=== PATIENT | male | born 1950 | race African-American/Black ===

== ENCOUNTER → 2016-10-06 | Outpatient (CLI) | payer BC, MEDICARE ==
[~2016-10-06] MED LIST: ASPI81TA2 PO; CLOP75TA PO; FURO20TA3 PO; LISI2.5T PO; OLME1TAB29 PO; SIMV20TA3 PO
--- NOTE | 2016-10-06 11:44 | RAD ---
Indication: Smoking history and father with lung carcinoma. Axial imaging through the chest was performed without contrast. Comparison is made with prior CT chest from 09/27/2015. No axillary lymphadenopathy is detected. Multiple, nonpathologically enlarged lymph nodes in the mediastinum are again noted. Aorta shows atherosclerotic calcifications. There are coronary arterial calcifications present. No pericardial or pleural fluid is identified. Fairly significant centrilobular emphysematous changes throughout both lungs are noted. No parenchymal mass is detected. No infiltrates are seen. Minimal scarring in the lingula is noted. The upper abdomen again demonstrates a left adrenal nodule, stable. There is also a nonobstructing calculus in the left kidney, not entirely included on this exam. Impression: Overall stable noncontrast CT of the chest when compared with examination one year earlier. PQRS Compliance Statement: One or more of the following individualized dose reduction techniques were utilized for this examination: 1. Automated exposure control 2. Adjustment of the mA and/or kV according to patient size 3. Use of iterative reconstruction technique
== END | disposition home or self-care (01) ==
LOC: CT 10:42
PROVIDERS: ATTEND Internal Medicine Pulmonary Disease
DX: F17.200 Nicotine dependence, unspecified, uncomplicated (principal); Z80.1 Family history of malignant neoplasm of trachea, bronchus and lung
CPT/HCPCS: 71250

== ENCOUNTER → 2018-09-09 | Outpatient (CLI) | payer BC, MEDICARE ==
[2017-09-15 11:00] VITALS: BP 155/95
[~2018-09-09] MED LIST changes: +ACLI400A2 IH; +ASPI-630 PO; -ASPI81TA2 PO; +DORZ10DR7 OS; +DOXY100T PO; +EYE EACHEYE; +METH4TAB2 PO; +TIOT4MIS3 IH; +VENTOLIN HFA18 GM INH
--- NOTE | 2018-09-10 10:44 | RAD ---
CT chest without contrast. HISTORY: COPD CT CHEST: CT scan of the chest was done without contrast. Comparison is made with a study from August 2017. Thyroid is homogeneous. There is no mediastinal adenopathy or pleural effusion. Visualized portions of the liver and spleen are unremarkable. Right adrenal gland is normal. There is a left adrenal adenoma without change. Measuring 1.8 cm there is a renal calculus on the left without change. There are changes of chronic obstructive pulmonary disease in the lungs. Lungs are free of infiltrates. A pulmonary nodule is not identified. IMPRESSION: 1. Chronic obstructive pulmonary disease. 2. No new infiltrates or nodules. 3. Left adrenal adenoma without change. 4. Left renal calculus without change. 5. Fatty change in the liver. PQRS Compliance Statement: One or more of the following individualized dose reduction techniques were utilized for this examination: 1. Automated exposure control 2. Adjustment of the mA and/or kV according to patient size 3. Use of iterative reconstruction technique Electronically signed by: Edy Aguilera MD (09/10/2018 10:41 AM) [facility]
== END | disposition home or self-care (01) ==
LOC: CT 10:43
PROVIDERS: ATTEND Internal Medicine Pulmonary Disease
DX: J44.9 Chronic obstructive pulmonary disease, unspecified (principal); D35.02 Benign neoplasm of left adrenal gland; N20.0 Calculus of kidney; K76.0 Fatty (change of) liver, not elsewhere classified
CPT/HCPCS: 71250

== ENCOUNTER → 2020-05-21 | Outpatient (CLI) | payer BC ==
[2017-09-15 11:00] VITALS: BP 155/95
[~2020-05-21] MED LIST changes: -ACLI400A2 IH; +ACLI400A3 IH; +SIMV20TA18 PO; -SIMV20TA3 PO
--- NOTE | 2020-05-21 15:17 | RAD ---
PQRS Compliance Statement: One or more of the following individualized dose reduction techniques were utilized for this examinat ion: 1. Automated exposure control 2. Adjustment of the mA and/or kV according to patient size 3. Use of iterative reconstruction technique CT THORAX WO 05/21/2020 10:18 AM Indication: Dyspnea COMPARISON: None available. TECHNIQUE: Multiple axial CT images of the chest were obtained without intravenous contrast. Coronal and sagittal reformats are provided. FINDINGS: Moderate centrilobular pulmonary emphysema. No pleural effusions, pulmonary vascular congestion or pn eumothorax. No new or enlarging solid noncalcified pulmonary nodules. Thoracic aorta is normal in cou rse and caliber with moderate calcified atheromatous plaque. Heart size within normal limits. No miguel cardial effusion. Three-vessel coronary artery vascular opacifications are present. Thyroid gland is normal in appearance. Mild hepatic steatosis. Simple appearing right renal cyst measures 13 mm. Left adrenal adenoma measures 1.8 x 1.7 cm, stable. No suspicious osseous abnormality. IMPRESSION: 1. COPD changes without significant interval change. No new or enlarging solid noncalcified pulmonary nodules. 2. Stable left adrenal adenoma measuring 1.8 x 1.7 cm. 3. Hepatic steatosis. Electronically signed by: Yani Banda MD (05/21/2020 3:15 PM) [facility]
== END ==
LOC: CT 10:37
PROVIDERS: ATTEND Internal Medicine Pulmonary Disease
DX: J43.2 Centrilobular emphysema (principal); K76.0 Fatty (change of) liver, not elsewhere classified; R91.1 Solitary pulmonary nodule; N28.1 Cyst of kidney, acquired
CPT/HCPCS: 71250

== ENCOUNTER 2021-02-19 16:20 | Inpatient (IN) | payer BC ==
[~2021-02-19] VITALS: Ht 177.8 cm; Wt 92.1 kg
[~2021-02-19 16:20] MED LIST changes: -LISI2.5T PO; +LISI2.5T12 PO
--- NOTE | 2021-02-19 16:24 | PHYS DOC ---
Past Medical History Past Medical History: CAD, COPD, Glaucoma, Heart Disease, Hypertension Additional Past Medical Histor: BRAIN ANEURYSM X 2 Additional Past Surgical Histo: CARDIAC STENT X 5, BILAT ROTATOR CUFF SX, HEMORRHOIDECTOMY Smoking Status: Current Every Day Smoker Alcohol Use: None Drug Use: None General Adult HPI: HPI: 70 yo M PMH CAD, HFrEF (40-45% 2018), HTN, HLD, obesity and tobacco use, presents to the ed bibems with c/o shortness of breath that started last night with associated chest tightness. H/o moderna covid vaccine. States he takes prednisone daily. No relief with 2 DuoNeb's prior to EMS arrival. Patient arrived on CPAP. No known exposure to covid. Review of Systems: Review of Systems: Constitutional: Denies fever or chills. [] Eyes: Denies change in visual acuity. [] HENT: Denies nasal congestion or sore throat. [] Respiratory: Denies cough or hemoptysis Cardiovascular: Denies or edema. [] GI: Denies abdominal pain, nausea, vomiting, bloody stools or diarrhea. [] : Denies dysuria or hematuria Musculoskeletal: Denies back pain or joint pain. [] Integument: Denies rash or diaphoresis Neurologic: Denies headache, focal weakness or sensory changes. [] Endocrine: Denies polyuria or polydipsia. [] Lymphatic: Denies swollen glands. [] Psychiatric: Denies depression or anxiety. [] Heart Score: C/O Chest Pain: Yes Risk Factors: Risk Factors: DM, Current or recent (<one month) smoker, HTN, HLP, family history of CAD, obesity. Risk Scores: Score 0 - 3: 2.5% MACE over next 6 weeks - Discharge Home Score 4 - 6: 20.3% MACE over next 6 weeks - Admit for Clinical Observation Score 7 - 10: 72.7% MACE over next 6 weeks - Early Invasive Strategies Allergies: Allergies: Allergies Coded Allergies Type Severity Reaction Last Updated Verified prednisone Allergy Severe Shortness of Air 09/11/17 Yes Physical Exam: PE: Constitutional: Afebrile, uncomfortable appearing HENT: Normocephalic, atraumatic, moist mucous membranes Eyes: EOMI, conjunctiva normal, no discharge. Neck: Normal range of motion, supple, no nuchal rigidity meningismus Cardiovascular: S1/2 present, irregular rhythm Lungs & Thorax: Speaking in 1-2 word sentences with tripod positioning when CPAP was removed, very tight lung sounds/poor aeration with expiratory wheezing, sternal and subcostal retractions Abdomen: soft, no tenderness, Skin: Warm, dry, no erythema, no rash. [] Back: No tenderness, no CVA tenderness. [] Extremities: No tenderness, no cyanosis, bilateral equal lower extremity edema Neurologic: Alert and oriented X 3, normal motor function, normal sensory function, no focal deficits noted. [] Psychologic: Affect normal, judgement normal, mood normal. [] EKG: EKG: A. fib at 149 bpm, no axis deviation, QTC 467, no ST elevations or ST depressions Radiology/Procedures: Radiology/Procedures: IMAGING REPORT Signed PATIENT: ADAM FERRER QACCOUNT: [id number] : 1950 LOCATION: ER AGE: 70 SEX: M EXAM STATUS: PRE ER ORD. PHYSICIAN: STEPH OCHOA DO REASON: soa PROCEDURE: PORTABLE CHEST 1V XR CHEST 1V CLINICAL INDICATIONS: Shortness of air: COMPARISON: September 14, 2017. Findings: There is head right lung base consolidative infiltrate with a right sided small pleural effusion. No pneumothorax is seen. Cardiomegaly is evident. Mediastinum is remarkable. IMPRESSION: Right lung base consolidative infiltrate with a small right-sided pleural effusion. Cardiomegaly. Electronically signed by: Thang Rowe MD (02/19/2021 4:57 PM) [id number] DICTATED and SIGNED BY: THANG ROWE MD DATE: 02/19/21 [id number] Course & Med Decision Making: Course & Med Decision Making Pertinent Labs and Imaging studies reviewed. (See chart for details) Concern for acute hypoxic respiratory failure in the setting of COPD exacerbation, community-acquired pneumonia and small right pleural effusion. Covid test is pending. Meets sirs criteria and started on abx. HR 101 after 15mg cardizem. Will need repeat troponin.On re-evaluation, pt with no further retractions or tachypnea, is breathing comfortably on the BiPAP. Will admit for further medical management. Patient stable time of admission agrees to this plan. I have spoken with the patient and/or caregivers. I have explained the patient's condition, diagnosis and treatment plan based on the information available to me at this time. I have answered the patient's and/or caregivers questions and answered any concerns. The patient and/or caregivers have as good an understanding of the patient's diagnosis, condition and treatment plan as can be expected at this point. The patient has been stabilized within the capability of the emergency department. The patient will be transported for further care and management or will be moved to an observation or inpatient service. I have communicated with the staff or medical practitioner taking over this patient's care. Critical Care: Authorized and Performed by: Steph Ochoa DO Total critical care time: approximately 40 minutes Due to a high probability of clinically significant, life threatening deterioration, the patient required my highest level of preparedness to intervene emergently and I personally spent this critical care time directly and personally managing the patient. This critical care time included obtaining a history; examining the patient; pulse oximetry; ventilator management if neces maricel; ordering and review of studies; arranging urgent treatment with development of a management plan; evaluation of patient's response to treatment; frequent reassessment; discussion with patient/family; and, discussions with other providers. This critical care time was performed to assess and manage the high probability of imminent, life-threatening deterioration that could result in multi-organ failure. It was exclusive of separately billable procedures and treating other patients and teaching time. Please see MDM section and the rest of the note for further information on patient assessment and treatment. Jackie Disclaimer: Jackie Disclaimer: This electronic medical record was generated, in whole or in part, using a voice recognition dictation system. Departure Departure Impression: Primary Impression: Sepsis with acute hypoxic respiratory failure Additional Impressions: Community acquired pneumonia Person under investigation for COVID-19 Atrial fibrillation with rapid ventricular response COPD with exacerbation Disposition: ADMITTED INPATIENT Admitting Physician: RIANNA (Dr. Landeros) Condition: GUARDED Referrals: MELY BERUMEN MD (PCP) STEPH OCHOA DO Feb 19, 2021 16:24
[2021-02-19] MEDS ORDERED: cefTRIAXone IV Push 1 GM VIAL. IVP ONE (16:45)
[2021-02-19] MEDS ORDERED: DEXAMETHASONE SOD PHOS 20 MG/5 ML VIAL. IV ONE (16:45)
[2021-02-19] MEDS ORDERED: IPRATRPIUM/ALBUTEROL 0.5/2.5MG 3 ML NEBU. NEB ONE (16:45)
[2021-02-19] MEDS ORDERED: AZITHRMYCN 500MG IVPB FOR OMNI 250 ML IV ONE (16:45)
--- NOTE | 2021-02-19 16:48 | EKG ---
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
[2021-02-19 16:58] LABS: BASO # 0.1 x10^3/uL (0.0-0.2); BASO % 1 % (0-3); EOS % 0 % (0-3); HEMATOCRIT 46.2 % (39.0-53.0); HEMOGLOBIN 14.5 g/dL (13.0-17.5); LYMPH # 1.5 x10^3/uL (1.0-4.8); LYMPH % 13 % (24-48); MEAN CORPUSCULAR HEMOGLOBIN 24 pg (25-35); MEAN CORPUSCULAR HGB CONC 31 g/dL (31-37); MEAN CORPUSCULAR VOLUME 76 fL (79-100); MONO # 1.8 x10^3/uL (0.0-1.1); MONO % 16 % (0-9); NEUT % 71 % (31-73); PLATELET COUNT 315 x10^3/uL (140-400); RED BLOOD COUNT 6.12 x10^6/uL (4.30-5.70); RED CELL DISTRIBUTION WIDTH 18.7 % (11.5-14.5); WHITE BLOOD COUNT 11.3 x10^3/uL (4.0-11.0)
--- NOTE | 2021-02-19 16:59 | RAD ---
XR CHEST 1V CLINICAL INDICATIONS: Shortness of air: COMPARISON: September 14, 2017. Findings: There is head right lung base consolidative infiltrate with a right sided small pleural eff usion. No pneumothorax is seen. Cardiomegaly is evident. Mediastinum is remarkable. IMPRESSION: Right lung base consolidative infiltrate with a small right-sided pleural effusion. Cardiomegaly. Electronically signed by: Thang Rowe MD (02/19/2021 4:57 PM) [id number]
[2021-02-19 17:13] LABS: PROTHROMBIN TIME PATIENT 14.3 SEC (11.7-14.0)
[2021-02-19 17:19] LABS: CALCIUM 8.9 mg/dL (8.5-10.1); CREATININE 1.3 mg/dL (0.7-1.3); GFR 65.7
[2021-02-19 17:21] LABS: BASE EXCESS COOX 2 mmol/L (-3-3); HCO3 COOX 27 mmol/L (21-28); METHEMOGLOBIN 0.5 % (0.0-1.9); OXYHEMOGLOBIN 98.4 %; PCO2 COOX 44 mmHg (35-46); PO2 COOX 283 mmHg (65-108); SAT O2 COOX 99 % (92-99)
[2021-02-19 17:27] LABS: ALBUMIN 3.3 g/dL (3.4-5.0); DIRECT BILIRUBIN 0.3 mg/dL (0.0-0.2); TOTAL BILIRUBIN 0.8 mg/dL (0.2-1.0); TOTAL PROTEIN 7.2 g/dL (6.4-8.2)
[2021-02-19] MEDS ORDERED: MORPHINE SULFATE 2 MG/ML INJ. IV PRN ×2 (17:45)
[2021-02-19] MEDS ORDERED: ONDANSETRON PF 4 MG/2 ML VIAL. IVP PRN (17:45)
[2021-02-19] MEDS ORDERED: ELECTROLYTE (NON-ICU) PROTOCOL. MC PRN (17:45)
[2021-02-19] MEDS ORDERED: oxyCODONE IR 5 MG TABLET PO PRN ×2 (17:45)
[2021-02-19] MEDS ORDERED: ACETAMINOPHEN 325 MG TABLET. PO PRN (17:45)
--- NOTE | 2021-02-19 17:46 | PDOC1 ---
History and Physical Date of Service: DOS: DATE: 02/19/21 TIME: 17:45 Chief Complaint: Problems: (1) COPD with exacerbation (2) Atrial fibrillation with rapid ventricular response (3) Person under investigation for COVID-19 (4) Sepsis with acute hypoxic respiratory failure (5) Community acquired pneumonia Chief Complain: Shortness of breath History of Present Illness: HPI: History somewhat limited secondary to patient on BiPAP with respiratory distress Patient 70-year-old -[place] male presented emergency room today due to progressive shortness of breath from yesterday with some chest tightness. Patient has pretty severe COPD, follows with Dr. Samuels. Patient also has heart failure reduced ejection fraction with 40-45% 2018. He is also notably fluid overloaded on exam. Not on any home diuretics. No known Covid exposures. Has both Moderna shots. Patient received 2 DuoNeb's and transit with EMS. They did have to place him on CPAP as there is very minimal improvement with breathing treatments. When I evaluated the patient in the emergency room he was resting in bed on BiPAP. He is denying any sort of headache, vision changes, dizziness, abdominal pain, joint pain. He did have an episode of A. fib with RVR in the emergency room resolved with one-time diltiazem bolus. Past Medical/Surgical History: PMH/PSH: CAD, COPD, Glaucoma, Heart Disease, Hypertension Allergies: Allergies: Coded Allergies: prednisone (Verified Allergy, Severe, Shortness of Air, 09/11/17) Family History: Family History: Noncontributory Social History: Social History: Ex-smoker, denies alcohol drug use Current Medications: Current Medications Current Medications Dexamethasone Sodium Phosphate (Decadron) 10 mg 1X ONCE IV Last administered on 02/19/21at 17:26; Start 02/19/21 at 16:45; Stop 02/19/21 at 16:46; Status DC Albuterol/ Ipratropium (Duoneb) 3 ml 1X ONCE NEB ; Start 02/19/21 at 16:45; Stop 02/19/21 at 16:46; Status DC Azithromycin 250 ml @ 250 mls/hr 1X ONCE IV Last administered on 02/19/21at 17:30; Start 02/19/21 at 16:45; Stop 02/19/21 at 17:44; Status DC Ceftriaxone Sodium (Rocephin) 1 gm 1X ONCE IVP Last administered on 02/19/21at 17:26; Start 02/19/21 at 16:45; Stop 02/19/21 at 16:46; Status DC Diltiazem HCl (Cardizem Iv Push) 15 mg 1X ONCE IVP Last administered on 02/19/21at 17:29; Start 02/19/21 at 17:00; Stop 02/19/21 at 17:01; Status DC Ondansetron HCl (Zofran) 4 mg PRN Q6HRS PRN IVP NAUSEA/VOMITING; Start 02/19/21 at 17:45; Status UNV Calcium Carbonate/ Glycine (Tums) 500 mg PRN Q3HRS PRN PO UPSET STOMACH; Start 02/19/21 at 17:45; Status UNV Zolpidem Tartrate (Ambien) 5 mg PRN QHS PRN PO INSOMNIA, MAY REPEAT IN 1HR; Start 02/19/21 at 17:45; Status UNV Info (Non-Icu Electrolyte Protocol) 1 ea PRN DAILY PRN MC SEE COMMENTS; Start 02/19/21 at 17:45; Status UNV Active Scripts Active Stiolto Respimat Inhal Wall (Tiotropium Br/Olodaterol HCl) 4 Gm Mist.inhal 4 Gm IH DAILY Doxycycline Hyclate 100 Mg Tablet 100 Mg PO BID Medrol (Methylprednisolone) 4 Mg Tab.ds.pk 1 Pkg PO UD Reported Dorzolamide-Timolol Eye Drops (Dorzolamide Hcl/Timolol Maleat) 10 Ml Drops 1 Drop OS QHS Ventolin Hfa Inhaler (Albuterol Sulfate) 18 Gm Hfa.aer.ad 2 Puff INH Q4HRS Tudorza Pressair (Aclidinium [place]) 400 Mcg Aer.pow.ba 400 Mcg IH BID Tribenzor 40-5-12.5 Mg Tablet (Olmesartan/Amlodipin/Hcthiazid) 1 Each Tablet 1 Each PO DAILY ROS: Review of Systems Review of System Negative unless noted in HPI Physical Exam: Vital Signs: Vital Signs Date Time Temp Pulse Resp B/P (MAP) Pulse Ox O2 Delivery O2 Flow Rate FiO2 02/19/21 17:29 141 131/70 02/19/21 16:31 99 BiPAP/CPAP 02/19/21 16:20 98.4 27 98.4 Physcial Exam: GEN: On BiPAP, can answer yes/no questions HEENT: Normal cephalic, atraumatic, external auditory canals are patent EYES: Extraocular muscles are intact MUSCULOSKELETAL: Well developed , well nourished ENDOCRINE: No thyromegaly was palpated LYMPHATICS: No cervical chain or axillary nodes were noted HEMATOPOIETIC: No bruising NECK: Supple, no JVD, no thyromegaly was noted LUNGS: Very coarse breath sounds throughout but difficult to hear with BiPAP on HEART: Tachycardic, no apparent murmur, peripheral pulses intact ABDOMEN: Soft, nontender. Positive bowel sounds, no organomegaly, normal bowel sounds EXTREMITIES: Bilateral lower extremity pitting edema NEUROLOGIC: Normal speech and tone. A&O x 3, moves all extremities, no obvious focal deficits PSYCHIATRIC: Normal affect, normal mood. Stable SKIN: No ulcerations or rashes, good skin turgor, no jaundice VASCULAR: Good capillary refill, neurovascular bundle appears to be intact Labs: Labs: Laboratory Tests Test 02/19/21 16:35 02/19/21 17:15 White Blood Count 11.3 x10^3/uL (4.0-11.0) Red Blood Count 6.12 x10^6/uL (4.30-5.70) Hemoglobin 14.5 g/dL (13.0-17.5) Hematocrit 46.2 % (39.0-53.0) Mean Corpuscular Volume 76 fL (79-100) Mean Corpuscular Hemoglobin 24 pg (25-35) Mean Corpuscular Hemoglobin Concent 31 g/dL (31-37) Red Cell Distribution Width 18.7 % (11.5-14.5) Platelet Count 315 x10^3/uL (140-400) Neutrophils (%) (Auto) 71 % (31-73) Lymphocytes (%) (Auto) 13 % (24-48) Monocytes (%) (Auto) 16 % (0-9) Eosinophils (%) (Auto) 0 % (0-3) Basophils (%) (Auto) 1 % (0-3) Neutrophils # (Auto) 8.0 x10^3/uL (1.8-7.7) Lymphocytes # (Auto) 1.5 x10^3/uL (1.0-4.8) Monocytes # (Auto) 1.8 x10^3/uL (0.0-1.1) Eosinophils # (Auto) 0.0 x10^3/uL (0.0-0.7) Basophils # (Auto) 0.1 x10^3/uL (0.0-0.2) Prothrombin Time 14.3 SEC (11.7-14.0) Prothromb Time International Ratio 1.1 (0.8-1.1) Activated Partial Thromboplast Time 32 SEC (24-38) D-Dimer (Ghada) 1.67 ug/mlFEU (0.00-0.50) Sodium Level 142 mmol/L (136-145) Potassium Level 4.0 mmol/L (3.5-5.1) Chloride Level 104 mmol/L (98-107) Carbon Dioxide Level 28 mmol/L (21-32) Anion Gap 10 (6-14) Blood Urea Nitrogen 19 mg/dL (8-26) Creatinine 1.3 mg/dL (0.7-1.3) Estimated GFR (Cockcroft-Gault) 65.7 Glucose Level 184 mg/dL (70-99) Lactic Acid Level 3.0 mmol/L (0.4-2.0) Calcium Level 8.9 mg/dL (8.5-10.1) Total Bilirubin 0.8 mg/dL (0.2-1.0) Direct Bilirubin 0.3 mg/dL (0.0-0.2) Aspartate Amino Transf (AST/SGOT) 32 U/L (15-37) Alanine Aminotransferase (ALT/SGPT) 41 U/L (16-63) Alkaline Phosphatase 145 U/L (46-116) Creatine Kinase 197 U/L (39-308) Troponin I Quantitative 0.043 ng/mL (0.000-0.055) FJ-Ytg-P-Type Natriuretic Peptide 2960 pg/mL (0-124) Total Protein 7.2 g/dL (6.4-8.2) Albumin 3.3 g/dL (3.4-5.0) O2 Saturation 99 % (92-99) Arterial Blood pH 7.40 (7.35-7.45) Arterial Blood pCO2 at Patient Temp 44 mmHg (35-46) Arterial Blood pO2 at Patient Temp 283 mmHg (65-108) Arterial Blood HCO3 27 mmol/L (21-28) Arterial Blood Base Excess 2 mmol/L (-3-3) Oxyhemoglobin 98.4 % Methemoglobin 0.5 % (0.0-1.9) Carbon Monoxide, Quantitative 0.4 % (0.0-1.9) FiO2 100 Laboratory Tests Test 02/19/21 16:35 02/19/21 17:15 White Blood Count 11.3 x10^3/uL (4.0-11.0) Red Blood Count 6.12 x10^6/uL (4.30-5.70) Hemoglobin 14.5 g/dL (13.0-17.5) Hematocrit 46.2 % (39.0-53.0) Mean Corpuscular Volume 76 fL (79-100) Mean Corpuscular Hemoglobin 24 pg (25-35) Mean Corpuscular Hemoglobin Concent 31 g/dL (31-37) Red Cell Distribution Width 18.7 % (11.5-14.5) Platelet Count 315 x10^3/uL (140-400) Neutrophils (%) (Auto) 71 % (31-73) Lymphocytes (%) (Auto) 13 % (24-48) Monocytes (%) (Auto) 16 % (0-9) Eosinophils (%) (Auto) 0 % (0-3) Basophils (%) (Auto) 1 % (0-3) Neutrophils # (Auto) 8.0 x10^3/uL (1.8-7.7) Lymphocytes # (Auto) 1.5 x10^3/uL (1.0-4.8) Monocytes # (Auto) 1.8 x10^3/uL (0.0-1.1) Eosinophils # (Auto) 0.0 x10^3/uL (0.0-0.7) Basophils # (Auto) 0.1 x10^3/uL (0.0-0.2) Prothrombin Time 14.3 SEC (11.7-14.0) Prothromb Time International Ratio 1.1 (0.8-1.1) Activated Partial Thromboplast Time 32 SEC (24-38) D-Dimer (Ghada) 1.67 ug/mlFEU (0.00-0.50) Sodium Level 142 mmol/L (136-145) Potassium Level 4.0 mmol/L (3.5-5.1) Chloride Level 104 mmol/L (98-107) Carbon Dioxide Level 28 mmol/L (21-32) Anion Gap 10 (6-14) Blood Urea Nitrogen 19 mg/dL (8-26) Creatinine 1.3 mg/dL (0.7-1.3) Estimated GFR (Cockcroft-Gault) 65.7 Glucose Level 184 mg/dL (70-99) Lactic Acid Level 3.0 mmol/L (0.4-2.0) Calcium Level 8.9 mg/dL (8.5-10.1) Total Bilirubin 0.8 mg/dL (0.2-1.0) Direct Bilirubin 0.3 mg/dL (0.0-0.2) Aspartate Amino Transf (AST/SGOT) 32 U/L (15-37) Alanine Aminotransferase (ALT/SGPT) 41 U/L (16-63) Alkaline Phosphatase 145 U/L (46-116) Creatine Kinase 197 U/L (39-308) Troponin I Quantitative 0.043 ng/mL (0.000-0.055) WY-Qgu-O-Type Natriuretic Peptide 2960 pg/mL (0-124) Total Protein 7.2 g/dL (6.4-8.2) Albumin 3.3 g/dL (3.4-5.0) O2 Saturation 99 % (92-99) Arterial Blood pH 7.40 (7.35-7.45) Arterial Blood pCO2 at Patient Temp 44 mmHg (35-46) Arterial Blood pO2 at Patient Temp 283 mmHg (65-108) Arterial Blood HCO3 27 mmol/L (21-28) Arterial Blood Base Excess 2 mmol/L (-3-3) Oxyhemoglobin 98.4 % Methemoglobin 0.5 % (0.0-1.9) Carbon Monoxide, Quantitative 0.4 % (0.0-1.9) FiO2 100 Assessment/Plan Assessment/Plan Acute on chronic hypoxic respiratory failure secondary to community acquired pneumonia, patient under investigation for COVID-19, COPD exacerbation, possible pulmonary embolism, sepsis -Patient with worsening shortness of breath over the last 24 hours -Not improved with breathing treatments. Required to be placed on CPAP in emergency room, still requiring -Chest x-ray shows right-sided consolidation, received azithromycin and Rocephin in emergency room. -We will continue azithromycin. Start Unasyn. -Pulmonary consulted, patient follows with Dr. Samuels -Given his shortness of breath of a somewhat sudden onset and elevated D-dimer will check CT PE. -Patient notably fluid overloaded on exam, small right-sided pleural effusion history of reduced ejection fraction -Giving one-time IV Lasix 40. Cardiology consult as well. Echo ordered -Home medications as indicated, inhalers will have to be replaced with formulary alternatives -DVT prophylaxis Justifications for Admission Other Justification MAT MELCHOR MD Feb 19, 2021 17:46
[2021-02-19] MEDS ORDERED: FUROSEMIDE 40 MG/4 ML VIAL. IVP ONE (18:00)
[2021-02-19 18:06] LABS: INFLUENZA A PATIENT NEGATIVE (NEGATIVE); INFLUENZA B PATIENT NEGATIVE (NEGATIVE)
[2021-02-19] MEDS: IPRATRPIUM/ALBUTEROL 0.5/2.5MG 3 ML NEBU. NEB SCH (20:00)
[2021-02-19] MEDS: ALBUTEROL SULFATE 2.5 MG/3 ML NEBU. NEB SCH (20:00)
[2021-02-19 20:10] VITALS: BP 129/63
[2021-02-19] MEDS ORDERED: NON FORMULARY ITEM (Aclidinium Bromide (Tudorza Pressair) 400 MCG) IH SCH (21:00)
[2021-02-19] MEDS: SENNOSIDES/DOCUSATE 8.6/50MG TABLET. PO SCH (21:20)
[2021-02-19] MEDS: HEPARIN for SUB-Q USE 5,000 UNIT/ML VIAL. SQ SCH (21:25)
[2021-02-19] MEDS: methylPREDNISolone SOD SUCC PF 40 MG/ML VIAL. IV SCH (21:25)
[2021-02-19] MEDS: DORZOLAMIDE 2% OPHTH SOLUTION 10ML BOTTLE. OD SCH (21:27)
[2021-02-19] MEDS: TIMOLOL 0.5% OPHTH SOLUTION 5ML BOTTLE. OS SCH (21:27)
[2021-02-19 22:38] VITALS: BP 132/68
[2021-02-19] MEDS ORDERED: INFLUENZA VAX SCREEN BY RX. MC ONE (23:00)
[2021-02-19] MEDS ORDERED: INFLUENZA VAX SCREEN BY RX. MC PRN (23:15)
[2021-02-19] MEDS: AMPICILLIN/SULBACTAM 3 GM in IV NORMAL SALINE 100ML 100 ML IV SCH (23:46)
[2021-02-20] VITALS (7 sets, daily range): BP systolic 120–154; BP diastolic 59–90
[2021-02-20] MEDS: ALBUTEROL SULFATE 2.5 MG/3 ML NEBU. NEB SCH ×3 (04:00→07:01)
[2021-02-20] MEDS: methylPREDNISolone SOD SUCC PF 40 MG/ML VIAL. IV SCH ×3 (05:59→21:17)
[2021-02-20] MEDS: AMPICILLIN/SULBACTAM 3 GM in IV NORMAL SALINE 100ML 100 ML IV SCH ×3 (05:59→17:52)
[2021-02-20] MEDS: HEPARIN for SUB-Q USE 5,000 UNIT/ML VIAL. SQ SCH (05:59)
[2021-02-20] MEDS: IPRATRPIUM/ALBUTEROL 0.5/2.5MG 3 ML NEBU. NEB SCH ×4 (06:44→19:56)
--- NOTE | 2021-02-20 06:47 | NUR ---
Patient arrived to unit at approx 2000 accompanied by ED RN. Patient reports no pain at this time. States that he wears oxygen PRN at home but does not know the amount. patient has had 2 doses of the Pfizer vaccine. Patient states she does not know the patients home meds and patient does not have a list of the medication, uses [facility]. Will continue to monitor. call light in reach, bed in low locked position, will continue to monitor.
[2021-02-20] MEDS ORDERED: IOHEXOL 350 MG/ML 100 ML VIAL. IV ONE (07:30)
[2021-02-20] MEDS ORDERED: NON FORMULARY ITEM (Tiotropium Br/Olodaterol HCl (Stiolto Respimat Inhal Spray) 4 GM) IH SCH (09:00)
[2021-02-20] MEDS ORDERED: hydroCHLOROthiazide 12.5 MG CAPSULE PO SCH (09:00)
[2021-02-20] MEDS ORDERED: LOSARTAN POTASSIUM 50 MG TABLET. PO SCH (09:00)
[2021-02-20] MEDS ORDERED: FURO40TA4 PO (09:10)
[2021-02-20] MEDS ORDERED: METF500T16 PO (09:10)
[2021-02-20] MEDS ORDERED: BUDE10.2 IH (09:10)
[2021-02-20] MEDS ORDERED: AMLO-187 PO (09:10)
[2021-02-20] MEDS ORDERED: OLME40TA12 PO (09:10)
[2021-02-20] MEDS ORDERED: ATOR40TA59 PO (09:10)
[2021-02-20] MEDS ORDERED: GLIP5TAB10 PO (09:10)
[2021-02-20] MEDS: METOPROLOL IV PUSH 5 MG/5 ML VIAL. IVP PRN ×2 (09:47→21:19)
--- NOTE | 2021-02-20 11:03 | PDOC2 ---
ALFREDITO GUTIERRES FINAL RAIL CUTTER 02/20/21 1103: CARDIAC CONSULT DATE OF CONSULT Date of Consult DATE: 02/20/21 TIME: 10:54 REASON FOR CONSULT Reason for Consult: CHF REFERRING PHYSICIAN Referring Physician: Dr. Landeros SOURCE Source: Chart review, Patient HISTORY OF PRESENT ILLNESS HISTORY OF PRESENT ILLNESS This is a 70 yo male who presented secondary to shortness of breath and chest tightness. Patient reports experiencing shortness of breath and lower extremity edema for the last 2 weeks. Dyspnea has progressively worsened. Has cough productive of yellow sputum. No fevers. Developed tightness across his central c hest. Feels like there is fluid in his chest. Denies any palpitations, but was noted in AFIB with RVR upon arrival. No previous h/o AFIB. Is presently on BiPAP. Remains in AFIB with mildly elevated heart rate. Does have a history of CMP and CAD s/p PCI/stents. Has not followed with pickle sorter in recent years. PAST MEDICAL HISTORY Cardiovascular: CAD, CHF, HTN Pulmonary: COPD PAST SURGICAL HISTORY Past Surgical History: Other (right shoulder surgery) FAMILY HISTORY Family History: Heart Disease, Hypertension SOCIAL HISTORY Smoke: <1 pack per day ALCOHOL: none Drugs: None Lives: with Family CURRENT MEDICATIONS CURRENT MEDICATIONS Current Medications Medications (Trade) Dose Ordered Sig/Rajinder Route PRN Reason Start Time Stop Time Status Last Admin Dose Admin Dexamethasone Sodium Phosphate (Decadron) 10 mg 1X ONCE IV 02/19/21 16:45 02/19/21 16:46 DC 02/19/21 17:26 Azithromycin 250 ml @ 250 mls/hr 1X ONCE IV 02/19/21 16:45 02/19/21 17:44 DC 02/19/21 17:30 Ceftriaxone Sodium (Rocephin) 1 gm 1X ONCE IVP 02/19/21 16:45 02/19/21 16:46 DC 02/19/21 17:26 Diltiazem HCl (Cardizem Iv Push) 15 mg 1X ONCE IVP 02/19/21 17:00 02/19/21 17:01 DC 02/19/21 17:29 Senna/Docusate Sodium (Senna Plus) 1 tab BID PO 02/19/21 21:00 02/19/21 21:20 Heparin Sodium (Porcine) (Heparin Sodium) 5,000 unit Q8HRS SQ 02/19/21 22:00 02/20/21 05:59 Dorzolamide HCl (Trusopt) 1 drop QHS OD 02/19/21 21:00 02/19/21 21:27 Ampicillin Sodium/ Sulbactam Sodium 3 gm/Sodium Chloride 100 ml @ 200 mls/hr Q6HRS IV 02/20/21 00:00 02/20/21 05:59 Furosemide (Lasix) 40 mg 1X ONCE IVP 02/19/21 18:00 02/19/21 18:25 DC 02/19/21 18:52 Timolol Maleate (Timoptic 0.5% Oph) 1 drop QHS OS 02/19/21 21:00 02/19/21 21:27 Methylprednisolone Sodium Succinate (SOLU-Medrol 40MG VIAL) 40 mg Q8HRS IV 02/19/21 22:00 02/20/21 05:59 Metoprolol Tartrate (Lopressor Vial) 5 mg PRN Q1HR PRN IVP HYPERTENSION 02/20/21 00:00 02/20/21 09:47 ALLERGIES ALLERGIES: Coded Allergies: prednisone (Verified Allergy, Severe, Shortness of Air, 02/19/21) pt says he is allergic to prednisone because it killed his . ROS Review of System 14 point ROS conducted with pertinent positives noted above in HPI PHYSICAL EXAM General: Alert, Oriented X3, Cooperative, No acute distress HEENT: Atraumatic Lungs: Other (on BiPAP) Heart: Other (IRRR; tele AFIB rate 110-120) Abdomen: Soft, No tenderness Extremities: Other (1-2+ bilateral LE edema ) Skin: No significant lesion Neuro: Normal speech, Sensation intact Psych/Mental Status: Mental status NL, Mood NL MUSCULOSKELETAL: Osteoarthritic changes both hands VITALS/I&O VITALS/I&O: Vital Signs Date Time Temp Pulse Resp B/P (MAP) Pulse Ox O2 Delivery O2 Flow Rate FiO2 02/20/21 10:46 96.1 120 21 149/86 (107) 99 BiPAP/CPAP 96.1 I & O 02/19/21 02/19/21 02/20/21 15:00 23:00 07:00 Intake Total 350 ml Output Total 150 ml Balance 350 ml -150 ml LABS Lab: Laboratory Tests Test 02/19/21 16:35 02/19/21 17:15 02/19/21 17:35 02/19/21 20:25 White Blood Count 11.3 x10^3/uL (4.0-11.0) H Red Blood Count 6.12 x10^6/uL (4.30-5.70) H Hemoglobin 14.5 g/dL (13.0-17.5) Hematocrit 46.2 % (39.0-53.0) Mean Corpuscular Volume 76 fL (79-100) L Mean Corpuscular Hemoglobin 24 pg (25-35) L Mean Corpuscular Hemoglobin Concent 31 g/dL (31-37) Red Cell Distribution Width 18.7 % (11.5-14.5) H Platelet Count 315 x10^3/uL (140-400) Neutrophils (%) (Auto) 71 % (31-73) Lymphocytes (%) (Auto) 13 % (24-48) L Monocytes (%) (Auto) 16 % (0-9) H Eosinophils (%) (Auto) 0 % (0-3) Basophils (%) (Auto) 1 % (0-3) Neutrophils # (Auto) 8.0 x10^3/uL (1.8-7.7) H Lymphocytes # (Auto) 1.5 x10^3/uL (1.0-4.8) Monocytes # (Auto) 1.8 x10^3/uL (0.0-1.1) H Eosinophils # (Auto) 0.0 x10^3/uL (0.0-0.7) Basophils # (Auto) 0.1 x10^3/uL (0.0-0.2) Prothrombin Time 14.3 SEC (11.7-14.0) H Prothrombin Time INR 1.1 (0.8-1.1) Activated Partial Thromboplast Time 32 SEC (24-38) D-Dimer (Ghada) 1.67 ug/mlFEU (0.00-0.50) H Sodium Level 142 mmol/L (136-145) Potassium Level 4.0 mmol/L (3.5-5.1) Chloride Level 104 mmol/L (98-107) Carbon Dioxide Level 28 mmol/L (21-32) Anion Gap 10 (6-14) Blood Urea Nitrogen 19 mg/dL (8-26) Creatinine 1.3 mg/dL (0.7-1.3) Estimated GFR (Cockcroft-Gault) 65.7 Glucose Level 184 mg/dL (70-99) H Lactic Acid Level 3.0 mmol/L (0.4-2.0) H 2.7 mmol/L (0.4-2.0) H Calcium Level 8.9 mg/dL (8.5-10.1) Total Bilirubin 0.8 mg/dL (0.2-1.0) Direct Bilirubin 0.3 mg/dL (0.0-0.2) H Aspartate Amino Transferase (AST) 32 U/L (15-37) Alanine Aminotransferase (ALT) 41 U/L (16-63) Alkaline Phosphatase 145 U/L (46-116) H Creatine Kinase 197 U/L (39-308) Troponin I Quantitative 0.043 ng/mL (0.000-0.055) AU-Bjt-R-Type Natriuretic Peptide 2960 pg/mL (0-124) H Total Protein 7.2 g/dL (6.4-8.2) Albumin 3.3 g/dL (3.4-5.0) L O2 Saturation 99 % (92-99) Arterial Blood pH 7.40 (7.35-7.45) Arterial Blood pCO2 at Patient Temp 44 mmHg (35-46) Arterial Blood pO2 at Patient Temp 283 mmHg (65-108) H Arterial Blood HCO3 27 mmol/L (21-28) Arterial Blood Base Excess 2 mmol/L (-3-3) Oxyhemoglobin 98.4 % Methemoglobin 0.5 % (0.0-1.9) Carbon Monoxide, Quantitative 0.4 % (0.0-1.9) FiO2 100 Influenza Type A Antigen Negative (NEGATIVE) Influenza Type B Antigen Negative (NEGATIVE) SARS-CoV-2 Antigen (Rapid) Negative (NEGATIVE) Test 02/20/21 02:00 02/20/21 07:05 Lactic Acid Level 2.3 mmol/L (0.4-2.0) H 2.2 mmol/L (0.4-2.0) H Laboratory Tests 02/19/21 16:35 Laboratory Tests 02/19/21 16:35 ASSESSMENT/PLAN ASSESSMENT/PLAN 1. Acute respiratory failure, multifactorial with a/c CHF, AE COPD with continued tobaccoism, and probable PNA 2. Acute on chronic systolic CHF; s/p IV Lasix 3. AFIB with RVR; new onset; remains in AFIB with elevated HR 4. CAD: past PCI to LCx and RCA. 5. Chest pressure; atypical. Initial trop 0.04 6. Cardiomyopathy: Echo 2017 showed mild LV dysfunction with an EF 40-45% 7. Valvular insufficiency: mild TR/mild to mod MR 8. Hypertension 9. Hyperlipidmeia 10. Leukocytosis, lactic acidosis. 11. PUI; rapid negative. s/p Moderna COVID vaccine Recommendations Metoprolol IV x1 now Start oral metoprolol for rate control Repeat labs Diuresis TSH, lipids, trend troponin Secondary prevention [id number] 4 correlating with a 4.8% risk of stroke per year. Would recommend OAC for stroke prevention. Will give treatment dose of Lovenox now. Echo if PCR negative Supportive care Probably outpatient ischemic evaluation Further pending above LES GONCALVES MD 02/21/21 1704: CARDIAC CONSULT ASSESSMENT/PLAN ASSESSMENT/PLAN Late entry for 02/20/21 The patient was seen and interviewed as well as examined at the bedside. The chart was reviewed. The case was discussed. Agree with the plan of care. ALFREDITO GUTIERRES APRN Feb 20, 2021 11:03 LES GONCALVES MD Feb 21, 2021 17:04
[2021-02-20] MEDS ORDERED: metFORMIN 500 MG TABLET PO SCH (12:00)
[2021-02-20] MEDS ORDERED: glipiZIDE 5 MG TABLET PO SCH (12:00)
[2021-02-20] MEDS: LOSARTAN POTASSIUM 50 MG TABLET. PO SCH (12:11)
[2021-02-20] MEDS: ATORVASTATIN CALCIUM 40 MG TABLET. PO SCH (12:11)
[2021-02-20] MEDS: SENNOSIDES/DOCUSATE 8.6/50MG TABLET. PO SCH ×2 (12:11→21:00)
--- NOTE | 2021-02-20 12:11 | PDOC ---
PULMONARY PROGRESS NOTES DATE: 02/20/21 TIME: 12:11 Vitals Vital Signs Date Time Temp Pulse Resp B/P (MAP) Pulse Ox O2 Delivery O2 Flow Rate FiO2 02/20/21 11:33 97 BiPAP/CPAP 02/20/21 10:46 96.1 120 21 149/86 (107) 96.1 General: Alert, No acute distress Lungs: Clear Cardiovascular: S1, S2 Abdomen: Soft, Other Extremities: No Edema Labs Laboratory Tests Test 02/19/21 16:35 02/19/21 17:15 02/19/21 17:35 02/19/21 20:25 White Blood Count 11.3 x10^3/uL (4.0-11.0) Red Blood Count 6.12 x10^6/uL (4.30-5.70) Hemoglobin 14.5 g/dL (13.0-17.5) Hematocrit 46.2 % (39.0-53.0) Mean Corpuscular Volume 76 fL (79-100) Mean Corpuscular Hemoglobin 24 pg (25-35) Mean Corpuscular Hemoglobin Concent 31 g/dL (31-37) Red Cell Distribution Width 18.7 % (11.5-14.5) Platelet Count 315 x10^3/uL (140-400) Neutrophils (%) (Auto) 71 % (31-73) Lymphocytes (%) (Auto) 13 % (24-48) Monocytes (%) (Auto) 16 % (0-9) Eosinophils (%) (Auto) 0 % (0-3) Basophils (%) (Auto) 1 % (0-3) Neutrophils # (Auto) 8.0 x10^3/uL (1.8-7.7) Lymphocytes # (Auto) 1.5 x10^3/uL (1.0-4.8) Monocytes # (Auto) 1.8 x10^3/uL (0.0-1.1) Eosinophils # (Auto) 0.0 x10^3/uL (0.0-0.7) Basophils # (Auto) 0.1 x10^3/uL (0.0-0.2) Prothrombin Time 14.3 SEC (11.7-14.0) Prothromb Time International Ratio 1.1 (0.8-1.1) Activated Partial Thromboplast Time 32 SEC (24-38) D-Dimer (Ghada) 1.67 ug/mlFEU (0.00-0.50) Sodium Level 142 mmol/L (136-145) Potassium Level 4.0 mmol/L (3.5-5.1) Chloride Level 104 mmol/L (98-107) Carbon Dioxide Level 28 mmol/L (21-32) Anion Gap 10 (6-14) Blood Urea Nitrogen 19 mg/dL (8-26) Creatinine 1.3 mg/dL (0.7-1.3) Estimated GFR (Cockcroft-Gault) 65.7 Glucose Level 184 mg/dL (70-99) Lactic Acid Level 3.0 mmol/L (0.4-2.0) 2.7 mmol/L (0.4-2.0) Calcium Level 8.9 mg/dL (8.5-10.1) Total Bilirubin 0.8 mg/dL (0.2-1.0) Direct Bilirubin 0.3 mg/dL (0.0-0.2) Aspartate Amino Transf (AST/SGOT) 32 U/L (15-37) Alanine Aminotransferase (ALT/SGPT) 41 U/L (16-63) Alkaline Phosphatase 145 U/L (46-116) Creatine Kinase 197 U/L (39-308) Troponin I Quantitative 0.043 ng/mL (0.000-0.055) XV-Xhn-A-Type Natriuretic Peptide 2960 pg/mL (0-124) Total Protein 7.2 g/dL (6.4-8.2) Albumin 3.3 g/dL (3.4-5.0) O2 Saturation 99 % (92-99) Arterial Blood pH 7.40 (7.35-7.45) Arterial Blood pCO2 at Patient Temp 44 mmHg (35-46) Arterial Blood pO2 at Patient Temp 283 mmHg (65-108) Arterial Blood HCO3 27 mmol/L (21-28) Arterial Blood Base Excess 2 mmol/L (-3-3) Oxyhemoglobin 98.4 % Methemoglobin 0.5 % (0.0-1.9) Carbon Monoxide, Quantitative 0.4 % (0.0-1.9) FiO2 100 Influenza Type A Antigen Negative (NEGATIVE) Influenza Type B Antigen Negative (NEGATIVE) SARS-CoV-2 Antigen (Rapid) Negative (NEGATIVE) Test 02/20/21 02:00 02/20/21 07:05 Lactic Acid Level 2.3 mmol/L (0.4-2.0) 2.2 mmol/L (0.4-2.0) Laboratory Tests Test 02/19/21 16:35 02/19/21 17:15 02/19/21 17:35 02/19/21 20:25 White Blood Count 11.3 x10^3/uL (4.0-11.0) Red Blood Count 6.12 x10^6/uL (4.30-5.70) Hemoglobin 14.5 g/dL (13.0-17.5) Hematocrit 46.2 % (39.0-53.0) Mean Corpuscular Volume 76 fL (79-100) Mean Corpuscular Hemoglobin 24 pg (25-35) Mean Corpuscular Hemoglobin Concent 31 g/dL (31-37) Red Cell Distribution Width 18.7 % (11.5-14.5) Platelet Count 315 x10^3/uL (140-400) Neutrophils (%) (Auto) 71 % (31-73) Lymphocytes (%) (Auto) 13 % (24-48) Monocytes (%) (Auto) 16 % (0-9) Eosinophils (%) (Auto) 0 % (0-3) Basophils (%) (Auto) 1 % (0-3) Neutrophils # (Auto) 8.0 x10^3/uL (1.8-7.7) Lymphocytes # (Auto) 1.5 x10^3/uL (1.0-4.8) Monocytes # (Auto) 1.8 x10^3/uL (0.0-1.1) Eosinophils # (Auto) 0.0 x10^3/uL (0.0-0.7) Basophils # (Auto) 0.1 x10^3/uL (0.0-0.2) Prothrombin Time 14.3 SEC (11.7-14.0) Prothromb Time International Ratio 1.1 (0.8-1.1) Activated Partial Thromboplast Time 32 SEC (24-38) D-Dimer (Ghada) 1.67 ug/mlFEU (0.00-0.50) Sodium Level 142 mmol/L (136-145) Potassium Level 4.0 mmol/L (3.5-5.1) Chloride Level 104 mmol/L (98-107) Carbon Dioxide Level 28 mmol/L (21-32) Anion Gap 10 (6-14) Blood Urea Nitrogen 19 mg/dL (8-26) Creatinine 1.3 mg/dL (0.7-1.3) Estimated GFR (Cockcroft-Gault) 65.7 Glucose Level 184 mg/dL (70-99) Lactic Acid Level 3.0 mmol/L (0.4-2.0) 2.7 mmol/L (0.4-2.0) Calcium Level 8.9 mg/dL (8.5-10.1) Total Bilirubin 0.8 mg/dL (0.2-1.0) Direct Bilirubin 0.3 mg/dL (0.0-0.2) Aspartate Amino Transf (AST/SGOT) 32 U/L (15-37) Alanine Aminotransferase (ALT/SGPT) 41 U/L (16-63) Alkaline Phosphatase 145 U/L (46-116) Creatine Kinase 197 U/L (39-308) Troponin I Quantitative 0.043 ng/mL (0.000-0.055) PT-Vno-S-Type Natriuretic Peptide 2960 pg/mL (0-124) Total Protein 7.2 g/dL (6.4-8.2) Albumin 3.3 g/dL (3.4-5.0) O2 Saturation 99 % (92-99) Arterial Blood pH 7.40 (7.35-7.45) Arterial Blood pCO2 at Patient Temp 44 mmHg (35-46) Arterial Blood pO2 at Patient Temp 283 mmHg (65-108) Arterial Blood HCO3 27 mmol/L (21-28) Arterial Blood Base Excess 2 mmol/L (-3-3) Oxyhemoglobin 98.4 % Methemoglobin 0.5 % (0.0-1.9) Carbon Monoxide, Quantitative 0.4 % (0.0-1.9) FiO2 100 Influenza Type A Antigen Negative (NEGATIVE) Influenza Type B Antigen Negative (NEGATIVE) SARS-CoV-2 Antigen (Rapid) Negative (NEGATIVE) Test 02/20/21 02:00 02/20/21 07:05 Lactic Acid Level 2.3 mmol/L (0.4-2.0) 2.2 mmol/L (0.4-2.0) Medications Active Scripts Medications Dose Route/Sig Max Daily Dose Days Date Category Metformin Hcl 500 Mg Tablet 500 Mg PO BIDWMEALS 02/20/21 Reported Glipizide 5 Mg Tablet 2.5 Mg PO BID 02/20/21 Reported Atorvastatin Calcium 40 Mg Tablet 1 Tab PO DAILY 02/20/21 Reported Furosemide 40 Mg Tablet 1 Tab PO DAILY 02/20/21 Reported Benicar (Olmesartan Medoxomil) 40 Mg Tablet 1 Tab PO DAILY 30 02/20/21 Reported Amlodipine Besylate 10 Mg Tablet 10 Mg PO DAILY 02/20/21 Reported Symbicort 160-4.5 Mcg Inhaler (Budesonide/Formoterol Fumarate) 10.2 Gm Hfa.aer.ad 2 Puff IH BID 02/20/21 Reported Impression . Full note dictated Acute hypoxemic respiratory failure multifactorial Acute on chronic diastolic heart failure Acute exacerbation COPD See order BLANCO BARNETT MD Feb 20, 2021 12:11
[2021-02-20] MEDS ORDERED: METOPROLOL IV PUSH 5 MG/5 ML VIAL. IVP ONE (12:15)
[2021-02-20 12:37] LABS: CALCIUM 9.1 mg/dL (8.5-10.1); CREATININE 1.4 mg/dL (0.7-1.3); GFR 60.3; MAGNESIUM 2.5 mg/dL (1.8-2.4)
--- NOTE | 2021-02-20 12:37 | PDOC ---
[employer] PROGRESS NOTE Date of Service DOS: DATE: 02/20/21 TIME: 12:29 Chief Complaint Chief Complaint Shortness of breath COPD with exacerbation Atrial fibrillation with rapid ventricular response Person under investigation for COVID-19 Sepsis with acute hypoxic respiratory failure Community acquired pneumonia History of Present Illness History of Present Illness 02/20/2021 Patient seen and examined. Chart reviewed. Discussed with RN. GREGORIO. Patient is on BiPAP with labored breathing. Patient is awake and alert. Currently receiving IV Ampicillin/sulbactam. Developed Afib with RVR. Vitals/I&O Vitals/I&O: Vital Signs Date Time Temp Pulse Resp B/P (MAP) Pulse Ox O2 Delivery O2 Flow Rate FiO2 02/20/21 12:11 120 149/86 02/20/21 11:33 97 BiPAP/CPAP 02/20/21 10:46 96.1 21 96.1 I & O 02/19/21 02/19/21 02/20/21 15:00 23:00 07:00 Intake Total 350 ml Output Total 150 ml Balance 350 ml -150 ml Physical Exam General: Alert, Oriented X3, Cooperative Heart: Other (tachycardia.) Lungs: Wheezing Extremities: Normal pulses Skin: No significant lesion Labs Labs: Laboratory Tests Test 02/19/21 16:35 02/19/21 17:15 02/19/21 17:35 02/19/21 20:25 White Blood Count 11.3 x10^3/uL (4.0-11.0) Red Blood Count 6.12 x10^6/uL (4.30-5.70) Hemoglobin 14.5 g/dL (13.0-17.5) Hematocrit 46.2 % (39.0-53.0) Mean Corpuscular Volume 76 fL (79-100) Mean Corpuscular Hemoglobin 24 pg (25-35) Mean Corpuscular Hemoglobin Concent 31 g/dL (31-37) Red Cell Distribution Width 18.7 % (11.5-14.5) Platelet Count 315 x10^3/uL (140-400) Neutrophils (%) (Auto) 71 % (31-73) Lymphocytes (%) (Auto) 13 % (24-48) Monocytes (%) (Auto) 16 % (0-9) Eosinophils (%) (Auto) 0 % (0-3) Basophils (%) (Auto) 1 % (0-3) Neutrophils # (Auto) 8.0 x10^3/uL (1.8-7.7) Lymphocytes # (Auto) 1.5 x10^3/uL (1.0-4.8) Monocytes # (Auto) 1.8 x10^3/uL (0.0-1.1) Eosinophils # (Auto) 0.0 x10^3/uL (0.0-0.7) Basophils # (Auto) 0.1 x10^3/uL (0.0-0.2) Prothrombin Time 14.3 SEC (11.7-14.0) Prothromb Time International Ratio 1.1 (0.8-1.1) Activated Partial Thromboplast Time 32 SEC (24-38) D-Dimer (Ghada) 1.67 ug/mlFEU (0.00-0.50) Sodium Level 142 mmol/L (136-145) Potassium Level 4.0 mmol/L (3.5-5.1) Chloride Level 104 mmol/L (98-107) Carbon Dioxide Level 28 mmol/L (21-32) Anion Gap 10 (6-14) Blood Urea Nitrogen 19 mg/dL (8-26) Creatinine 1.3 mg/dL (0.7-1.3) Estimated GFR (Cockcroft-Gault) 65.7 Glucose Level 184 mg/dL (70-99) Lactic Acid Level 3.0 mmol/L (0.4-2.0) 2.7 mmol/L (0.4-2.0) Calcium Level 8.9 mg/dL (8.5-10.1) Total Bilirubin 0.8 mg/dL (0.2-1.0) Direct Bilirubin 0.3 mg/dL (0.0-0.2) Aspartate Amino Transf (AST/SGOT) 32 U/L (15-37) Alanine Aminotransferase (ALT/SGPT) 41 U/L (16-63) Alkaline Phosphatase 145 U/L (46-116) Creatine Kinase 197 U/L (39-308) Troponin I Quantitative 0.043 ng/mL (0.000-0.055) FA-Yge-A-Type Natriuretic Peptide 2960 pg/mL (0-124) Total Protein 7.2 g/dL (6.4-8.2) Albumin 3.3 g/dL (3.4-5.0) O2 Saturation 99 % (92-99) Arterial Blood pH 7.40 (7.35-7.45) Arterial Blood pCO2 at Patient Temp 44 mmHg (35-46) Arterial Blood pO2 at Patient Temp 283 mmHg (65-108) Arterial Blood HCO3 27 mmol/L (21-28) Arterial Blood Base Excess 2 mmol/L (-3-3) Oxyhemoglobin 98.4 % Methemoglobin 0.5 % (0.0-1.9) Carbon Monoxide, Quantitative 0.4 % (0.0-1.9) FiO2 100 Influenza Type A Antigen Negative (NEGATIVE) Influenza Type B Antigen Negative (NEGATIVE) SARS-CoV-2 Antigen (Rapid) Negative (NEGATIVE) Test 02/20/21 02:00 02/20/21 07:05 Lactic Acid Level 2.3 mmol/L (0.4-2.0) 2.2 mmol/L (0.4-2.0) Assessment and Plan Assessmemt and Plan Problems Medical Problems: (1) Atrial fibrillation with rapid ventricular response Status: Acute (2) Community acquired pneumonia Status: Acute (3) COPD with exacerbation Status: Acute (4) Person under investigation for COVID-19 Status: Acute (5) Sepsis with acute hypoxic respiratory failure Status: Acute Shortness of breath COPD with exacerbation Atrial fibrillation with rapid ventricular response Person under investigation for COVID-19 Sepsis with acute hypoxic respiratory failure Community acquired pneumonia Plan: Cardiac monitoring BiPAP IV antibiotics COPD protocol (steroid, antibiotics, breathing treatment) Trend labs DVT prophylaxis Full code Await cardiology and pulmonary input. Comment Review of Relevant I have reviewed the following items nurys (where applicable) has been applied. Medications: Current Medications Medications (Trade) Dose Ordered Sig/Rajinder Route PRN Reason Start Time Stop Time Status Last Admin Dose Admin Dexamethasone Sodium Phosphate (Decadron) 10 mg 1X ONCE IV 02/19/21 16:45 02/19/21 16:46 DC 02/19/21 17:26 Azithromycin 250 ml @ 250 mls/hr 1X ONCE IV 02/19/21 16:45 02/19/21 17:44 DC 02/19/21 17:30 Ceftriaxone Sodium (Rocephin) 1 gm 1X ONCE IVP 02/19/21 16:45 02/19/21 16:46 DC 02/19/21 17:26 Diltiazem HCl (Cardizem Iv Push) 15 mg 1X ONCE IVP 02/19/21 17:00 02/19/21 17:01 DC 02/19/21 17:29 Senna/Docusate Sodium (Senna Plus) 1 tab BID PO 02/19/21 21:00 02/20/21 12:11 Heparin Sodium (Porcine) (Heparin Sodium) 5,000 unit Q8HRS SQ 02/19/21 22:00 02/20/21 05:59 Dorzolamide HCl (Trusopt) 1 drop QHS OD 02/19/21 21:00 02/19/21 21:27 Ampicillin Sodium/ Sulbactam Sodium 3 gm/Sodium Chloride 100 ml @ 200 mls/hr Q6HRS IV 02/20/21 00:00 02/20/21 12:10 Furosemide (Lasix) 40 mg 1X ONCE IVP 02/19/21 18:00 02/19/21 18:25 DC 02/19/21 18:52 Timolol Maleate (Timoptic 0.5% [facility]) 1 drop QHS OS 02/19/21 21:00 02/19/21 21:27 Methylprednisolone Sodium Succinate (SOLU-Medrol 40MG VIAL) 40 mg Q8HRS IV 02/19/21 22:00 02/20/21 05:59 Metoprolol Tartrate (Lopressor Vial) 5 mg PRN Q1HR PRN IVP HYPERTENSION 02/20/21 00:00 02/20/21 09:47 Atorvastatin Calcium (Lipitor) 40 mg DAILY PO 02/20/21 10:00 02/20/21 12:11 Losartan Potassium (Cozaar) 100 mg DAILY PO 02/20/21 10:00 02/20/21 12:11 Metoprolol Tartrate (Lopressor Vial) 5 mg 1X ONCE IVP 02/20/21 12:15 02/20/21 12:16 DC 02/20/21 12:11 Justifications for Admission Other Justification VITO BARKER III DO Feb 20, 2021 12:37
[2021-02-20] MEDS: FUROSEMIDE 40 MG TABLET. PO SCH (12:39)
--- NOTE | 2021-02-20 13:00 | NUR ---
SS following for discharge planning. SS reviewed pt chart and discussed with pt RN. Pt is from home with spouse and is currently on the BIPAP at 40%. COVID19 test pending. Pt on IV Azithromycin, IV Ampicillin, and IV Solu-Medrol. Pt has home oxygen. SS will continue to follow for discharge planning.
[2021-02-20] MEDS ORDERED: FUROSEMIDE 40 MG/4 ML VIAL. IVP ONE (13:45)
[2021-02-20] MEDS: METOPROLOL TART IMMED RELEASE 50 MG TABLET. PO SCH ×2 (14:26→21:00)
[2021-02-20] MEDS: ASPIRIN ENTERIC COATED 81 MG TABLET.DR. PO SCH (14:26)
[2021-02-20] MEDS ORDERED: IOHEXOL 350 MG/ML 100 ML VIAL. ONE (15:53)
--- NOTE | 2021-02-20 16:11 | RAD ---
EXAMINATION: CTA Chest With IV contrast INDICATION:70 years, Male, shortness of breath, evaluate for pneumonia and pulmonary embolism. COMPARISON: 05/21/2020. TECHNIQUE: Spiral CTA was obtained from the jugular notch through the posterior costophrenic recess. 3-D MIPS, sagittal and coronal reformats were obtained. Exposure: One or more of the following individualized dose reduction techniques were utilized for thi s examination: 1. Automated exposure control 2. Adjustment of the mA and/or kV according to patient size 3. Use of iterative reconstruction technique. FINDINGS: Limited exam due to motion artifact. LUNGS/PLEURA: Central airways are patent. Similar moderate centrilobular and paraseptal emphysema, wo rst in the upper lobes. Subsegmental atelectasis in the right middle lobe and lingula. No focal conso lidation or pneumothorax. Moderate size right pleural effusion with associated compressive atelectasi s. No suspicious pulmonary nodule. MEDIASTINUM: No pathologic mediastinal or hilar adenopathy. Calcified subcarinal lymph node. The thor acic aorta and pulmonary arteries are normal in caliber. No evidence of pulmonary embolism. Cardiomeg kareem with enlarged right atrium. No pericardial effusion. Severe calcified coronary atherosclerosis. T hyroid is not visualized. Esophagus is unremarkable. AXILLA/SOFT TISSUE: No supraclavicular or axillary adenopathy. Regional soft tissues are within mica l limits. UPPER ABDOMEN: Stable left adrenal nodule measures 1.8 cm. Contrast reflux into the mildly distended intrahepatic IVC and hepatic veins. BONES: No evidence of acute fractures or aggressive osseous lesions. Multilevel degenerative changes in the spine. IMPRESSION: 1. No evidence of pulmonary embolism. 2. Moderate size right pleural effusion. 3. Similar moderate pulmonary emphysema. 4. Cardiomegaly with enlarged right atrium. Reflux of contrast into the mildly distended intrahepatic IVC and hepatic veins. Findings likely secondary to right heart dysfunction/failure. Clinical correl ation is advised. Electronically signed by: Gio Alves MD (02/20/2021 4:08 PM) [facility]
--- NOTE | 2021-02-20 17:08 | CARD ---
MR#: [id number] Date of Study: 02/20/2021 Ordering Physician: MAT MELCHOR, Referring Physician: MAT MELCHOR, Tech: Carlos Mccarthy [facility] APPROVED REPORT EXAM: Two-dimensional and M-mode echocardiogram with Doppler and color Doppler. Other Information Quality : AverageHR: 114bpm Rhythm : Atrial Fibrillation INDICATION Atrial Fibrillation Cardiac Disease: CAD Cardiomyopathy RISK FACTORS Hypertension Smoking 2D DIMENSIONS Left Atrium(2D)3.7 (1.6-4.0cm)IVSd1.0 (0.7-1.1cm) Aortic Root(2D)2.8 (2.0-3.7cm)LVDd4.9 (3.9-5.9cm) LVOT Diameter2.0 (1.8-2.4cm)PWd1.1 (0.7-1.1cm) LVDs3.6 (2.5-4.0cm)FS (%) 26.8 % SV60.1 mlLVEF(%)52.1 (>50%) Aortic Valve AoV Peak Charly.99.9cm/sAoV VTI15.4cm AO Peak GR.4.0mmHgLVOT Peak Charly.63.9cm/s AO Mean GR.2mmHgAVA (VMAX)1.93cm2 Mitral Valve MV E Peak Gr.7mmHgMV E Mean Gr.3mmHg Pulmonary Valve PV Peak Knjfvqrg04.3cm/s Tricuspid Valve TR P. Unvhqfsw608ak/sTR Peak Gr.37mmHg LEFT VENTRICLE The left ventricle is normal size. There is normal left ventricular wall thickness. The left ventricl e systolic function is moderately impaired. The basal inferior wall appears akinetic. The ejection fr action is estimated at 35 to 40%. No left ventricle thrombus noted on this study. There is no ventric ular septal defect visualized. There is no left ventricular aneurysm. There is no mass noted in the l eft ventricle. RIGHT VENTRICLE The right ventricle is borderline dilated. There is normal right ventricular wall thickness. Systolic function is borderline reduced. ATRIA The left atrium is mildly dilated. The right atrium is moderately dilated. The interatrial septum is intact with no evidence for an atrial septal defect or patent foramen ovale as noted on 2-D or Dopple r imaging. AORTIC VALVE The aortic valve is calcified but opens well. Doppler and Color Flow revealed no significant aortic r egurgitation. There is no significant aortic valvular stenosis. There is no aortic valvular vegetatio n. MITRAL VALVE The mitral valve is mildly thickened. There is no evidence of mitral valve prolapse. There is no mitr al valve stenosis. Doppler and Color-flow revealed mild to moderate mitral regurgitation. TRICUSPID VALVE The tricuspid valve is normal in structure and function. Doppler and Color Flow revealed mild tricusp id regurgitation. The PA pressure was estimated at 45 mmHg. There is no tricuspid valve prolapse or v egetation. There is no tricuspid valve stenosis. PULMONIC VALVE The pulmonary valve is normal in structure and function. Doppler and Color Flow revealed no pulmonic valvular regurgitation. There is no pulmonic valvular stenosis. GREAT VESSELS The aortic root is normal in size. The ascending aorta is normal in size. The pulmonary artery is nor mal. The IVC is dilated with blunted inspiratory response. PERICARDIAL EFFUSION There is no pleural effusion. There is no evidence of significant pericardial effusion. Critical Notification Critical Value: No <Conclusion> The left ventricle systolic function is moderately impaired. The basal inferior wall appears akinetic. The ejection fraction is estimated at 35 to 40%. Mild to moderate mitral regurgitation. Mild tricuspid regurgitation. The PA pressure was estimated at 45 mmHg. There is no evidence of significant pericardial effusion. Signed by : Stepan Coleman, Electronically Approved : 02/20/2021 17:08:04
[2021-02-20] MEDS ORDERED: DEXTROSE 50% 25 GM / 50ML DISP.SYRIN. IV PRN (17:30)
[2021-02-20] MEDS: INSULIN LISPRO 300 UNITS/3 ML VIAL. SQ SCH (17:30)
[2021-02-20] MEDS: AZITHROMYCIN 500 MG in IV NORMAL SALINE 250ML 250 ML IV SCH (18:33)
[2021-02-20] MEDS: BUDESONIDE 0.5 MG/2 ML NEBU. NEB SCH (19:56)
--- NOTE | 2021-02-20 20:17 | NUR ---
Patient placed on BSC at shift change by Day Shift RN. Day Shift RN able to place patient on BSC with standby assist. Day Shift RN Reports patient anxious and irritable at time of being placed on BSC. Checked on patient at 1954. Patient able to keep self on BSC but does not verbally respond when spoken to. Does open eyes and make eye contact when name called. Skin cool and clammy. FSBS 285. BP 203/144 with HR 145. BiPap on patient while on BSC. Facial droop noted on right side. Not able to use right arm/hand. Will not follow commands. Code Stroke called at 1954. Reported to Dr Schilling. Orders for CT Head. Informed Dr Schilling patient has been ordered Lipitor daily, ASA 81mg ordered daily and was given and Lovenox 100mg ordered bid and was given today as well. Orders to consult neurology after results of CT Scan available. Patient taken down to CT/Radiology via bed with 2RNs and 1CNA at bedside. BP 170/90 with HR 120 prior to transfer to radiology.
--- NOTE | 2021-02-20 20:40 | RAD ---
Exam: CT head INDICATION: Stroke TECHNIQUE: Sequential axial images through the head were obtained without the administration of IV co ntrast. Exposure: One or more of the following in the visualized dose reduction techniques were utilized for this examination: 1. Automated exposure control 2. Adjustment of the MA and/or KV according to patient size 3. Use of iterative of reconstructive technique Comparisons: None FINDINGS: Evaluation is limited secondary to mild patient motion as well as some retained IV contrast from rece nt contrast administration. No focal parenchymal lesion or hemorrhage is identified. There is no midline shift or sulcal effaceme nt. Embolization coil at the area of the right carotid terminus which limits the evaluation secondary to extensive streak artifact. Mild small vessel ischemic change is suspected. Gibbons-white distinction is preserved. The ventricular system is within normal limits without compression hydrocephalus. The basal cisterns are well maintained. The visualized portions of the paranasal sinuses and mastoid air cells are well-pneumatized. No acute fractures. IMPRESSION: Limitations as described above. No acute hemorrhage is identified. Suspect mild small vessel ischemic change which is technically age indeterminate without recent prior imaging. FOR INTERNAL CODING PURPOSES Critical result: Findings discussed with Estella VALENCIA at 02/20/2021 8:34 PM. RESULT CODE: (C) Electronically signed by: Mohsen Richmond MD (02/20/2021 8:38 PM) [facility]
--- NOTE | 2021-02-20 20:53 | NUR ---
Spoke to Dr Peoples. Reported patient status change and CT Head results. Dr Peoples explains patient is not candidate for TPA as he was given doses of heparin and Lovenox. Dr Lei explains he will write further Stroke orders. Spoke to patient's , Karen, , and updated on patient status. Reported patient was on BSC and became flaccid and will not verbally respond. Explained concern for patient condition and will be transferring patient to ICU. Confirmed patient is FULL Code at this time. agrees with Full Code. verbalizes understanding and request to call her for any further changes.
[2021-02-20] MEDS: TIMOLOL 0.5% OPHTH SOLUTION 5ML BOTTLE. OS SCH (21:08)
[2021-02-20] MEDS: DORZOLAMIDE 2% OPHTH SOLUTION 10ML BOTTLE. OD SCH (21:08)
--- NOTE | 2021-02-20 23:00 | NUR ---
Patient is more alert. Confused but speaking. "How long have I been ". Does report he is at "[place]". Able to move right arm now. Pulled left hand mitt off but then tried to put mitt back on left hand with right hand. Was pulling at BiPap mask but is now compliant with BiPap. Resting in bed. Call light at hand. Bed alarm on.
[2021-02-21] MEDS: AMPICILLIN/SULBACTAM 3 GM in IV NORMAL SALINE 100ML 100 ML IV SCH ×4 (00:35→17:50)
[2021-02-21 03:00] VITALS: BP 141/77
[2021-02-21] MEDS: methylPREDNISolone SOD SUCC PF 40 MG/ML VIAL. IV SCH ×3 (05:02→20:10)
[2021-02-21 06:00] LABS: CHOLESTEROL/HDL RATIO 3.8
[2021-02-21 07:11] VITALS: BP 130/91
[2021-02-21] MEDS: BUDESONIDE 0.5 MG/2 ML NEBU. NEB SCH ×2 (07:45→20:00)
[2021-02-21] MEDS: IPRATRPIUM/ALBUTEROL 0.5/2.5MG 3 ML NEBU. NEB SCH ×4 (07:45→20:00)
[2021-02-21] MEDS: INSULIN LISPRO 300 UNITS/3 ML VIAL. SQ SCH ×3 (08:00→17:21)
[2021-02-21] MEDS: METOPROLOL IV PUSH 5 MG/5 ML VIAL. IVP PRN (08:39)
--- NOTE | 2021-02-21 08:54 | PDOC ---
PULMONARY PROGRESS NOTES DATE: 02/21/21 TIME: 08:54 Subjective Patient continues to require BiPAP No new complaint Vitals Vital Signs Date Time Temp Pulse Resp B/P (MAP) Pulse Ox O2 Delivery O2 Flow Rate FiO2 02/21/21 08:39 129 130/91 02/21/21 07:46 98 BiPAP/CPAP 02/21/21 07:11 97.6 24 97.6 General: Alert, No acute distress Lungs: Wheezing, Other (Poor airflow) Cardiovascular: S1, S2 Abdomen: Soft, Other Extremities: Other (Edema has diminished) Skin: Warm Labs Laboratory Tests Test 02/19/21 16:35 02/19/21 17:15 02/19/21 17:35 02/19/21 20:25 White Blood Count 11.3 x10^3/uL (4.0-11.0) Red Blood Count 6.12 x10^6/uL (4.30-5.70) Hemoglobin 14.5 g/dL (13.0-17.5) Hematocrit 46.2 % (39.0-53.0) Mean Corpuscular Volume 76 fL (79-100) Mean Corpuscular Hemoglobin 24 pg (25-35) Mean Corpuscular Hemoglobin Concent 31 g/dL (31-37) Red Cell Distribution Width 18.7 % (11.5-14.5) Platelet Count 315 x10^3/uL (140-400) Neutrophils (%) (Auto) 71 % (31-73) Lymphocytes (%) (Auto) 13 % (24-48) Monocytes (%) (Auto) 16 % (0-9) Eosinophils (%) (Auto) 0 % (0-3) Basophils (%) (Auto) 1 % (0-3) Neutrophils # (Auto) 8.0 x10^3/uL (1.8-7.7) Lymphocytes # (Auto) 1.5 x10^3/uL (1.0-4.8) Monocytes # (Auto) 1.8 x10^3/uL (0.0-1.1) Eosinophils # (Auto) 0.0 x10^3/uL (0.0-0.7) Basophils # (Auto) 0.1 x10^3/uL (0.0-0.2) Prothrombin Time 14.3 SEC (11.7-14.0) Prothromb Time International Ratio 1.1 (0.8-1.1) Activated Partial Thromboplast Time 32 SEC (24-38) D-Dimer (Ghada) 1.67 ug/mlFEU (0.00-0.50) Sodium Level 142 mmol/L (136-145) Potassium Level 4.0 mmol/L (3.5-5.1) Chloride Level 104 mmol/L (98-107) Carbon Dioxide Level 28 mmol/L (21-32) Anion Gap 10 (6-14) Blood Urea Nitrogen 19 mg/dL (8-26) Creatinine 1.3 mg/dL (0.7-1.3) Estimated GFR (Cockcroft-Gault) 65.7 Glucose Level 184 mg/dL (70-99) Lactic Acid Level 3.0 mmol/L (0.4-2.0) 2.7 mmol/L (0.4-2.0) Calcium Level 8.9 mg/dL (8.5-10.1) Total Bilirubin 0.8 mg/dL (0.2-1.0) Direct Bilirubin 0.3 mg/dL (0.0-0.2) Aspartate Amino Transf (AST/SGOT) 32 U/L (15-37) Alanine Aminotransferase (ALT/SGPT) 41 U/L (16-63) Alkaline Phosphatase 145 U/L (46-116) Creatine Kinase 197 U/L (39-308) Troponin I Quantitative 0.043 ng/mL (0.000-0.055) ZI-Lmj-B-Type Natriuretic Peptide 2960 pg/mL (0-124) Total Protein 7.2 g/dL (6.4-8.2) Albumin 3.3 g/dL (3.4-5.0) O2 Saturation 99 % (92-99) Arterial Blood pH 7.40 (7.35-7.45) Arterial Blood pCO2 at Patient Temp 44 mmHg (35-46) Arterial Blood pO2 at Patient Temp 283 mmHg (65-108) Arterial Blood HCO3 27 mmol/L (21-28) Arterial Blood Base Excess 2 mmol/L (-3-3) Oxyhemoglobin 98.4 % Methemoglobin 0.5 % (0.0-1.9) Carbon Monoxide, Quantitative 0.4 % (0.0-1.9) FiO2 100 Influenza Type A Antigen Negative (NEGATIVE) Influenza Type B Antigen Negative (NEGATIVE) SARS-CoV-2 RNA (GRIS) Negative (Negative) SARS-CoV-2 Antigen (Rapid) Negative (NEGATIVE) Test 02/20/21 02:00 02/20/21 07:05 02/20/21 12:40 02/20/21 14:00 Lactic Acid Level 2.3 mmol/L (0.4-2.0) 2.2 mmol/L (0.4-2.0) Sodium Level 144 mmol/L (136-145) Potassium Level 5.0 mmol/L (3.5-5.1) Chloride Level 104 mmol/L (98-107) Carbon Dioxide Level 29 mmol/L (21-32) Anion Gap 11 (6-14) Blood Urea Nitrogen 24 mg/dL (8-26) Creatinine 1.4 mg/dL (0.7-1.3) Estimated GFR (Cockcroft-Gault) 60.3 Glucose Level 206 mg/dL (70-99) Calcium Level 9.1 mg/dL (8.5-10.1) Magnesium Level 2.5 mg/dL (1.8-2.4) Troponin I Quantitative 0.082 ng/mL (0.000-0.055) 0.051 ng/mL (0.000-0.055) Thyroid Stimulating Hormone (TSH) 0.449 uIU/mL (0.358-3.74) Glucose (Fingerstick) 249 mg/dL (70-99) Test 02/20/21 17:51 02/20/21 19:53 02/21/21 04:45 Glucose (Fingerstick) 248 mg/dL (70-99) 285 mg/dL (70-99) Triglycerides Level 39 mg/dL (0-150) Cholesterol Level 102 mg/dL (0-200) LDL Cholesterol, Calculated 67 mg/dL (0-100) VLDL Cholesterol, Calculated 8 mg/dL (0-40) Non-HDL Cholesterol Calculated 75 mg/dL (0-129) HDL Cholesterol 27 mg/dL (40-60) Cholesterol/HDL Ratio 3.8 Laboratory Tests Test 02/20/21 12:40 02/20/21 14:00 02/20/21 17:51 02/20/21 19:53 Glucose (Fingerstick) 249 mg/dL (70-99) 248 mg/dL (70-99) 285 mg/dL (70-99) Troponin I Quantitative 0.051 ng/mL (0.000-0.055) Test 02/21/21 04:45 Triglycerides Level 39 mg/dL (0-150) Cholesterol Level 102 mg/dL (0-200) LDL Cholesterol, Calculated 67 mg/dL (0-100) VLDL Cholesterol, Calculated 8 mg/dL (0-40) Non-HDL Cholesterol Calculated 75 mg/dL (0-129) HDL Cholesterol 27 mg/dL (40-60) Cholesterol/HDL Ratio 3.8 Medications Active Scripts Medications Dose Route/Sig Max Daily Dose Days Date Category Metformin Hcl 500 Mg Tablet 500 Mg PO BIDWMEALS 02/20/21 Reported Glipizide 5 Mg Tablet 2.5 Mg PO BID 02/20/21 Reported Atorvastatin Calcium 40 Mg Tablet 1 Tab PO DAILY 02/20/21 Reported Furosemide 40 Mg Tablet 1 Tab PO DAILY 02/20/21 Reported Benicar (Olmesartan Medoxomil) 40 Mg Tablet 1 Tab PO DAILY 30 02/20/21 Reported Amlodipine Besylate 10 Mg Tablet 10 Mg PO DAILY 02/20/21 Reported Symbicort 160-4.5 Mcg Inhaler (Budesonide/Formoterol Fumarate) 10.2 Gm Hfa.aer.ad 2 Puff IH BID 02/20/21 Reported Impression . Acute hypoxemic respiratory failure multifactorial Acute on chronic diastolic heart failure Acute exacerbation COPD Abnormal x-ray, possible pneumonia Cardiomyopathy ejection fraction 40-45 A. fib with rapid ventricular response Coronary artery disease with previous PCI Tobacco dependent CT angiogram revealed no evidence of pulmonary embolism there was a right-sided effusion Plan . Continue to diurese BiPAP Trial of nasal cannula oxygen Empiric antibiotics Monitor right-sided pleural effusion On Eliquis Effusion too small to warrant thoracentesis at this time BLANCO BARNETT MD Feb 21, 2021 08:54
[2021-02-21] MEDS: SENNOSIDES/DOCUSATE 8.6/50MG TABLET. PO SCH ×2 (09:00→20:10)
[2021-02-21] MEDS ORDERED: FLU VACC QUAD 21-22 (6MOS+) PF 0.5 ML SYRINGE. VAX IM ONE (09:00)
[2021-02-21] MEDS: LOSARTAN POTASSIUM 50 MG TABLET. PO SCH (09:47)
[2021-02-21] MEDS: ASPIRIN ENTERIC COATED 81 MG TABLET.DR. PO SCH (09:47)
[2021-02-21] MEDS: FUROSEMIDE 40 MG TABLET. PO SCH (09:47)
[2021-02-21] MEDS: ATORVASTATIN CALCIUM 40 MG TABLET. PO SCH (09:49)
[2021-02-21 10:18] VITALS: BP 110/74
[2021-02-21] MEDS: ANTI-COAG MONITOR BY PHARMACY. MC PRN (11:04)
--- NOTE | 2021-02-21 11:21 | PDOC2 ---
NEUROLOGY CONSULT Date of Service DOS: DATE: 02/21/21 TIME: 11:15 Reason for Consult Reason for Consult: Stroke symptoms Referring Physician Referring Physician: Dr. Landeros Source Source: Caregiver (, daughter), Chart review, Patient History of Present Illness History of Present Illness The patient is a 70-year-old right-handed male admitted on 02/19 with shortness of breath, history of COPD, found to have congestive heart failure and new atrial fibrillation. Last night, at about 19:30, the patient was on the commode and had acute onset of aphasia with right-sided weakness. Code stroke was called. He had a CT of the head, reviewed below. I spoke to the nurse at 20:44, alteplase was contraindicated due to the recent use of heparin and Lovenox, full-strength, for the atrial fibrillation. NIH score was 35. About an hour later, the patient rapidly improved. There is no prior history of stroke, seizure, or head injury. He does have a history of aneurysm repair. Past Medical History Cardiovascular: AFIB (This admission), CAD, CHF, HTN Pulmonary: COPD CENTRAL NERVOUS SYSTEM: Other (Brain aneurysm) Past Surgical History Past Surgical History: Other (Brain aneurysm coiling, hemorrhoidectomy, right shoulder x3) Family History Family History: No pertinent hx Social History Social History , 3 cigarettes/day, no alcohol, retired Current Medications Current Medications Current Medications Dexamethasone Sodium Phosphate (Decadron) 10 mg 1X ONCE IV Last administered on 02/19/21at 17:26; Start 02/19/21 at 16:45; Stop 02/19/21 at 16:46; Status DC Albuterol/ Ipratropium (Duoneb) 3 ml 1X ONCE NEB ; Start 02/19/21 at 16:45; Stop 02/19/21 at 16:46; Status DC Azithromycin 250 ml @ 250 mls/hr 1X ONCE IV Last administered on 02/19/21at 17:30; Start 02/19/21 at 16:45; Stop 02/19/21 at 17:44; Status DC Ceftriaxone Sodium (Rocephin) 1 gm 1X ONCE IVP Last administered on 02/19/21at 17:26; Start 02/19/21 at 16:45; Stop 02/19/21 at 16:46; Status DC Diltiazem HCl (Cardizem Iv Push) 15 mg 1X ONCE IVP Last administered on 02/19/21at 17:29; Start 02/19/21 at 17:00; Stop 02/19/21 at 17:01; Status DC Ondansetron HCl (Zofran) 4 mg PRN Q6HRS PRN IVP NAUSEA/VOMITING; Start 02/19/21 at 17:45 Calcium Carbonate/ Glycine (Tums) 500 mg PRN Q3HRS PRN PO UPSET STOMACH; Start 02/19/21 at 17:45 Zolpidem Tartrate (Ambien) 5 mg PRN QHS PRN PO INSOMNIA, MAY REPEAT IN 1HR; Start 02/19/21 at 17:45 Info (Non-Icu Electrolyte Protocol) 1 ea PRN DAILY PRN MC SEE COMMENTS; Start 02/19/21 at 17:45 Morphine Sulfate (Morphine Sulfate) 1 mg PRN Q1HR PRN IV MODERATE PAIN; Start 02/19/21 at 17:45 Morphine Sulfate (Morphine Sulfate) 2 mg PRN Q1HR PRN IV SEVERE PAIN Last administered on 02/21/21at 01:51; Start 02/19/21 at 17:45 Oxycodone HCl (Roxicodone) 5 mg PRN Q4HRS PRN PO MILD PAIN, 1ST CHOICE; Start 02/19/21 at 17:45 Oxycodone HCl (Roxicodone) 10 mg PRN Q4HRS PRN PO MODERATE PAIN, SEVERE PAIN; Start 02/19/21 at 17:45 Acetaminophen (Tylenol) 650 mg PRN Q6HRS PRN PO Headaches, Temp > 101.5F; Start 02/19/21 at 17:45 Senna/Docusate Sodium (Senna Plus) 1 tab BID PO Last administered on 02/20/21at 12:11; Start 02/19/21 at 21:00 Heparin Sodium (Porcine) (Heparin Sodium) 5,000 unit Q8HRS SQ Last administered on 02/20/21at 05:59; Start 02/19/21 at 22:00; Stop 02/20/21 at 12:49; Status DC Non-Formulary Medication (Aclidinium [place] (Tudorza Pressair)) 400 mcg BID IH ; Start 02/19/21 at 21:00; Stop 02/19/21 at 19:04; Status DC Albuterol Sulfate (Ventolin Neb Soln) 2.5 mg Q4HRS NEB ; Start 02/19/21 at 20:00; Stop 02/20/21 at 09:54; Status DC Dorzolamide HCl (Trusopt) 1 drop QHS OD Last administered on 02/20/21at 21:08; Start 02/19/21 at 21:00 Losartan Potassium (Cozaar) 100 mg DAILY PO ; Start 02/20/21 at 09:00; Status Cancel Non-Formulary Medication (Tiotropium Br/ Olodaterol HCl (Stiolto Respimat Inhal [place])) 4 gm DAILY IH ; Start 02/20/21 at 09:00; Stop 02/19/21 at 19:03; Status DC Amlodipine Besylate (Norvasc) 5 mg DAILY PO ; Start 02/20/21 at 09:00; Status Cancel Hydrochlorothiazide (Microzide) 12.5 mg DAILY PO ; Start 02/20/21 at 09:00; Status Cancel Ampicillin Sodium/ Sulbactam Sodium 3 gm/Sodium Chloride 100 ml @ 200 mls/hr Q6HRS IV Last administered on 02/21/21at 05:03; Start 02/20/21 at 00:00 Azithromycin 500 mg/Sodium Chloride 250 ml @ 250 mls/hr Q24H IV Last administered on 02/20/21at 18:33; Start 02/20/21 at 18:00; Stop 02/22/21 at 17:59 Furosemide (Lasix) 40 mg 1X ONCE IVP Last administered on 02/19/21at 18:52; Start 02/19/21 at 18:00; Stop 02/19/21 at 18:25; Status DC Albuterol/ Ipratropium (Duoneb) 3 ml RTQID NEB Last administered on 02/21/21at 07:45; Start 02/19/21 at 20:00 Timolol Maleate (Timoptic 0.5% [facility]) 1 drop QHS OS Last administered on 02/20/21at 21:08; Start 02/19/21 at 21:00 Methylprednisolone Sodium Succinate (SOLU-Medrol 40MG VIAL) 40 mg Q8HRS IV Last administered on 02/21/21at 05:02; Start 02/19/21 at 22:00 Info (FLU VACCINE SCREEN per RX) 1 each 1X ONCE MC ; Start 02/19/21 at 23:00; Stop 02/19/21 at 23:01; Status Cancel Info (FLU VACCINE SCREEN per RX) 1 each PRN DAILY PRN MC SEE COMMENTS; Start 02/19/21 at 23:15; Status Cancel Metoprolol Tartrate (Lopressor Vial) 5 mg PRN Q1HR PRN IVP HYPERTENSION Last administered on 02/21/21at 08:39; Start 02/20/21 at 00:00 Iohexol (Omnipaque 350 Mg/ml) 100 ml 1X ONCE IV Last administered on 02/20/21at 07:30; Start 02/20/21 at 07:30; Stop 02/20/21 at 07:31; Status DC Amlodipine Besylate (Norvasc) 10 mg DAILY PO ; Start 02/20/21 at 11:00; Stop 02/20/21 at 11:04; Status DC Atorvastatin Calcium (Lipitor) 40 mg DAILY PO Last administered on 02/21/21at 09:49; Start 02/20/21 at 10:00 Furosemide (Lasix) 40 mg DAILY PO Last administered on 02/21/21at 09:47; Start 02/20/21 at 10:00 Glipizide (Glucotrol) 2.5 mg BIDWMEALS PO Last administered on 02/20/21at 12:38; Start 02/20/21 at 12:00; Stop 02/20/21 at 17:28; Status DC Metformin HCl (Glucophage) 500 mg BIDWMEALS PO ; Start 02/20/21 at 12:00; Stop 02/20/21 at 17:20; Status DC Budesonide (Pulmicort) 0.5 mg RTBID NEB Last administered on 02/21/21at 07:45; Start 02/20/21 at 20:00 Losartan Potassium (Cozaar) 100 mg DAILY PO Last administered on 02/21/21at 09:47; Start 02/20/21 at 10:00 Influenza Virus Vaccine Quadrival (Flulaval Quad [id number] Syringe) 0.5 ml ONCE ONCE VAX IM ; Start 02/21/21 at 09:00; Stop 02/21/21 at 09:01; Status DC Metoprolol Tartrate (Lopressor Vial) 5 mg 1X ONCE IVP Last administered on 02/20/21at 12:11; Start 02/20/21 at 12:15; Stop 02/20/21 at 12:16; Status DC Aspirin (Ecotrin) 81 mg DAILYWBKFT PO Last administered on 02/21/21at 09:47; Start 02/20/21 at 13:00 Metoprolol Tartrate (Lopressor) 50 mg BID PO Last administered on 02/20/21at 14:26; Start 02/20/21 at 13:00 Enoxaparin Sodium (Lovenox Per Pharmacy Treatment Dosing) 1 each PRN DAILY PRN MC SEE COMMENTS; Start 02/20/21 at 13:00 Enoxaparin Sodium (Lovenox 100mg Syringe) 100 mg Q12HR SQ Last administered on 02/21/21at 09:47; Start 02/20/21 at 13:00 Furosemide (Lasix) 40 mg 1X ONCE IVP Last administered on 02/20/21at 14:28; Start 02/20/21 at 13:45; Stop 02/20/21 at 13:46; Status DC Iohexol (Omnipaque 350 Mg/ml) 100 ml STK-MED ONCE .ROUTE ; Start 02/20/21 at 15:53; Stop 02/20/21 at 15:53; Status DC Metformin HCl (Glucophage) 500 mg BIDWMEALS PO ; Start 02/22/21 at 17:00 Insulin Human Lispro (HumaLOG) 0-7 UNITS TIDWMEALS SQ ; Start 02/20/21 at 17:30 Dextrose (Dextrose 50%-Water Syringe) 12.5 gm PRN Q15MIN PRN IV SEE COMMENTS; Start 02/20/21 at 17:30 Info (Anti-Coagulation Monitoring By Pharmacy) 1 each PRN DAILY PRN MC PER PROTOCOL Last administered on 02/21/21at 11:04; Start 02/21/21 at 11:00 Active Scripts Active Reported Metformin Hcl 500 Mg Tablet 500 Mg PO BIDWMEALS Glipizide 5 Mg Tablet 2.5 Mg PO BID Atorvastatin Calcium 40 Mg Tablet 1 Tab PO DAILY Furosemide 40 Mg Tablet 1 Tab PO DAILY Benicar (Olmesartan Medoxomil) 40 Mg Tablet 1 Tab PO DAILY 30 Days Amlodipine Besylate 10 Mg Tablet 10 Mg PO DAILY Symbicort 160-4.5 Mcg Inhaler (Budesonide/Formoterol Fumarate) 10.2 Gm Hfa.aer.ad 2 Puff IH BID Allergies Allergies: Coded Allergies: prednisone (Verified Allergy, Severe, Shortness of Air, 02/19/21) pt says he is allergic to prednisone because it killed his . ROS Review of System Negative for fever, chills, weight loss, shortness of breath, chest pain, indigestion, hematochezia, melena, and dysuria. Full 14-point review of systems is negative. Physical Exam Physical Examination General: Well-developed, well-nourished black male in no acute distress HEENT: Normocephalic andatraumatic. Temporal arteriespulsatile and nontender. Neck: Supple without bruit, no meningismus Musculoskeletal: Stability:see neurologic. Gait exam:see neurologic. Tone:see neurologic.Strength:see neurologic. Neurological: Mental Status:intact, orientation, memory, attention span/concentration, language, fund of knowledge normal. Cranial Nerves:Pupils equal and reactive to light, extraocular movements areintact, visual wise are full to confrontation. Facial sensation is normal. There is no facial asymmetry. Vestibulo-ocular reflex is intact. Palate elevates and tongue protrudes in midline. All other cranial related problems are negative except as mentioned before.Reflexes:2+ and symmetric with flexor plantar responses. Motor: 4/5 strength with normal tone and bulk. Coordination:Finger-nose finger and [id number]-ta-jptr testing are normal. Rapid alternating movements and fine finger mo vements are intact. Gait:not tested. Sensory:Normal pinprick, vibration, light touch, proprioception. Vitals VITALS Vital Signs Date Time Temp Pulse Resp B/P (MAP) Pulse Ox O2 Delivery O2 Flow Rate FiO2 02/21/21 10:18 96.5 120 20 110/74 (86) 97 Nasal Cannula 5.0 96.5 Labs Labs Laboratory Tests Test 02/19/21 16:35 02/19/21 17:15 02/19/21 17:35 02/19/21 20:25 White Blood Count 11.3 x10^3/uL (4.0-11.0) Red Blood Count 6.12 x10^6/uL (4.30-5.70) Hemoglobin 14.5 g/dL (13.0-17.5) Hematocrit 46.2 % (39.0-53.0) Mean Corpuscular Volume 76 fL (79-100) Mean Corpuscular Hemoglobin 24 pg (25-35) Mean Corpuscular Hemoglobin Concent 31 g/dL (31-37) Red Cell Distribution Width 18.7 % (11.5-14.5) Platelet Count 315 x10^3/uL (140-400) Neutrophils (%) (Auto) 71 % (31-73) Lymphocytes (%) (Auto) 13 % (24-48) Monocytes (%) (Auto) 16 % (0-9) Eosinophils (%) (Auto) 0 % (0-3) Basophils (%) (Auto) 1 % (0-3) Neutrophils # (Auto) 8.0 x10^3/uL (1.8-7.7) Lymphocytes # (Auto) 1.5 x10^3/uL (1.0-4.8) Monocytes # (Auto) 1.8 x10^3/uL (0.0-1.1) Eosinophils # (Auto) 0.0 x10^3/uL (0.0-0.7) Basophils # (Auto) 0.1 x10^3/uL (0.0-0.2) Prothrombin Time 14.3 SEC (11.7-14.0) Prothromb Time International Ratio 1.1 (0.8-1.1) Activated Partial Thromboplast Time 32 SEC (24-38) D-Dimer (Ghada) 1.67 ug/mlFEU (0.00-0.50) Sodium Level 142 mmol/L (136-145) Potassium Level 4.0 mmol/L (3.5-5.1) Chloride Level 104 mmol/L (98-107) Carbon Dioxide Level 28 mmol/L (21-32) Anion Gap 10 (6-14) Blood Urea Nitrogen 19 mg/dL (8-26) Creatinine 1.3 mg/dL (0.7-1.3) Estimated GFR (Cockcroft-Gault) 65.7 Glucose Level 184 mg/dL (70-99) Lactic Acid Level 3.0 mmol/L (0.4-2.0) 2.7 mmol/L (0.4-2.0) Calcium Level 8.9 mg/dL (8.5-10.1) Total Bilirubin 0.8 mg/dL (0.2-1.0) Direct Bilirubin 0.3 mg/dL (0.0-0.2) Aspartate Amino Transf (AST/SGOT) 32 U/L (15-37) Alanine Aminotransferase (ALT/SGPT) 41 U/L (16-63) Alkaline Phosphatase 145 U/L (46-116) Creatine Kinase 197 U/L (39-308) Troponin I Quantitative 0.043 ng/mL (0.000-0.055) BD-Xlp-U-Type Natriuretic Peptide 2960 pg/mL (0-124) Total Protein 7.2 g/dL (6.4-8.2) Albumin 3.3 g/dL (3.4-5.0) O2 Saturation 99 % (92-99) Arterial Blood pH 7.40 (7.35-7.45) Arterial Blood pCO2 at Patient Temp 44 mmHg (35-46) Arterial Blood pO2 at Patient Temp 283 mmHg (65-108) Arterial Blood HCO3 27 mmol/L (21-28) Arterial Blood Base Excess 2 mmol/L (-3-3) Oxyhemoglobin 98.4 % Methemoglobin 0.5 % (0.0-1.9) Carbon Monoxide, Quantitative 0.4 % (0.0-1.9) FiO2 100 Influenza Type A Antigen Negative (NEGATIVE) Influenza Type B Antigen Negative (NEGATIVE) SARS-CoV-2 RNA (GRIS) Negative (Negative) SARS-CoV-2 Antigen (Rapid) Negative (NEGATIVE) Test 02/20/21 02:00 02/20/21 07:05 02/20/21 12:40 02/20/21 14:00 Lactic Acid Level 2.3 mmol/L (0.4-2.0) 2.2 mmol/L (0.4-2.0) Sodium Level 144 mmol/L (136-145) Potassium Level 5.0 mmol/L (3.5-5.1) Chloride Level 104 mmol/L (98-107) Carbon Dioxide Level 29 mmol/L (21-32) Anion Gap 11 (6-14) Blood Urea Nitrogen 24 mg/dL (8-26) Creatinine 1.4 mg/dL (0.7-1.3) Estimated GFR (Cockcroft-Gault) 60.3 Glucose Level 206 mg/dL (70-99) Calcium Level 9.1 mg/dL (8.5-10.1) Magnesium Level 2.5 mg/dL (1.8-2.4) Troponin I Quantitative 0.082 ng/mL (0.000-0.055) 0.051 ng/mL (0.000-0.055) Thyroid Stimulating Hormone (TSH) 0.449 uIU/mL (0.358-3.74) Glucose (Fingerstick) 249 mg/dL (70-99) Test 02/20/21 17:51 02/20/21 19:53 02/21/21 04:45 Glucose (Fingerstick) 248 mg/dL (70-99) 285 mg/dL (70-99) Triglycerides Level 39 mg/dL (0-150) Cholesterol Level 102 mg/dL (0-200) LDL Cholesterol, Calculated 67 mg/dL (0-100) VLDL Cholesterol, Calculated 8 mg/dL (0-40) Non-HDL Cholesterol Calculated 75 mg/dL (0-129) HDL Cholesterol 27 mg/dL (40-60) Cholesterol/HDL Ratio 3.8 Laboratory Tests Test 02/20/21 12:40 02/20/21 14:00 02/20/21 17:51 02/20/21 19:53 Glucose (Fingerstick) 249 mg/dL (70-99) 248 mg/dL (70-99) 285 mg/dL (70-99) Troponin I Quantitative 0.051 ng/mL (0.000-0.055) Test 02/21/21 04:45 Triglycerides Level 39 mg/dL (0-150) Cholesterol Level 102 mg/dL (0-200) LDL Cholesterol, Calculated 67 mg/dL (0-100) VLDL Cholesterol, Calculated 8 mg/dL (0-40) Non-HDL Cholesterol Calculated 75 mg/dL (0-129) HDL Cholesterol 27 mg/dL (40-60) Cholesterol/HDL Ratio 3.8 Images Images Exam: CT head INDICATION: Stroke TECHNIQUE: Sequential axial images through the head were obtained without the administration of IV contrast. Exposure: One or more of the following in the visualized dose reduction techniques were utilized for this examination: 1. Automated exposure control 2. Adjustment of the MA and/or KV according to patient size 3. Use of iterative of reconstructive technique Comparisons: None FINDINGS: Evaluation is limited secondary to mild patient motion as well as some retained IV contrast from recent contrast administration. No focal parenchymal lesion or hemorrhage is identified. There is no midline shift or sulcal effacement. Embolization coil at the area of the right carotid terminus which limits the evaluation secondary to extensive streak artifact. Mild small vessel ischemic change is suspected. Gibbons-white distinction is preserved. The ventricular system is within normal limits without compression hydrocephalus. The basal cisterns are well maintained. The visualized portions of the paranasal sinuses and mastoid air cells are well- pneumatized. No acute fractures. IMPRESSION: Limitations as described above. No acute hemorrhage is identified. Suspect mild small vessel ischemic change which is technically age indeterminate without recent prior imaging. Assessment/Plan Assessment/Plan Impression: Possible left hemispheric transient ischemic attack, but more likely, the symptoms were related to metabolic issues. Blood pressure was elevated, I am not sure if this was cause or effect. In any rate, he has made a full recovery and now has a nonfocal exam, albeit with bilateral weakness. I doubt that he had a seizure History of right carotid aneurysm coiling Recommendations: He cannot have a brain MRI Carotid Doppler studies Cardiac work-up Okay to continue anticoagulation Rehabilitation modalities Also see stroke orders Fully discussed with patient and his family. Thank you for let me help with the patient's care. CRISTAL ALMANZA MD Feb 21, 2021 11:21
[2021-02-21] MEDS: METOPROLOL TART IMMED RELEASE 50 MG TABLET. PO SCH ×2 (12:16→20:09)
--- NOTE | 2021-02-21 12:36 | NUR ---
SS following up with discharge planning. SS reviewed pt chart and discussed with pt RN. Pt is currently requiring oxygen at five liters nasal canula. COVID19 negative. Pt has home oxygen. Pt on IV Solu-Medrol, IV Ampicillin, and IV Azithromycin. PT/OT ordered. Cardiology following. Neurology consulted. Carotid Doppler ordered. SS will continue to follow for discharge planning.
--- NOTE | 2021-02-21 13:03 | PDOC ---
[employer] PROGRESS NOTE Date of Service DOS: DATE: 02/21/21 TIME: 12:49 Chief Complaint Chief Complaint Shortness of breath COPD with exacerbation Atrial fibrillation with rapid ventricular response Person under investigation for COVID-19 Sepsis with acute hypoxic respiratory failure Community acquired pneumonia History of Present Illness History of Present Illness 02/21/2021 Patient seen and examined. Discussed with RN. Chart reviewed. Patient is currently on 5L O2 via NC. Code hanna was called last night. This morning, patient is alert and oriented. Head CT showed no acute hemorrhage. MRI ordered but is on hold due to a possible coil embolization at the right carotid terminus. 02/20/2021 Patient seen and examined. Chart reviewed. Discussed with RN. NPO. Patient is on BiPAP with labored breathing. Patient is awake and alert. Currently receiving IV Ampicillin/sulbactam. Developed Afib with RVR. Vitals/I&O Vitals/I&O: Vital Signs Date Time Temp Pulse Resp B/P (MAP) Pulse Ox O2 Delivery O2 Flow Rate FiO2 02/21/21 12:16 120 110/74 02/21/21 11:39 92 High Flow Nasal Cannula 5.0 02/21/21 10:18 96.5 20 96.5 I & O 02/20/21 02/20/21 02/21/21 15:00 23:00 07:00 Intake Total 300 ml 570 ml 400 ml Output Total 300 ml 200 ml Balance 0 ml 570 ml 200 ml Physical Exam General: Alert, Oriented X3, Cooperative, No acute distress Heart: Other (IRRR; tele AFIB rate 110-120) Lungs: Wheezing Abdomen: Soft, No tenderness Extremities: Other (1-2+ bilateral LE edema ) Skin: No significant lesion Labs Labs: Laboratory Tests Test 02/20/21 14:00 02/20/21 17:51 02/20/21 19:53 02/21/21 04:45 Troponin I Quantitative 0.051 ng/mL (0.000-0.055) Glucose (Fingerstick) 248 mg/dL (70-99) 285 mg/dL (70-99) Triglycerides Level 39 mg/dL (0-150) Cholesterol Level 102 mg/dL (0-200) LDL Cholesterol, Calculated 67 mg/dL (0-100) VLDL Cholesterol, Calculated 8 mg/dL (0-40) Non-HDL Cholesterol Calculated 75 mg/dL (0-129) HDL Cholesterol 27 mg/dL (40-60) Cholesterol/HDL Ratio 3.8 Test 02/21/21 11:39 Glucose (Fingerstick) 231 mg/dL (70-99) Assessment and Plan Assessmemt and Plan Problems Medical Problems: (1) Atrial fibrillation with rapid ventricular response Status: Acute (2) Community acquired pneumonia Status: Acute (3) COPD with exacerbation Status: Acute (4) Person under investigation for COVID-19 Status: Acute (5) Sepsis with acute hypoxic respiratory failure Status: Acute Shortness of breath COPD with exacerbation Atrial fibrillation with rapid ventricular response Person under investigation for COVID-19 Sepsis with acute hypoxic respiratory failure Community acquired pneumonia Plan: Cardiac monitoring IV antibiotics Try to titrate down on OK COPD protocol (steroid, O2, antibiotics, breathing treatment) Trend labs DVT prophylaxis Full code Appreciate subspecialty input (Neurology, Cardiology, and Pulmonary) Comment Review of Relevant I have reviewed the following items nurys (where applicable) has been applied. Medications: Current Medications Medications (Trade) Dose Ordered Sig/Rajinder Route PRN Reason Start Time Stop Time Status Last Admin Dose Admin Azithromycin 500 mg/Sodium Chloride 250 ml @ 250 mls/hr Q24H IV 02/20/21 18:00 02/22/21 17:59 02/20/21 18:33 Budesonide (Pulmicort) 0.5 mg RTBID NEB 02/20/21 20:00 02/21/21 07:45 Aspirin (Ecotrin) 81 mg DAILYWBKFT PO 02/20/21 13:00 02/21/21 09:47 Metoprolol Tartrate (Lopressor) 50 mg BID PO 02/20/21 13:00 02/21/21 12:16 Enoxaparin Sodium (Lovenox 100mg Syringe) 100 mg Q12HR SQ 02/20/21 13:00 02/21/21 09:47 Furosemide (Lasix) 40 mg 1X ONCE IVP 02/20/21 13:45 02/20/21 13:46 DC 02/20/21 14:28 Insulin Human Lispro (HumaLOG) 0-7 UNITS TIDWMEALS SQ 02/20/21 17:30 02/21/21 12:28 Info (Anti-Coagulation Monitoring By Pharmacy) 1 each PRN DAILY PRN MC PER PROTOCOL 02/21/21 11:00 02/21/21 11:04 Justifications for Admission Other Justification VITO BARKER III DO Feb 21, 2021 13:03
[2021-02-21 14:14] VITALS: BP 119/74
--- NOTE | 2021-02-21 15:08 | CONS ---
DATE OF CONSULTATION: 02/20/2021 ATTENDING PHYSICIAN: Carlos Landeros MD. REASON FOR CONSULTATION: The patient is seen in pulmonary consultation on the 02/20 at the request of Dr. Landeros for hypoxemic respiratory failure, initial arterial blood gas revealed pH of 7.40, PaCO2 of 44, pO2 of 283. HISTORY OF PRESENT ILLNESS: The patient is well known to me from previous hospitalization and office visits. He has severe COPD, normally he does not utilize oxygen at home. He also has a cardiomyopathy with previous ejection fraction of 40%-45%, presented with increased shortness of breath and some chest tightness over the last several days to weeks. He also noticed some paroxysmal nocturnal dyspnea and increasing pedal edema. He had a cough productive of yellow sputum. Denies fever or chills. He was noted to have AFib with rapid ventricular response. Upon arrival to the Emergency Department, he was placed on BiPAP. Cardiology has seen him. To date, he has been treated with metoprolol, diuresis with IV Lasix. He had a chest x-ray, which I reviewed. There was evidence of cardiomegaly with right lung base consolidation and infiltrate. The patient also had a CT angiogram, which revealed no evidence of pulmonary embolism. There was moderate right-sided effusion, emphysema, cardiomegaly with enlarged right atrium. The patient has been vaccinated. He currently smokes, but he states that he was smoking less since he has been ill. PAST MEDICAL HISTORY: Cardiomyopathy, ejection fraction 40%-45%, severe COPD, obesity, coronary artery disease with previous PCI to left circ and RCA, hypertension, hyperlipidemia. PAST SURGICAL HISTORY: No recent major surgeries. ALLERGIES: PREDNISONE. REVIEW OF SYSTEMS: As indicated above, otherwise other systems could not be adequately reviewed. SOCIAL HISTORY: He is smoking less than 1 pack of cigarettes a day. PHYSICAL EXAMINATION: GENERAL: The patient was on BiPAP, no significant respiratory distress. VITAL SIGNS: Vital signs and O2 saturations were noted. O2 sat was greater than 92%. HEENT: Eyes: Sclerae were nonicteric. NECK: Jugular venous distention could not be assessed secondary to body habitus. CHEST: Full expansion. LUNGS: Diminished breath sounds. No wheezes. CARDIOVASCULAR: Regular rate and rhythm with S1, S2, no S3. ABDOMEN: Soft, obese. EXTREMITIES: No clubbing or cyanosis. There is 1+ edema. NEUROLOGIC: The patient was awake, alert, following commands. A detailed neuro exam was not performed. LABORATORY DATA: Serology for influenza and SARS-CoV-2 was negative. BNP was elevated. Electrolytes were noted. BUN and creatinine were normal. White count was slightly elevated. Arterial blood gas as indicated above. IMPRESSION: 1. Acute hypoxemic respiratory failure, multifactorial. 2. Acute on chronic systolic heart failure. 3. Acute exacerbation of chronic obstructive pulmonary disease. 4. Atrial fibrillation with rapid ventricular response. 5. Abnormal x-ray, possible pneumonia in the right lower lobe. PLAN: 1. We will continue current BiPAP settings. 2. Diurese. 3. Consult Cardiology, already performed. 4. Empiric antibiotics. 5. The patient is instructed on the importance of discontinuing tobacco use. 6. Lovenox for AFib and DVT prophylaxis. 7. Continue home meds. 8. Nebulized treatments. I do appreciate the privilege in sharing in the patient's care. NICOLAS DR: Carlotta TID: [id number]
[2021-02-21] MEDS: FUROSEMIDE 40 MG/4 ML VIAL. IVP SCH (17:48)
[2021-02-21] MEDS ORDERED: DIGOXIN IV 500 MCG/2 ML AMPUL. IV ONE (18:00)
[2021-02-21] MEDS: AZITHROMYCIN 500 MG in IV NORMAL SALINE 250ML 250 ML IV SCH (18:00)
[2021-02-21 19:30] VITALS: BP 121/77
[2021-02-21] MEDS: DORZOLAMIDE 2% OPHTH SOLUTION 10ML BOTTLE. OD SCH (20:13)
[2021-02-21] MEDS: TIMOLOL 0.5% OPHTH SOLUTION 5ML BOTTLE. OS SCH (20:13)
[2021-02-21 23:15] VITALS: BP 121/77
[2021-02-22] MEDS: AMPICILLIN/SULBACTAM 3 GM in IV NORMAL SALINE 100ML 100 ML IV SCH ×4 (00:15→18:27)
[2021-02-22 03:35] VITALS: BP 132/68
[2021-02-22 04:42] LABS: BASO % 0 % (0-3); EOS % 0 % (0-3); HEMATOCRIT 43.6 % (39.0-53.0); HEMOGLOBIN 13.7 g/dL (13.0-17.5); LYMPH # 0.9 x10^3/uL (1.0-4.8); LYMPH % 6 % (24-48); MEAN CORPUSCULAR HEMOGLOBIN 24 pg (25-35); MEAN CORPUSCULAR HGB CONC 31 g/dL (31-37); MEAN CORPUSCULAR VOLUME 76 fL (79-100); MONO # 0.7 x10^3/uL (0.0-1.1); MONO % 4 % (0-9); NEUT # 13.9 x10^3/uL (1.8-7.7); NEUT % 90 % (31-73); PLATELET COUNT 278 x10^3/uL (140-400); RED BLOOD COUNT 5.73 x10^6/uL (4.30-5.70); RED CELL DISTRIBUTION WIDTH 18.7 % (11.5-14.5); WHITE BLOOD COUNT 15.5 x10^3/uL (4.0-11.0)
[2021-02-22 05:02] LABS: CALCIUM 8.3 mg/dL (8.5-10.1); CREATININE 1.7 mg/dL (0.7-1.3); GFR 48.2; POTASSIUM 3.9 mmol/L (3.5-5.1)
[2021-02-22] MEDS: methylPREDNISolone SOD SUCC PF 40 MG/ML VIAL. IV SCH ×2 (05:24→20:45)
[2021-02-22 07:01] VITALS: BP 139/90
[2021-02-22] MEDS: BUDESONIDE 0.5 MG/2 ML NEBU. NEB SCH ×2 (08:09→21:52)
[2021-02-22] MEDS: IPRATRPIUM/ALBUTEROL 0.5/2.5MG 3 ML NEBU. NEB SCH ×4 (08:09→21:52)
[2021-02-22] MEDS: SENNOSIDES/DOCUSATE 8.6/50MG TABLET. PO SCH ×2 (09:00→20:46)
[2021-02-22] MEDS ORDERED: FUROSEMIDE 40 MG/4 ML VIAL. IVP SCH (09:00)
[2021-02-22] MEDS: ASPIRIN ENTERIC COATED 81 MG TABLET.DR. PO SCH (09:03)
[2021-02-22] MEDS: LOSARTAN POTASSIUM 50 MG TABLET. PO SCH (09:03)
[2021-02-22] MEDS: APIXABAN 5 MG TABLET. PO SCH ×2 (09:03→20:45)
[2021-02-22] MEDS: ATORVASTATIN CALCIUM 40 MG TABLET. PO SCH (09:04)
[2021-02-22] MEDS: METOPROLOL TART IMMED RELEASE 50 MG TABLET. PO SCH ×2 (09:04→20:46)
[2021-02-22] MEDS: FUROSEMIDE 40 MG/4 ML VIAL. IVP SCH ×2 (09:04→15:51)
[2021-02-22] MEDS: INSULIN LISPRO 300 UNITS/3 ML VIAL. SQ SCH ×3 (09:10→17:41)
--- NOTE | 2021-02-22 09:30 | PDOC ---
PULMONARY PROGRESS NOTES DATE: 02/22/21 TIME: 09:27 Subjective feels slightly better not on home 02 used BiPAP last night No new complaint Vitals Vital Signs Date Time Temp Pulse Resp B/P (MAP) Pulse Ox O2 Delivery O2 Flow Rate FiO2 02/22/21 09:04 113 139/90 02/22/21 08:11 100 High Flow Nasal Cannula 5.0 02/22/21 07:01 97.4 20 97.4 General: Alert, No acute distress Lungs: Other (b lat diminished bs ) Cardiovascular: S1, S2 Abdomen: Soft, Other Extremities: Other (Edema has diminished) Skin: Warm Labs Laboratory Tests Test 02/20/21 12:40 02/20/21 14:00 02/20/21 17:51 02/20/21 19:53 Glucose (Fingerstick) 249 mg/dL (70-99) 248 mg/dL (70-99) 285 mg/dL (70-99) Troponin I Quantitative 0.051 ng/mL (0.000-0.055) Test 02/21/21 04:45 02/21/21 11:39 02/21/21 16:50 02/21/21 20:32 Triglycerides Level 39 mg/dL (0-150) Cholesterol Level 102 mg/dL (0-200) LDL Cholesterol, Calculated 67 mg/dL (0-100) VLDL Cholesterol, Calculated 8 mg/dL (0-40) Non-HDL Cholesterol Calculated 75 mg/dL (0-129) HDL Cholesterol 27 mg/dL (40-60) Cholesterol/HDL Ratio 3.8 Glucose (Fingerstick) 231 mg/dL (70-99) 231 mg/dL (70-99) 287 mg/dL (70-99) Test 02/22/21 04:30 02/22/21 07:47 White Blood Count 15.5 x10^3/uL (4.0-11.0) Red Blood Count 5.73 x10^6/uL (4.30-5.70) Hemoglobin 13.7 g/dL (13.0-17.5) Hematocrit 43.6 % (39.0-53.0) Mean Corpuscular Volume 76 fL (79-100) Mean Corpuscular Hemoglobin 24 pg (25-35) Mean Corpuscular Hemoglobin Concent 31 g/dL (31-37) Red Cell Distribution Width 18.7 % (11.5-14.5) Platelet Count 278 x10^3/uL (140-400) Neutrophils (%) (Auto) 90 % (31-73) Lymphocytes (%) (Auto) 6 % (24-48) Monocytes (%) (Auto) 4 % (0-9) Eosinophils (%) (Auto) 0 % (0-3) Basophils (%) (Auto) 0 % (0-3) Neutrophils # (Auto) 13.9 x10^3/uL (1.8-7.7) Lymphocytes # (Auto) 0.9 x10^3/uL (1.0-4.8) Monocytes # (Auto) 0.7 x10^3/uL (0.0-1.1) Eosinophils # (Auto) 0.0 x10^3/uL (0.0-0.7) Basophils # (Auto) 0.0 x10^3/uL (0.0-0.2) Sodium Level 139 mmol/L (136-145) Potassium Level 3.9 mmol/L (3.5-5.1) Chloride Level 101 mmol/L (98-107) Carbon Dioxide Level 26 mmol/L (21-32) Anion Gap 12 (6-14) Blood Urea Nitrogen 47 mg/dL (8-26) Creatinine 1.7 mg/dL (0.7-1.3) Estimated GFR (Cockcroft-Gault) 48.2 Glucose Level 274 mg/dL (70-99) Calcium Level 8.3 mg/dL (8.5-10.1) Glucose (Fingerstick) 286 mg/dL (70-99) Laboratory Tests Test 02/21/21 11:39 02/21/21 16:50 02/21/21 20:32 02/22/21 04:30 Glucose (Fingerstick) 231 mg/dL (70-99) 231 mg/dL (70-99) 287 mg/dL (70-99) White Blood Count 15.5 x10^3/uL (4.0-11.0) Red Blood Count 5.73 x10^6/uL (4.30-5.70) Hemoglobin 13.7 g/dL (13.0-17.5) Hematocrit 43.6 % (39.0-53.0) Mean Corpuscular Volume 76 fL (79-100) Mean Corpuscular Hemoglobin 24 pg (25-35) Mean Corpuscular Hemoglobin Concent 31 g/dL (31-37) Red Cell Distribution Width 18.7 % (11.5-14.5) Platelet Count 278 x10^3/uL (140-400) Neutrophils (%) (Auto) 90 % (31-73) Lymphocytes (%) (Auto) 6 % (24-48) Monocytes (%) (Auto) 4 % (0-9) Eosinophils (%) (Auto) 0 % (0-3) Basophils (%) (Auto) 0 % (0-3) Neutrophils # (Auto) 13.9 x10^3/uL (1.8-7.7) Lymphocytes # (Auto) 0.9 x10^3/uL (1.0-4.8) Monocytes # (Auto) 0.7 x10^3/uL (0.0-1.1) Eosinophils # (Auto) 0.0 x10^3/uL (0.0-0.7) Basophils # (Auto) 0.0 x10^3/uL (0.0-0.2) Sodium Level 139 mmol/L (136-145) Potassium Level 3.9 mmol/L (3.5-5.1) Chloride Level 101 mmol/L (98-107) Carbon Dioxide Level 26 mmol/L (21-32) Anion Gap 12 (6-14) Blood Urea Nitrogen 47 mg/dL (8-26) Creatinine 1.7 mg/dL (0.7-1.3) Estimated GFR (Cockcroft-Gault) 48.2 Glucose Level 274 mg/dL (70-99) Calcium Level 8.3 mg/dL (8.5-10.1) Test 02/22/21 07:47 Glucose (Fingerstick) 286 mg/dL (70-99) Medications Active Scripts Medications Dose Route/Sig Max Daily Dose Days Date Category Metformin Hcl 500 Mg Tablet 500 Mg PO BIDWMEALS 02/20/21 Reported Glipizide 5 Mg Tablet 2.5 Mg PO BID 02/20/21 Reported Atorvastatin Calcium 40 Mg Tablet 1 Tab PO DAILY 02/20/21 Reported Furosemide 40 Mg Tablet 1 Tab PO DAILY 02/20/21 Reported Benicar (Olmesartan Medoxomil) 40 Mg Tablet 1 Tab PO DAILY 30 02/20/21 Reported Amlodipine Besylate 10 Mg Tablet 10 Mg PO DAILY 02/20/21 Reported Symbicort 160-4.5 Mcg Inhaler (Budesonide/Formoterol Fumarate) 10.2 Gm Hfa.aer.ad 2 Puff IH BID 02/20/21 Reported Impression . Acute hypoxemic respiratory failure multifactorial Acute on chronic diastolic heart failure Acute exacerbation COPD Abnormal x-ray, possible pneumonia Cardiomyopathy ejection fraction 40-45 A. fib with rapid ventricular response Coronary artery disease with previous PCI Tobacco dependent CT angiogram revealed no evidence of pulmonary embolism there was a right-sided effusion Plan . change solumedrol to 40 bid BD ICS Continue to diurese BiPAP prn during day cont at night titrate fio2 to keep sat 90% 6 min walk at dc Empiric antibiotics Monitor right-sided pleural effusion On Eliquis Effusion too small, no thoracentesis at this time sleep study out pt ELIN ADAMES MD Feb 22, 2021 09:30
[2021-02-22 10:55] VITALS: BP 117/79
--- NOTE | 2021-02-22 11:17 | PDOC ---
[facility] PROGRESS NOTE Date of Service DOS: DATE: 02/22/21 TIME: 11:12 Chief Complaint Chief Complaint Shortness of breath COPD with exacerbation Atrial fibrillation with rapid ventricular response Person under investigation for COVID-19 Sepsis with acute hypoxic respiratory failure Community acquired pneumonia History of Present Illness History of Present Illness 02/22/2021 Patient seen and examined. Chart reviewed. Discussed with RN. Patient is awake and alert. NAD. Patient is responsive and asking questions. Patient is currently on 5L O2 via [place], which he uses during the day. At night, patient uses the BiPAP. Patient relates feeling better and breathing better. Some edema in the lower extremities bilaterally. 02/21/2021 Patient seen and examined. Discussed with RN. Chart reviewed. Patient is currently on 5L O2 via [place]. Stephy ferreira was called last night. This morning, patient is alert and oriented. Head CT showed no acute hemorrhage. MRI ordered but is on hold due to a possible coil embolization at the right carotid terminu s. 02/20/2021 Patient seen and examined. Chart reviewed. Discussed with RN. NPO. Patient is on BiPAP with labored breathing. Patient is awake and alert. Currently receiving IV Ampicillin/sulbactam. Developed Afib with RVR. Vitals/I&O Vitals/I&O: Vital Signs Date Time Temp Pulse Resp B/P (MAP) Pulse Ox O2 Delivery O2 Flow Rate FiO2 02/22/21 10:55 98.4 104 20 117/79 (92) 97 Room Air 98.4 02/22/21 08:11 5.0 I & O 02/21/21 02/21/21 02/22/21 15:00 23:00 07:00 Intake Total 780 ml 800 ml 330 ml Output Total 300 ml 150 ml Balance 780 ml 500 ml 180 ml Physical Exam General: Alert, Oriented X3, Cooperative, No acute distress Heart: Other (IRRR; tele AFIB rate 110-120) Lungs: Other (b lat diminished bs ) Abdomen: Soft, No tenderness Extremities: Other (1-2+ bilateral LE edema. Soreness of bilaterall LE.) Skin: No significant lesion Labs Labs: Laboratory Tests Test 02/21/21 11:39 02/21/21 16:50 02/21/21 20:32 02/22/21 04:30 Glucose (Fingerstick) 231 mg/dL (70-99) 231 mg/dL (70-99) 287 mg/dL (70-99) White Blood Count 15.5 x10^3/uL (4.0-11.0) Red Blood Count 5.73 x10^6/uL (4.30-5.70) Hemoglobin 13.7 g/dL (13.0-17.5) Hematocrit 43.6 % (39.0-53.0) Mean Corpuscular Volume 76 fL (79-100) Mean Corpuscular Hemoglobin 24 pg (25-35) Mean Corpuscular Hemoglobin Concent 31 g/dL (31-37) Red Cell Distribution Width 18.7 % (11.5-14.5) Platelet Count 278 x10^3/uL (140-400) Neutrophils (%) (Auto) 90 % (31-73) Lymphocytes (%) (Auto) 6 % (24-48) Monocytes (%) (Auto) 4 % (0-9) Eosinophils (%) (Auto) 0 % (0-3) Basophils (%) (Auto) 0 % (0-3) Neutrophils # (Auto) 13.9 x10^3/uL (1.8-7.7) Lymphocytes # (Auto) 0.9 x10^3/uL (1.0-4.8) Monocytes # (Auto) 0.7 x10^3/uL (0.0-1.1) Eosinophils # (Auto) 0.0 x10^3/uL (0.0-0.7) Basophils # (Auto) 0.0 x10^3/uL (0.0-0.2) Sodium Level 139 mmol/L (136-145) Potassium Level 3.9 mmol/L (3.5-5.1) Chloride Level 101 mmol/L (98-107) Carbon Dioxide Level 26 mmol/L (21-32) Anion Gap 12 (6-14) Blood Urea Nitrogen 47 mg/dL (8-26) Creatinine 1.7 mg/dL (0.7-1.3) Estimated GFR (Cockcroft-Gault) 48.2 Glucose Level 274 mg/dL (70-99) Calcium Level 8.3 mg/dL (8.5-10.1) Test 02/22/21 07:47 Glucose (Fingerstick) 286 mg/dL (70-99) Assessment and Plan Assessmemt and Plan Problems Medical Problems: (1) Atrial fibrillation with rapid ventricular response Status: Acute (2) Community acquired pneumonia Status: Acute (3) COPD with exacerbation Status: Acute (4) Person under investigation for COVID-19 Status: Acute (5) Sepsis with acute hypoxic respiratory failure Status: Acute Shortness of breath COPD with exacerbation Atrial fibrillation with rapid ventricular response Person under investigation for COVID-19 Sepsis with acute hypoxic respiratory failure Community acquired pneumonia Plan: Cardiac monitoring IV antibiotics Ordered 2mg PO prn q15min Loperamide Try to titrate FiO2 to 2L via [place] COPD protocol (steroid, O2, antibiotics, breathing treatment) Trend labs DVT prophylaxis Full code Appreciate subspecialty input (Neurology, Cardiology, and Pulmonary) Comment Review of Relevant I have reviewed the following items nurys (where applicable) has been applied. Medications: Current Medications Medications (Trade) Dose Ordered Sig/Rajinder Route PRN Reason Start Time Stop Time Status Last Admin Dose Admin Digoxin (Lanoxin) 500 mcg 1X ONCE IV 02/21/21 18:00 02/21/21 18:01 DC 02/21/21 17:48 Apixaban (Eliquis) 5 mg BID PO 02/22/21 09:00 02/22/21 09:03 Furosemide (Lasix) 40 mg [id number] IVP 02/21/21 17:45 02/22/21 09:04 Justifications for Admission Other Justification VITO BARKER III DO Feb 22, 2021 11:17
[2021-02-22] MEDS ORDERED: INSULIN LISPRO 300 UNITS/3 ML VIAL. SQ ONE ×2 (12:30→17:45)
--- NOTE | 2021-02-22 14:20 | PDOC ---
PROGRESS NOTES Date of Service DATE: 02/22/21 TIME: 14:14 Assessment Problems Medical Problems: (1) Atrial fibrillation with rapid ventricular response-he is currently being fo llowed by cardiology and is on anticoagulation. Status: Acute (2) Community acquired pneumonia Status: Acute (3) COPD with exacerbation Status: Acute (4) Person under investigation for [id number] was negative Status: Acute (5) Sepsis with acute hypoxic respiratory failure 6-acute metabolic encephalopathy The patient is a 70-year-old right-handed male admitted on 02/19 with shortness of breath, history of COPD, found to have congestive heart failure and new atrial fibrillation. On February 20, 2021 at about 19:30, the patient was on the commode and had acute onset of aphasia with right-sided weakness. Code stroke was called. He had a CT of the head, which did not reveal hemorrhage. Acute intervention with alteplase was contraindicated due to the recent use of heparin and Lovenox, full-strength, for the atrial fibrillation. NIH score was 35. About an hour later, the patient rapidly improved. There is no prior history of stroke, seizure, or head injury. He does have a history of aneurysm repair. The examination today was normal. I do not detect any neurologic deficits. Status: Acute Plan Continue with supportive care. He cannot undergo an MRI due to previous aneurysmal coiling. He cannot have a CT arteriogram due to poor renal function. His neurologic exam has normalized. I discussed my findings with the patient and his family at bedside. Subjective I am feeling better. I am not having any trouble with talking or understanding. I do not feel numbness or weakness. Objective Vital Signs Date Time Temp Pulse Resp B/P (MAP) Pulse Ox O2 Delivery O2 Flow Rate FiO2 02/22/21 11:37 97 High Flow Nasal Cannula 5.0 02/22/21 10:55 98.4 104 20 117/79 (92) 98.4 Intake and Output 02/22/21 06:59 Intake Total 1910 ml Output Total 450 ml Balance 1460 ml Intake Oral 1360 ml IV Total 550 ml Output Urine Total 450 ml # Voids 2 # Bowel Movements 5 PHYSICAL EXAM He was alert, awake and cooperative. The speech was fluent and clear. He had a good fund of recent and remote knowledge. Attention and concentration was intact. He was well-groomed and well-nourished. He was fully oriented. Examination of the cranial nerves revealed visual wise were full to confrontation. Extraocular movements were intact. The eyes were conjugate. Pursuit movements were smooth and saccadic movements were without dysmetria. The pupils were 3 millimeters and reacted to light. There was no afferent pupillary defect. Facial sensation was intact. The muscles of mastication and facial expression were powerful symmetrically. Hearing was intact to finger rub. The palate arch symmetrically and the tongue was midline with full range of motion. Sternocleidomastoid and trapezius were powerful bilaterally. Muscle bulk and tone was normal. There was no arm drift or abnormal movement. The power was full and symmetric in the upper and lower extremities. Reflexes were 2/4 and symmetric in the upper extremities. Right knee reflex was absent and left knee reflex was 1/4. Ankle reflexes were absent. The toes were downgoing bilateral ly. Coordination testing with finger to nose, heel to hamilton, fine motor and rapid alternating movements was well performed. The sensory examination was intact to pain, light touch, proprioception, graphesthesia, cold thermal and vibration. There was no extinction to double simultaneous stimulation. Gait was not testable. Heart rhythm was regular without a murmur. Peripheral pulses are 2/4 at the wrists and feet. There was severe edema of his ankles and feet but no cyanosis of the extremities. Review of Relevant I have reviewed the following items nurys (where applicable) has been applied. Labs Laboratory Tests Test 02/20/21 17:51 02/20/21 19:53 02/21/21 04:45 02/21/21 11:39 Glucose (Fingerstick) 248 mg/dL (70-99) 285 mg/dL (70-99) 231 mg/dL (70-99) Triglycerides Level 39 mg/dL (0-150) Cholesterol Level 102 mg/dL (0-200) LDL Cholesterol, Calculated 67 mg/dL (0-100) VLDL Cholesterol, Calculated 8 mg/dL (0-40) Non-HDL Cholesterol Calculated 75 mg/dL (0-129) HDL Cholesterol 27 mg/dL (40-60) Cholesterol/HDL Ratio 3.8 Test 02/21/21 16:50 02/21/21 20:32 02/22/21 04:30 02/22/21 07:47 Glucose (Fingerstick) 231 mg/dL (70-99) 287 mg/dL (70-99) 286 mg/dL (70-99) White Blood Count 15.5 x10^3/uL (4.0-11.0) Red Blood Count 5.73 x10^6/uL (4.30-5.70) Hemoglobin 13.7 g/dL (13.0-17.5) Hematocrit 43.6 % (39.0-53.0) Mean Corpuscular Volume 76 fL (79-100) Mean Corpuscular Hemoglobin 24 pg (25-35) Mean Corpuscular Hemoglobin Concent 31 g/dL (31-37) Red Cell Distribution Width 18.7 % (11.5-14.5) Platelet Count 278 x10^3/uL (140-400) Neutrophils (%) (Auto) 90 % (31-73) Lymphocytes (%) (Auto) 6 % (24-48) Monocytes (%) (Auto) 4 % (0-9) Eosinophils (%) (Auto) 0 % (0-3) Basophils (%) (Auto) 0 % (0-3) Neutrophils # (Auto) 13.9 x10^3/uL (1.8-7.7) Lymphocytes # (Auto) 0.9 x10^3/uL (1.0-4.8) Monocytes # (Auto) 0.7 x10^3/uL (0.0-1.1) Eosinophils # (Auto) 0.0 x10^3/uL (0.0-0.7) Basophils # (Auto) 0.0 x10^3/uL (0.0-0.2) Sodium Level 139 mmol/L (136-145) Potassium Level 3.9 mmol/L (3.5-5.1) Chloride Level 101 mmol/L (98-107) Carbon Dioxide Level 26 mmol/L (21-32) Anion Gap 12 (6-14) Blood Urea Nitrogen 47 mg/dL (8-26) Creatinine 1.7 mg/dL (0.7-1.3) Estimated GFR (Cockcroft-Gault) 48.2 Glucose Level 274 mg/dL (70-99) Calcium Level 8.3 mg/dL (8.5-10.1) Test 02/22/21 12:12 Glucose (Fingerstick) 351 mg/dL (70-99) Laboratory Tests Test 02/21/21 16:50 02/21/21 20:32 02/22/21 04:30 02/22/21 07:47 Glucose (Fingerstick) 231 mg/dL (70-99) 287 mg/dL (70-99) 286 mg/dL (70-99) White Blood Count 15.5 x10^3/uL (4.0-11.0) Red Blood Count 5.73 x10^6/uL (4.30-5.70) Hemoglobin 13.7 g/dL (13.0-17.5) Hematocrit 43.6 % (39.0-53.0) Mean Corpuscular Volume 76 fL (79-100) Mean Corpuscular Hemoglobin 24 pg (25-35) Mean Corpuscular Hemoglobin Concent 31 g/dL (31-37) Red Cell Distribution Width 18.7 % (11.5-14.5) Platelet Count 278 x10^3/uL (140-400) Neutrophils (%) (Auto) 90 % (31-73) Lymphocytes (%) (Auto) 6 % (24-48) Monocytes (%) (Auto) 4 % (0-9) Eosinophils (%) (Auto) 0 % (0-3) Basophils (%) (Auto) 0 % (0-3) Neutrophils # (Auto) 13.9 x10^3/uL (1.8-7.7) Lymphocytes # (Auto) 0.9 x10^3/uL (1.0-4.8) Monocytes # (Auto) 0.7 x10^3/uL (0.0-1.1) Eosinophils # (Auto) 0.0 x10^3/uL (0.0-0.7) Basophils # (Auto) 0.0 x10^3/uL (0.0-0.2) Sodium Level 139 mmol/L (136-145) Potassium Level 3.9 mmol/L (3.5-5.1) Chloride Level 101 mmol/L (98-107) Carbon Dioxide Level 26 mmol/L (21-32) Anion Gap 12 (6-14) Blood Urea Nitrogen 47 mg/dL (8-26) Creatinine 1.7 mg/dL (0.7-1.3) Estimated GFR (Cockcroft-Gault) 48.2 Glucose Level 274 mg/dL (70-99) Calcium Level 8.3 mg/dL (8.5-10.1) Test 02/22/21 12:12 Glucose (Fingerstick) 351 mg/dL (70-99) Microbiology 02/19/21 Blood Culture - Preliminary, Resulted NO GROWTH AFTER 2 DAYS Medications Current Medications Dexamethasone Sodium Phosphate (Decadron) 10 mg 1X ONCE IV Last administered on 02/19/21at 17:26; Start 02/19/21 at 16:45; Stop 02/19/21 at 16:46; Status DC Albuterol/ Ipratropium (Duoneb) 3 ml 1X ONCE NEB ; Start 02/19/21 at 16:45; Stop 02/19/21 at 16:46; Status DC Azithromycin 250 ml @ 250 mls/hr 1X ONCE IV Last administered on 02/19/21at 17:30; Start 02/19/21 at 16:45; Stop 02/19/21 at 17:44; Status DC Ceftriaxone Sodium (Rocephin) 1 gm 1X ONCE IVP Last administered on 02/19/21at 17:26; Start 02/19/21 at 16:45; Stop 02/19/21 at 16:46; Status DC Diltiazem HCl (Cardizem Iv Push) 15 mg 1X ONCE IVP Last administered on 02/19/21at 17:29; Start 02/19/21 at 17:00; Stop 02/19/21 at 17:01; Status DC Ondansetron HCl (Zofran) 4 mg PRN Q6HRS PRN IVP NAUSEA/VOMITING; Start 02/19/21 at 17:45 Calcium Carbonate/ Glycine (Tums) 500 mg PRN Q3HRS PRN PO UPSET STOMACH; Start 02/19/21 at 17:45 Zolpidem Tartrate (Ambien) 5 mg PRN QHS PRN PO INSOMNIA, MAY REPEAT IN 1HR; Start 02/19/21 at 17:45 Info (Non-Icu Electrolyte Protocol) 1 ea PRN DAILY PRN MC SEE COMMENTS; Start 02/19/21 at 17:45 Morphine Sulfate (Morphine Sulfate) 1 mg PRN Q1HR PRN IV MODERATE PAIN; Start 02/19/21 at 17:45 Morphine Sulfate (Morphine Sulfate) 2 mg PRN Q1HR PRN IV SEVERE PAIN Last administered on 02/21/21at 01:51; Start 02/19/21 at 17:45 Oxycodone HCl (Roxicodone) 5 mg PRN Q4HRS PRN PO MILD PAIN, 1ST CHOICE; Start 02/19/21 at 17:45 Oxycodone HCl (Roxicodone) 10 mg PRN Q4HRS PRN PO MODERATE PAIN, SEVERE PAIN; Start 02/19/21 at 17:45 Acetaminophen (Tylenol) 650 mg PRN Q6HRS PRN PO Headaches, Temp > 101.5F; Sta rt 02/19/21 at 17:45 Senna/Docusate Sodium (Senna Plus) 1 tab BID PO Last administered on 02/20/21at 12:11; Start 02/19/21 at 21:00 Heparin Sodium (Porcine) (Heparin Sodium) 5,000 unit Q8HRS SQ Last administered on 02/20/21at 05:59; Start 02/19/21 at 22:00; Stop 02/20/21 at 12:49; Status DC Non-Formulary Medication (Aclidinium [place] (Tudorza Pressair)) 400 mcg BID IH ; Start 02/19/21 at 21:00; Stop 02/19/21 at 19:04; Status DC Albuterol Sulfate (Ventolin Neb Soln) 2.5 mg Q4HRS NEB ; Start 02/19/21 at 20: 00; Stop 02/20/21 at 09:54; Status DC Dorzolamide HCl (Trusopt) 1 drop QHS OD Last administered on 02/21/21at 20:13; Start 02/19/21 at 21:00 Losartan Potassium (Cozaar) 100 mg DAILY PO ; Start 02/20/21 at 09:00; Status Cancel Non-Formulary Medication (Tiotropium Br/ Olodaterol HCl (Stiolto Respimat Inhal [place])) 4 gm DAILY IH ; Start 02/20/21 at 09:00; Stop 02/19/21 at 19:03; Status DC Amlodipine Besylate (Norvasc) 5 mg DAILY PO ; Start 02/20/21 at 09:00; Status Cancel Hydrochlorothiazide (Microzide) 12.5 mg DAILY PO ; Start 02/20/21 at 09:00; Status Cancel Ampicillin Sodium/ Sulbactam Sodium 3 gm/Sodium Chloride 100 ml @ 200 mls/hr Q6HRS IV Last administered on 02/22/21at 12:53; Start 02/20/21 at 00:00 Azithromycin 500 mg/Sodium Chloride 250 ml @ 250 mls/hr Q24H IV Last administered on 02/21/21at 18:00; Start 02/20/21 at 18:00; Stop 02/22/21 at 17:59 Furosemide (Lasix) 40 mg 1X ONCE IVP Last administered on 02/19/21at 18:52; Start 02/19/21 at 18:00; Stop 02/19/21 at 18:25; Status DC Albuterol/ Ipratropium (Duoneb) 3 ml RTQID NEB Last administered on 02/22/21at 11:30; Start 02/19/21 at 20:00 Timolol Maleate (Timoptic 0.5% [facility]) 1 drop QHS OS Last administered on 02/21/21at 20:13; Start 02/19/21 at 21:00 Methylprednisolone Sodium Succinate (SOLU-Medrol 40MG VIAL) 40 mg Q8HRS IV Last administered on 02/22/21at 05:24; Start 02/19/21 at 22:00; Stop 02/22/21 at 09:31; Status DC Info (FLU VACCINE SCREEN per RX) 1 each 1X ONCE MC ; Start 02/19/21 at 23:00; Stop 02/19/21 at 23:01; Status Cancel Info (FLU VACCINE SCREEN per RX) 1 each PRN DAILY PRN MC SEE COMMENTS; Start 02/19/21 at 23:15; Status Cancel Metoprolol Tartrate (Lopressor Vial) 5 mg PRN Q1HR PRN IVP HYPERTENSION Last administered on 02/21/21at 08:39; Start 02/20/21 at 00:00 Iohexol (Omnipaque 350 Mg/ml) 100 ml 1X ONCE IV Last administered on 02/20/21at 07:30; Start 02/20/21 at 07:30; Stop 02/20/21 at 07:31; Status DC Amlodipine Besylate (Norvasc) 10 mg DAILY PO ; Start 02/20/21 at 11:00; Stop 02/20/21 at 11:04; Status DC Atorvastatin Calcium (Lipitor) 40 mg DAILY PO Last administered on 02/22/21at 09:04; Start 02/20/21 at 10:00 Furosemide (Lasix) 40 mg DAILY PO Last administered on 02/21/21at 09:47; Start 02/20/21 at 10:00; Stop 02/21/21 at 17:33; Status DC Glipizide (Glucotrol) 2.5 mg BIDWMEALS PO Last administered on 02/20/21at 12:38; Start 02/20/21 at 12:00; Stop 02/20/21 at 17:28; Status DC Metformin HCl (Glucophage) 500 mg BIDWMEALS PO ; Start 02/20/21 at 12:00; Stop 02/20/21 at 17:20; Status DC Budesonide (Pulmicort) 0.5 mg RTBID NEB Last administered on 02/22/21at 08:09; Start 02/20/21 at 20:00 Losartan Potassium (Cozaar) 100 mg DAILY PO Last administered on 02/22/21at 09:03; Start 02/20/21 at 10:00 Influenza Virus Vaccine Quadrival (Flulaval Quad [id number] Syringe) 0.5 ml ONCE ONCE VAX IM ; Start 02/21/21 at 09:00; Stop 02/21/21 at 09:01; Status DC Metoprolol Tartrate (Lopressor Vial) 5 mg 1X ONCE IVP Last administered on 02/20/21at 12:11; Start 02/20/21 at 12:15; Stop 02/20/21 at 12:16; Status DC Aspirin (Ecotrin) 81 mg [id number] PO Last administered on 02/22/21at 09:03; Start 02/20/21 at 13:00 Metoprolol Tartrate (Lopressor) 50 mg BID PO Last administered on 02/22/21at 09:04; Start 02/20/21 at 13:00 Enoxaparin Sodium (Lovenox Per Pharmacy Treatment Dosing) 1 each PRN DAILY PRN MC SEE COMMENTS; Start 02/20/21 at 13:00; Status Cancel Enoxaparin Sodium (Lovenox 100mg Syringe) 100 mg Q12HR SQ Last administered on 02/21/21at 20:10; Start 02/20/21 at 13:00; Stop 02/21/21 at 21:00; Status DC Furosemide (Lasix) 40 mg 1X ONCE IVP Last administered on 02/20/21at 14:28; Start 02/20/21 at 13:45; Stop 02/20/21 at 13:46; Status DC Iohexol (Omnipaque 350 Mg/ml) 100 ml STK-MED ONCE .ROUTE ; Start 02/20/21 at 15:53; Stop 02/20/21 at 15:53; Status DC Metformin HCl (Glucophage) 500 mg BIDWMEALS PO ; Start 02/22/21 at 17:00 Insulin Human Lispro (HumaLOG) 0-7 UNITS TIDWMEALS SQ Last administered on 02/22/21at 12:58; Start 02/20/21 at 17:30 Dextrose (Dextrose 50%-Water Syringe) 12.5 gm PRN Q15MIN PRN IV SEE COMMENTS; Start 02/20/21 at 17:30 Info (Anti-Coagulation Monitoring By Pharmacy) 1 each PRN DAILY PRN MC PER PROTOCOL Last administered on 02/21/21at 11:04; Start 02/21/21 at 11:00 Digoxin (Lanoxin) 500 mcg 1X ONCE IV Last administered on 02/21/21at 17:48; Start 02/21/21 at 18:00; Stop 02/21/21 at 18:01; Status DC Furosemide (Lasix) 40 mg BID92 IVP ; Start 02/22/21 at 09:00; Stop 02/21/21 at 17:42; Status DC Apixaban (Eliquis) 5 mg BID PO Last administered on 02/22/21at 09:03; Start 02/22/21 at 09:00 Furosemide (Lasix) 40 mg BID92 IVP Last administered on 02/22/21at 09:04; Start 02/21/21 at 17:45 Methylprednisolone Sodium Succinate (SOLU-Medrol 40MG VIAL) 40 mg Q12HR IV ; Start 02/22/21 at 21:00 Loperamide HCl (Imodium) 2 mg PRN Q15MIN PRN PO DIARRHEA; Start 02/22/21 at 11:15 Insulin Human Lispro (HumaLOG) 3 units 1X ONCE SQ Last administered on 02/22/21at 12:59; Start 02/22/21 at 12:30; Stop 02/22/21 at 12:31; Status DC Active Scripts Active Reported Metformin Hcl 500 Mg Tablet 500 Mg PO BIDWMEALS Glipizide 5 Mg Tablet 2.5 Mg PO BID Atorvastatin Calcium 40 Mg Tablet 1 Tab PO DAILY Furosemide 40 Mg Tablet 1 Tab PO DAILY Benicar (Olmesartan Medoxomil) 40 Mg Tablet 1 Tab PO DAILY 30 Days Amlodipine Besylate 10 Mg Tablet 10 Mg PO DAILY Symbicort 160-4.5 Mcg Inhaler (Budesonide/Formoterol Fumarate) 10.2 Gm Hfa.aer.ad 2 Puff IH BID Vitals/I & O Vital Sign - Last 24 Hours 02/21/21 02/21/21 02/21/21 02/21/21 16:16 17:48 19:30 20:00 Temp 97.6 97.6 Pulse 114 124 Resp 21 B/P (MAP) 119/74 121/77 (92) Pulse Ox 99 97 O2 Delivery High Flow Nasal Cannula Nasal Cannula Bi-pap O2 Flow Rate 5.0 5.0 02/21/21 02/21/21 02/21/21 02/21/21 20:09 20:55 22:20 23:15 Temp 97.7 97.7 Pulse 114 109 Resp 20 B/P (MAP) 119/74 121/77 (92) Pulse Ox 99 99 99 O2 Delivery High Flow Nasal Cannula BiPAP/CPAP BiPAP/CPAP O2 Flow Rate 5.0 02/22/21 02/22/21 02/22/21 02/22/21 01:52 03:35 05:02 07:01 Temp 97.4 97.4 97.4 97.4 Pulse 130 113 Resp 20 20 B/P (MAP) 132/68 (89) 139/90 (106) Pulse Ox 99 97 97 98 O2 Delivery BiPAP/CPAP BiPAP/CPAP BiPAP/CPAP BiPAP/CPAP 02/22/21 02/22/21 02/22/21 02/22/21 08:11 09:03 09:04 10:55 Temp 98.4 98.4 Pulse 113 113 104 Resp 20 B/P (MAP) 139/90 139/90 117/79 (92) Pulse Ox 100 97 O2 Delivery High Flow Nasal Cannula Room Air O2 Flow Rate 5.0 02/22/21 11:37 Pulse Ox 97 O2 Delivery High Flow Nasal Cannula O2 Flow Rate 5.0 Intake and Output 02/21/21 02/21/21 02/22/21 14:59 22:59 06:59 Intake Total 780 ml 800 ml 330 ml Output Total 300 ml 150 ml Balance 780 ml 500 ml 180 ml Justicifation of Admission Dx: Justifications for Admission: Justification of Admission Dx: Yes CHF: Cardiac Arrhythmias Aspiration Pneumonia: Chronic Lung Disease Chronic Renal Failure: Encephalopathy PRICE CARRANZA MD Feb 22, 2021 14:20
[2021-02-22 15:03] VITALS: BP 128/66
[2021-02-22] MEDS: LOPERAMIDE 2 MG CAPSULE PO PRN ×2 (15:47→17:38)
[2021-02-22] MEDS: metFORMIN 500 MG TABLET PO SCH (17:38)
[2021-02-22 19:00] VITALS: BP 125/67
[2021-02-22] MEDS: DORZOLAMIDE 2% OPHTH SOLUTION 10ML BOTTLE. OD SCH (20:47)
[2021-02-22] MEDS: TIMOLOL 0.5% OPHTH SOLUTION 5ML BOTTLE. OS SCH (20:47)
[2021-02-22] MEDS: CALCIUM CARBONATE 500 MG TAB.CHEW PO PRN (22:17)
[2021-02-22 22:59] VITALS: BP 137/105
[2021-02-23] MEDS: AMPICILLIN/SULBACTAM 3 GM in IV NORMAL SALINE 100ML 100 ML IV SCH ×5 (01:17→23:50)
[2021-02-23 02:42] VITALS: BP 132/79
[2021-02-23 04:49] LABS: BASO % 0 % (0-3); EOS % 0 % (0-3); HEMATOCRIT 43.1 % (39.0-53.0); HEMOGLOBIN 13.5 g/dL (13.0-17.5); LYMPH # 0.5 x10^3/uL (1.0-4.8); LYMPH % 4 % (24-48); MEAN CORPUSCULAR HEMOGLOBIN 24 pg (25-35); MEAN CORPUSCULAR HGB CONC 31 g/dL (31-37); MEAN CORPUSCULAR VOLUME 76 fL (79-100); MONO # 0.7 x10^3/uL (0.0-1.1); MONO % 6 % (0-9); NEUT # 11.5 x10^3/uL (1.8-7.7); NEUT % 90 % (31-73); PLATELET COUNT 261 x10^3/uL (140-400); RED BLOOD COUNT 5.67 x10^6/uL (4.30-5.70); RED CELL DISTRIBUTION WIDTH 18.6 % (11.5-14.5); WHITE BLOOD COUNT 12.8 x10^3/uL (4.0-11.0)
[2021-02-23 05:04] LABS: CALCIUM 8.4 mg/dL (8.5-10.1); CREATININE 1.6 mg/dL (0.7-1.3); GFR 51.7; POTASSIUM 3.9 mmol/L (3.5-5.1)
[2021-02-23 05:29] LABS: % LYMPHS 5 % (24-48); % MONOS 3 % (0-10); % SEGS 92 % (35-66); ANISOCYTOSIS SLIGHT; HYPOCHROMIA SLIGHT; PLT ESTIMATE ADEQUATE (ADEQUATE)
[2021-02-23 07:00] VITALS: BP 130/66
[2021-02-23] MEDS: BUDESONIDE 0.5 MG/2 ML NEBU. NEB SCH ×2 (08:22→20:18)
[2021-02-23] MEDS: IPRATRPIUM/ALBUTEROL 0.5/2.5MG 3 ML NEBU. NEB SCH ×4 (08:22→20:18)
[2021-02-23] MEDS: methylPREDNISolone SOD SUCC PF 40 MG/ML VIAL. IV SCH (08:36)
[2021-02-23] MEDS: METOPROLOL TART IMMED RELEASE 50 MG TABLET. PO SCH ×2 (08:36→21:03)
[2021-02-23] MEDS: ASPIRIN ENTERIC COATED 81 MG TABLET.DR. PO SCH (08:36)
[2021-02-23] MEDS: ATORVASTATIN CALCIUM 40 MG TABLET. PO SCH (08:37)
[2021-02-23] MEDS: APIXABAN 5 MG TABLET. PO SCH ×2 (08:37→21:02)
[2021-02-23] MEDS: FUROSEMIDE 40 MG/4 ML VIAL. IVP SCH ×2 (08:37→14:05)
[2021-02-23] MEDS: metFORMIN 500 MG TABLET PO SCH (08:37)
[2021-02-23] MEDS: SENNOSIDES/DOCUSATE 8.6/50MG TABLET. PO SCH ×2 (08:38→21:00)
[2021-02-23] MEDS: LOSARTAN POTASSIUM 50 MG TABLET. PO SCH (08:39)
[2021-02-23] MEDS ORDERED: INSULIN LISPRO 300 UNITS/3 ML VIAL. SQ ONE ×2 (09:15→11:30)
[2021-02-23] MEDS: INSULIN LISPRO 300 UNITS/3 ML VIAL. SQ SCH ×4 (09:30→17:00)
--- NOTE | 2021-02-23 09:36 | PDOC ---
PULMONARY PROGRESS NOTES DATE: 02/23/21 TIME: 09:34 Subjective feels slightly better not on home 02 no psg used BiPAP last night No new complaint Vitals Vital Signs Date Time Temp Pulse Resp B/P (MAP) Pulse Ox O2 Delivery O2 Flow Rate FiO2 02/23/21 08:39 123 130/66 02/23/21 08:26 94 High Flow Nasal Cannula 5.0 02/23/21 07:00 97.5 20 97.5 General: Alert, No acute distress Lungs: Other (b lat diminished bs ) Cardiovascular: S1, S2 Abdomen: Soft, Other Extremities: Other (Edema has diminished) Skin: Warm Labs Laboratory Tests Test 02/21/21 11:39 02/21/21 16:50 02/21/21 20:32 02/22/21 04:30 Glucose (Fingerstick) 231 mg/dL (70-99) 231 mg/dL (70-99) 287 mg/dL (70-99) White Blood Count 15.5 x10^3/uL (4.0-11.0) Red Blood Count 5.73 x10^6/uL (4.30-5.70) Hemoglobin 13.7 g/dL (13.0-17.5) Hematocrit 43.6 % (39.0-53.0) Mean Corpuscular Volume 76 fL (79-100) Mean Corpuscular Hemoglobin 24 pg (25-35) Mean Corpuscular Hemoglobin Concent 31 g/dL (31-37) Red Cell Distribution Width 18.7 % (11.5-14.5) Platelet Count 278 x10^3/uL (140-400) Neutrophils (%) (Auto) 90 % (31-73) Lymphocytes (%) (Auto) 6 % (24-48) Monocytes (%) (Auto) 4 % (0-9) Eosinophils (%) (Auto) 0 % (0-3) Basophils (%) (Auto) 0 % (0-3) Neutrophils # (Auto) 13.9 x10^3/uL (1.8-7.7) Lymphocytes # (Auto) 0.9 x10^3/uL (1.0-4.8) Monocytes # (Auto) 0.7 x10^3/uL (0.0-1.1) Eosinophils # (Auto) 0.0 x10^3/uL (0.0-0.7) Basophils # (Auto) 0.0 x10^3/uL (0.0-0.2) Sodium Level 139 mmol/L (136-145) Potassium Level 3.9 mmol/L (3.5-5.1) Chloride Level 101 mmol/L (98-107) Carbon Dioxide Level 26 mmol/L (21-32) Anion Gap 12 (6-14) Blood Urea Nitrogen 47 mg/dL (8-26) Creatinine 1.7 mg/dL (0.7-1.3) Estimated GFR (Cockcroft-Gault) 48.2 Glucose Level 274 mg/dL (70-99) Calcium Level 8.3 mg/dL (8.5-10.1) Test 02/22/21 07:47 02/22/21 12:12 02/22/21 17:36 02/22/21 20:34 Glucose (Fingerstick) 286 mg/dL (70-99) 351 mg/dL (70-99) 362 mg/dL (70-99) 290 mg/dL (70-99) Test 02/23/21 04:20 02/23/21 08:27 White Blood Count 12.8 x10^3/uL (4.0-11.0) Red Blood Count 5.67 x10^6/uL (4.30-5.70) Hemoglobin 13.5 g/dL (13.0-17.5) Hematocrit 43.1 % (39.0-53.0) Mean Corpuscular Volume 76 fL (79-100) Mean Corpuscular Hemoglobin 24 pg (25-35) Mean Corpuscular Hemoglobin Concent 31 g/dL (31-37) Red Cell Distribution Width 18.6 % (11.5-14.5) Platelet Count 261 x10^3/uL (140-400) Neutrophils (%) (Auto) 90 % (31-73) Lymphocytes (%) (Auto) 4 % (24-48) Monocytes (%) (Auto) 6 % (0-9) Eosinophils (%) (Auto) 0 % (0-3) Basophils (%) (Auto) 0 % (0-3) Neutrophils # (Auto) 11.5 x10^3/uL (1.8-7.7) Lymphocytes # (Auto) 0.5 x10^3/uL (1.0-4.8) Monocytes # (Auto) 0.7 x10^3/uL (0.0-1.1) Eosinophils # (Auto) 0.0 x10^3/uL (0.0-0.7) Basophils # (Auto) 0.0 x10^3/uL (0.0-0.2) Segmented Neutrophils % 92 % (35-66) Lymphocytes % 5 % (24-48) Monocytes % 3 % (0-10) Platelet Estimate Adequate (ADEQUATE) Hypochromasia Slight Anisocytosis Slight Sodium Level 138 mmol/L (136-145) Potassium Level 3.9 mmol/L (3.5-5.1) Chloride Level 100 mmol/L (98-107) Carbon Dioxide Level 29 mmol/L (21-32) Anion Gap 9 (6-14) Blood Urea Nitrogen 37 mg/dL (8-26) Creatinine 1.6 mg/dL (0.7-1.3) Estimated GFR (Cockcroft-Gault) 51.7 Glucose Level 272 mg/dL (70-99) Calcium Level 8.4 mg/dL (8.5-10.1) Glucose (Fingerstick) 523 mg/dL (70-99) Laboratory Tests Test 02/22/21 12:12 02/22/21 17:36 02/22/21 20:34 02/23/21 04:20 Glucose (Fingerstick) 351 mg/dL (70-99) 362 mg/dL (70-99) 290 mg/dL (70-99) White Blood Count 12.8 x10^3/uL (4.0-11.0) Red Blood Count 5.67 x10^6/uL (4.30-5.70) Hemoglobin 13.5 g/dL (13.0-17.5) Hematocrit 43.1 % (39.0-53.0) Mean Corpuscular Volume 76 fL (79-100) Mean Corpuscular Hemoglobin 24 pg (25-35) Mean Corpuscular Hemoglobin Concent 31 g/dL (31-37) Red Cell Distribution Width 18.6 % (11.5-14.5) Platelet Count 261 x10^3/uL (140-400) Neutrophils (%) (Auto) 90 % (31-73) Lymphocytes (%) (Auto) 4 % (24-48) Monocytes (%) (Auto) 6 % (0-9) Eosinophils (%) (Auto) 0 % (0-3) Basophils (%) (Auto) 0 % (0-3) Neutrophils # (Auto) 11.5 x10^3/uL (1.8-7.7) Lymphocytes # (Auto) 0.5 x10^3/uL (1.0-4.8) Monocytes # (Auto) 0.7 x10^3/uL (0.0-1.1) Eosinophils # (Auto) 0.0 x10^3/uL (0.0-0.7) Basophils # (Auto) 0.0 x10^3/uL (0.0-0.2) Segmented Neutrophils % 92 % (35-66) Lymphocytes % 5 % (24-48) Monocytes % 3 % (0-10) Platelet Estimate Adequate (ADEQUATE) Hypochromasia Slight Anisocytosis Slight Sodium Level 138 mmol/L (136-145) Potassium Level 3.9 mmol/L (3.5-5.1) Chloride Level 100 mmol/L (98-107) Carbon Dioxide Level 29 mmol/L (21-32) Anion Gap 9 (6-14) Blood Urea Nitrogen 37 mg/dL (8-26) Creatinine 1.6 mg/dL (0.7-1.3) Estimated GFR (Cockcroft-Gault) 51.7 Glucose Level 272 mg/dL (70-99) Calcium Level 8.4 mg/dL (8.5-10.1) Test 02/23/21 08:27 Glucose (Fingerstick) 523 mg/dL (70-99) Medications Active Scripts Medications Dose Route/Sig Max Daily Dose Days Date Category Metformin Hcl 500 Mg Tablet 500 Mg PO BIDWMEALS 02/20/21 Reported Glipizide 5 Mg Tablet 2.5 Mg PO BID 02/20/21 Reported Atorvastatin Calcium 40 Mg Tablet 1 Tab PO DAILY 02/20/21 Reported Furosemide 40 Mg Tablet 1 Tab PO DAILY 02/20/21 Reported Benicar (Olmesartan Medoxomil) 40 Mg Tablet 1 Tab PO DAILY 30 02/20/21 Reported Amlodipine Besylate 10 Mg Tablet 10 Mg PO DAILY 02/20/21 Reported Symbicort 160-4.5 Mcg Inhaler (Budesonide/Formoterol Fumarate) 10.2 Gm Hfa.aer.ad 2 Puff IH BID 02/20/21 Reported Impression . Acute hypoxemic respiratory failure multifactorial Acute on chronic diastolic heart failure Acute exacerbation COPD Abnormal x-ray, possible pneumonia Cardiomyopathy ejection fraction 40-45 A. fib with rapid ventricular response Coronary artery disease with previous PCI Tobacco dependent CT angiogram revealed no evidence of pulmonary embolism there was a right-sided effusion Plan . change solumedrol to pred 40 mg daily w taper psg as out pt BD ICS Continue to diurese BiPAP prn during day cont at night titrate fio2 to keep sat 90% 6 min walk at dc Empiric antibiotics Monitor right-sided pleural effusion On Eliquis Effusion too small, no thoracentesis at this time discussed w pt EILN ADAMES MD Feb 23, 2021 09:36
[2021-02-23 10:14] VITALS: BP 136/91
--- NOTE | 2021-02-23 12:38 | PDOC ---
[employer] PROGRESS NOTE Date of Service DOS: DATE: 02/23/21 TIME: 12:30 Chief Complaint Chief Complaint Shortness of breath COPD with exacerbation Atrial fibrillation with rapid ventricular response Person under investigation for COVID-19 Sepsis with acute hypoxic respiratory failure Community acquired pneumonia History of Present Illness History of Present Illness 02/23/2021 Patient seen and examined. Chart reviewed. Discussed with RN to titrate his FiO2 down to 4L to maintain his oxygen saturation around 88-92%. Patient is awake and alert. NAD. Patient is responsive and asking questions. Patient is currently on 5L O2 via NC. Patient relates feeling just okay, not much better from yesterday. Patient says he has pain on the left side of his ribcage since yesterday. Glucose level was at 523 early this morning, and has gone down to 308 at 11:00am. 02/22/2021 Patient seen and examined. Chart reviewed. Discussed with RN. Patient is awake and alert. NAD. Patient is responsive and asking questions. Patient is currently on 5L O2 via NC, which he uses during the day. At night, patient uses the BiPAP. Patient relates feeling better and breathing better. Some edema in the lower extremities bilaterally. 02/21/2021 Patient seen and examined. Discussed with RN. Chart reviewed. Patient is currently on 5L O2 via NC. Stephy ferreira was called last night. This morning, patient is alert and oriented. Head CT showed no acute hemorrhage. MRI ordered but is on hold due to a possible coil embolization at the right carotid terminus. 02/20/2021 Patient seen and examined. Chart reviewed. Discussed with RN. NPO. Patient is on BiPAP with labored breathing. Patient is awake and alert. Currently receiving IV Ampicillin/sulbactam. Developed Afib with RVR. Vitals/I&O Vitals/I&O: Vital Signs Date Time Temp Pulse Resp B/P (MAP) Pulse Ox O2 Delivery O2 Flow Rate FiO2 02/23/21 11:44 High Flow Nasal Cannula 5.0 02/23/21 10:14 98.1 108 22 136/91 (106) 96 98.1 I & O 02/22/21 02/22/21 02/23/21 15:00 23:00 07:00 Intake Total 400 ml 100 ml 440 ml Output Total 100 ml 850 ml 400 ml Balance 300 ml -750 ml 40 ml Physical Exam General: Alert, Oriented X3, Cooperative, No acute distress Heart: Other (IRRR; tele AFIB rate 110-120) Lungs: Other (b lat diminished bs ) Abdomen: Soft, No tenderness Extremities: Other (1-2+ bilateral LE edema. Soreness of bilaterall LE.) Skin: No significant lesion Labs Labs: Laboratory Tests Test 02/22/21 17:36 02/22/21 20:34 02/23/21 04:20 02/23/21 08:27 Glucose (Fingerstick) 362 mg/dL (70-99) 290 mg/dL (70-99) 523 mg/dL (70-99) White Blood Count 12.8 x10^3/uL (4.0-11.0) Red Blood Count 5.67 x10^6/uL (4.30-5.70) Hemoglobin 13.5 g/dL (13.0-17.5) Hematocrit 43.1 % (39.0-53.0) Mean Corpuscular Volume 76 fL (79-100) Mean Corpuscular Hemoglobin 24 pg (25-35) Mean Corpuscular Hemoglobin Concent 31 g/dL (31-37) Red Cell Distribution Width 18.6 % (11.5-14.5) Platelet Count 261 x10^3/uL (140-400) Neutrophils (%) (Auto) 90 % (31-73) Lymphocytes (%) (Auto) 4 % (24-48) Monocytes (%) (Auto) 6 % (0-9) Eosinophils (%) (Auto) 0 % (0-3) Basophils (%) (Auto) 0 % (0-3) Neutrophils # (Auto) 11.5 x10^3/uL (1.8-7.7) Lymphocytes # (Auto) 0.5 x10^3/uL (1.0-4.8) Monocytes # (Auto) 0.7 x10^3/uL (0.0-1.1) Eosinophils # (Auto) 0.0 x10^3/uL (0.0-0.7) Basophils # (Auto) 0.0 x10^3/uL (0.0-0.2) Segmented Neutrophils % 92 % (35-66) Lymphocytes % 5 % (24-48) Monocytes % 3 % (0-10) Platelet Estimate Adequate (ADEQUATE) Hypochromasia Slight Anisocytosis Slight Sodium Level 138 mmol/L (136-145) Potassium Level 3.9 mmol/L (3.5-5.1) Chloride Level 100 mmol/L (98-107) Carbon Dioxide Level 29 mmol/L (21-32) Anion Gap 9 (6-14) Blood Urea Nitrogen 37 mg/dL (8-26) Creatinine 1.6 mg/dL (0.7-1.3) Estimated GFR (Cockcroft-Gault) 51.7 Glucose Level 272 mg/dL (70-99) Calcium Level 8.4 mg/dL (8.5-10.1) Test 02/23/21 11:22 Glucose (Fingerstick) 308 mg/dL (70-99) Assessment and Plan Assessmemt and Plan Problems Medical Problems: (1) Atrial fibrillation with rapid ventricular response Status: Acute (2) Community acquired pneumonia Status: Acute (3) COPD with exacerbation Status: Acute (4) Person under investigation for COVID-19 Status: Acute (5) Sepsis with acute hypoxic respiratory failure Status: Acute Shortness of breath COPD with exacerbation Atrial fibrillation with rapid ventricular response Person under investigation for COVID-19 Sepsis with acute hypoxic respiratory failure Community acquired pneumonia Plan: Discontinue Metformin due to high creatinine level (1.6) Ordered 10 units of Novolog Ordered 20 units of 20 units of Lantus Cardiac monitoring IV antibiotics Try to titrate FiO2 to 2L via TX COPD protocol (steroid, O2, antibiotics, breathing treatment) Trend labs DVT prophylaxis Full code Appreciate subspecialty input (Neurology, Cardiology, and Pulmonary) Comment Review of Relevant I have reviewed the following items nurys (where applicable) has been applied. Medications: Current Medications Medications (Trade) Dose Ordered Sig/Rajinder Route PRN Reason Start Time Stop Time Status Last Admin Dose Admin Metformin HCl (Glucophage) 500 mg BIDWMEALS PO 02/22/21 17:00 02/23/21 08:37 Methylprednisolone Sodium Succinate (SOLU-Medrol 40MG VIAL) 40 mg Q12HR IV 02/22/21 21:00 02/23/21 09:37 DC 02/23/21 08:36 Insulin Human Lispro (HumaLOG) 4 units 1X ONCE SQ 02/22/21 17:45 02/22/21 17:46 DC 02/22/21 17:42 Insulin Human Lispro (HumaLOG) 13 units 1X ONCE SQ 02/23/21 09:15 02/23/21 09:16 DC 02/23/21 09:30 Justifications for Admission Other Justification VITO BARKRE III DO Feb 23, 2021 12:38
--- NOTE | 2021-02-23 13:25 | PDOC ---
PROGRESS NOTES Date of Service DATE: 02/23/21 TIME: 13:21 Subjective Subjective Patient seen and examined Objective Objective Vital Signs Date Time Temp Pulse Resp B/P (MAP) Pulse Ox O2 Delivery O2 Flow Rate FiO2 02/23/21 11:44 High Flow Nasal Cannula 5.0 02/23/21 10:14 98.1 108 22 136/91 (106) 96 98.1 Intake and Output 02/23/21 07:00 Intake Total 940 ml Output Total 1350 ml Balance -410 ml Intake Oral 740 ml IV Total 200 ml Output Urine Total 1350 ml # Bowel Movements 1 Physical Exam Abdomen: Normal bowel sounds Heart: Other (Irregular rhythm.) General: mild distress Lungs: Other (Mildly decreased breath sounds) Assessment Assessment Problems Medical Problems: (1) Atrial fibrillation with rapid ventricular response Status: Acute (2) Community acquired pneumonia Status: Acute (3) COPD with exacerbation Status: Acute (4) Person under investigation for COVID-19 Status: Acute (5) Sepsis with acute hypoxic respiratory failure Status: Acute Acute respiratory failure, multifactorial. Improving. Followed by the pulmonary service. Acute on chronic systolic CHF; continuing present treatment. AFIB with RVR; new onset; rate improving. Continuing present treatment. CAD: past PCI to LCx and RCA. Chest pressure; atypical. Resolved. Cardiomyopathy: Continuing present treatment. Hypertension. Improving. Hyperlipidmeia. Continue present treatment. Comment Review of Relevant I have reviewed the following items nurys (where applicable) has been applied. Labs Laboratory Tests Test 02/21/21 16:50 02/21/21 20:32 02/22/21 04:30 02/22/21 07:47 Glucose (Fingerstick) 231 mg/dL (70-99) 287 mg/dL (70-99) 286 mg/dL (70-99) White Blood Count 15.5 x10^3/uL (4.0-11.0) Red Blood Count 5.73 x10^6/uL (4.30-5.70) Hemoglobin 13.7 g/dL (13.0-17.5) Hematocrit 43.6 % (39.0-53.0) Mean Corpuscular Volume 76 fL (79-100) Mean Corpuscular Hemoglobin 24 pg (25-35) Mean Corpuscular Hemoglobin Concent 31 g/dL (31-37) Red Cell Distribution Width 18.7 % (11.5-14.5) Platelet Count 278 x10^3/uL (140-400) Neutrophils (%) (Auto) 90 % (31-73) Lymphocytes (%) (Auto) 6 % (24-48) Monocytes (%) (Auto) 4 % (0-9) Eosinophils (%) (Auto) 0 % (0-3) Basophils (%) (Auto) 0 % (0-3) Neutrophils # (Auto) 13.9 x10^3/uL (1.8-7.7) Lymphocytes # (Auto) 0.9 x10^3/uL (1.0-4.8) Monocytes # (Auto) 0.7 x10^3/uL (0.0-1.1) Eosinophils # (Auto) 0.0 x10^3/uL (0.0-0.7) Basophils # (Auto) 0.0 x10^3/uL (0.0-0.2) Sodium Level 139 mmol/L (136-145) Potassium Level 3.9 mmol/L (3.5-5.1) Chloride Level 101 mmol/L (98-107) Carbon Dioxide Level 26 mmol/L (21-32) Anion Gap 12 (6-14) Blood Urea Nitrogen 47 mg/dL (8-26) Creatinine 1.7 mg/dL (0.7-1.3) Estimated GFR (Cockcroft-Gault) 48.2 Glucose Level 274 mg/dL (70-99) Calcium Level 8.3 mg/dL (8.5-10.1) Test 02/22/21 12:12 02/22/21 17:36 02/22/21 20:34 02/23/21 04:20 Glucose (Fingerstick) 351 mg/dL (70-99) 362 mg/dL (70-99) 290 mg/dL (70-99) White Blood Count 12.8 x10^3/uL (4.0-11.0) Red Blood Count 5.67 x10^6/uL (4.30-5.70) Hemoglobin 13.5 g/dL (13.0-17.5) Hematocrit 43.1 % (39.0-53.0) Mean Corpuscular Volume 76 fL (79-100) Mean Corpuscular Hemoglobin 24 pg (25-35) Mean Corpuscular Hemoglobin Concent 31 g/dL (31-37) Red Cell Distribution Width 18.6 % (11.5-14.5) Platelet Count 261 x10^3/uL (140-400) Neutrophils (%) (Auto) 90 % (31-73) Lymphocytes (%) (Auto) 4 % (24-48) Monocytes (%) (Auto) 6 % (0-9) Eosinophils (%) (Auto) 0 % (0-3) Basophils (%) (Auto) 0 % (0-3) Neutrophils # (Auto) 11.5 x10^3/uL (1.8-7.7) Lymphocytes # (Auto) 0.5 x10^3/uL (1.0-4.8) Monocytes # (Auto) 0.7 x10^3/uL (0.0-1.1) Eosinophils # (Auto) 0.0 x10^3/uL (0.0-0.7) Basophils # (Auto) 0.0 x10^3/uL (0.0-0.2) Segmented Neutrophils % 92 % (35-66) Lymphocytes % 5 % (24-48) Monocytes % 3 % (0-10) Platelet Estimate Adequate (ADEQUATE) Hypochromasia Slight Anisocytosis Slight Sodium Level 138 mmol/L (136-145) Potassium Level 3.9 mmol/L (3.5-5.1) Chloride Level 100 mmol/L (98-107) Carbon Dioxide Level 29 mmol/L (21-32) Anion Gap 9 (6-14) Blood Urea Nitrogen 37 mg/dL (8-26) Creatinine 1.6 mg/dL (0.7-1.3) Estimated GFR (Cockcroft-Gault) 51.7 Glucose Level 272 mg/dL (70-99) Calcium Level 8.4 mg/dL (8.5-10.1) Test 02/23/21 08:27 02/23/21 11:22 Glucose (Fingerstick) 523 mg/dL (70-99) 308 mg/dL (70-99) Laboratory Tests Test 02/22/21 17:36 02/22/21 20:34 02/23/21 04:20 02/23/21 08:27 Glucose (Fingerstick) 362 mg/dL (70-99) 290 mg/dL (70-99) 523 mg/dL (70-99) White Blood Count 12.8 x10^3/uL (4.0-11.0) Red Blood Count 5.67 x10^6/uL (4.30-5.70) Hemoglobin 13.5 g/dL (13.0-17.5) Hematocrit 43.1 % (39.0-53.0) Mean Corpuscular Volume 76 fL (79-100) Mean Corpuscular Hemoglobin 24 pg (25-35) Mean Corpuscular Hemoglobin Concent 31 g/dL (31-37) Red Cell Distribution Width 18.6 % (11.5-14.5) Platelet Count 261 x10^3/uL (140-400) Neutrophils (%) (Auto) 90 % (31-73) Lymphocytes (%) (Auto) 4 % (24-48) Monocytes (%) (Auto) 6 % (0-9) Eosinophils (%) (Auto) 0 % (0-3) Basophils (%) (Auto) 0 % (0-3) Neutrophils # (Auto) 11.5 x10^3/uL (1.8-7.7) Lymphocytes # (Auto) 0.5 x10^3/uL (1.0-4.8) Monocytes # (Auto) 0.7 x10^3/uL (0.0-1.1) Eosinophils # (Auto) 0.0 x10^3/uL (0.0-0.7) Basophils # (Auto) 0.0 x10^3/uL (0.0-0.2) Segmented Neutrophils % 92 % (35-66) Lymphocytes % 5 % (24-48) Monocytes % 3 % (0-10) Platelet Estimate Adequate (ADEQUATE) Hypochromasia Slight Anisocytosis Slight Sodium Level 138 mmol/L (136-145) Potassium Level 3.9 mmol/L (3.5-5.1) Chloride Level 100 mmol/L (98-107) Carbon Dioxide Level 29 mmol/L (21-32) Anion Gap 9 (6-14) Blood Urea Nitrogen 37 mg/dL (8-26) Creatinine 1.6 mg/dL (0.7-1.3) Estimated GFR (Cockcroft-Gault) 51.7 Glucose Level 272 mg/dL (70-99) Calcium Level 8.4 mg/dL (8.5-10.1) Test 02/23/21 11:22 Glucose (Fingerstick) 308 mg/dL (70-99) Microbiology 02/19/21 Blood Culture - Preliminary, Resulted NO GROWTH AFTER 3 DAYS Medications Current Medications Dexamethasone Sodium Phosphate (Decadron) 10 mg 1X ONCE IV Last administered on 02/19/21at 17:26; Start 02/19/21 at 16:45; Stop 02/19/21 at 16:46; Status DC Albuterol/ Ipratropium (Duoneb) 3 ml 1X ONCE NEB ; Start 02/19/21 at 16:45; Stop 02/19/21 at 16:46; Status DC Azithromycin 250 ml @ 250 mls/hr 1X ONCE IV Last administered on 02/19/21at 17:30; Start 02/19/21 at 16:45; Stop 02/19/21 at 17:44; Status DC Ceftriaxone Sodium (Rocephin) 1 gm 1X ONCE IVP Last administered on 02/19/21at 17:26; Start 02/19/21 at 16:45; Stop 02/19/21 at 16:46; Status DC Diltiazem HCl (Cardizem Iv Push) 15 mg 1X ONCE IVP Last administered on 02/19/21at 17:29; Start 02/19/21 at 17:00; Stop 02/19/21 at 17:01; Status DC Ondansetron HCl (Zofran) 4 mg PRN Q6HRS PRN IVP NAUSEA/VOMITING; Start 02/19/21 at 17:45 Calcium Carbonate/ Glycine (Tums) 500 mg PRN Q3HRS PRN PO UPSET STOMACH Last administered on 02/22/21at 22:17; Start 02/19/21 at 17:45 Zolpidem Tartrate (Ambien) 5 mg PRN QHS PRN PO INSOMNIA, MAY REPEAT IN 1HR; Start 02/19/21 at 17:45 Info (Non-Icu Electrolyte Protocol) 1 ea PRN DAILY PRN MC SEE COMMENTS; Start 02/19/21 at 17:45 Morphine Sulfate (Morphine Sulfate) 1 mg PRN Q1HR PRN IV MODERATE PAIN; Start 02/19/21 at 17:45 Morphine Sulfate (Morphine Sulfate) 2 mg PRN Q1HR PRN IV SEVERE PAIN Last administered on 02/21/21at 01:51; Start 02/19/21 at 17:45 Oxycodone HCl (Roxicodone) 5 mg PRN Q4HRS PRN PO MILD PAIN, 1ST CHOICE; Start 02/19/21 at 17:45 Oxycodone HCl (Roxicodone) 10 mg PRN Q4HRS PRN PO MODERATE PAIN, SEVERE PAIN; Start 02/19/21 at 17:45 Acetaminophen (Tylenol) 650 mg PRN Q6HRS PRN PO Headaches, Temp > 101.5F; Start 02/19/21 at 17:45 Senna/Docusate Sodium (Senna Plus) 1 tab BID PO Last administered on 02/20/21at 12:11; Start 02/19/21 at 21:00 Heparin Sodium (Porcine) (Heparin Sodium) 5,000 unit Q8HRS SQ Last administered on 02/20/21at 05:59; Start 02/19/21 at 22:00; Stop 02/20/21 at 12:49; Status DC Non-Formulary Medication (Aclidinium [place] (Tudorza Pressair)) 400 mcg BID IH ; Start 02/19/21 at 21:00; Stop 02/19/21 at 19:04; Status DC Albuterol Sulfate (Ventolin Neb Soln) 2.5 mg Q4HRS NEB ; Start 02/19/21 at 20:00; Stop 02/20/21 at 09:54; Status DC Dorzolamide HCl (Trusopt) 1 drop QHS OD Last administered on 02/22/21at 20:47; Start 02/19/21 at 21:00 Losartan Potassium (Cozaar) 100 mg DAILY PO ; Start 02/20/21 at 09:00; Status Cancel Non-Formulary Medication (Tiotropium Br/ Olodaterol HCl (Stiolto Respimat Inhal [place])) 4 gm DAILY IH ; Start 02/20/21 at 09:00; Stop 02/19/21 at 19:03; Status DC Amlodipine Besylate (Norvasc) 5 mg DAILY PO ; Start 02/20/21 at 09:00; Status Cancel Hydrochlorothiazide (Microzide) 12.5 mg DAILY PO ; Start 02/20/21 at 09:00; Status Cancel Ampicillin Sodium/ Sulbactam Sodium 3 gm/Sodium Chloride 100 ml @ 200 mls/hr Q6HRS IV Last administered on 02/23/21at 12:29; Start 02/20/21 at 00:00 Azithromycin 500 mg/Sodium Chloride 250 ml @ 250 mls/hr Q24H IV Last administered on 02/21/21at 18:00; Start 02/20/21 at 18:00; Stop 02/22/21 at 17:59; Status DC Furosemide (Lasix) 40 mg 1X ONCE IVP Last administered on 02/19/21at 18:52; Start 02/19/21 at 18:00; Stop 02/19/21 at 18:25; Status DC Albuterol/ Ipratropium (Duoneb) 3 ml RTQID NEB Last administered on 02/23/21at 11:43; Start 02/19/21 at 20:00 Timolol Maleate (Timoptic 0.5% Oph) 1 drop QHS OS Last administered on 02/22/21at 20:47; Start 02/19/21 at 21:00 Methylprednisolone Sodium Succinate (SOLU-Medrol 40MG VIAL) 40 mg Q8HRS IV Last administered on 02/22/21at 05:24; Start 02/19/21 at 22:00; Stop 02/22/21 at 09:31; Status DC Info (FLU VACCINE SCREEN per RX) 1 each 1X ONCE MC ; Start 02/19/21 at 23:00; Stop 02/19/21 at 23:01; Status Cancel Info (FLU VACCINE SCREEN per RX) 1 each PRN DAILY PRN MC SEE COMMENTS; Start 02/19/21 at 23:15; Status Cancel Metoprolol Tartrate (Lopressor Vial) 5 mg PRN Q1HR PRN IVP HYPERTENSION Last administered on 02/21/21at 08:39; Start 02/20/21 at 00:00 Iohexol (Omnipaque 350 Mg/ml) 100 ml 1X ONCE IV Last administered on 02/20/21at 07:30; Start 02/20/21 at 07:30; Stop 02/20/21 at 07:31; Status DC Amlodipine Besylate (Norvasc) 10 mg DAILY PO ; Start 02/20/21 at 11:00; Stop 02/20/21 at 11:04; Status DC Atorvastatin Calcium (Lipitor) 40 mg DAILY PO Last administered on 02/23/21at 08:37; Start 02/20/21 at 10:00 Furosemide (Lasix) 40 mg DAILY PO Last administered on 02/21/21at 09:47; Start 02/20/21 at 10:00; Stop 02/21/21 at 17:33; Status DC Glipizide (Glucotrol) 2.5 mg BIDWMEALS PO Last administered on 02/20/21at 12:38; Start 02/20/21 at 12:00; Stop 02/20/21 at 17:28; Status DC Metformin HCl (Glucophage) 500 mg BIDWMEALS PO ; Start 02/20/21 at 12:00; Stop 02/20/21 at 17:20; Status DC Budesonide (Pulmicort) 0.5 mg RTBID NEB Last administered on 02/23/21at 08:22; Start 02/20/21 at 20:00 Losartan Potassium (Cozaar) 100 mg DAILY PO Last administered on 02/23/21at 08:39; Start 02/20/21 at 10:00 Influenza Virus Vaccine Quadrival (Flulaval Quad 3653-6401 Syringe) 0.5 ml ONCE ONCE VAX IM ; Start 02/21/21 at 09:00; Stop 02/21/21 at 09:01; Status DC Metoprolol Tartrate (Lopressor Vial) 5 mg 1X ONCE IVP Last administered on 02/20/21at 12:11; Start 02/20/21 at 12:15; Stop 02/20/21 at 12:16; Status DC Aspirin (Ecotrin) 81 mg [id number] PO Last administered on 02/23/21at 08:36; Start 02/20/21 at 13:00 Metoprolol Tartrate (Lopressor) 50 mg BID PO Last administered on 02/23/21at 08:36; Start 02/20/21 at 13:00 Enoxaparin Sodium (Lovenox Per Pharmacy Treatment Dosing) 1 each PRN DAILY PRN MC SEE COMMENTS; Start 02/20/21 at 13:00; Status Cancel Enoxaparin Sodium (Lovenox 100mg Syringe) 100 mg Q12HR SQ Last administered on 02/21/21at 20:10; Start 02/20/21 at 13:00; Stop 02/21/21 at 21:00; Status DC Furosemide (Lasix) 40 mg 1X ONCE IVP Last administered on 02/20/21at 14:28; Start 02/20/21 at 13:45; Stop 02/20/21 at 13:46; Status DC Iohexol (Omnipaque 350 Mg/ml) 100 ml STK-MED ONCE .ROUTE ; Start 02/20/21 at 15:53; Stop 02/20/21 at 15:53; Status DC Metformin HCl (Glucophage) 500 mg BIDWMEALS PO Last administered on 02/23/21at 08:37; Start 02/22/21 at 17:00; Stop 02/23/21 at 12:41; Status DC Insulin Human Lispro (HumaLOG) 0-7 UNITS TIDWMEALS SQ Last administered on 02/23/21at 12:36; Start 02/20/21 at 17:30 Dextrose (Dextrose 50%-Water Syringe) 12.5 gm PRN Q15MIN PRN IV SEE COMMENTS; Start 02/20/21 at 17:30 Info (Anti-Coagulation Monitoring By Pharmacy) 1 each PRN DAILY PRN MC PER PROTOCOL Last administered on 02/21/21at 11:04; Start 02/21/21 at 11:00 Digoxin (Lanoxin) 500 mcg 1X ONCE IV Last administered on 02/21/21at 17:48; Start 02/21/21 at 18:00; Stop 02/21/21 at 18:01; Status DC Furosemide (Lasix) 40 mg BID92 IVP ; Start 02/22/21 at 09:00; Stop 02/21/21 at 17:42; Status DC Apixaban (Eliquis) 5 mg BID PO Last administered on 02/23/21at 08:37; Start 02/22/21 at 09:00 Furosemide (Lasix) 40 mg BID92 IVP Last administered on 02/23/21at 08:37; Start 02/21/21 at 17:45 Methylprednisolone Sodium Succinate (SOLU-Medrol 40MG VIAL) 40 mg Q12HR IV Last administered on 02/23/21at 08:36; Start 02/22/21 at 21:00; Stop 02/23/21 at 09:37; Status DC Loperamide HCl (Imodium) 2 mg PRN Q15MIN PRN PO DIARRHEA Last administered on 02/22/21at 17:38; Start 02/22/21 at 11:15 Insulin Human Lispro (HumaLOG) 3 units 1X ONCE SQ Last administered on 02/22/21at 12:59; Start 02/22/21 at 12:30; Stop 02/22/21 at 12:31; Status DC Insulin Human Lispro (HumaLOG) 4 units 1X ONCE SQ Last administered on 02/22/21at 17:42; Start 02/22/21 at 17:45; Stop 02/22/21 at 17:46; Status DC Insulin Human Lispro (HumaLOG) 13 units 1X ONCE SQ Last administered on 02/23/21at 09:30; Start 02/23/21 at 09:15; Stop 02/23/21 at 09:16; Status DC Prednisone (Prednisone) 40 mg DAILY PO ; Start 02/24/21 at 09:00 Insulin Human Lispro (HumaLOG) 10 units 1X ONCE SQ Last administered on 02/23/21at 12:35; Start 02/23/21 at 11:30; Stop 02/23/21 at 11:31; Status DC Insulin Human Lispro (HumaLOG) 10 units TIDWMEALS SQ ; Start 02/23/21 at 17:00 Insulin Glargine (Lantus Syringe) 20 unit QHS SQ ; Start 02/23/21 at 21:00 Active Scripts Active Reported Metformin Hcl 500 Mg Tablet 500 Mg PO BIDWMEALS Glipizide 5 Mg Tablet 2.5 Mg PO BID Atorvastatin Calcium 40 Mg Tablet 1 Tab PO DAILY Furosemide 40 Mg Tablet 1 Tab PO DAILY Benicar (Olmesartan Medoxomil) 40 Mg Tablet 1 Tab PO DAILY 30 Days Amlodipine Besylate 10 Mg Tablet 10 Mg PO DAILY Symbicort 160-4.5 Mcg Inhaler (Budesonide/Formoterol Fumarate) 10.2 Gm Hfa.aer.ad 2 Puff IH BID Vitals/I & O Vital Sign - Last 24 Hours 02/22/21 02/22/21 02/22/21 02/22/21 15:03 17:18 19:00 20:00 Temp 97.7 97.8 97.7 97.8 Pulse 110 110 Resp 18 18 B/P (MAP) 128/66 (86) 125/67 (86) Pulse Ox 96 99 95 O2 Delivery Nasal Cannula High Flow Nasal Cannula Nasal Cannula Bi-pap O2 Flow Rate 5.0 5.0 5.0 02/22/21 02/22/21 02/22/21 02/23/21 20:46 21:54 22:59 02:42 Temp 98.0 98.1 98.0 98.1 Pulse 110 121 125 Resp 22 22 B/P (MAP) 125/67 137/105 (116) 132/79 (96) Pulse Ox 99 95 97 O2 Delivery High Flow Nasal Cannula Nasal Cannula Nasal Cannula O2 Flow Rate 5.0 5.0 5.0 02/23/21 02/23/21 02/23/21 02/23/21 07:00 07:29 08:25 08:26 Temp 97.5 97.5 Pulse 99 Resp 20 B/P (MAP) 130/66 (87) Pulse Ox 96 94 94 O2 Delivery Nasal Cannula Nasal Cannula High Flow Nasal Cannula High Flow Nasal Cannula O2 Flow Rate 5.0 5.0 5.0 5.0 02/23/21 02/23/21 02/23/21 02/23/21 08:36 08:39 10:14 11:44 Temp 98.1 98.1 Pulse 125 123 108 Resp 22 B/P (MAP) 130/66 130/66 136/91 (106) Pulse Ox 96 O2 Delivery Nasal Cannula High Flow Nasal Cannula O2 Flow Rate 5.0 5.0 Intake and Output 02/22/21 02/22/21 02/23/21 15:00 23:00 07:00 Intake Total 400 ml 100 ml 440 ml Output Total 100 ml 850 ml 400 ml Balance 300 ml -750 ml 40 ml Justifications for Admission Other Justification SKINNY HOLDER MD Feb 23, 2021 13:25
[2021-02-23 14:15] VITALS: BP 155/89
[2021-02-23] MEDS: CALCIUM CARBONATE 500 MG TAB.CHEW PO PRN (15:59)
[2021-02-23 19:30] VITALS: BP 131/89
[2021-02-23] MEDS: METOPROLOL IV PUSH 5 MG/5 ML VIAL. IVP PRN (19:43)
[2021-02-23] MEDS: INSULIN GLARGINE SYRINGE. SQ SCH (21:05)
[2021-02-23] MEDS: TIMOLOL 0.5% OPHTH SOLUTION 5ML BOTTLE. OS SCH (21:14)
[2021-02-23] MEDS: DORZOLAMIDE 2% OPHTH SOLUTION 10ML BOTTLE. OD SCH (21:14)
[2021-02-23 22:45] VITALS: BP 123/81
[2021-02-24 02:50] VITALS: BP 113/80
[2021-02-24 05:11] LABS: BASO % 0 % (0-3); EOS % 0 % (0-3); HEMATOCRIT 43.9 % (39.0-53.0); HEMOGLOBIN 13.6 g/dL (13.0-17.5); LYMPH # 1.3 x10^3/uL (1.0-4.8); LYMPH % 9 % (24-48); MEAN CORPUSCULAR HEMOGLOBIN 24 pg (25-35); MEAN CORPUSCULAR HGB CONC 31 g/dL (31-37); MEAN CORPUSCULAR VOLUME 76 fL (79-100); MONO # 1.7 x10^3/uL (0.0-1.1); MONO % 13 % (0-9); NEUT # 10.5 x10^3/uL (1.8-7.7); NEUT % 77 % (31-73); PLATELET COUNT 260 x10^3/uL (140-400); RED BLOOD COUNT 5.77 x10^6/uL (4.30-5.70); RED CELL DISTRIBUTION WIDTH 18.9 % (11.5-14.5); WHITE BLOOD COUNT 13.5 x10^3/uL (4.0-11.0)
[2021-02-24 05:12] LABS: CALCIUM 8.4 mg/dL (8.5-10.1); CREATININE 1.4 mg/dL (0.7-1.3); GFR 60.3; POTASSIUM 3.8 mmol/L (3.5-5.1)
[2021-02-24] MEDS: AMPICILLIN/SULBACTAM 3 GM in IV NORMAL SALINE 100ML 100 ML IV SCH ×3 (05:57→18:07)
[2021-02-24 07:00] VITALS: BP 128/93
[2021-02-24] MEDS: IPRATRPIUM/ALBUTEROL 0.5/2.5MG 3 ML NEBU. NEB SCH ×4 (08:00→20:01)
[2021-02-24] MEDS: ASPIRIN ENTERIC COATED 81 MG TABLET.DR. PO SCH (08:00)
--- NOTE | 2021-02-24 08:41 | PDOC ---
PULMONARY PROGRESS NOTES DATE: 02/24/21 TIME: 08:41 Subjective Not more short of air, using BiPAP nightly Vitals Vital Signs Date Time Temp Pulse Resp B/P (MAP) Pulse Ox O2 Delivery O2 Flow Rate FiO2 02/24/21 02:50 98.0 105 22 113/80 (91) 97 Nasal Cannula 3.0 98.0 General: Alert, No acute distress Lungs: Other (b lat diminished bs ) Cardiovascular: S1, S2 Abdomen: Soft, Other Extremities: Other (Edema has diminished) Skin: Warm Labs Laboratory Tests Test 02/22/21 12:12 02/22/21 17:36 02/22/21 20:34 02/23/21 04:20 Glucose (Fingerstick) 351 mg/dL (70-99) 362 mg/dL (70-99) 290 mg/dL (70-99) White Blood Count 12.8 x10^3/uL (4.0-11.0) Red Blood Count 5.67 x10^6/uL (4.30-5.70) Hemoglobin 13.5 g/dL (13.0-17.5) Hematocrit 43.1 % (39.0-53.0) Mean Corpuscular Volume 76 fL (79-100) Mean Corpuscular Hemoglobin 24 pg (25-35) Mean Corpuscular Hemoglobin Concent 31 g/dL (31-37) Red Cell Distribution Width 18.6 % (11.5-14.5) Platelet Count 261 x10^3/uL (140-400) Neutrophils (%) (Auto) 90 % (31-73) Lymphocytes (%) (Auto) 4 % (24-48) Monocytes (%) (Auto) 6 % (0-9) Eosinophils (%) (Auto) 0 % (0-3) Basophils (%) (Auto) 0 % (0-3) Neutrophils # (Auto) 11.5 x10^3/uL (1.8-7.7) Lymphocytes # (Auto) 0.5 x10^3/uL (1.0-4.8) Monocytes # (Auto) 0.7 x10^3/uL (0.0-1.1) Eosinophils # (Auto) 0.0 x10^3/uL (0.0-0.7) Basophils # (Auto) 0.0 x10^3/uL (0.0-0.2) Segmented Neutrophils % 92 % (35-66) Lymphocytes % 5 % (24-48) Monocytes % 3 % (0-10) Platelet Estimate Adequate (ADEQUATE) Hypochromasia Slight Anisocytosis Slight Sodium Level 138 mmol/L (136-145) Potassium Level 3.9 mmol/L (3.5-5.1) Chloride Level 100 mmol/L (98-107) Carbon Dioxide Level 29 mmol/L (21-32) Anion Gap 9 (6-14) Blood Urea Nitrogen 37 mg/dL (8-26) Creatinine 1.6 mg/dL (0.7-1.3) Estimated GFR (Cockcroft-Gault) 51.7 Glucose Level 272 mg/dL (70-99) Calcium Level 8.4 mg/dL (8.5-10.1) Test 02/23/21 08:27 02/23/21 11:22 02/23/21 16:57 02/23/21 20:45 Glucose (Fingerstick) 523 mg/dL (70-99) 308 mg/dL (70-99) 140 mg/dL (70-99) 337 mg/dL (70-99) Test 02/24/21 04:25 02/24/21 07:47 White Blood Count 13.5 x10^3/uL (4.0-11.0) Red Blood Count 5.77 x10^6/uL (4.30-5.70) Hemoglobin 13.6 g/dL (13.0-17.5) Hematocrit 43.9 % (39.0-53.0) Mean Corpuscular Volume 76 fL (79-100) Mean Corpuscular Hemoglobin 24 pg (25-35) Mean Corpuscular Hemoglobin Concent 31 g/dL (31-37) Red Cell Distribution Width 18.9 % (11.5-14.5) Platelet Count 260 x10^3/uL (140-400) Neutrophils (%) (Auto) 77 % (31-73) Lymphocytes (%) (Auto) 9 % (24-48) Monocytes (%) (Auto) 13 % (0-9) Eosinophils (%) (Auto) 0 % (0-3) Basophils (%) (Auto) 0 % (0-3) Neutrophils # (Auto) 10.5 x10^3/uL (1.8-7.7) Lymphocytes # (Auto) 1.3 x10^3/uL (1.0-4.8) Monocytes # (Auto) 1.7 x10^3/uL (0.0-1.1) Eosinophils # (Auto) 0.0 x10^3/uL (0.0-0.7) Basophils # (Auto) 0.0 x10^3/uL (0.0-0.2) Sodium Level 139 mmol/L (136-145) Potassium Level 3.8 mmol/L (3.5-5.1) Chloride Level 100 mmol/L (98-107) Carbon Dioxide Level 33 mmol/L (21-32) Anion Gap 6 (6-14) Blood Urea Nitrogen 30 mg/dL (8-26) Creatinine 1.4 mg/dL (0.7-1.3) Estimated GFR (Cockcroft-Gault) 60.3 Glucose Level 201 mg/dL (70-99) Calcium Level 8.4 mg/dL (8.5-10.1) Glucose (Fingerstick) 166 mg/dL (70-99) Laboratory Tests Test 02/23/21 11:22 02/23/21 16:57 02/23/21 20:45 02/24/21 04:25 Glucose (Fingerstick) 308 mg/dL (70-99) 140 mg/dL (70-99) 337 mg/dL (70-99) White Blood Count 13.5 x10^3/uL (4.0-11.0) Red Blood Count 5.77 x10^6/uL (4.30-5.70) Hemoglobin 13.6 g/dL (13.0-17.5) Hematocrit 43.9 % (39.0-53.0) Mean Corpuscular Volume 76 fL (79-100) Mean Corpuscular Hemoglobin 24 pg (25-35) Mean Corpuscular Hemoglobin Concent 31 g/dL (31-37) Red Cell Distribution Width 18.9 % (11.5-14.5) Platelet Count 260 x10^3/uL (140-400) Neutrophils (%) (Auto) 77 % (31-73) Lymphocytes (%) (Auto) 9 % (24-48) Monocytes (%) (Auto) 13 % (0-9) Eosinophils (%) (Auto) 0 % (0-3) Basophils (%) (Auto) 0 % (0-3) Neutrophils # (Auto) 10.5 x10^3/uL (1.8-7.7) Lymphocytes # (Auto) 1.3 x10^3/uL (1.0-4.8) Monocytes # (Auto) 1.7 x10^3/uL (0.0-1.1) Eosinophils # (Auto) 0.0 x10^3/uL (0.0-0.7) Basophils # (Auto) 0.0 x10^3/uL (0.0-0.2) Sodium Level 139 mmol/L (136-145) Potassium Level 3.8 mmol/L (3.5-5.1) Chloride Level 100 mmol/L (98-107) Carbon Dioxide Level 33 mmol/L (21-32) Anion Gap 6 (6-14) Blood Urea Nitrogen 30 mg/dL (8-26) Creatinine 1.4 mg/dL (0.7-1.3) Estimated GFR (Cockcroft-Gault) 60.3 Glucose Level 201 mg/dL (70-99) Calcium Level 8.4 mg/dL (8.5-10.1) Test 02/24/21 07:47 Glucose (Fingerstick) 166 mg/dL (70-99) Medications Active Scripts Medications Dose Route/Sig Max Daily Dose Days Date Category Metformin Hcl 500 Mg Tablet 500 Mg PO BIDWMEALS 02/20/21 Reported Glipizide 5 Mg Tablet 2.5 Mg PO BID 02/20/21 Reported Atorvastatin Calcium 40 Mg Tablet 1 Tab PO DAILY 02/20/21 Reported Furosemide 40 Mg Tablet 1 Tab PO DAILY 02/20/21 Reported Benicar (Olmesartan Medoxomil) 40 Mg Tablet 1 Tab PO DAILY 30 02/20/21 Reported Amlodipine Besylate 10 Mg Tablet 10 Mg PO DAILY 02/20/21 Reported Symbicort 160-4.5 Mcg Inhaler (Budesonide/Formoterol Fumarate) 10.2 Gm Hfa.aer.ad 2 Puff IH BID 02/20/21 Reported Impression . Acute hypoxemic respiratory failure multifactorial Acute on chronic diastolic heart failure Acute exacerbation COPD Abnormal x-ray, possible pneumonia Cardiomyopathy ejection fraction 40-45 A. fib with rapid ventricular response Coronary artery disease with previous PCI Tobacco dependent CT angiogram revealed no evidence of pulmonary embolism there was a right-sided effusion Plan . Updated 02/25 Patient feels better, changed to prednisone Discussed with social service Home with home health 6-minute walk prior to discharge Outpatient polysomnogram Monitor chest x-ray Change solumedrol to pred 40 mg daily w taper psg as out pt BD ICS Continue to diurese BiPAP prn during day cont at night titrate fio2 to keep sat 90% 6 min walk at [place] Empiric antibiotics Monitor right-sided pleural effusion On Eliquis Effusion too small, no thoracentesis at this time discussed w pt BLANCO BARNETT MD Feb 24, 2021 08:41
[2021-02-24] MEDS: METOPROLOL TART IMMED RELEASE 50 MG TABLET. PO SCH (09:00)
[2021-02-24] MEDS: LOSARTAN POTASSIUM 50 MG TABLET. PO SCH (09:00)
[2021-02-24] MEDS: FUROSEMIDE 40 MG/4 ML VIAL. IVP SCH ×2 (09:00→13:38)
[2021-02-24] MEDS: predniSONE 20 MG TABLET PO SCH (09:00)
[2021-02-24] MEDS: APIXABAN 5 MG TABLET. PO SCH ×2 (09:00→21:00)
[2021-02-24] MEDS: SENNOSIDES/DOCUSATE 8.6/50MG TABLET. PO SCH ×2 (09:00→21:00)
[2021-02-24] MEDS: ATORVASTATIN CALCIUM 40 MG TABLET. PO SCH ×2 (09:00→20:59)
[2021-02-24] MEDS: INSULIN LISPRO 300 UNITS/3 ML VIAL. SQ SCH ×6 (09:50→18:06)
--- NOTE | 2021-02-24 10:38 | PDOC ---
PROGRESS NOTES Date of Service DATE: 02/24/21 TIME: 10:32 Assessment Problems Medical Problems: (1) Atrial fibrillation with rapid ventricular response Status: Acute (2) Community acquired pneumonia Status: Acute (3) COPD with exacerbation Status: Acute (4) Person under investigation for COVID-19 Status: Acute (5) Sepsis with acute hypoxic respiratory failure Status: Acute Possible left hemispheric transient ischemic attack, but more likely, the symptoms were related to metabolic issues. Blood pressure was elevated, I am not sure if this was cause or effect. In any rate, he has made a full recovery and remains with a nonfocal exam, albeit with bilateral weakness. I doubt that he had a seizure History of right carotid aneurysm coiling COPD exacerbation, atrial fibrillation with rapid ventricular response, COVID-19 and influenza negative, sepsis with acute hypoxic respiratory failure, community acquired pneumonia Plan He cannot have a brain MRI Carotid Doppler studies still pending and my bilateral order was canceled without my permission and only the right side was done Cardiac work-up Okay to continue anticoagulation Rehabilitation modalities Subjective No complaints, feels better Objective Vital Signs Date Time Temp Pulse Resp B/P (MAP) Pulse Ox O2 Delivery O2 Flow Rate FiO2 02/24/21 09:00 103 128/93 02/24/21 07:00 97.7 18 98 Nasal Cannula 3.0 97.7 Intake and Output 02/24/21 07:00 Intake Total 1960 ml Output Total 2300 ml Balance -340 ml Intake Oral 1960 ml Output Urine Total 2300 ml # Voids 1 # Bowel Movements 1 PHYSICAL EXAM Alert. Oriented to time, place and person. PERRL. EOMI. CN: no focal findings. Muscle tone: normal. Muscle strength: 4/5 DTR: 2+ Plantar reflex: flexor Gait: not examined in bed. Sensory exam: no abnormal findings. No cerebellar signs elicited. Review of Relevant I have reviewed the following items nurys (where applicable) has been applied. Labs Laboratory Tests Test 02/22/21 12:12 02/22/21 17:36 02/22/21 20:34 02/23/21 04:20 Glucose (Fingerstick) 351 mg/dL (70-99) 362 mg/dL (70-99) 290 mg/dL (70-99) White Blood Count 12.8 x10^3/uL (4.0-11.0) Red Blood Count 5.67 x10^6/uL (4.30-5.70) Hemoglobin 13.5 g/dL (13.0-17.5) Hematocrit 43.1 % (39.0-53.0) Mean Corpuscular Volume 76 fL (79-100) Mean Corpuscular Hemoglobin 24 pg (25-35) Mean Corpuscular Hemoglobin Concent 31 g/dL (31-37) Red Cell Distribution Width 18.6 % (11.5-14.5) Platelet Count 261 x10^3/uL (140-400) Neutrophils (%) (Auto) 90 % (31-73) Lymphocytes (%) (Auto) 4 % (24-48) Monocytes (%) (Auto) 6 % (0-9) Eosinophils (%) (Auto) 0 % (0-3) Basophils (%) (Auto) 0 % (0-3) Neutrophils # (Auto) 11.5 x10^3/uL (1.8-7.7) Lymphocytes # (Auto) 0.5 x10^3/uL (1.0-4.8) Monocytes # (Auto) 0.7 x10^3/uL (0.0-1.1) Eosinophils # (Auto) 0.0 x10^3/uL (0.0-0.7) Basophils # (Auto) 0.0 x10^3/uL (0.0-0.2) Segmented Neutrophils % 92 % (35-66) Lymphocytes % 5 % (24-48) Monocytes % 3 % (0-10) Platelet Estimate Adequate (ADEQUATE) Hypochromasia Slight Anisocytosis Slight Sodium Level 138 mmol/L (136-145) Potassium Level 3.9 mmol/L (3.5-5.1) Chloride Level 100 mmol/L (98-107) Carbon Dioxide Level 29 mmol/L (21-32) Anion Gap 9 (6-14) Blood Urea Nitrogen 37 mg/dL (8-26) Creatinine 1.6 mg/dL (0.7-1.3) Estimated GFR (Cockcroft-Gault) 51.7 Glucose Level 272 mg/dL (70-99) Calcium Level 8.4 mg/dL (8.5-10.1) Test 02/23/21 08:27 02/23/21 11:22 02/23/21 16:57 02/23/21 20:45 Glucose (Fingerstick) 523 mg/dL (70-99) 308 mg/dL (70-99) 140 mg/dL (70-99) 337 mg/dL (70-99) Test 02/24/21 04:25 02/24/21 07:47 White Blood Count 13.5 x10^3/uL (4.0-11.0) Red Blood Count 5.77 x10^6/uL (4.30-5.70) Hemoglobin 13.6 g/dL (13.0-17.5) Hematocrit 43.9 % (39.0-53.0) Mean Corpuscular Volume 76 fL (79-100) Mean Corpuscular Hemoglobin 24 pg (25-35) Mean Corpuscular Hemoglobin Concent 31 g/dL (31-37) Red Cell Distribution Width 18.9 % (11.5-14.5) Platelet Count 260 x10^3/uL (140-400) Neutrophils (%) (Auto) 77 % (31-73) Lymphocytes (%) (Auto) 9 % (24-48) Monocytes (%) (Auto) 13 % (0-9) Eosinophils (%) (Auto) 0 % (0-3) Basophils (%) (Auto) 0 % (0-3) Neutrophils # (Auto) 10.5 x10^3/uL (1.8-7.7) Lymphocytes # (Auto) 1.3 x10^3/uL (1.0-4.8) Monocytes # (Auto) 1.7 x10^3/uL (0.0-1.1) Eosinophils # (Auto) 0.0 x10^3/uL (0.0-0.7) Basophils # (Auto) 0.0 x10^3/uL (0.0-0.2) Sodium Level 139 mmol/L (136-145) Potassium Level 3.8 mmol/L (3.5-5.1) Chloride Level 100 mmol/L (98-107) Carbon Dioxide Level 33 mmol/L (21-32) Anion Gap 6 (6-14) Blood Urea Nitrogen 30 mg/dL (8-26) Creatinine 1.4 mg/dL (0.7-1.3) Estimated GFR (Cockcroft-Gault) 60.3 Glucose Level 201 mg/dL (70-99) Calcium Level 8.4 mg/dL (8.5-10.1) Glucose (Fingerstick) 166 mg/dL (70-99) Laboratory Tests Test 02/23/21 11:22 02/23/21 16:57 02/23/21 20:45 02/24/21 04:25 Glucose (Fingerstick) 308 mg/dL (70-99) 140 mg/dL (70-99) 337 mg/dL (70-99) White Blood Count 13.5 x10^3/uL (4.0-11.0) Red Blood Count 5.77 x10^6/uL (4.30-5.70) Hemoglobin 13.6 g/dL (13.0-17.5) Hematocrit 43.9 % (39.0-53.0) Mean Corpuscular Volume 76 fL (79-100) Mean Corpuscular Hemoglobin 24 pg (25-35) Mean Corpuscular Hemoglobin Concent 31 g/dL (31-37) Red Cell Distribution Width 18.9 % (11.5-14.5) Platelet Count 260 x10^3/uL (140-400) Neutrophils (%) (Auto) 77 % (31-73) Lymphocytes (%) (Auto) 9 % (24-48) Monocytes (%) (Auto) 13 % (0-9) Eosinophils (%) (Auto) 0 % (0-3) Basophils (%) (Auto) 0 % (0-3) Neutrophils # (Auto) 10.5 x10^3/uL (1.8-7.7) Lymphocytes # (Auto) 1.3 x10^3/uL (1.0-4.8) Monocytes # (Auto) 1.7 x10^3/uL (0.0-1.1) Eosinophils # (Auto) 0.0 x10^3/uL (0.0-0.7) Basophils # (Auto) 0.0 x10^3/uL (0.0-0.2) Sodium Level 139 mmol/L (136-145) Potassium Level 3.8 mmol/L (3.5-5.1) Chloride Level 100 mmol/L (98-107) Carbon Dioxide Level 33 mmol/L (21-32) Anion Gap 6 (6-14) Blood Urea Nitrogen 30 mg/dL (8-26) Creatinine 1.4 mg/dL (0.7-1.3) Estimated GFR (Cockcroft-Gault) 60.3 Glucose Level 201 mg/dL (70-99) Calcium Level 8.4 mg/dL (8.5-10.1) Test 02/24/21 07:47 Glucose (Fingerstick) 166 mg/dL (70-99) Microbiology 02/19/21 Blood Culture - Preliminary, Resulted NO GROWTH AFTER 4 DAYS Medications Current Medications Dexamethasone Sodium Phosphate (Decadron) 10 mg 1X ONCE IV Last administered on 02/19/21at 17:26; Start 02/19/21 at 16:45; Stop 02/19/21 at 16:46; Status DC Albuterol/ Ipratropium (Duoneb) 3 ml 1X ONCE NEB ; Start 02/19/21 at 16:45; Stop 02/19/21 at 16:46; Status DC Azithromycin 250 ml @ 250 mls/hr 1X ONCE IV Last administered on 02/19/21at 17:30; Start 02/19/21 at 16:45; Stop 02/19/21 at 17:44; Status DC Ceftriaxone Sodium (Rocephin) 1 gm 1X ONCE IVP Last administered on 02/19/21at 17:26; Start 02/19/21 at 16:45; Stop 02/19/21 at 16:46; Status DC Diltiazem HCl (Cardizem Iv Push) 15 mg 1X ONCE IVP Last administered on 02/19/21at 17:29; Start 02/19/21 at 17:00; Stop 02/19/21 at 17:01; Status DC Ondansetron HCl (Zofran) 4 mg PRN Q6HRS PRN IVP NAUSEA/VOMITING; Start 02/19/21 at 17:45 Calcium Carbonate/ Glycine (Tums) 500 mg PRN Q3HRS PRN PO UPSET STOMACH Last administered on 02/23/21at 15:59; Start 02/19/21 at 17:45 Zolpidem Tartrate (Ambien) 5 mg PRN QHS PRN PO INSOMNIA, MAY REPEAT IN 1HR; Start 02/19/21 at 17:45 Info (Non-Icu Electrolyte Protocol) 1 ea PRN DAILY PRN MC SEE COMMENTS; Start 02/19/21 at 17:45 Morphine Sulfate (Morphine Sulfate) 1 mg PRN Q1HR PRN IV MODERATE PAIN; Start 02/19/21 at 17:45 Morphine Sulfate (Morphine Sulfate) 2 mg PRN Q1HR PRN IV SEVERE PAIN Last administered on 02/21/21at 01:51; Start 02/19/21 at 17:45 Oxycodone HCl (Roxicodone) 5 mg PRN Q4HRS PRN PO MILD PAIN, 1ST CHOICE; Start 02/19/21 at 17:45 Oxycodone HCl (Roxicodone) 10 mg PRN Q4HRS PRN PO MODERATE PAIN, SEVERE PAIN; Start 02/19/21 at 17:45 Acetaminophen (Tylenol) 650 mg PRN Q6HRS PRN PO Headaches, Temp > 101.5F; Start 02/19/21 at 17:45 Senna/Docusate Sodium (Senna Plus) 1 tab BID PO Last administered on 02/20/21at 12:11; Start 02/19/21 at 21:00 Heparin Sodium (Porcine) (Heparin Sodium) 5,000 unit Q8HRS SQ Last administered on 02/20/21at 05:59; Start 02/19/21 at 22:00; Stop 02/20/21 at 12:49; Status DC Non-Formulary Medication (Aclidinium Mcintosh (Tudorza Pressair)) 400 mcg BID IH ; Start 02/19/21 at 21:00; Stop 02/19/21 at 19:04; Status DC Albuterol Sulfate (Ventolin Neb Soln) 2.5 mg Q4HRS NEB ; Start 02/19/21 at 20:00; Stop 02/20/21 at 09:54; Status DC Dorzolamide HCl (Trusopt) 1 drop QHS OD Last administered on 02/23/21at 21:14; Start 02/19/21 at 21:00 Losartan Potassium (Cozaar) 100 mg DAILY PO ; Start 02/20/21 at 09:00; Status Cancel Non-Formulary Medication (Tiotropium Br/ Olodaterol HCl (Stiolto Respimat Inhal [place])) 4 gm DAILY IH ; Start 02/20/21 at 09:00; Stop 02/19/21 at 19:03; Status DC Amlodipine Besylate (Norvasc) 5 mg DAILY PO ; Start 02/20/21 at 09:00; Status Cancel Hydrochlorothiazide (Microzide) 12.5 mg DAILY PO ; Start 02/20/21 at 09:00; Status Cancel Ampicillin Sodium/ Sulbactam Sodium 3 gm/Sodium Chloride 100 ml @ 200 mls/hr Q6HRS IV Last administered on 02/24/21at 05:57; Start 02/20/21 at 00:00 Azithromycin 500 mg/Sodium Chloride 250 ml @ 250 mls/hr Q24H IV Last administered on 02/21/21at 18:00; Start 02/20/21 at 18:00; Stop 02/22/21 at 17:59; Status DC Furosemide (Lasix) 40 mg 1X ONCE IVP Last administered on 02/19/21at 18:52; Start 02/19/21 at 18:00; Stop 02/19/21 at 18:25; Status DC Albuterol/ Ipratropium (Duoneb) 3 ml RTQID NEB Last administered on 02/23/21at 20:18; Start 02/19/21 at 20:00 Timolol Maleate (Timoptic 0.5% [facility]) 1 drop QHS OS Last administered on 02/23/21at 21:14; Start 02/19/21 at 21:00 Methylprednisolone Sodium Succinate (SOLU-Medrol 40MG VIAL) 40 mg Q8HRS IV Last administered on 02/22/21at 05:24; Start 02/19/21 at 22:00; Stop 02/22/21 at 09:31; Status DC Info (FLU VACCINE SCREEN per RX) 1 each 1X ONCE MC ; Start 02/19/21 at 23:00; Stop 02/19/21 at 23:01; Status Cancel Info (FLU VACCINE SCREEN per RX) 1 each PRN DAILY PRN MC SEE COMMENTS; Start 02/19/21 at 23:15; Status Cancel Metoprolol Tartrate (Lopressor Vial) 5 mg PRN Q1HR PRN IVP HYPERTENSION Last administered on 02/23/21at 19:43; Start 02/20/21 at 00:00 Iohexol (Omnipaque 350 Mg/ml) 100 ml 1X ONCE IV Last administered on 02/20/21at 07:30; Start 02/20/21 at 07:30; Stop 02/20/21 at 07:31; Status DC Amlodipine Besylate (Norvasc) 10 mg DAILY PO ; Start 02/20/21 at 11:00; Stop 02/20/21 at 11:04; Status DC Atorvastatin Calcium (Lipitor) 40 mg DAILY PO Last administered on 02/24/21at 09:00; Start 02/20/21 at 10:00 Furosemide (Lasix) 40 mg DAILY PO Last administered on 02/21/21at 09:47; Start 02/20/21 at 10:00; Stop 02/21/21 at 17:33; Status DC Glipizide (Glucotrol) 2.5 mg BIDWMEALS PO Last administered on 02/20/21at 12:38; Start 02/20/21 at 12:00; Stop 02/20/21 at 17:28; Status DC Metformin HCl (Glucophage) 500 mg BIDWMEALS PO ; Start 02/20/21 at 12:00; Stop 02/20/21 at 17:20; Status DC Budesonide (Pulmicort) 0.5 mg RTBID NEB Last administered on 02/23/21at 20:18; Start 02/20/21 at 20:00 Losartan Potassium (Cozaar) 100 mg DAILY PO Last administered on 02/24/21at 09:00; Start 02/20/21 at 10:00 Influenza Virus Vaccine Quadrival (Flulaval Quad 1487-3085 Syringe) 0.5 ml ONCE ONCE VAX IM ; Start 02/21/21 at 09:00; Stop 02/21/21 at 09:01; Status DC Metoprolol Tartrate (Lopressor Vial) 5 mg 1X ONCE IVP Last administered on 02/20/21at 12:11; Start 02/20/21 at 12:15; Stop 02/20/21 at 12:16; Status DC Aspirin (Ecotrin) 81 mg [id number] PO Last administered on 02/24/21at 08:00; Start 02/20/21 at 13:00 Metoprolol Tartrate (Lopressor) 50 mg BID PO Last administered on 02/24/21at 09:00; Start 02/20/21 at 13:00 Enoxaparin Sodium (Lovenox Per Pharmacy Treatment Dosing) 1 each PRN DAILY PRN MC SEE COMMENTS; Start 02/20/21 at 13:00; Status Cancel Enoxaparin Sodium (Lovenox 100mg Syringe) 100 mg Q12HR SQ Last administered on 02/21/21at 20:10; Start 02/20/21 at 13:00; Stop 02/21/21 at 21:00; Status DC Furosemide (Lasix) 40 mg 1X ONCE IVP Last administered on 02/20/21at 14:28; Start 02/20/21 at 13:45; Stop 02/20/21 at 13:46; Status DC Iohexol (Omnipaque 350 Mg/ml) 100 ml STK-MED ONCE .ROUTE ; Start 02/20/21 at 15:53; Stop 02/20/21 at 15:53; Status DC Metformin HCl (Glucophage) 500 mg BIDWMEALS PO Last administered on 02/23/21at 08:37; Start 02/22/21 at 17:00; Stop 02/23/21 at 12:41; Status DC Insulin Human Lispro (HumaLOG) 0-7 UNITS TIDWMEALS SQ Last administered on 02/24/21at 09:52; Start 02/20/21 at 17:30 Dextrose (Dextrose 50%-Water Syringe) 12.5 gm PRN Q15MIN PRN IV SEE COMMENTS; Start 02/20/21 at 17:30 Info (Anti-Coagulation Monitoring By Pharmacy) 1 each PRN DAILY PRN MC PER PROTOCOL Last administered on 02/21/21at 11:04; Start 02/21/21 at 11:00 Digoxin (Lanoxin) 500 mcg 1X ONCE IV Last administered on 02/21/21at 17:48; Start 02/21/21 at 18:00; Stop 02/21/21 at 18:01; Status DC Furosemide (Lasix) 40 mg BID92 IVP ; Start 02/22/21 at 09:00; Stop 02/21/21 at 17:42; Status DC Apixaban (Eliquis) 5 mg BID PO Last administered on 02/24/21at 09:00; Start 02/22/21 at 09:00 Furosemide (Lasix) 40 mg BID92 IVP Last administered on 02/24/21at 09:00; Start 02/21/21 at 17:45 Methylprednisolone Sodium Succinate (SOLU-Medrol 40MG VIAL) 40 mg Q12HR IV Last administered on 02/23/21at 08:36; Start 02/22/21 at 21:00; Stop 02/23/21 at 09:37; Status DC Loperamide HCl (Imodium) 2 mg PRN Q15MIN PRN PO DIARRHEA Last administered on 02/22/21at 17:38; Start 02/22/21 at 11:15 Insulin Human Lispro (HumaLOG) 3 units 1X ONCE SQ Last administered on 02/22/21at 12:59; Start 02/22/21 at 12:30; Stop 02/22/21 at 12:31; Status DC Insulin Human Lispro (HumaLOG) 4 units 1X ONCE SQ Last administered on 02/22/21at 17:42; Start 02/22/21 at 17:45; Stop 02/22/21 at 17:46; Status DC Insulin Human Lispro (HumaLOG) 13 units 1X ONCE SQ Last administered on 02/23/21at 09:30; Start 02/23/21 at 09:15; Stop 02/23/21 at 09:16; Status DC Prednisone (Prednisone) 40 mg DAILY PO Last administered on 02/24/21at 09:00; Start 02/24/21 at 09:00 Insulin Human Lispro (HumaLOG) 10 units 1X ONCE SQ Last administered on 02/23/21at 12:35; Start 02/23/21 at 11:30; Stop 02/23/21 at 11:31; Status DC Insulin Human Lispro (HumaLOG) 10 units TIDWMEALS SQ Last administered on 02/24/21at 09:50; Start 02/23/21 at 17:00 Insulin Glargine (Lantus Syringe) 20 unit QHS SQ Last administered on 02/23/21at 21:05; Start 02/23/21 at 21:00 Active Scripts Active Reported Metformin Hcl 500 Mg Tablet 500 Mg PO BIDWMEALS Glipizide 5 Mg Tablet 2.5 Mg PO BID Atorvastatin Calcium 40 Mg Tablet 1 Tab PO DAILY Furosemide 40 Mg Tablet 1 Tab PO DAILY Benicar (Olmesartan Medoxomil) 40 Mg Tablet 1 Tab PO DAILY 30 Days Amlodipine Besylate 10 Mg Tablet 10 Mg PO DAILY Symbicort 160-4.5 Mcg Inhaler (Budesonide/Formoterol Fumarate) 10.2 Gm Hfa.aer.ad 2 Puff IH BID Vitals/I & O Vital Sign - Last 24 Hours 02/23/21 02/23/21 02/23/21 02/23/21 11:44 14:15 15:49 19:30 Temp 97.9 98.9 97.9 98.9 Pulse 128 150 Resp 22 24 B/P (MAP) 155/89 (111) 131/89 (103) Pulse Ox 95 98 95 O2 Delivery High Flow Nasal Cannula Nasal Cannula High Flow Nasal Cannula Nasal Cannula O2 Flow Rate 5.0 5.0 3.0 3.0 02/23/21 02/23/21 02/23/21 02/23/21 19:43 20:10 20:19 21:03 Pulse 141 141 B/P (MAP) 131/89 131/89 Pulse Ox 96 O2 Delivery Nasal Cannula High Flow Nasal Cannula O2 Flow Rate 3.0 3.0 02/23/21 02/24/21 02/24/21 02/24/21 22:45 02:50 07:00 09:00 Temp 98.1 98.0 97.7 98.1 98.0 97.7 Pulse 89 105 103 103 Resp 22 22 18 B/P (MAP) 123/81 (95) 113/80 (91) 128/93 (105) 128/93 Pulse Ox 96 97 98 O2 Delivery Nasal Cannula Nasal Cannula Nasal Cannula O2 Flow Rate 3.0 3.0 3.0 02/24/21 09:00 Pulse 103 B/P (MAP) 128/93 Intake and Output 02/23/21 02/23/21 02/24/21 15:00 23:00 07:00 Intake Total 1020 ml 380 ml 560 ml Output Total 800 ml 1200 ml 300 ml Balance 220 ml -820 ml 260 ml Justicifation of Admission Dx: Justifications for Admission: Justification of Admission Dx: Yes CHF: Cardiac Arrhythmias Aspiration Pneumonia: Chronic Lung Disease Chronic Renal Failure: Encephalopathy CRISTAL ALMANZA MD Feb 24, 2021 10:38
--- NOTE | 2021-02-24 10:53 | RAD ---
EXAM: Bilateral carotid duplex with waveform analysis. CLINICAL HISTORY: Stroke, weakness and numbness, left hemisphere: PATIENT REFUSED TO FINISH EXAM TECHNIQUE: Longitudinal and transverse sonographic images of the bilateral carotid arteries was perfo rmed utilizing grayscale, color and spectral Doppler techniques. COMPARISON: None FINDINGS/ IMPRESSION: Right common carotid artery is patent. Patient refused additional imaging. Electronically signed by: Herbert Fall MD (02/24/2021 10:51 AM) [id number]
[2021-02-24 11:00] VITALS: BP 126/76
[2021-02-24] MEDS: BUDESONIDE 0.5 MG/2 ML NEBU. NEB SCH ×2 (11:25→20:01)
--- NOTE | 2021-02-24 11:46 | PDOC ---
[facility] [facility] PROGRESS NOTE Date of Service DOS: DATE: 02/24/21 TIME: 11:45 Chief Complaint Chief Complaint Shortness of breath COPD with exacerbation Atrial fibrillation with rapid ventricular response Person under investigation for COVID-19 Sepsis with acute hypoxic respiratory failure Community acquired pneumonia History of Present Illness History of Present Illness WBC 13.5, CR 1.4, glucose 166. Still very swollen in bilateral LE. Still requiring 4-5L NCO2. D/w him and bedside 80mg Lasix BID IV. 02/23/2021 Patient seen and examined. Chart reviewed. Discussed with RN to titrate his FiO2 down to 4L to maintain his oxygen saturation around 88-92%. Patient is awake and alert. NAD. Patient is responsive and asking questions. Patient is currently on 5L O2 via NC. Patient relates feeling just okay, not much better from yesterday. Patient says he has pain on the left side of his ribcage since yesterday. Glucose level was at 523 early this morning, and has gone down to 308 at 11:00am. 02/22/2021 Patient seen and examined. Chart reviewed. Discussed with RN. Patient is awake and alert. NAD. Patient is responsive and asking questions. Patient is currently on 5L O2 via NC, which he uses during the day. At night, patient uses the BiPAP. Patient relates feeling better and breathing better. Some edema in the lower extremities bilaterally. 02/21/2021 Patient seen and examined. Discussed with RN. Chart reviewed. Patient is currently on 5L O2 via NC. Stephy ferreira was called last night. This morning, patient is alert and oriented. Head CT showed no acute hemorrhage. MRI ordered but is on hold due to a possible coil embolization at the right carotid termin us. 02/20/2021 Patient seen and examined. Chart reviewed. Discussed with RN. NPO. Patient is on BiPAP with labored breathing. Patient is awake and alert. Currently receiving IV Ampicillin/sulbactam. Developed Afib with RVR. Vitals/I&O Vitals/I&O: Vital Signs Date Time Temp Pulse Resp B/P (MAP) Pulse Ox O2 Delivery O2 Flow Rate FiO2 02/24/21 11:27 97 Nasal Cannula 3.0 02/24/21 09:00 103 128/93 02/24/21 07:00 97.7 18 97.7 I & O 02/23/21 02/23/21 02/24/21 15:00 23:00 07:00 Intake Total 1020 ml 380 ml 560 ml Output Total 800 ml 1200 ml 300 ml Balance 220 ml -820 ml 260 ml Physical Exam General: Alert, Cooperative, mild distress Heart: Other (Irregular rhythm.) Lungs: Other (b lat diminished bs ) Abdomen: Normal bowel sounds Extremities: Other (1-2+ bilateral LE edema. Soreness of bilaterall LE.) Skin: No significant lesion Labs Labs: Laboratory Tests Test 02/23/21 16:57 02/23/21 20:45 02/24/21 04:25 02/24/21 07:47 Glucose (Fingerstick) 140 mg/dL (70-99) 337 mg/dL (70-99) 166 mg/dL (70-99) White Blood Count 13.5 x10^3/uL (4.0-11.0) Red Blood Count 5.77 x10^6/uL (4.30-5.70) Hemoglobin 13.6 g/dL (13.0-17.5) Hematocrit 43.9 % (39.0-53.0) Mean Corpuscular Volume 76 fL (79-100) Mean Corpuscular Hemoglobin 24 pg (25-35) Mean Corpuscular Hemoglobin Concent 31 g/dL (31-37) Red Cell Distribution Width 18.9 % (11.5-14.5) Platelet Count 260 x10^3/uL (140-400) Neutrophils (%) (Auto) 77 % (31-73) Lymphocytes (%) (Auto) 9 % (24-48) Monocytes (%) (Auto) 13 % (0-9) Eosinophils (%) (Auto) 0 % (0-3) Basophils (%) (Auto) 0 % (0-3) Neutrophils # (Auto) 10.5 x10^3/uL (1.8-7.7) Lymphocytes # (Auto) 1.3 x10^3/uL (1.0-4.8) Monocytes # (Auto) 1.7 x10^3/uL (0.0-1.1) Eosinophils # (Auto) 0.0 x10^3/uL (0.0-0.7) Basophils # (Auto) 0.0 x10^3/uL (0.0-0.2) Sodium Level 139 mmol/L (136-145) Potassium Level 3.8 mmol/L (3.5-5.1) Chloride Level 100 mmol/L (98-107) Carbon Dioxide Level 33 mmol/L (21-32) Anion Gap 6 (6-14) Blood Urea Nitrogen 30 mg/dL (8-26) Creatinine 1.4 mg/dL (0.7-1.3) Estimated GFR (Cockcroft-Gault) 60.3 Glucose Level 201 mg/dL (70-99) Calcium Level 8.4 mg/dL (8.5-10.1) Assessment and Plan Assessmemt and Plan Problems Medical Problems: (1) Atrial fibrillation with rapid ventricular response Status: Acute (2) Community acquired pneumonia Status: Acute (3) COPD with exacerbation Status: Acute (4) Person under investigation for COVID-19 Status: Acute (5) Sepsis with acute hypoxic respiratory failure Status: Acute Comment Review of Relevant I have reviewed the following items nurys (where applicable) has been applied. Medications: Current Medications Medications (Trade) Dose Ordered Sig/Rajinder Route PRN Reason Start Time Stop Time Status Last Admin Dose Admin Prednisone (Prednisone) 40 mg DAILY PO 02/24/21 09:00 02/24/21 09:00 Insulin Human Lispro (HumaLOG) 10 units TIDWMEALS SQ 02/23/21 17:00 02/24/21 09:50 Insulin Glargine (Lantus Syringe) 20 unit QHS SQ 02/23/21 21:00 02/23/21 21:05 Justifications for Admission Other Justification MAT ORTIZ MD Feb 24, 2021 11:46
--- NOTE | 2021-02-24 12:05 | NUR ---
SS following up with discharge planning. SS reviewed pt chart and discussed with pt RN. Pt is currently requiring oxygen at three liters nasal canula. COVID19 negative. Pt has home oxygen. PO diet. Pt on IV Lasix and IV Ampcillin. PT/OT ordered. OT recommended longterm unit. SS met with pt and spouse in room to discuss discharge planning and longterm unit. Pt declining longterm unit at this time. Pt and spouse currently requesting home with home healthcare with no preference of company. Pt reported that he has walker at home. Referral sent to [facility], ; fax [phone]. SS will continue to follow for discharge planning.
--- NOTE | 2021-02-24 12:36 | PDOC ---
ALFREDITO GUTIERRES AMMONIA NITRATE OPERATOR 02/24/21 1236: CARDIO Progress Notes Date and Time Date of Service 02/24/21 Time of Evaluation 1230 Subjective Subjective: No Chest Pain, No Dizziness, Other (SOA and LE edema better) Vitals Vitals Vital Signs Date Time Temp Pulse Resp B/P (MAP) Pulse Ox O2 Delivery O2 Flow Rate FiO2 02/24/21 11:27 97 Nasal Cannula 3.0 02/24/21 11:00 97.4 98 16 126/76 (93) 97.4 Weight Weight [ ] Input and Output Intake and Output Intake and Output 02/24/21 07:00 Intake Total 1960 ml Output Total 2300 ml Balance -340 ml Intake Oral 1960 ml Output Urine Total 2300 ml # Voids 1 # Bowel Movements 1 Laboratory Labs Laboratory Tests Test 02/23/21 16:57 02/23/21 20:45 02/24/21 04:25 02/24/21 07:47 Glucose (Fingerstick) 140 mg/dL (70-99) 337 mg/dL (70-99) 166 mg/dL (70-99) White Blood Count 13.5 x10^3/uL (4.0-11.0) Red Blood Count 5.77 x10^6/uL (4.30-5.70) Hemoglobin 13.6 g/dL (13.0-17.5) Hematocrit 43.9 % (39.0-53.0) Mean Corpuscular Volume 76 fL (79-100) Mean Corpuscular Hemoglobin 24 pg (25-35) Mean Corpuscular Hemoglobin Concent 31 g/dL (31-37) Red Cell Distribution Width 18.9 % (11.5-14.5) Platelet Count 260 x10^3/uL (140-400) Neutrophils (%) (Auto) 77 % (31-73) Lymphocytes (%) (Auto) 9 % (24-48) Monocytes (%) (Auto) 13 % (0-9) Eosinophils (%) (Auto) 0 % (0-3) Basophils (%) (Auto) 0 % (0-3) Neutrophils # (Auto) 10.5 x10^3/uL (1.8-7.7) Lymphocytes # (Auto) 1.3 x10^3/uL (1.0-4.8) Monocytes # (Auto) 1.7 x10^3/uL (0.0-1.1) Eosinophils # (Auto) 0.0 x10^3/uL (0.0-0.7) Basophils # (Auto) 0.0 x10^3/uL (0.0-0.2) Sodium Level 139 mmol/L (136-145) Potassium Level 3.8 mmol/L (3.5-5.1) Chloride Level 100 mmol/L (98-107) Carbon Dioxide Level 33 mmol/L (21-32) Anion Gap 6 (6-14) Blood Urea Nitrogen 30 mg/dL (8-26) Creatinine 1.4 mg/dL (0.7-1.3) Estimated GFR (Cockcroft-Gault) 60.3 Glucose Level 201 mg/dL (70-99) Calcium Level 8.4 mg/dL (8.5-10.1) Test 02/24/21 11:53 Glucose (Fingerstick) 109 mg/dL (70-99) Microbiology Micro Microbiology 02/19/21 Blood Culture - Preliminary, Resulted NO GROWTH AFTER 4 DAYS Physical Exam HEENT: Neck Supple W Full Motion Chest: Symmetric LUNGS: Other (diminished bases) Heart: irregularly irregular (AFIB, rate intermittently elevated ) Abdomen: Soft N/T, Other (obese) Extremities: Other (1-2+ bilateral LE edema ) Neurology: alert, oriented, follow commands Assessment Assessment 1. Acute respiratory failure, multifactorial. 2. Acute on chronic systolic CHF; continuing present treatment. 3. AFIB with RVR; new onset; rate remains mildly elevated 4. CAD: past PCI to LCx and RCA. 5. Chest pressure; atypical. Resolved. 6. Cardiomyopathy: Echo with LVEF 35 to 40%. 7. Hypertension. Improving. 8. Hyperlipidmeia. Continue present treatment. 9. NAOMI; Cr better Recommendations Ongoing diuresis with monitoring of renal function Increase metoprolol for better rate control and convert to Toprol for HF opt imization Eliquis for stroke prophylaxis Outpatient ischemic evaluations Consider CV if patient remains in AFIB. Supportive care Justicifation of Admission Dx: Justifications for Admission: Justification of Admission Dx: Yes CHF: Cardiac Arrhythmias Aspiration Pneumonia: Chronic Lung Disease Chronic Renal Failure: Encephalopathy LES GONCALVES MD 02/24/21 1724: CARDIO Progress Notes Plan Plan The patient was seen and interviewed as well as examined at the bedside. The chart was reviewed. The case was discussed. Agree with the plan of care. ALFREDITO GUTIERRES APRN Feb 24, 2021 12:36 LES GONCALVES MD Feb 24, 2021 17:24
[2021-02-24] MEDS: ANTI-COAG MONITOR BY PHARMACY. MC PRN (13:18)
[2021-02-24 15:00] VITALS: BP 124/77
[2021-02-24] MEDS ORDERED: FUROSEMIDE 40 MG/4 ML VIAL. IVP ONE (17:45)
[2021-02-24] MEDS ORDERED: metOLazone 2.5 MG TABLET PO SCH (17:45)
[2021-02-24 19:00] VITALS: BP 165/94
[2021-02-24] MEDS ORDERED: metOLazone 2.5 MG TABLET PO ONE (19:00)
[2021-02-24] MEDS: ZOLPIDEM 5 MG TABLET. PO PRN (20:59)
[2021-02-24] MEDS: TIMOLOL 0.5% OPHTH SOLUTION 5ML BOTTLE. OS SCH (21:00)
[2021-02-24] MEDS ORDERED: METOPROLOL TART IMMED RELEASE 50 MG TABLET. PO ONE (21:00)
[2021-02-24] MEDS: DORZOLAMIDE 2% OPHTH SOLUTION 10ML BOTTLE. OD SCH (21:00)
[2021-02-24] MEDS: INSULIN GLARGINE SYRINGE. SQ SCH (21:01)
[2021-02-24 23:00] VITALS: BP 118/85
[2021-02-25] MEDS: AMPICILLIN/SULBACTAM 3 GM in IV NORMAL SALINE 100ML 100 ML IV SCH ×3 (00:16→12:09)
[2021-02-25 03:00] VITALS: BP 154/90
[2021-02-25 04:02] LABS: BASO % 0 % (0-3); EOS % 0 % (0-3); HEMATOCRIT 44.1 % (39.0-53.0); LYMPH # 1.8 x10^3/uL (1.0-4.8); LYMPH % 15 % (24-48); MEAN CORPUSCULAR HEMOGLOBIN 24 pg (25-35); MEAN CORPUSCULAR HGB CONC 32 g/dL (31-37); MEAN CORPUSCULAR VOLUME 75 fL (79-100); MONO # 1.7 x10^3/uL (0.0-1.1); MONO % 14 % (0-9); NEUT # 8.7 x10^3/uL (1.8-7.7); NEUT % 72 % (31-73); PLATELET COUNT 259 x10^3/uL (140-400); RED BLOOD COUNT 5.87 x10^6/uL (4.30-5.70); RED CELL DISTRIBUTION WIDTH 19.2 % (11.5-14.5); WHITE BLOOD COUNT 12.3 x10^3/uL (4.0-11.0)
[2021-02-25 06:02] LABS: CALCIUM 8.5 mg/dL (8.5-10.1); CREATININE 1.5 mg/dL (0.7-1.3); GFR 55.7; POTASSIUM 3.1 mmol/L (3.5-5.1)
[2021-02-25 07:00] VITALS: BP 154/87
--- NOTE | 2021-02-25 07:13 | PDOC ---
[employer] [facility] PROGRESS NOTE Date of Service DOS: DATE: 02/25/21 TIME: 07:09 Chief Complaint Chief Complaint Acute hypoxic respiratory failure - COPD exacerbation with likely gram negative pneumonia complicated by acute combined systolic and diastolic CHF with afib with RVR Shortness of breath COPD with exacerbation Atrial fibrillation with rapid ventricular response Right pleural effusion Epistaxis Sepsis - due to pneumonia, resolved Community acquired pneumonia Acute on chronic systolic CHF; continuing present treatment. EF 35-40% AFIB with RVR - new onset; rate remains mildly elevated. CAD with 2013 PCI to LCx and RCA. Cardiomyopathy - ischemic and non-ischemic with Echo with LVEF 35 to 40%. Hypertension - improved Hyperlipidmeia - on statin. Continue present treatment. NAOMI - likely vasomotor nephropathy vs CKD Anemia - will check iron studies Hyperglycemia History of Present Illness History of Present Illness Afebrile. Chest radiograph moderate right pleural effusion still in place. Swelling a little improved with compression and diuresis. Changed 150 mg Toprol-XL. Still short of breath movement. Has some epistaxis today. 02/24: WBC 13.5, CR 1.4, glucose 166. Still very swollen in bilateral LE. Still requiring 4-5L NCO2. D/w him and bedside 80mg Lasix BID IV. 02/23/2021 Patient seen and examined. Chart reviewed. Discussed with RN to titrate his FiO2 down to 4L to maintain his oxygen saturation around 88-92%. Patient is awake and alert. NAD. Patient is responsive and asking questions. Patient is currently on 5L O2 via NC. Patient relates feeling just okay, not much better from yesterday. Patient says he has pain on the left side of his ribcage since yesterday. Glucose level was at 523 early this morning, and has gone down to 308 at 11:00am. 02/22/2021 Patient seen and examined. Chart reviewed. Discussed with RN. Patient is awake and alert. NAD. Patient is responsive and asking questions. Patient is currently on 5L O2 via NC, which he uses during the day. At night, patient uses the BiPAP. Patient relates feeling better and breathing better. Some edema in the lower extremities bilaterally. 02/21/2021 Patient seen and examined. Discussed with RN. Chart reviewed. Patient is currently on 5L O2 via NC. Stephy ferreira was called last night. This morning, patient is alert and oriented. Head CT showed no acute hemorrhage. MRI ordered but is on hold due to a possible coil embolization at the right carotid terminus. 02/20/2021 Patient seen and examined. Chart reviewed. Discussed with RN. NILAO. Patient is on BiPAP with labored breathing. Patient is awake and alert. Currently receiving IV Ampicillin/sulbactam. Developed Afib with RVR. Vitals/I&O Vitals/I&O: Vital Signs Date Time Temp Pulse Resp B/P (MAP) Pulse Ox O2 Delivery O2 Flow Rate FiO2 02/25/21 03:00 97.9 109 19 154/90 (111) 96 Nasal Cannula 3.0 97.9 I & O 02/24/21 02/24/21 02/25/21 15:00 23:00 07:00 Intake Total 120 ml 180 ml 800 ml Output Total 2100 ml 1800 ml Balance 120 ml -1920 ml -1000 ml Physical Exam General: Alert, Cooperative, mild distress Heart: Other (Irregular rhythm.) Lungs: Other (b lat diminished bs ) Abdomen: Normal bowel sounds Extremities: Other (1-2+ bilateral LE edema. Soreness of bilaterall LE.) Skin: No significant lesion Labs Labs: Laboratory Tests Test 02/24/21 07:47 02/24/21 11:53 02/24/21 17:17 02/24/21 20:59 Glucose (Fingerstick) 166 mg/dL (70-99) 109 mg/dL (70-99) 187 mg/dL (70-99) 183 mg/dL (70-99) Test 02/25/21 03:25 White Blood Count 12.3 x10^3/uL (4.0-11.0) Red Blood Count 5.87 x10^6/uL (4.30-5.70) Hemoglobin 14.0 g/dL (13.0-17.5) Hematocrit 44.1 % (39.0-53.0) Mean Corpuscular Volume 75 fL (79-100) Mean Corpuscular Hemoglobin 24 pg (25-35) Mean Corpuscular Hemoglobin Concent 32 g/dL (31-37) Red Cell Distribution Width 19.2 % (11.5-14.5) Platelet Count 259 x10^3/uL (140-400) Neutrophils (%) (Auto) 72 % (31-73) Lymphocytes (%) (Auto) 15 % (24-48) Monocytes (%) (Auto) 14 % (0-9) Eosinophils (%) (Auto) 0 % (0-3) Basophils (%) (Auto) 0 % (0-3) Neutrophils # (Auto) 8.7 x10^3/uL (1.8-7.7) Lymphocytes # (Auto) 1.8 x10^3/uL (1.0-4.8) Monocytes # (Auto) 1.7 x10^3/uL (0.0-1.1) Eosinophils # (Auto) 0.0 x10^3/uL (0.0-0.7) Basophils # (Auto) 0.0 x10^3/uL (0.0-0.2) Sodium Level 138 mmol/L (136-145) Potassium Level 3.1 mmol/L (3.5-5.1) Chloride Level 98 mmol/L (98-107) Carbon Dioxide Level 34 mmol/L (21-32) Anion Gap 6 (6-14) Blood Urea Nitrogen 38 mg/dL (8-26) Creatinine 1.5 mg/dL (0.7-1.3) Estimated GFR (Cockcroft-Gault) 55.7 Glucose Level 198 mg/dL (70-99) Calcium Level 8.5 mg/dL (8.5-10.1) Assessment and Plan Assessmemt and Plan Problems Medical Problems: (1) Atrial fibrillation with rapid ventricular response Status: Acute (2) Community acquired pneumonia Status: Acute (3) COPD with exacerbation Status: Acute (4) Person under investigation for COVID-19 Status: Acute (5) Sepsis with acute hypoxic respiratory failure Status: Acute Comment Review of Relevant I have reviewed the following items nurys (where applicable) has been applied. Medications: Current Medications Medications (Trade) Dose Ordered Sig/Rajinder Route PRN Reason Start Time Stop Time Status Last Admin Dose Admin Prednisone (Prednisone) 40 mg DAILY PO 02/24/21 09:00 02/24/21 09:00 Metoprolol Tartrate (Lopressor) 75 mg 1X ONCE PO 02/24/21 21:00 02/24/21 21:01 DC 02/24/21 21:07 Furosemide (Lasix) 80 mg 1X ONCE IVP 02/24/21 17:45 02/24/21 17:50 DC 02/24/21 18:46 Metolazone (Zaroxolyn) 5 mg 1X ONCE PO 02/24/21 19:00 02/24/21 19:01 DC 02/24/21 18:21 Justifications for Admission Other Justification MAT ORTIZ MD Feb 25, 2021 07:13
[2021-02-25] MEDS ORDERED: POTASSIUM CHLORIDE 20 MEQ TABLET.ER. PO ONE (07:15)
[2021-02-25] MEDS: IPRATRPIUM/ALBUTEROL 0.5/2.5MG 3 ML NEBU. NEB SCH ×4 (07:57→20:59)
[2021-02-25] MEDS: INSULIN LISPRO 300 UNITS/3 ML VIAL. SQ SCH ×6 (08:00→17:26)
[2021-02-25] MEDS: BUDESONIDE 0.5 MG/2 ML NEBU. NEB SCH ×2 (08:00→20:59)
[2021-02-25] MEDS: predniSONE 20 MG TABLET PO SCH (08:40)
[2021-02-25] MEDS: APIXABAN 5 MG TABLET. PO SCH ×2 (08:40→20:22)
[2021-02-25] MEDS: ASPIRIN ENTERIC COATED 81 MG TABLET.DR. PO SCH (08:40)
[2021-02-25] MEDS: METOPROLOL SUCC 24HR ER 50 MG TAB.ER.24H. PO SCH (08:41)
[2021-02-25] MEDS: LOSARTAN POTASSIUM 50 MG TABLET. PO SCH (08:41)
[2021-02-25] MEDS: FUROSEMIDE 40 MG/4 ML VIAL. IVP SCH ×2 (08:42→13:45)
[2021-02-25] MEDS: SENNOSIDES/DOCUSATE 8.6/50MG TABLET. PO SCH ×2 (09:00→20:49)
--- NOTE | 2021-02-25 09:00 | PDOC ---
PROGRESS NOTES Date of Service DATE: 02/25/21 TIME: 08:58 Assessment Problems Medical Problems: (1) Atrial fibrillation with rapid ventricular response Status: Acute (2) Community acquired pneumonia Status: Acute (3) COPD with exacerbation Status: Acute (4) Person under investigation for COVID-19 Status: Acute (5) Sepsis with acute hypoxic respiratory failure Status: Acute Possible left hemispheric transient ischemic attack, but more likely, the symptoms were related to metabolic issues. Blood pressure was elevated, I am not sure if this was cause or effect. In any rate, he has made a full recovery and remains with a nonfocal exam, albeit with bilateral weakness. I doubt that he had a seizure History of right carotid aneurysm coiling COPD exacerbation, atrial fibrillation with rapid ventricular response, COVID-19 and influenza negative, sepsis with acute hypoxic respiratory failure, community acquired pneumonia Right carotid Doppler study negative Plan I find out that the patient refused the rest the carotid Doppler studies. I confirm with him that he does not want these. He understands fully the risks of missing a problem in his left carotid artery that could lead to a future major devastating stroke but he still does not want the study done. He is competent to make this decision Cardiac work-up Okay to continue anticoagulation Rehabilitation modalities Neurology will follow at intervals Subjective No complaints Objective Vital Signs Date Time Temp Pulse Resp B/P (MAP) Pulse Ox O2 Delivery O2 Flow Rate FiO2 02/25/21 08:41 109 154/90 02/25/21 08:02 95 High Flow Nasal Cannula 3.0 02/25/21 03:00 97.9 19 97.9 Intake and Output 02/25/21 07:00 Intake Total 1100 ml Output Total 3900 ml Balance -2800 ml Intake Oral 1100 ml Output Urine Total 3900 ml # Bowel Movements 1 PHYSICAL EXAM Alert. Oriented to time, place and person. PERRL. EOMI. CN: no focal findings. Muscle tone: normal. Muscle strength: 4/5 DTR: 2+ Plantar reflex: flexor Gait: not examined in bed. Sensory exam: no abnormal findings. No cerebellar signs elicited. Review of Relevant I have reviewed the following items nurys (where applicable) has been applied. Labs Laboratory Tests Test 02/23/21 11:22 02/23/21 16:57 02/23/21 20:45 02/24/21 04:25 Glucose (Fingerstick) 308 mg/dL (70-99) 140 mg/dL (70-99) 337 mg/dL (70-99) White Blood Count 13.5 x10^3/uL (4.0-11.0) Red Blood Count 5.77 x10^6/uL (4.30-5.70) Hemoglobin 13.6 g/dL (13.0-17.5) Hematocrit 43.9 % (39.0-53.0) Mean Corpuscular Volume 76 fL (79-100) Mean Corpuscular Hemoglobin 24 pg (25-35) Mean Corpuscular Hemoglobin Concent 31 g/dL (31-37) Red Cell Distribution Width 18.9 % (11.5-14.5) Platelet Count 260 x10^3/uL (140-400) Neutrophils (%) (Auto) 77 % (31-73) Lymphocytes (%) (Auto) 9 % (24-48) Monocytes (%) (Auto) 13 % (0-9) Eosinophils (%) (Auto) 0 % (0-3) Basophils (%) (Auto) 0 % (0-3) Neutrophils # (Auto) 10.5 x10^3/uL (1.8-7.7) Lymphocytes # (Auto) 1.3 x10^3/uL (1.0-4.8) Monocytes # (Auto) 1.7 x10^3/uL (0.0-1.1) Eosinophils # (Auto) 0.0 x10^3/uL (0.0-0.7) Basophils # (Auto) 0.0 x10^3/uL (0.0-0.2) Sodium Level 139 mmol/L (136-145) Potassium Level 3.8 mmol/L (3.5-5.1) Chloride Level 100 mmol/L (98-107) Carbon Dioxide Level 33 mmol/L (21-32) Anion Gap 6 (6-14) Blood Urea Nitrogen 30 mg/dL (8-26) Creatinine 1.4 mg/dL (0.7-1.3) Estimated GFR (Cockcroft-Gault) 60.3 Glucose Level 201 mg/dL (70-99) Calcium Level 8.4 mg/dL (8.5-10.1) Test 02/24/21 07:47 02/24/21 11:53 02/24/21 17:17 02/24/21 20:59 Glucose (Fingerstick) 166 mg/dL (70-99) 109 mg/dL (70-99) 187 mg/dL (70-99) 183 mg/dL (70-99) Test 02/25/21 03:25 02/25/21 08:38 White Blood Count 12.3 x10^3/uL (4.0-11.0) Red Blood Count 5.87 x10^6/uL (4.30-5.70) Hemoglobin 14.0 g/dL (13.0-17.5) Hematocrit 44.1 % (39.0-53.0) Mean Corpuscular Volume 75 fL (79-100) Mean Corpuscular Hemoglobin 24 pg (25-35) Mean Corpuscular Hemoglobin Concent 32 g/dL (31-37) Red Cell Distribution Width 19.2 % (11.5-14.5) Platelet Count 259 x10^3/uL (140-400) Neutrophils (%) (Auto) 72 % (31-73) Lymphocytes (%) (Auto) 15 % (24-48) Monocytes (%) (Auto) 14 % (0-9) Eosinophils (%) (Auto) 0 % (0-3) Basophils (%) (Auto) 0 % (0-3) Neutrophils # (Auto) 8.7 x10^3/uL (1.8-7.7) Lymphocytes # (Auto) 1.8 x10^3/uL (1.0-4.8) Monocytes # (Auto) 1.7 x10^3/uL (0.0-1.1) Eosinophils # (Auto) 0.0 x10^3/uL (0.0-0.7) Basophils # (Auto) 0.0 x10^3/uL (0.0-0.2) Sodium Level 138 mmol/L (136-145) Potassium Level 3.1 mmol/L (3.5-5.1) Chloride Level 98 mmol/L (98-107) Carbon Dioxide Level 34 mmol/L (21-32) Anion Gap 6 (6-14) Blood Urea Nitrogen 38 mg/dL (8-26) Creatinine 1.5 mg/dL (0.7-1.3) Estimated GFR (Cockcroft-Gault) 55.7 Glucose Level 198 mg/dL (70-99) Calcium Level 8.5 mg/dL (8.5-10.1) Magnesium Level 2.6 mg/dL (1.8-2.4) Iron Level 39 ug/dL (65-175) Total Iron Binding Capacity 272 ug/dL (250-450) Iron Saturation 14 % (15-34) Glucose (Fingerstick) 139 mg/dL (70-99) Laboratory Tests Test 02/24/21 11:53 02/24/21 17:17 02/24/21 20:59 02/25/21 03:25 Glucose (Fingerstick) 109 mg/dL (70-99) 187 mg/dL (70-99) 183 mg/dL (70-99) White Blood Count 12.3 x10^3/uL (4.0-11.0) Red Blood Count 5.87 x10^6/uL (4.30-5.70) Hemoglobin 14.0 g/dL (13.0-17.5) Hematocrit 44.1 % (39.0-53.0) Mean Corpuscular Volume 75 fL (79-100) Mean Corpuscular Hemoglobin 24 pg (25-35) Mean Corpuscular Hemoglobin Concent 32 g/dL (31-37) Red Cell Distribution Width 19.2 % (11.5-14.5) Platelet Count 259 x10^3/uL (140-400) Neutrophils (%) (Auto) 72 % (31-73) Lymphocytes (%) (Auto) 15 % (24-48) Monocytes (%) (Auto) 14 % (0-9) Eosinophils (%) (Auto) 0 % (0-3) Basophils (%) (Auto) 0 % (0-3) Neutrophils # (Auto) 8.7 x10^3/uL (1.8-7.7) Lymphocytes # (Auto) 1.8 x10^3/uL (1.0-4.8) Monocytes # (Auto) 1.7 x10^3/uL (0.0-1.1) Eosinophils # (Auto) 0.0 x10^3/uL (0.0-0.7) Basophils # (Auto) 0.0 x10^3/uL (0.0-0.2) Sodium Level 138 mmol/L (136-145) Potassium Level 3.1 mmol/L (3.5-5.1) Chloride Level 98 mmol/L (98-107) Carbon Dioxide Level 34 mmol/L (21-32) Anion Gap 6 (6-14) Blood Urea Nitrogen 38 mg/dL (8-26) Creatinine 1.5 mg/dL (0.7-1.3) Estimated GFR (Cockcroft-Gault) 55.7 Glucose Level 198 mg/dL (70-99) Calcium Level 8.5 mg/dL (8.5-10.1) Magnesium Level 2.6 mg/dL (1.8-2.4) Iron Level 39 ug/dL (65-175) Total Iron Binding Capacity 272 ug/dL (250-450) Iron Saturation 14 % (15-34) Test 02/25/21 08:38 Glucose (Fingerstick) 139 mg/dL (70-99) Microbiology 02/19/21 Blood Culture - Final, Complete NO GROWTH AFTER 5 DAYS Medications Current Medications Dexamethasone Sodium Phosphate (Decadron) 10 mg 1X ONCE IV Last administered on 02/19/21at 17:26; Start 02/19/21 at 16:45; Stop 02/19/21 at 16:46; Status DC Albuterol/ Ipratropium (Duoneb) 3 ml 1X ONCE NEB ; Start 02/19/21 at 16:45; Stop 02/19/21 at 16:46; Status DC Azithromycin 250 ml @ 250 mls/hr 1X ONCE IV Last administered on 02/19/21at 17:30; Start 02/19/21 at 16:45; Stop 02/19/21 at 17:44; Status DC Ceftriaxone Sodium (Rocephin) 1 gm 1X ONCE IVP Last administered on 02/19/21at 17:26; Start 02/19/21 at 16:45; Stop 02/19/21 at 16:46; Status DC Diltiazem HCl (Cardizem Iv Push) 15 mg 1X ONCE IVP Last administered on at 17:29; Start 02/19/21 at 17:00; Stop 02/19/21 at 17:01; Status DC Ondansetron HCl (Zofran) 4 mg PRN Q6HRS PRN IVP NAUSEA/VOMITING; Start 02/19/21 at 17:45 Calcium Carbonate/ Glycine (Tums) 500 mg PRN Q3HRS PRN PO UPSET STOMACH Last administered on 02/23/21at 15:59; Start 02/19/21 at 17:45 Zolpidem Tartrate (Ambien) 5 mg PRN QHS PRN PO INSOMNIA, MAY REPEAT IN 1HR Last administered on 02/24/21at 20:59; Start 02/19/21 at 17:45 Info (Non-Icu Electrolyte Protocol) 1 ea PRN DAILY PRN MC SEE COMMENTS; Start 02/19/21 at 17:45 Morphine Sulfate (Morphine Sulfate) 1 mg PRN Q1HR PRN IV MODERATE PAIN; Start 02/19/21 at 17:45 Morphine Sulfate (Morphine Sulfate) 2 mg PRN Q1HR PRN IV SEVERE PAIN Last administered on 02/21/21at 01:51; Start 02/19/21 at 17:45 Oxycodone HCl (Roxicodone) 5 mg PRN Q4HRS PRN PO MILD PAIN, 1ST CHOICE; Start 02/19/21 at 17:45 Oxycodone HCl (Roxicodone) 10 mg PRN Q4HRS PRN PO MODERATE PAIN, SEVERE PAIN; Start 02/19/21 at 17:45 Acetaminophen (Tylenol) 650 mg PRN Q6HRS PRN PO Headaches, Temp > 101.5F; Start 02/19/21 at 17:45 Senna/Docusate Sodium (Senna Plus) 1 tab BID PO Last administered on 02/20/21at 12:11; Start 02/19/21 at 21:00 Heparin Sodium (Porcine) (Heparin Sodium) 5,000 unit Q8HRS SQ Last administered on 02/20/21at 05:59; Start 02/19/21 at 22:00; Stop 02/20/21 at 12:49; Status DC Non-Formulary Medication (Aclidinium Wisner (Tudorza Pressair)) 400 mcg BID IH ; Start 02/19/21 at 21:00; Stop 02/19/21 at 19:04; Status DC Albuterol Sulfate (Ventolin Neb Soln) 2.5 mg Q4HRS NEB ; Start 02/19/21 at 20:00; Stop 02/20/21 at 09:54; Status DC Dorzolamide HCl (Trusopt) 1 drop QHS OD Last administered on 02/24/21at 21:00; Start 02/19/21 at 21:00 Losartan Potassium (Cozaar) 100 mg DAILY PO ; Start 02/20/21 at 09:00; Status Cancel Non-Formulary Medication (Tiotropium Br/ Olodaterol HCl (Stiolto Respimat Inhal [place])) 4 gm DAILY IH ; Start 02/20/21 at 09:00; Stop 02/19/21 at 19:03; Status DC Amlodipine Besylate (Norvasc) 5 mg DAILY PO ; Start 02/20/21 at 09:00; Status Cancel Hydrochlorothiazide (Microzide) 12.5 mg DAILY PO ; Start 02/20/21 at 09:00; Status Cancel Ampicillin Sodium/ Sulbactam Sodium 3 gm/Sodium Chloride 100 ml @ 200 mls/hr Q6HRS IV Last administered on 02/25/21at 06:37; Start 02/20/21 at 00:00 Azithromycin 500 mg/Sodium Chloride 250 ml @ 250 mls/hr Q24H IV Last administered on 02/21/21at 18:00; Start 02/20/21 at 18:00; Stop 02/22/21 at 17:59; Status DC Furosemide (Lasix) 40 mg 1X ONCE IVP Last administered on 02/19/21at 18:52; Start 02/19/21 at 18:00; Stop 02/19/21 at 18:25; Status DC Albuterol/ Ipratropium (Duoneb) 3 ml RTQID NEB Last administered on 02/25/21at 07:57; Start 02/19/21 at 20:00 Timolol Maleate (Timoptic 0.5% Oph) 1 drop QHS OS Last administered on 02/24/21at 21:00; Start 02/19/21 at 21:00 Methylprednisolone Sodium Succinate (SOLU-Medrol 40MG VIAL) 40 mg Q8HRS IV Last administered on 02/22/21at 05:24; Start 02/19/21 at 22:00; Stop 02/22/21 at 09:31; Status DC Info (FLU VACCINE SCREEN per RX) 1 each 1X ONCE MC ; Start 02/19/21 at 23:00; Stop 02/19/21 at 23:01; Status Cancel Info (FLU VACCINE SCREEN per RX) 1 each PRN DAILY PRN MC SEE COMMENTS; Start 02/19/21 at 23:15; Status Cancel Metoprolol Tartrate (Lopressor Vial) 5 mg PRN Q1HR PRN IVP HYPERTENSION Last administered on 02/23/21at 19:43; Start 02/20/21 at 00:00 Iohexol (Omnipaque 350 Mg/ml) 100 ml 1X ONCE IV Last administered on 02/20/21at 07:30; Start 02/20/21 at 07:30; Stop 02/20/21 at 07:31; Status DC Amlodipine Besylate (Norvasc) 10 mg DAILY PO ; Start 02/20/21 at 11:00; Stop 02/20/21 at 11:04; Status DC Atorvastatin Calcium (Lipitor) 40 mg DAILY PO Last administered on 02/24/21at 20:59; Start 02/20/21 at 10:00 Furosemide (Lasix) 40 mg DAILY PO Last administered on 02/21/21at 09:47; Start 02/20/21 at 10:00; Stop 02/21/21 at 17:33; Status DC Glipizide (Glucotrol) 2.5 mg BIDWMEALS PO Last administered on 02/20/21at 12:38; Start 02/20/21 at 12:00; Stop 02/20/21 at 17:28; Status DC Metformin HCl (Glucophage) 500 mg BIDWMEALS PO ; Start 02/20/21 at 12:00; Stop 02/20/21 at 17:20; Status DC Budesonide (Pulmicort) 0.5 mg RTBID NEB Last administered on 02/25/21at 08:00; Start 02/20/21 at 20:00 Losartan Potassium (Cozaar) 100 mg DAILY PO Last administered on 02/25/21at 08:41; Start 02/20/21 at 10:00 Influenza Virus Vaccine Quadrival (Flulaval Quad [id number] Syringe) 0.5 ml ONCE ONCE VAX IM ; Start 02/21/21 at 09:00; Stop 02/21/21 at 09:01; Status DC Metoprolol Tartrate (Lopressor Vial) 5 mg 1X ONCE IVP Last administered on 02/20/21at 12:11; Start 02/20/21 at 12:15; Stop 02/20/21 at 12:16; Status DC Aspirin (Ecotrin) 81 mg [id number] PO Last administered on 02/25/21at 08:40; Start 02/20/21 at 13:00 Metoprolol Tartrate (Lopressor) 50 mg BID PO Last administered on 02/24/21at 09:00; Start 02/20/21 at 13:00; Stop 02/24/21 at 17:10; Status DC Enoxaparin Sodium (Lovenox Per Pharmacy Treatment Dosing) 1 each PRN DAILY PRN MC SEE COMMENTS; Start 02/20/21 at 13:00; Status Cancel Enoxaparin Sodium (Lovenox 100mg Syringe) 100 mg Q12HR SQ Last administered on 02/21/21at 20:10; Start 02/20/21 at 13:00; Stop 02/21/21 at 21:00; Status DC Furosemide (Lasix) 40 mg 1X ONCE IVP Last administered on 02/20/21at 14:28; Start 02/20/21 at 13:45; Stop 02/20/21 at 13:46; Status DC Iohexol (Omnipaque 350 Mg/ml) 100 ml STK-MED ONCE .ROUTE ; Start 02/20/21 at 15:53; Stop 02/20/21 at 15:53; Status DC Metformin HCl (Glucophage) 500 mg BIDWMEALS PO Last administered on 02/23/21at 08:37; Start 02/22/21 at 17:00; Stop 02/23/21 at 12:41; Status DC Insulin Human Lispro (HumaLOG) 0-7 UNITS TIDWMEALS SQ Last administered on 02/24/21at 18:06; Start 02/20/21 at 17:30 Dextrose (Dextrose 50%-Water Syringe) 12.5 gm PRN Q15MIN PRN IV SEE COMMENTS; Start 02/20/21 at 17:30 Info (Anti-Coagulation Monitoring By Pharmacy) 1 each PRN DAILY PRN MC PER PROTOCOL Last administered on 02/24/21at 13:18; Start 02/21/21 at 11:00 Digoxin (Lanoxin) 500 mcg 1X ONCE IV Last administered on 02/21/21at 17:48; Start 02/21/21 at 18:00; Stop 02/21/21 at 18:01; Status DC Furosemide (Lasix) 40 mg BID92 IVP ; Start 02/22/21 at 09:00; Stop 02/21/21 at 17:42; Status DC Apixaban (Eliquis) 5 mg BID PO Last administered on 02/25/21at 08:40; Start 02/22/21 at 09:00 Furosemide (Lasix) 40 mg BID92 IVP Last administered on 02/25/21at 08:42; Start 02/21/21 at 17:45 Methylprednisolone Sodium Succinate (SOLU-Medrol 40MG VIAL) 40 mg Q12HR IV Last administered on 02/23/21at 08:36; Start 02/22/21 at 21:00; Stop 02/23/21 at 09:37; Status DC Loperamide HCl (Imodium) 2 mg PRN Q15MIN PRN PO DIARRHEA Last administered on 02/22/21at 17:38; Start 02/22/21 at 11:15 Insulin Human Lispro (HumaLOG) 3 units 1X ONCE SQ Last administered on 02/22/21at 12:59; Start 02/22/21 at 12:30; Stop 02/22/21 at 12:31; Status DC Insulin Human Lispro (HumaLOG) 4 units 1X ONCE SQ Last administered on 02/22/21at 17:42; Start 02/22/21 at 17:45; Stop 02/22/21 at 17:46; Status DC Insulin Human Lispro (HumaLOG) 13 units 1X ONCE SQ Last administered on 02/23/21at 09:30; Start 02/23/21 at 09:15; Stop 02/23/21 at 09:16; Status DC Prednisone (Prednisone) 40 mg DAILY PO Last administered on 02/25/21at 08:40; Start 02/24/21 at 09:00 Insulin Human Lispro (HumaLOG) 10 units 1X ONCE SQ Last administered on 02/23/21at 12:35; Start 02/23/21 at 11:30; Stop 02/23/21 at 11:31; Status DC Insulin Human Lispro (HumaLOG) 10 units TIDWMEALS SQ Last administered on 02/25/21at 08:50; Start 02/23/21 at 17:00 Insulin Glargine (Lantus Syringe) 20 unit QHS SQ Last administered on 02/24/21at 21:01; Start 02/23/21 at 21:00 Metoprolol Tartrate (Lopressor) 75 mg 1X ONCE PO Last administered on 02/24/21at 21:07; Start 02/24/21 at 21:00; Stop 02/24/21 at 21:01; Status DC Metoprolol Succinate (Toprol Xl) 150 mg DAILY PO Last administered on 02/25/21at 08:41; Start 02/25/21 at 09:00 Metolazone (Zaroxolyn) 5 mg 1X PO ; Start 02/24/21 at 17:45 Furosemide (Lasix) 80 mg 1X ONCE IVP Last administered on 02/24/21at 18:46; Start 02/24/21 at 17:45; Stop 02/24/21 at 17:50; Status DC Metolazone (Zaroxolyn) 5 mg 1X ONCE PO Last administered on 02/24/21at 18:21; Start 02/24/21 at 19:00; Stop 02/24/21 at 19:01; Status DC Potassium Chloride (Klor-Con) 40 meq 1X ONCE PO Last administered on 02/25/21at 08:40; Start 02/25/21 at 07:15; Stop 02/25/21 at 07:16; Status DC Active Scripts Active Reported Metformin Hcl 500 Mg Tablet 500 Mg PO BIDWMEALS Glipizide 5 Mg Tablet 2.5 Mg PO BID Atorvastatin Calcium 40 Mg Tablet 1 Tab PO DAILY Furosemide 40 Mg Tablet 1 Tab PO DAILY Benicar (Olmesartan Medoxomil) 40 Mg Tablet 1 Tab PO DAILY 30 Days Amlodipine Besylate 10 Mg Tablet 10 Mg PO DAILY Symbicort 160-4.5 Mcg Inhaler (Budesonide/Formoterol Fumarate) 10.2 Gm Hfa.aer.ad 2 Puff IH BID Vitals/I & O Vital Sign - Last 24 Hours 02/24/21 02/24/21 02/24/21 02/24/21 09:00 09:00 11:00 11:27 Temp 97.4 97.4 Pulse 103 103 98 Resp 16 B/P (MAP) 128/93 128/93 126/76 (93) Pulse Ox 97 97 O2 Delivery Nasal Cannula Nasal Cannula O2 Flow Rate 3.0 3.0 02/24/21 02/24/21 02/24/2102/24/21 15:00 19:00 20:00 20:02 Temp 97.9 98.2 97.9 98.2 Pulse 115 120 Resp 16 21 B/P (MAP) 124/77 (93) 165/94 (117) Pulse Ox 95 95 95 O2 Delivery Nasal Cannula Nasal Cannula Nasal Cannula High Flow Nasal Cannula O2 Flow Rate 3.0 3.0 3.0 3.0 02/24/21 02/24/21 02/25/21 02/25/21 21:07 23:00 03:00 07:58 Temp 97.6 97.9 97.6 97.9 Pulse 120 101 109 Resp 18 19 B/P (MAP) 165/94 118/85 (96) 154/90 (111) Pulse Ox 96 96 95 O2 Delivery Nasal Cannula Nasal Cannula High Flow Nasal Cannula O2 Flow Rate 3.0 3.0 3.0 02/25/21 02/25/21 02/25/21 08:02 08:41 08:41 Pulse 109 109 B/P (MAP) 154/90 154/90 Pulse Ox 95 O2 Delivery High Flow Nasal Cannula O2 Flow Rate 3.0 Intake and Output 02/24/21 02/24/21 02/25/21 15:00 23:00 07:00 Intake Total 120 ml 180 ml 800 ml Output Total 2100 ml 1800 ml Balance 120 ml -1920 ml -1000 ml Images Bilateral carotid duplex with waveform analysis. CLINICAL HISTORY: Stroke, weakness and numbness, left hemisphere: PATIENT REFUSED TO FINISH EXAM TECHNIQUE: Longitudinal and transverse sonographic images of the bilateral carotid arteries was performed utilizing grayscale, color and spectral Doppler techniques. COMPARISON: None FINDINGS/ IMPRESSION: Right common carotid artery is patent. Patient refused additional imaging. Justicifation of Admission Dx: Justifications for Admission: Justification of Admission Dx: Yes CHF: Cardiac Arrhythmias Aspiration Pneumonia: Chronic Lung Disease Chronic Renal Failure: Encephalopathy CRISTAL ALMANZA MD Feb 25, 2021 09:00
[2021-02-25] MEDS ORDERED: DIGOXIN IV 500 MCG/2 ML AMPUL. IV ONE (09:45)
--- NOTE | 2021-02-25 10:25 | NUR ---
SS following up with discharge planning. SS reviewed pt chart and discussed with pt RN. Pt is currently requiring oxygen at three liters nasal canula. COVID19 negative. Pt has home oxygen. PO diet. Pt on IV Lasix and IV Ampicillin. PT/OT working with pt. Pt and spouse currently requesting home with home healthcare with no preference of company. Pt reported that he has walker at home. Pt accepted on services with [facility], ; fax [phone]. SS will continue to follow for discharge planning.
[2021-02-25] MEDS: ANTI-COAG MONITOR BY PHARMACY. MC PRN (10:45)
[2021-02-25 11:00] VITALS: BP 126/74
--- NOTE | 2021-02-25 11:27 | PDOC ---
PULMONARY PROGRESS NOTES DATE: 02/25/21 TIME: 11:25 Subjective Not more short of air, using BiPAP nightly Nasal cannula 3 L during the day. Vitals Vital Signs Date Time Temp Pulse Resp B/P (MAP) Pulse Ox O2 Delivery O2 Flow Rate FiO2 02/25/21 09:50 150 154/90 02/25/21 08:02 95 High Flow Nasal Cannula 3.0 02/25/21 07:00 98.7 18 98.7 General: Alert, No acute distress Lungs: Other (b lat diminished bs ) Cardiovascular: S1, S2 Abdomen: Soft, Other Extremities: Other (Edema has diminished) Skin: Warm Labs Laboratory Tests Test 02/23/21 16:57 02/23/21 20:45 02/24/21 04:25 02/24/21 07:47 Glucose (Fingerstick) 140 mg/dL (70-99) 337 mg/dL (70-99) 166 mg/dL (70-99) White Blood Count 13.5 x10^3/uL (4.0-11.0) Red Blood Count 5.77 x10^6/uL (4.30-5.70) Hemoglobin 13.6 g/dL (13.0-17.5) Hematocrit 43.9 % (39.0-53.0) Mean Corpuscular Volume 76 fL (79-100) Mean Corpuscular Hemoglobin 24 pg (25-35) Mean Corpuscular Hemoglobin Concent 31 g/dL (31-37) Red Cell Distribution Width 18.9 % (11.5-14.5) Platelet Count 260 x10^3/uL (140-400) Neutrophils (%) (Auto) 77 % (31-73) Lymphocytes (%) (Auto) 9 % (24-48) Monocytes (%) (Auto) 13 % (0-9) Eosinophils (%) (Auto) 0 % (0-3) Basophils (%) (Auto) 0 % (0-3) Neutrophils # (Auto) 10.5 x10^3/uL (1.8-7.7) Lymphocytes # (Auto) 1.3 x10^3/uL (1.0-4.8) Monocytes # (Auto) 1.7 x10^3/uL (0.0-1.1) Eosinophils # (Auto) 0.0 x10^3/uL (0.0-0.7) Basophils # (Auto) 0.0 x10^3/uL (0.0-0.2) Sodium Level 139 mmol/L (136-145) Potassium Level 3.8 mmol/L (3.5-5.1) Chloride Level 100 mmol/L (98-107) Carbon Dioxide Level 33 mmol/L (21-32) Anion Gap 6 (6-14) Blood Urea Nitrogen 30 mg/dL (8-26) Creatinine 1.4 mg/dL (0.7-1.3) Estimated GFR (Cockcroft-Gault) 60.3 Glucose Level 201 mg/dL (70-99) Calcium Level 8.4 mg/dL (8.5-10.1) Test 02/24/21 11:53 02/24/21 17:17 02/24/21 20:59 02/25/21 03:25 Glucose (Fingerstick) 109 mg/dL (70-99) 187 mg/dL (70-99) 183 mg/dL (70-99) White Blood Count 12.3 x10^3/uL (4.0-11.0) Red Blood Count 5.87 x10^6/uL (4.30-5.70) Hemoglobin 14.0 g/dL (13.0-17.5) Hematocrit 44.1 % (39.0-53.0) Mean Corpuscular Volume 75 fL (79-100) Mean Corpuscular Hemoglobin 24 pg (25-35) Mean Corpuscular Hemoglobin Concent 32 g/dL (31-37) Red Cell Distribution Width 19.2 % (11.5-14.5) Platelet Count 259 x10^3/uL (140-400) Neutrophils (%) (Auto) 72 % (31-73) Lymphocytes (%) (Auto) 15 % (24-48) Monocytes (%) (Auto) 14 % (0-9) Eosinophils (%) (Auto) 0 % (0-3) Basophils (%) (Auto) 0 % (0-3) Neutrophils # (Auto) 8.7 x10^3/uL (1.8-7.7) Lymphocytes # (Auto) 1.8 x10^3/uL (1.0-4.8) Monocytes # (Auto) 1.7 x10^3/uL (0.0-1.1) Eosinophils # (Auto) 0.0 x10^3/uL (0.0-0.7) Basophils # (Auto) 0.0 x10^3/uL (0.0-0.2) Sodium Level 138 mmol/L (136-145) Potassium Level 3.1 mmol/L (3.5-5.1) Chloride Level 98 mmol/L (98-107) Carbon Dioxide Level 34 mmol/L (21-32) Anion Gap 6 (6-14) Blood Urea Nitrogen 38 mg/dL (8-26) Creatinine 1.5 mg/dL (0.7-1.3) Estimated GFR (Cockcroft-Gault) 55.7 Glucose Level 198 mg/dL (70-99) Calcium Level 8.5 mg/dL (8.5-10.1) Magnesium Level 2.6 mg/dL (1.8-2.4) Iron Level 39 ug/dL (65-175) Total Iron Binding Capacity 272 ug/dL (250-450) Iron Saturation 14 % (15-34) Test 02/25/21 08:38 Glucose (Fingerstick) 139 mg/dL (70-99) Laboratory Tests Test 02/24/21 11:53 02/24/21 17:17 02/24/21 20:59 02/25/21 03:25 Glucose (Fingerstick) 109 mg/dL (70-99) 187 mg/dL (70-99) 183 mg/dL (70-99) White Blood Count 12.3 x10^3/uL (4.0-11.0) Red Blood Count 5.87 x10^6/uL (4.30-5.70) Hemoglobin 14.0 g/dL (13.0-17.5) Hematocrit 44.1 % (39.0-53.0) Mean Corpuscular Volume 75 fL (79-100) Mean Corpuscular Hemoglobin 24 pg (25-35) Mean Corpuscular Hemoglobin Concent 32 g/dL (31-37) Red Cell Distribution Width 19.2 % (11.5-14.5) Platelet Count 259 x10^3/uL (140-400) Neutrophils (%) (Auto) 72 % (31-73) Lymphocytes (%) (Auto) 15 % (24-48) Monocytes (%) (Auto) 14 % (0-9) Eosinophils (%) (Auto) 0 % (0-3) Basophils (%) (Auto) 0 % (0-3) Neutrophils # (Auto) 8.7 x10^3/uL (1.8-7.7) Lymphocytes # (Auto) 1.8 x10^3/uL (1.0-4.8) Monocytes # (Auto) 1.7 x10^3/uL (0.0-1.1) Eosinophils # (Auto) 0.0 x10^3/uL (0.0-0.7) Basophils # (Auto) 0.0 x10^3/uL (0.0-0.2) Sodium Level 138 mmol/L (136-145) Potassium Level 3.1 mmol/L (3.5-5.1) Chloride Level 98 mmol/L (98-107) Carbon Dioxide Level 34 mmol/L (21-32) Anion Gap 6 (6-14) Blood Urea Nitrogen 38 mg/dL (8-26) Creatinine 1.5 mg/dL (0.7-1.3) Estimated GFR (Cockcroft-Gault) 55.7 Glucose Level 198 mg/dL (70-99) Calcium Level 8.5 mg/dL (8.5-10.1) Magnesium Level 2.6 mg/dL (1.8-2.4) Iron Level 39 ug/dL (65-175) Total Iron Binding Capacity 272 ug/dL (250-450) Iron Saturation 14 % (15-34) Test 02/25/21 08:38 Glucose (Fingerstick) 139 mg/dL (70-99) Medications Active Scripts Medications Dose Route/Sig Max Daily Dose Days Date Category Metformin Hcl 500 Mg Tablet 500 Mg PO BIDWMEALS 02/20/21 Reported Glipizide 5 Mg Tablet 2.5 Mg PO BID 02/20/21 Reported Atorvastatin Calcium 40 Mg Tablet 1 Tab PO DAILY 02/20/21 Reported Furosemide 40 Mg Tablet 1 Tab PO DAILY 02/20/21 Reported Benicar (Olmesartan Medoxomil) 40 Mg Tablet 1 Tab PO DAILY 30 02/20/21 Reported Amlodipine Besylate 10 Mg Tablet 10 Mg PO DAILY 02/20/21 Reported Symbicort 160-4.5 Mcg Inhaler (Budesonide/Formoterol Fumarate) 10.2 Gm Hfa.aer.ad 2 Puff IH BID 02/20/[address] chest reviewed. Moderate right lower lobe pleural effusion. Impression . Acute hypoxemic respiratory failure multifactorial Acute on chronic diastolic heart failure Acute exacerbation COPD Abnormal CT chest with moderate right lower lobe pleural effusion. Likely secondary to cardiomyopathy. Cardiomyopathy ejection fraction 40-% A. fib with rapid ventricular response Coronary artery disease with previous PCI Tobacco dependent CT angiogram revealed no evidence of pulmonary embolism there was a right-sided effusion Plan . Updated 02/25 Patient feels better, changed to prednisone Discussed with social service Home with home health 6-minute walk prior to discharge Outpatient polysomnogram Will follow chest x-ray today to better assess for size of pleural effusion. JEANNIE LANTIGUA MD Feb 25, 2021 11:27
[2021-02-25] MEDS ORDERED: SILVER NITRATE STICK TP ONE (12:00)
[2021-02-25] MEDS ORDERED: SURGICEL HEMOSTAT 4X8 EACH. TP ONE (12:30)
--- NOTE | 2021-02-25 14:06 | PDOC ---
ALFREDITO GUTIERRES [employer] 02/25/21 1406: CARDIO Progress Notes Date and Time Date of Service 02/25/21 Time of Evaluation 1210 Subjective Subjective: No Chest Pain, No Dizziness, Other (having nosebleed. ) Vitals Vitals Vital Signs Date Time Temp Pulse Resp B/P (MAP) Pulse Ox O2 Delivery O2 Flow Rate FiO2 02/25/21 11:25 92 High Flow Nasal Cannula 3.0 02/25/21 11:00 97.4 90 18 126/74 (91) 97.4 Weight Weight [ ] Input and Output Intake and Output Intake and Output 02/25/21 07:00 Intake Total 1100 ml Output Total 3900 ml Balance -2800 ml Intake Oral 1100 ml Output Urine Total 3900 ml # Bowel Movements 1 Laboratory Labs Laboratory Tests Test 02/24/21 17:17 02/24/21 20:59 02/25/21 03:25 02/25/21 08:38 Glucose (Fingerstick) 187 mg/dL (70-99) 183 mg/dL (70-99) 139 mg/dL (70-99) White Blood Count 12.3 x10^3/uL (4.0-11.0) Red Blood Count 5.87 x10^6/uL (4.30-5.70) Hemoglobin 14.0 g/dL (13.0-17.5) Hematocrit 44.1 % (39.0-53.0) Mean Corpuscular Volume 75 fL (79-100) Mean Corpuscular Hemoglobin 24 pg (25-35) Mean Corpuscular Hemoglobin Concent 32 g/dL (31-37) Red Cell Distribution Width 19.2 % (11.5-14.5) Platelet Count 259 x10^3/uL (140-400) Neutrophils (%) (Auto) 72 % (31-73) Lymphocytes (%) (Auto) 15 % (24-48) Monocytes (%) (Auto) 14 % (0-9) Eosinophils (%) (Auto) 0 % (0-3) Basophils (%) (Auto) 0 % (0-3) Neutrophils # (Auto) 8.7 x10^3/uL (1.8-7.7) Lymphocytes # (Auto) 1.8 x10^3/uL (1.0-4.8) Monocytes # (Auto) 1.7 x10^3/uL (0.0-1.1) Eosinophils # (Auto) 0.0 x10^3/uL (0.0-0.7) Basophils # (Auto) 0.0 x10^3/uL (0.0-0.2) Sodium Level 138 mmol/L (136-145) Potassium Level 3.1 mmol/L (3.5-5.1) Chloride Level 98 mmol/L (98-107) Carbon Dioxide Level 34 mmol/L (21-32) Anion Gap 6 (6-14) Blood Urea Nitrogen 38 mg/dL (8-26) Creatinine 1.5 mg/dL (0.7-1.3) Estimated GFR (Cockcroft-Gault) 55.7 Glucose Level 198 mg/dL (70-99) Calcium Level 8.5 mg/dL (8.5-10.1) Magnesium Level 2.6 mg/dL (1.8-2.4) Iron Level 39 ug/dL (65-175) Total Iron Binding Capacity 272 ug/dL (250-450) Iron Saturation 14 % (15-34) Test 02/25/21 11:50 Glucose (Fingerstick) 109 mg/dL (70-99) Microbiology Micro Microbiology 02/19/21 Blood Culture - Final, Complete NO GROWTH AFTER 5 DAYS Physical Exam HEENT: Neck Supple W Full Motion Chest: Symmetric LUNGS: Other (diminished bases) Heart: irregularly irregular (AFIB with RVR ) Abdomen: Soft N/T, Other (obese) Extremities: Other (1-2+ bilateral LE edema ) Neurology: alert, oriented, follow commands Assessment Assessment 1. Acute respiratory failure, multifactorial. 2. Acute on chronic systolic CHF; continuing present treatment. 3. AFIB with RVR; new onset; in RVR this morning despite Toprol increase 4. CAD: past PCI to LCx and RCA. 5. Chest pressure; atypical. Resolved. 6. Cardiomyopathy: Echo with LVEF 35 to 40%. 7. Hypertension; slightly labile 8. Hyperlipidmeia; statin 9. NAOMI; Cr stable 10. Epistaxis. Recommendations Ongoing diuresis with monitoring of renal function. Will give additional dose of metolazone today. Continue Toprol Digoxin IV x1 now Cardizem not ideal with cardiomyopathy Consider LORETTA guided CV if patient continues to have RVR Eliquis for stroke prophylaxis; hold today's dose with epistaxis. Will need further ischemic evaluation. Consider for right and left heart cath when better compensated. Supportive care Justicifation of Admission Dx: Justifications for Admission: Justification of Admission Dx: Yes CHF: Cardiac Arrhythmias Aspiration Pneumonia: Chronic Lung Disease Chronic Renal Failure: Encephalopathy LES GONCALVES MD 02/25/21 1549: CARDIO Progress Notes Plan Plan The patient was seen and interviewed as well as examined at the bedside. The chart was reviewed. The case was discussed. Agree with the plan of care. We will plan for a right and left heart cath for full evaluation and consider outpt LORETTA/CVN after stabilization. ALFREDITO GUTIERRES APRN Feb 25, 2021 14:06 LES GONCALVES MD Feb 25, 2021 15:49
[2021-02-25 15:00] VITALS: BP 146/99
--- NOTE | 2021-02-25 15:18 | RAD ---
XR CHEST 1V INDICATION: effusion . COMPARISON STUDY: CT 02/20/2021. Radiograph 02/19/2021. FINDINGS: Lungs: Normal lung volume. Stable right basilar opacities. Pleura: Stable moderate right pleural effusion. Heart and Mediastinum: Stable cardiomediastinal silhouette and great vessels. Bones and Soft Tissues: Stable regional skeleton and soft tissues. IMPRESSION: Stable moderate right pleural effusion and right basilar opacities. Electronically signed by: Herbert Fall MD (02/25/2021 3:15 PM) [id number]
[2021-02-25] MEDS ORDERED: metOLazone 2.5 MG TABLET PO ONE (16:00)
[2021-02-25 19:30] VITALS: BP 138/89
[2021-02-25] MEDS: DORZOLAMIDE 2% OPHTH SOLUTION 10ML BOTTLE. OD SCH (20:54)
[2021-02-25] MEDS: TIMOLOL 0.5% OPHTH SOLUTION 5ML BOTTLE. OS SCH (20:54)
[2021-02-25] MEDS: INSULIN GLARGINE SYRINGE. SQ SCH (22:00)
[2021-02-25 22:11] LABS: HEMOGLOBIN A1C 10.5 % (4.8-5.6)
[2021-02-25 23:00] VITALS: BP 140/82
[2021-02-26 02:50] VITALS: BP 130/61
[2021-02-26 04:05] LABS: BASO % 0 % (0-3); EOS % 0 % (0-3); HEMATOCRIT 45.9 % (39.0-53.0); HEMOGLOBIN 14.3 g/dL (13.0-17.5); LYMPH % 16 % (24-48); MEAN CORPUSCULAR HEMOGLOBIN 24 pg (25-35); MEAN CORPUSCULAR HGB CONC 31 g/dL (31-37); MEAN CORPUSCULAR VOLUME 76 fL (79-100); MONO % 15 % (0-9); NEUT # 8.9 x10^3/uL (1.8-7.7); NEUT % 69 % (31-73); PLATELET COUNT 264 x10^3/uL (140-400); RED BLOOD COUNT 6.08 x10^6/uL (4.30-5.70); RED CELL DISTRIBUTION WIDTH 18.8 % (11.5-14.5)
[2021-02-26 04:22] LABS: BLOOD UREA NITROGEN 33 mg/dL (8-26); CALCIUM 8.7 mg/dL (8.5-10.1); CARBON DIOXIDE 43 mmol/L (21-32); CHLORIDE 97 mmol/L (98-107); CREATININE 1.5 mg/dL (0.7-1.3); GFR 55.7; GLUCOSE 179 mg/dL (70-99); POTASSIUM 3.9 mmol/L (3.5-5.1); SODIUM 139 mmol/L (136-145)
[2021-02-26 07:00] VITALS: BP 149/93
[2021-02-26] MEDS: IPRATRPIUM/ALBUTEROL 0.5/2.5MG 3 ML NEBU. NEB SCH ×4 (07:43→20:27)
[2021-02-26] MEDS: BUDESONIDE 0.5 MG/2 ML NEBU. NEB SCH ×2 (07:43→20:27)
[2021-02-26] MEDS: SENNOSIDES/DOCUSATE 8.6/50MG TABLET. PO SCH ×2 (09:00→21:00)
[2021-02-26] MEDS: predniSONE 20 MG TABLET PO SCH (09:33)
[2021-02-26] MEDS: METOPROLOL SUCC 24HR ER 50 MG TAB.ER.24H. PO SCH (09:34)
[2021-02-26] MEDS: APIXABAN 5 MG TABLET. PO SCH (09:34)
[2021-02-26] MEDS: ATORVASTATIN CALCIUM 40 MG TABLET. PO SCH (09:34)
[2021-02-26] MEDS: ASPIRIN ENTERIC COATED 81 MG TABLET.DR. PO SCH (09:34)
[2021-02-26] MEDS: LOSARTAN POTASSIUM 50 MG TABLET. PO SCH (09:34)
[2021-02-26] MEDS: FUROSEMIDE 40 MG/4 ML VIAL. IVP SCH ×2 (09:35→12:58)
[2021-02-26] MEDS: INSULIN LISPRO 300 UNITS/3 ML VIAL. SQ SCH ×6 (09:37→17:00)
[2021-02-26] MEDS ORDERED: METOPROLOL SUCC 24HR ER 50 MG TAB.ER.24H. PO ONE (09:45)
--- NOTE | 2021-02-26 09:48 | PDOC ---
ALFREDITO GUTIERRES [facility] 02/26/21 0948: CARDIO Progress Notes Date and Time Date of Service 02/26/21 Time of Evaluation 1120 Subjective Subjective: No Chest Pain, No Dizziness, Other (having nosebleed. ) Vitals Vitals Vital Signs Date Time Temp Pulse Resp B/P (MAP) Pulse Ox O2 Delivery O2 Flow Rate FiO2 02/26/21 09:34 93 149/93 02/26/21 07:43 94 Nasal Cannula 3.0 02/26/21 07:00 96.3 20 96.3 Weight Weight [ ] Input and Output Intake and Output Intake and Output 02/26/21 07:00 Intake Total 780 ml Output Total 4700 ml Balance -3920 ml Intake Oral 780 ml Output Urine Total 4700 ml # Bowel Movements 1 Laboratory Labs Laboratory Tests Test 02/25/21 11:50 02/25/21 17:12 02/25/21 21:10 02/26/21 03:25 Glucose (Fingerstick) 109 mg/dL (70-99) 155 mg/dL (70-99) 270 mg/dL (70-99) White Blood Count 13.0 x10^3/uL (4.0-11.0) Red Blood Count 6.08 x10^6/uL (4.30-5.70) Hemoglobin 14.3 g/dL (13.0-17.5) Hematocrit 45.9 % (39.0-53.0) Mean Corpuscular Volume 76 fL (79-100) Mean Corpuscular Hemoglobin 24 pg (25-35) Mean Corpuscular Hemoglobin Concent 31 g/dL (31-37) Red Cell Distribution Width 18.8 % (11.5-14.5) Platelet Count 264 x10^3/uL (140-400) Neutrophils (%) (Auto) 69 % (31-73) Lymphocytes (%) (Auto) 16 % (24-48) Monocytes (%) (Auto) 15 % (0-9) Eosinophils (%) (Auto) 0 % (0-3) Basophils (%) (Auto) 0 % (0-3) Neutrophils # (Auto) 8.9 x10^3/uL (1.8-7.7) Lymphocytes # (Auto) 2.0 x10^3/uL (1.0-4.8) Monocytes # (Auto) 2.0 x10^3/uL (0.0-1.1) Eosinophils # (Auto) 0.0 x10^3/uL (0.0-0.7) Basophils # (Auto) 0.0 x10^3/uL (0.0-0.2) Sodium Level 139 mmol/L (136-145) Potassium Level 3.9 mmol/L (3.5-5.1) Chloride Level 97 mmol/L (98-107) Carbon Dioxide Level 43 mmol/L (21-32) Anion Gap (6-14) Blood Urea Nitrogen 33 mg/dL (8-26) Creatinine 1.5 mg/dL (0.7-1.3) Estimated GFR (Cockcroft-Gault) 55.7 Glucose Level 179 mg/dL (70-99) Calcium Level 8.7 mg/dL (8.5-10.1) Test 02/26/21 07:50 Glucose (Fingerstick) 249 mg/dL (70-99) Microbiology Micro Microbiology 02/19/21 Blood Culture - Final, Complete NO GROWTH AFTER 5 DAYS Physical Exam HEENT: Neck Supple W Full Motion LUNGS: Other (diminished bases) Heart: irregularly irregular (AFIB with RVR ) Abdomen: Soft N/T, Other (obese) Extremities: Other (2+ bilateral LE edema ) Neurology: alert, oriented, follow commands Assessment Assessment 1. Acute respiratory failure, multifactorial. 2. Acute on chronic systolic CHF; continuing present treatment. 3. AFIB with RVR; new onset. Rate near 110, although has not received Toprol this am. 4. CAD: past PCI to LCx and RCA. 5. Chest pressure; atypical. Resolved. 6. Cardiomyopathy: Echo with LVEF 35 to 40%. 7. Hypertension; slightly labile 8. Hyperlipidmeia; statin 9. NAOMI; Cr stable 10. Epistaxis. Recommendations Ongoing diuresis Continue Toprol; increase to 200mg for better rate control Will plan for left and right heart cath in am. R/b/a discussed and he is agreeable to proceed Consider outpatient CV if patient remains in AFIB Hold Eliquis for cath Supportive care NPO p MN Justicifation of Admission Dx: Justifications for Admission: Justification of Admission Dx: Yes CHF: Cardiac Arrhythmias Aspiration Pneumonia: Chronic Lung Disease Chronic Renal Failure: Encephalopathy LES GONCALVES MD 02/27/21 0839: CARDIO Progress Notes Plan Plan Pt. seen and examined. Agree with above [employer] note. late entry for 02/26/21 ALFREDITO GUTIERRES APRN Feb 26, 2021 09:48 LES GONCALVES MD Feb 27, 2021 08:39
[2021-02-26 10:31] VITALS: BP 121/80
--- NOTE | 2021-02-26 10:32 | PDOC ---
PULMONARY PROGRESS NOTES DATE: 02/26/21 TIME: 10:31 Subjective Not more short of air, using BiPAP nightly Nasal cannula 3 L during the day. Vitals Vital Signs Date Time Temp Pulse Resp B/P (MAP) Pulse Ox O2 Delivery O2 Flow Rate FiO2 02/26/21 09:34 93 149/93 02/26/21 07:43 94 Nasal Cannula 3.0 02/26/21 07:00 96.3 20 96.3 General: Alert, No acute distress Lungs: Other (b lat diminished bs ) Cardiovascular: S1, S2 Abdomen: Soft, Other Extremities: Other (Edema has diminished) Skin: Warm Labs Laboratory Tests Test 02/24/21 11:53 02/24/21 17:17 02/24/21 20:59 02/25/21 03:25 Glucose (Fingerstick) 109 mg/dL (70-99) 187 mg/dL (70-99) 183 mg/dL (70-99) White Blood Count 12.3 x10^3/uL (4.0-11.0) Red Blood Count 5.87 x10^6/uL (4.30-5.70) Hemoglobin 14.0 g/dL (13.0-17.5) Hematocrit 44.1 % (39.0-53.0) Mean Corpuscular Volume 75 fL (79-100) Mean Corpuscular Hemoglobin 24 pg (25-35) Mean Corpuscular Hemoglobin Concent 32 g/dL (31-37) Red Cell Distribution Width 19.2 % (11.5-14.5) Platelet Count 259 x10^3/uL (140-400) Neutrophils (%) (Auto) 72 % (31-73) Lymphocytes (%) (Auto) 15 % (24-48) Monocytes (%) (Auto) 14 % (0-9) Eosinophils (%) (Auto) 0 % (0-3) Basophils (%) (Auto) 0 % (0-3) Neutrophils # (Auto) 8.7 x10^3/uL (1.8-7.7) Lymphocytes # (Auto) 1.8 x10^3/uL (1.0-4.8) Monocytes # (Auto) 1.7 x10^3/uL (0.0-1.1) Eosinophils # (Auto) 0.0 x10^3/uL (0.0-0.7) Basophils # (Auto) 0.0 x10^3/uL (0.0-0.2) Sodium Level 138 mmol/L (136-145) Potassium Level 3.1 mmol/L (3.5-5.1) Chloride Level 98 mmol/L (98-107) Carbon Dioxide Level 34 mmol/L (21-32) Anion Gap 6 (6-14) Blood Urea Nitrogen 38 mg/dL (8-26) Creatinine 1.5 mg/dL (0.7-1.3) Estimated GFR (Cockcroft-Gault) 55.7 Glucose Level 198 mg/dL (70-99) Hemoglobin A1c 10.5 % (4.8-5.6) Calcium Level 8.5 mg/dL (8.5-10.1) Magnesium Level 2.6 mg/dL (1.8-2.4) Iron Level 39 ug/dL (65-175) Total Iron Binding Capacity 272 ug/dL (250-450) Iron Saturation 14 % (15-34) Test 02/25/21 08:38 02/25/21 11:50 02/25/21 17:12 02/25/21 21:10 Glucose (Fingerstick) 139 mg/dL (70-99) 109 mg/dL (70-99) 155 mg/dL (70-99) 270 mg/dL (70-99) Test 02/26/21 03:25 02/26/21 07:50 White Blood Count 13.0 x10^3/uL (4.0-11.0) Red Blood Count 6.08 x10^6/uL (4.30-5.70) Hemoglobin 14.3 g/dL (13.0-17.5) Hematocrit 45.9 % (39.0-53.0) Mean Corpuscular Volume 76 fL (79-100) Mean Corpuscular Hemoglobin 24 pg (25-35) Mean Corpuscular Hemoglobin Concent 31 g/dL (31-37) Red Cell Distribution Width 18.8 % (11.5-14.5) Platelet Count 264 x10^3/uL (140-400) Neutrophils (%) (Auto) 69 % (31-73) Lymphocytes (%) (Auto) 16 % (24-48) Monocytes (%) (Auto) 15 % (0-9) Eosinophils (%) (Auto) 0 % (0-3) Basophils (%) (Auto) 0 % (0-3) Neutrophils # (Auto) 8.9 x10^3/uL (1.8-7.7) Lymphocytes # (Auto) 2.0 x10^3/uL (1.0-4.8) Monocytes # (Auto) 2.0 x10^3/uL (0.0-1.1) Eosinophils # (Auto) 0.0 x10^3/uL (0.0-0.7) Basophils # (Auto) 0.0 x10^3/uL (0.0-0.2) Sodium Level 139 mmol/L (136-145) Potassium Level 3.9 mmol/L (3.5-5.1) Chloride Level 97 mmol/L (98-107) Carbon Dioxide Level 43 mmol/L (21-32) Anion Gap (6-14) Blood Urea Nitrogen 33 mg/dL (8-26) Creatinine 1.5 mg/dL (0.7-1.3) Estimated GFR (Cockcroft-Gault) 55.7 Glucose Level 179 mg/dL (70-99) Calcium Level 8.7 mg/dL (8.5-10.1) Glucose (Fingerstick) 249 mg/dL (70-99) Laboratory Tests Test 02/25/21 11:50 02/25/21 17:12 02/25/21 21:10 02/26/21 03:25 Glucose (Fingerstick) 109 mg/dL (70-99) 155 mg/dL (70-99) 270 mg/dL (70-99) White Blood Count 13.0 x10^3/uL (4.0-11.0) Red Blood Count 6.08 x10^6/uL (4.30-5.70) Hemoglobin 14.3 g/dL (13.0-17.5) Hematocrit 45.9 % (39.0-53.0) Mean Corpuscular Volume 76 fL (79-100) Mean Corpuscular Hemoglobin 24 pg (25-35) Mean Corpuscular Hemoglobin Concent 31 g/dL (31-37) Red Cell Distribution Width 18.8 % (11.5-14.5) Platelet Count 264 x10^3/uL (140-400) Neutrophils (%) (Auto) 69 % (31-73) Lymphocytes (%) (Auto) 16 % (24-48) Monocytes (%) (Auto) 15 % (0-9) Eosinophils (%) (Auto) 0 % (0-3) Basophils (%) (Auto) 0 % (0-3) Neutrophils # (Auto) 8.9 x10^3/uL (1.8-7.7) Lymphocytes # (Auto) 2.0 x10^3/uL (1.0-4.8) Monocytes # (Auto) 2.0 x10^3/uL (0.0-1.1) Eosinophils # (Auto) 0.0 x10^3/uL (0.0-0.7) Basophils # (Auto) 0.0 x10^3/uL (0.0-0.2) Sodium Level 139 mmol/L (136-145) Potassium Level 3.9 mmol/L (3.5-5.1) Chloride Level 97 mmol/L (98-107) Carbon Dioxide Level 43 mmol/L (21-32) Anion Gap (6-14) Blood Urea Nitrogen 33 mg/dL (8-26) Creatinine 1.5 mg/dL (0.7-1.3) Estimated GFR (Cockcroft-Gault) 55.7 Glucose Level 179 mg/dL (70-99) Calcium Level 8.7 mg/dL (8.5-10.1) Test 02/26/21 07:50 Glucose (Fingerstick) 249 mg/dL (70-99) Medications Active Scripts Medications Dose Route/Sig Max Daily Dose Days Date Category Metformin Hcl 500 Mg Tablet 500 Mg PO BIDWMEALS 02/20/21 Reported Glipizide 5 Mg Tablet 2.5 Mg PO BID 02/20/21 Reported Atorvastatin Calcium 40 Mg Tablet 1 Tab PO DAILY 02/20/21 Reported Furosemide 40 Mg Tablet 1 Tab PO DAILY 02/20/21 Reported Benicar (Olmesartan Medoxomil) 40 Mg Tablet 1 Tab PO DAILY 30 02/20/21 Reported Amlodipine Besylate 10 Mg Tablet 10 Mg PO DAILY 02/20/21 Reported Symbicort 160-4.5 Mcg Inhaler (Budesonide/Formoterol Fumarate) 10.2 Gm Hfa.aer.ad 2 Puff IH BID 02/20/[address] chest reviewed. Moderate right lower lobe pleural effusion. Impression . Acute hypoxemic respiratory failure multifactorial Acute on chronic diastolic heart failure Acute exacerbation COPD Abnormal CT chest with moderate right lower lobe pleural effusion. Likely secondary to cardiomyopathy. Cardiomyopathy ejection fraction 40-% A. fib with rapid ventricular response Coronary artery disease with previous PCI Tobacco dependent CT angiogram revealed no evidence of pulmonary embolism there was a right-sided effusion Plan . Updated 02/26 Patient feels better, Repeat chest x-ray reviewed. Still has mild to moderate right-sided pleural effusion. Patient may benefit from right thoracentesis. I have talked to him and he is agreeable to that. We will consult interventional radiology 6-minute walk prior to discharge Outpatient polysomnogram Prednisone taper JEANNIE LANTIGUA MD Feb 26, 2021 10:32
--- NOTE | 2021-02-26 11:31 | PDOC ---
[facility] PROGRESS NOTE Date of Service DOS: DATE: 02/26/21 TIME: 11:30 Chief Complaint Chief Complaint Acute hypoxic respiratory failure - COPD exacerbation with likely gram negative pneumonia complicated by acute combined systolic and diastolic CHF with afib with RVR Shortness of breath COPD with exacerbation Atrial fibrillation with rapid ventricular response Right pleural effusion Epistaxis Sepsis - due to pneumonia, resolved Community acquired pneumonia Acute on chronic systolic CHF; continuing present treatment. EF 35-40% AFIB with RVR - new onset; rate remains mildly elevated. CAD with 2013 PCI to LCx and RCA. Cardiomyopathy - ischemic and non-ischemic with Echo with LVEF 35 to 40%. Hypertension - improved Hyperlipidmeia - on statin. Continue present treatment. NAOMI - likely vasomotor nephropathy vs CKD Anemia - will check iron studies Hyperglycemia History of Present Illness History of Present Illness Afebrile. Heart rate better controlled. Wore BiPAP last night still requiring 3 L nasal cannula during the day. Thoracentesis on the right. He is afraid of bleeding Eliquis is on hold this morning will resume tonight. Discussed need for rehab and he is amenable to this was discussed with his first 02/25: Afebrile. Chest radiograph moderate right pleural effusion still in place. Swelling a little improved with compression and diuresis. Changed 150 mg Toprol-XL. Still short of breath movement. Has some epistaxis today. 02/24: WBC 13.5, CR 1.4, glucose 166. Still very swollen in bilateral LE. Still requiring 4-5L NCO2. D/w him and bedside 80mg Lasix BID IV. 02/23/2021 Patient seen and examined. Chart reviewed. Discussed with RN to titrate his FiO2 down to 4L to maintain his oxygen saturation around 88-92%. Patient is awake and alert. NAD. Patient is responsive and asking questions. Patient is currently on 5L O2 via NC. Patient relates feeling just okay, not much better from yesterday. Patient says he has pain on the left side of his ribcage since yesterday. Glucose level was at 523 early this morning, and has gone down to 308 at 11:00am. 02/22/2021 Patient seen and examined. Chart reviewed. Discussed with RN. Patient is awake and alert. NAD. Patient is responsive and asking questions. Patient is currently on 5L O2 via NC, which he uses during the day. At night, patient uses the BiPAP. Patient relates feeling better and breathing better. Some edema in the lower extremities bilaterally. 02/21/2021 Patient seen and examined. Discussed with RN. Chart reviewed. Patient is currently on 5L O2 via NC. Stephy ferreira was called last night. This morning, patient is alert and oriented. Head CT showed no acute hemorrhage. MRI ordered but is on hold due to a possible coil embolization at the right carotid terminus. 02/20/2021 Patient seen and examined. Chart reviewed. Discussed with RN. NPO. Patient is on BiPAP with labored breathing. Patient is awake and alert. Currently receiving IV Ampicillin/sulbactam. Developed Afib with RVR. Vitals/I&O Vitals/I&O: Vital Signs Date Time Temp Pulse Resp B/P (MAP) Pulse Ox O2 Delivery O2 Flow Rate FiO2 02/26/21 10:31 98.3 93 20 121/80 (94) 98 Nasal Cannula 3.0 98.3 I & O 02/25/21 02/25/21 02/26/21 15:00 23:00 07:00 Intake Total 540 ml 240 ml Output Total 1400 ml 2500 ml 800 ml Balance -860 ml -2500 ml -560 ml Physical Exam General: Alert, Cooperative, mild distress Heart: Other (Irregular rhythm.) Lungs: Other (b lat diminished bs ) Abdomen: Normal bowel sounds Extremities: Other (1-2+ bilateral LE edema. Soreness of bilaterall LE.) Skin: No significant lesion Labs Labs: Laboratory Tests Test 02/25/21 11:50 02/25/21 17:12 02/25/21 21:10 02/26/21 03:25 Glucose (Fingerstick) 109 mg/dL (70-99) 155 mg/dL (70-99) 270 mg/dL (70-99) White Blood Count 13.0 x10^3/uL (4.0-11.0) Red Blood Count 6.08 x10^6/uL (4.30-5.70) Hemoglobin 14.3 g/dL (13.0-17.5) Hematocrit 45.9 % (39.0-53.0) Mean Corpuscular Volume 76 fL (79-100) Mean Corpuscular Hemoglobin 24 pg (25-35) Mean Corpuscular Hemoglobin Concent 31 g/dL (31-37) Red Cell Distribution Width 18.8 % (11.5-14.5) Platelet Count 264 x10^3/uL (140-400) Neutrophils (%) (Auto) 69 % (31-73) Lymphocytes (%) (Auto) 16 % (24-48) Monocytes (%) (Auto) 15 % (0-9) Eosinophils (%) (Auto) 0 % (0-3) Basophils (%) (Auto) 0 % (0-3) Neutrophils # (Auto) 8.9 x10^3/uL (1.8-7.7) Lymphocytes # (Auto) 2.0 x10^3/uL (1.0-4.8) Monocytes # (Auto) 2.0 x10^3/uL (0.0-1.1) Eosinophils # (Auto) 0.0 x10^3/uL (0.0-0.7) Basophils # (Auto) 0.0 x10^3/uL (0.0-0.2) Sodium Level 139 mmol/L (136-145) Potassium Level 3.9 mmol/L (3.5-5.1) Chloride Level 97 mmol/L (98-107) Carbon Dioxide Level 43 mmol/L (21-32) Anion Gap (6-14) Blood Urea Nitrogen 33 mg/dL (8-26) Creatinine 1.5 mg/dL (0.7-1.3) Estimated GFR (Cockcroft-Gault) 55.7 Glucose Level 179 mg/dL (70-99) Calcium Level 8.7 mg/dL (8.5-10.1) Test 02/26/21 07:50 Glucose (Fingerstick) 249 mg/dL (70-99) Assessment and Plan Assessmemt and Plan Problems Medical Problems: (1) Atrial fibrillation with rapid ventricular response Status: Acute (2) Community acquired pneumonia Status: Acute (3) COPD with exacerbation Status: Acute (4) Person under investigation for COVID-19 Status: Acute (5) Sepsis with acute hypoxic respiratory failure Status: Acute Comment Review of Relevant I have reviewed the following items nurys (where applicable) has been applied. Medications: Current Medications Medications (Trade) Dose Ordered Sig/Rajinder Route PRN Reason Start Time Stop Time Status Last Admin Dose Admin Silver Nitrate/ Potassium Nitrate 1 each 1X ONCE TP 02/25/21 12:00 02/25/21 12:01 DC 02/25/21 12:08 Cellulose (Surgicel Hemostat 4x8) 1 each 1X ONCE TP 02/25/21 12:30 02/25/21 12:33 DC 02/25/21 13:44 Metolazone (Zaroxolyn) 5 mg 1X ONCE PO 02/25/21 16:00 02/25/21 16:01 DC 02/25/21 17:22 Justifications for Admission Other Justification MAT ORTIZ MD Feb 26, 2021 11:31
--- NOTE | 2021-02-26 14:32 | NUR ---
SS following up with discharge planning. SS reviewed pt chart and discussed with pt RN. Pt is currently requiring oxygen at three liters nasal canula. COVID19 negative. Pt has home oxygen and walker. Pt on IV Lasix. Thoracentesis today. PT/OT recommended detention unit. SS and physician discussed with pt and pt's spouse. Pt's spouse agreeable to detention unit. Options discussed. Pt's spouse requesting referral to [facility], ; fax [phone]. SS phoned and faxed referral as requested. Pt has had both [facility]. SS will continue to follow for discharge planning.
[2021-02-26 15:00] VITALS: BP 145/71
[2021-02-26 19:25] VITALS: BP 115/60
[2021-02-26] MEDS: DORZOLAMIDE 2% OPHTH SOLUTION 10ML BOTTLE. OD SCH (21:00)
[2021-02-26] MEDS: TIMOLOL 0.5% OPHTH SOLUTION 5ML BOTTLE. OS SCH (21:00)
[2021-02-26] MEDS: INSULIN GLARGINE SYRINGE. SQ SCH (21:06)
[2021-02-26 23:02] VITALS: BP 141/89
[2021-02-26] MEDS ORDERED: INSULIN LISPRO 300 UNITS/3 ML VIAL. SQ ONE (23:15)
[2021-02-27] VITALS (12 sets, daily range): BP systolic 111–151; BP diastolic 70–100
[2021-02-27 04:09] LABS: BASO % 0 % (0-3); EOS % 0 % (0-3); HEMATOCRIT 42.8 % (39.0-53.0); HEMOGLOBIN 13.4 g/dL (13.0-17.5); LYMPH % 8 % (24-48); MEAN CORPUSCULAR HEMOGLOBIN 24 pg (25-35); MEAN CORPUSCULAR HGB CONC 31 g/dL (31-37); MEAN CORPUSCULAR VOLUME 76 fL (79-100); MONO # 2.2 x10^3/uL (0.0-1.1); MONO % 17 % (0-9); NEUT % 75 % (31-73); PLATELET COUNT 228 x10^3/uL (140-400); RED BLOOD COUNT 5.67 x10^6/uL (4.30-5.70); RED CELL DISTRIBUTION WIDTH 18.2 % (11.5-14.5); WHITE BLOOD COUNT 13.3 x10^3/uL (4.0-11.0)
[2021-02-27 04:21] LABS: CALCIUM 8.7 mg/dL (8.5-10.1); CREATININE 1.4 mg/dL (0.7-1.3); GFR 60.3; POTASSIUM 3.3 mmol/L (3.5-5.1)
[2021-02-27] MEDS: BUDESONIDE 0.5 MG/2 ML NEBU. NEB SCH ×2 (08:36→21:33)
[2021-02-27] MEDS: IPRATRPIUM/ALBUTEROL 0.5/2.5MG 3 ML NEBU. NEB SCH ×4 (08:36→21:33)
[2021-02-27] MEDS: SENNOSIDES/DOCUSATE 8.6/50MG TABLET. PO SCH ×2 (09:00→20:51)
[2021-02-27] MEDS: predniSONE 20 MG TABLET PO SCH (09:09)
[2021-02-27] MEDS: FUROSEMIDE 40 MG/4 ML VIAL. IVP SCH ×2 (09:09→14:00)
[2021-02-27] MEDS: METOPROLOL SUCC 24HR ER 50 MG TAB.ER.24H. PO SCH (09:09)
[2021-02-27] MEDS: ASPIRIN ENTERIC COATED 81 MG TABLET.DR. PO SCH (09:09)
[2021-02-27] MEDS: ATORVASTATIN CALCIUM 40 MG TABLET. PO SCH (09:09)
[2021-02-27] MEDS: LOSARTAN POTASSIUM 50 MG TABLET. PO SCH (09:10)
[2021-02-27] MEDS: INSULIN LISPRO 300 UNITS/3 ML VIAL. SQ SCH ×6 (09:15→17:30)
--- NOTE | 2021-02-27 10:40 | NUR ---
SS following up with discharge planning. SS reviewed pt chart and discussed with pt RN. Pt is currently requiring oxygen at three liters nasal canula. COVID19 negative. Pt has home oxygen and walker. Pt on IV Lasix. PT/OT recommended prison unit. Referral was sent to [facility], ; fax [phone]. SS currently awaiting acceptance decision at this time. Pt having right and left heart cath today. SS will continue to follow for discharge planning.
--- NOTE | 2021-02-27 13:47 | PDOC ---
PROGRESS NOTES Date of Service DATE: 02/27/21 TIME: 13:45 Assessment Problems Medical Problems: (1) Atrial fibrillation with rapid ventricular response Status: Acute (2) Community acquired pneumonia Status: Acute (3) COPD with exacerbation Status: Acute (4) Person under investigation for COVID-19 Status: Acute (5) Sepsis with acute hypoxic respiratory failure Status: Acute Possible left hemispheric transient ischemic attack, but more likely, the symptoms were related to metabolic issues. Blood pressure was elevated, I am not sure if this was cause or effect. In any rate, he has made a full recovery and remains with a nonfocal exam, albeit with bilateral weakness. I doubt that he had a seizure. He refused full carotid Doppler studies History of right carotid aneurysm coiling COPD exacerbation, atrial fibrillation with rapid ventricular response, COVID-19 and influenza negative, sepsis with acute hypoxic respiratory failure, community acquired pneumonia Right carotid Doppler study negative Right pleural effusion, going to undergo thoracentesis Plan Cardiac work-up Okay to continue anticoagulation Rehabilitation modalities Neurology signs off Subjective No neurological issues Objective Vital Signs Date Time Temp Pulse Resp B/P (MAP) Pulse Ox O2 Delivery O2 Flow Rate FiO2 02/27/21 11:52 Nasal Cannula 3.0 02/27/21 11:37 98.2 79 16 121/88 (99) 97 98.2 Intake and Output 02/27/21 07:00 Intake Total 1740 ml Output Total 3450 ml Balance -1710 ml Intake Oral 1740 ml Output Urine Total 3450 ml # Voids 1 # Bowel Movements 1 PHYSICAL EXAM Alert. Oriented to time, place and person. PERRL. EOMI. CN: no focal findings. Muscle tone: normal. Muscle strength: 4/5 DTR: 2+ Plantar reflex: flexor Gait: not examined in bed. Sensory exam: no abnormal findings. No cerebellar signs elicited. Review of Relevant I have reviewed the following items nurys (where applicable) has been applied. Labs Laboratory Tests Test 02/25/21 17:12 02/25/21 21:10 02/26/21 03:25 02/26/21 07:50 Glucose (Fingerstick) 155 mg/dL (70-99) 270 mg/dL (70-99) 249 mg/dL (70-99) White Blood Count 13.0 x10^3/uL (4.0-11.0) Red Blood Count 6.08 x10^6/uL (4.30-5.70) Hemoglobin 14.3 g/dL (13.0-17.5) Hematocrit 45.9 % (39.0-53.0) Mean Corpuscular Volume 76 fL (79-100) Mean Corpuscular Hemoglobin 24 pg (25-35) Mean Corpuscular Hemoglobin Concent 31 g/dL (31-37) Red Cell Distribution Width 18.8 % (11.5-14.5) Platelet Count 264 x10^3/uL (140-400) Neutrophils (%) (Auto) 69 % (31-73) Lymphocytes (%) (Auto) 16 % (24-48) Monocytes (%) (Auto) 15 % (0-9) Eosinophils (%) (Auto) 0 % (0-3) Basophils (%) (Auto) 0 % (0-3) Neutrophils # (Auto) 8.9 x10^3/uL (1.8-7.7) Lymphocytes # (Auto) 2.0 x10^3/uL (1.0-4.8) Monocytes # (Auto) 2.0 x10^3/uL (0.0-1.1) Eosinophils # (Auto) 0.0 x10^3/uL (0.0-0.7) Basophils # (Auto) 0.0 x10^3/uL (0.0-0.2) Sodium Level 139 mmol/L (136-145) Potassium Level 3.9 mmol/L (3.5-5.1) Chloride Level 97 mmol/L (98-107) Carbon Dioxide Level 43 mmol/L (21-32) Anion Gap (6-14) Blood Urea Nitrogen 33 mg/dL (8-26) Creatinine 1.5 mg/dL (0.7-1.3) Estimated GFR (Cockcroft-Gault) 55.7 Glucose Level 179 mg/dL (70-99) Calcium Level 8.7 mg/dL (8.5-10.1) Test 02/26/21 11:46 02/26/21 16:26 02/26/21 21:08 02/26/21 21:11 Glucose (Fingerstick) 158 mg/dL (70-99) 102 mg/dL (70-99) 437 mg/dL (70-99) 480 mg/dL (70-99) Test 02/27/21 03:30 White Blood Count 13.3 x10^3/uL (4.0-11.0) Red Blood Count 5.67 x10^6/uL (4.30-5.70) Hemoglobin 13.4 g/dL (13.0-17.5) Hematocrit 42.8 % (39.0-53.0) Mean Corpuscular Volume 76 fL (79-100) Mean Corpuscular Hemoglobin 24 pg (25-35) Mean Corpuscular Hemoglobin Concent 31 g/dL (31-37) Red Cell Distribution Width 18.2 % (11.5-14.5) Platelet Count 228 x10^3/uL (140-400) Neutrophils (%) (Auto) 75 % (31-73) Lymphocytes (%) (Auto) 8 % (24-48) Monocytes (%) (Auto) 17 % (0-9) Eosinophils (%) (Auto) 0 % (0-3) Basophils (%) (Auto) 0 % (0-3) Neutrophils # (Auto) 10.0 x10^3/uL (1.8-7.7) Lymphocytes # (Auto) 1.0 x10^3/uL (1.0-4.8) Monocytes # (Auto) 2.2 x10^3/uL (0.0-1.1) Eosinophils # (Auto) 0.0 x10^3/uL (0.0-0.7) Basophils # (Auto) 0.0 x10^3/uL (0.0-0.2) Sodium Level 139 mmol/L (136-145) Potassium Level 3.3 mmol/L (3.5-5.1) Chloride Level 96 mmol/L (98-107) Carbon Dioxide Level 41 mmol/L (21-32) Anion Gap 2 (6-14) Blood Urea Nitrogen 35 mg/dL (8-26) Creatinine 1.4 mg/dL (0.7-1.3) Estimated GFR (Cockcroft-Gault) 60.3 Glucose Level 245 mg/dL (70-99) Calcium Level 8.7 mg/dL (8.5-10.1) Laboratory Tests Test 02/26/21 16:26 02/26/21 21:08 02/26/21 21:11 02/27/21 03:30 Glucose (Fingerstick) 102 mg/dL (70-99) 437 mg/dL (70-99) 480 mg/dL (70-99) White Blood Count 13.3 x10^3/uL (4.0-11.0) Red Blood Count 5.67 x10^6/uL (4.30-5.70) Hemoglobin 13.4 g/dL (13.0-17.5) Hematocrit 42.8 % (39.0-53.0) Mean Corpuscular Volume 76 fL (79-100) Mean Corpuscular Hemoglobin 24 pg (25-35) Mean Corpuscular Hemoglobin Concent 31 g/dL (31-37) Red Cell Distribution Width 18.2 % (11.5-14.5) Platelet Count 228 x10^3/uL (140-400) Neutrophils (%) (Auto) 75 % (31-73) Lymphocytes (%) (Auto) 8 % (24-48) Monocytes (%) (Auto) 17 % (0-9) Eosinophils (%) (Auto) 0 % (0-3) Basophils (%) (Auto) 0 % (0-3) Neutrophils # (Auto) 10.0 x10^3/uL (1.8-7.7) Lymphocytes # (Auto) 1.0 x10^3/uL (1.0-4.8) Monocytes # (Auto) 2.2 x10^3/uL (0.0-1.1) Eosinophils # (Auto) 0.0 x10^3/uL (0.0-0.7) Basophils # (Auto) 0.0 x10^3/uL (0.0-0.2) Sodium Level 139 mmol/L (136-145) Potassium Level 3.3 mmol/L (3.5-5.1) Chloride Level 96 mmol/L (98-107) Carbon Dioxide Level 41 mmol/L (21-32) Anion Gap 2 (6-14) Blood Urea Nitrogen 35 mg/dL (8-26) Creatinine 1.4 mg/dL (0.7-1.3) Estimated GFR (Cockcroft-Gault) 60.3 Glucose Level 245 mg/dL (70-99) Calcium Level 8.7 mg/dL (8.5-10.1) Microbiology 02/19/21 Blood Culture - Final, Complete NO GROWTH AFTER 5 DAYS Medications Current Medications Dexamethasone Sodium Phosphate (Decadron) 10 mg 1X ONCE IV Last administered on 02/19/21at 17:26; Start 02/19/21 at 16:45; Stop 02/19/21 at 16:46; Status DC Albuterol/ Ipratropium (Duoneb) 3 ml 1X ONCE NEB ; Start 02/19/21 at 16:45; Stop 02/19/21 at 16:46; Status DC Azithromycin 250 ml @ 250 mls/hr 1X ONCE IV Last administered on 02/19/21at 17:30; Start 02/19/21 at 16:45; Stop 02/19/21 at 17:44; Status DC Ceftriaxone Sodium (Rocephin) 1 gm 1X ONCE IVP Last administered on 02/19/21at 17:26; Start 02/19/21 at 16:45; Stop 02/19/21 at 16:46; Status DC Diltiazem HCl (Cardizem Iv Push) 15 mg 1X ONCE IVP Last administered on 02/19/21at 17:29; Start 02/19/21 at 17:00; Stop 02/19/21 at 17:01; Status DC Ondansetron HCl (Zofran) 4 mg PRN Q6HRS PRN IVP NAUSEA/VOMITING; Start 02/19/21 at 17:45 Calcium Carbonate/ Glycine (Tums) 500 mg PRN Q3HRS PRN PO UPSET STOMACH Last administered on 02/23/21at 15:59; Start 02/19/21 at 17:45 Zolpidem Tartrate (Ambien) 5 mg PRN QHS PRN PO INSOMNIA, MAY REPEAT IN 1HR Last administered on 02/24/21at 20:59; Start 02/19/21 at 17:45 Info (Non-Icu Electrolyte Protocol) 1 ea PRN DAILY PRN MC SEE COMMENTS; Start 02/19/21 at 17:45 Morphine Sulfate (Morphine Sulfate) 1 mg PRN Q1HR PRN IV MODERATE PAIN; Start 02/19/21 at 17:45 Morphine Sulfate (Morphine Sulfate) 2 mg PRN Q1HR PRN IV SEVERE PAIN Last administered on 02/21/21at 01:51; Start 02/19/21 at 17:45 Oxycodone HCl (Roxicodone) 5 mg PRN Q4HRS PRN PO MILD PAIN, 1ST CHOICE; Start 02/19/21 at 17:45 Oxycodone HCl (Roxicodone) 10 mg PRN Q4HRS PRN PO MODERATE PAIN, SEVERE PAIN; Start 02/19/21 at 17:45 Acetaminophen (Tylenol) 650 mg PRN Q6HRS PRN PO Headaches, Temp > 101.5F; Start 02/19/21 at 17:45 Senna/Docusate Sodium (Senna Plus) 1 tab BID PO Last administered on 02/20/21at 12:11; Start 02/19/21 at 21:00 Heparin Sodium (Porcine) (Heparin Sodium) 5,000 unit Q8HRS SQ Last administered on 02/20/21at 05:59; Start 02/19/21 at 22:00; Stop 02/20/21 at 12:49; Status DC Non-Formulary Medication (Aclidinium [place] (Tudorza Pressair)) 400 mcg BID IH ; Start 02/19/21 at 21:00; Stop 02/19/21 at 19:04; Status DC Albuterol Sulfate (Ventolin Neb Soln) 2.5 mg Q4HRS NEB ; Start 02/19/21 at 20:00; Stop 02/20/21 at 09:54; Status DC Dorzolamide HCl (Trusopt) 1 drop QHS OD Last administered on 02/26/21at 21:00; Start 02/19/21 at 21:00 Losartan Potassium (Cozaar) 100 mg DAILY PO ; Start 02/20/21 at 09:00; Status Cancel Non-Formulary Medication (Tiotropium Br/ Olodaterol HCl (Stiolto Respimat Inhal [place])) 4 gm DAILY IH ; Start 02/20/21 at 09:00; Stop 02/19/21 at 19:03; Status DC Amlodipine Besylate (Norvasc) 5 mg DAILY PO ; Start 02/20/21 at 09:00; Status Cancel Hydrochlorothiazide (Microzide) 12.5 mg DAILY PO ; Start 02/20/21 at 09:00; Status Cancel Ampicillin Sodium/ Sulbactam Sodium 3 gm/Sodium Chloride 100 ml @ 200 mls/hr Q6HRS IV Last administered on 02/25/21at 12:09; Start 02/20/21 at 00:00; Stop 02/25/21 at 16:17; Status DC Azithromycin 500 mg/Sodium Chloride 250 ml @ 250 mls/hr Q24H IV Last administered on 02/21/21at 18:00; Start 02/20/21 at 18:00; Stop 02/22/21 at 17:59; Status DC Furosemide (Lasix) 40 mg 1X ONCE IVP Last administered on 02/19/21at 18:52; Start 02/19/21 at 18:00; Stop 02/19/21 at 18:25; Status DC Albuterol/ Ipratropium (Duoneb) 3 ml RTQID NEB Last administered on 02/27/21at 11:50; Start 02/19/21 at 20:00 Timolol Maleate (Timoptic 0.5% [facility]) 1 drop QHS OS Last administered on 02/26/21at 21:00; Start 02/19/21 at 21:00 Methylprednisolone Sodium Succinate (SOLU-Medrol 40MG VIAL) 40 mg Q8HRS IV Last administered on 02/22/21at 05:24; Start 02/19/21 at 22:00; Stop 02/22/21 at 09:31; Status DC Info (FLU VACCINE SCREEN per RX) 1 each 1X ONCE MC ; Start 02/19/21 at 23:00; Stop 02/19/21 at 23:01; Status Cancel Info (FLU VACCINE SCREEN per RX) 1 each PRN DAILY PRN MC SEE COMMENTS; Start 02/19/21 at 23:15; Status Cancel Metoprolol Tartrate (Lopressor Vial) 5 mg PRN Q1HR PRN IVP HYPERTENSION Last administered on 02/23/21at 19:43; Start 02/20/21 at 00:00 Iohexol (Omnipaque 350 Mg/ml) 100 ml 1X ONCE IV Last administered on 02/20/21at 07:30; Start 02/20/21 at 07:30; Stop 02/20/21 at 07:31; Status DC Amlodipine Besylate (Norvasc) 10 mg DAILY PO ; Start 02/20/21 at 11:00; Stop 02/20/21 at 11:04; Status DC Atorvastatin Calcium (Lipitor) 40 mg DAILY PO Last administered on 02/27/21at 09:09; Start 02/20/21 at 10:00 Furosemide (Lasix) 40 mg DAILY PO Last administered on 02/21/21at 09:47; Start 02/20/21 at 10:00; Stop 02/21/21 at 17:33; Status DC Glipizide (Glucotrol) 2.5 mg BIDWMEALS PO Last administered on 02/20/21at 12:38; Start 02/20/21 at 12:00; Stop 02/20/21 at 17:28; Status DC Metformin HCl (Glucophage) 500 mg BIDWMEALS PO ; Start 02/20/21 at 12:00; Stop 02/20/21 at 17:20; Status DC Budesonide (Pulmicort) 0.5 mg RTBID NEB Last administered on 02/27/21at 08:36; Start 02/20/21 at 20:00 Losartan Potassium (Cozaar) 100 mg DAILY PO Last administered on 02/27/21at 09:10; Start 02/20/21 at 10:00 Influenza Virus Vaccine Quadrival (Flulaval Quad [id number] Syringe) 0.5 ml ONCE ONCE VAX IM ; Start 02/21/21 at 09:00; Stop 02/21/21 at 09:01; Status DC Metoprolol Tartrate (Lopressor Vial) 5 mg 1X ONCE IVP Last administered on 02/20/21at 12:11; Start 02/20/21 at 12:15; Stop 02/20/21 at 12:16; Status DC Aspirin (Ecotrin) 81 mg [id number] PO Last administered on 02/27/21at 09:09; Start 02/20/21 at 13:00 Metoprolol Tartrate (Lopressor) 50 mg BID PO Last administered on 02/24/21at 09:00; Start 02/20/21 at 13:00; Stop 02/24/21 at 17:10; Status DC Enoxaparin Sodium (Lovenox Per Pharmacy Treatment Dosing) 1 each PRN DAILY PRN MC SEE COMMENTS; Start 02/20/21 at 13:00; Status Cancel Enoxaparin Sodium (Lovenox 100mg Syringe) 100 mg Q12HR SQ Last administered on 02/21/21at 20:10; Start 02/20/21 at 13:00; Stop 02/21/21 at 21:00; Status DC Furosemide (Lasix) 40 mg 1X ONCE IVP Last administered on 02/20/21at 14:28; Start 02/20/21 at 13:45; Stop 02/20/21 at 13:46; Status DC Iohexol (Omnipaque 350 Mg/ml) 100 ml STK-MED ONCE .ROUTE ; Start 02/20/21 at 15:53; Stop 02/20/21 at 15:53; Status DC Metformin HCl (Glucophage) 500 mg BIDWMEALS PO Last administered on 02/23/21at 08:37; Start 02/22/21 at 17:00; Stop 02/23/21 at 12:41; Status DC Insulin Human Lispro (HumaLOG) 0-7 UNITS TIDWMEALS SQ Last administered on 02/27/21at 09:15; Start 02/20/21 at 17:30 Dextrose (Dextrose 50%-Water Syringe) 12.5 gm PRN Q15MIN PRN IV SEE COMMENTS; Start 02/20/21 at 17:30 Info (Anti-Coagulation Monitoring By Pharmacy) 1 each PRN DAILY PRN MC PER PROTOCOL Last administered on 02/25/21at 10:45; Start 02/21/21 at 11:00 Digoxin (Lanoxin) 500 mcg 1X ONCE IV Last administered on 02/21/21at 17:48; Start 02/21/21 at 18:00; Stop 02/21/21 at 18:01; Status DC Furosemide (Lasix) 40 mg BID92 IVP ; Start 02/22/21 at 09:00; Stop 02/21/21 at 17:42; Status DC Apixaban (Eliquis) 5 mg BID PO Last administered on 02/26/21at 09:34; Start 02/22/21 at 09:00; Stop 02/26/21 at 09:48; Status DC Furosemide (Lasix) 40 mg BID92 IVP Last administered on 02/27/21at 09:09; Start 02/21/21 at 17:45 Methylprednisolone Sodium Succinate (SOLU-Medrol 40MG VIAL) 40 mg Q12HR IV Last administered on 02/23/21at 08:36; Start 02/22/21 at 21:00; Stop 02/23/21 at 09:37; Status DC Loperamide HCl (Imodium) 2 mg PRN Q15MIN PRN PO DIARRHEA Last administered on 02/22/21at 17:38; Start 02/22/21 at 11:15 Insulin Human Lispro (HumaLOG) 3 units 1X ONCE SQ Last administered on 02/22/21at 12:59; Start 02/22/21 at 12:30; Stop 02/22/21 at 12:31; Status DC Insulin Human Lispro (HumaLOG) 4 units 1X ONCE SQ Last administered on 02/22/21at 17:42; Start 02/22/21 at 17:45; Stop 02/22/21 at 17:46; Status DC Insulin Human Lispro (HumaLOG) 13 units 1X ONCE SQ Last administered on 02/23/21at 09:30; Start 02/23/21 at 09:15; Stop 02/23/21 at 09:16; Status DC Prednisone (Prednisone) 40 mg DAILY PO Last administered on 02/27/21at 09:09; Start 02/24/21 at 09:00 Insulin Human Lispro (HumaLOG) 10 units 1X ONCE SQ Last administered on 02/23/21at 12:35; Start 02/23/21 at 11:30; Stop 02/23/21 at 11:31; Status DC Insulin Human Lispro (HumaLOG) 10 units TIDWMEALS SQ Last administered on 02/27/21at 09:16; Start 02/23/21 at 17:00 Insulin Glargine (Lantus Syringe) 20 unit QHS SQ Last administered on 02/26/21at 21:06; Start 02/23/21 at 21:00 Metoprolol Tartrate (Lopressor) 75 mg 1X ONCE PO Last administered on 02/24/21at 21:07; Start 02/24/21 at 21:00; Stop 02/24/21 at 21:01; Status DC Metoprolol Succinate (Toprol Xl) 150 mg DAILY PO Last administered on 02/26/21at 09:34; Start 02/25/21 at 09:00; Stop 02/26/21 at 09:46; Status DC Metolazone (Zaroxolyn) 5 mg 1X PO ; Start 02/24/21 at 17:45 Furosemide (Lasix) 80 mg 1X ONCE IVP Last administered on 02/24/21at 18:46; Start 02/24/21 at 17:45; Stop 02/24/21 at 17:50; Status DC Metolazone (Zaroxolyn) 5 mg 1X ONCE PO Last administered on 02/24/21at 18:21; Start 02/24/21 at 19:00; Stop 02/24/21 at 19:01; Status DC Potassium Chloride (Klor-Con) 40 meq 1X ONCE PO Last administered on 02/25/21at 08:40; Start 02/25/21 at 07:15; Stop 02/25/21 at 07:16; Status DC Digoxin (Lanoxin) 500 mcg 1X ONCE IV Last administered on 02/25/21at 09:50; Start 02/25/21 at 09:45; Stop 02/25/21 at 09:46; Status DC Silver Nitrate/ Potassium Nitrate 1 each 1X ONCE TP Last administered on 02/25/21at 12:08; Start 02/25/21 at 12:00; Stop 02/25/21 at 12:01; Status DC Cellulose (Surgicel Hemostat 4x8) 1 each 1X ONCE TP Last administered on 02/25/21at 13:44; Start 02/25/21 at 12:30; Stop 02/25/21 at 12:33; Status DC Metolazone (Zaroxolyn) 5 mg 1X ONCE PO Last administered on 02/25/21at 17:22; Start 02/25/21 at 16:00; Stop 02/25/21 at 16:01; Status DC Metoprolol Succinate (Toprol Xl) 200 mg DAILY PO Last administered on 02/27/21at 09:09; Start 02/27/21 at 09:00 Metoprolol Succinate (Toprol Xl) 50 mg 1X ONCE PO Last administered on 02/26/21at 12:49; Start 02/26/21 at 09:45; Stop 02/26/21 at 09:50; Status DC Insulin Human Lispro (HumaLOG) 15 units 1X ONCE SQ Last administered on 02/26/21at 23:22; Start 02/26/21 at 23:15; Stop 02/26/21 at 23:16; Status DC Active Scripts Active Reported Metformin Hcl 500 Mg Tablet 500 Mg PO BIDWMEALS Glipizide 5 Mg Tablet 2.5 Mg PO BID Atorvastatin Calcium 40 Mg Tablet 1 Tab PO DAILY Furosemide 40 Mg Tablet 1 Tab PO DAILY Benicar (Olmesartan Medoxomil) 40 Mg Tablet 1 Tab PO DAILY 30 Days Amlodipine Besylate 10 Mg Tablet 10 Mg PO DAILY Symbicort 160-4.5 Mcg Inhaler (Budesonide/Formoterol Fumarate) 10.2 Gm Hfa.aer.ad 2 Puff IH BID Vitals/I & O Vital Sign - Last 24 Hours 02/26/21 02/26/21 02/26/21 02/26/21 15:00 15:56 19:25 20:00 Temp 97.3 98.6 97.3 98.6 Pulse 98 99 Resp 18 18 B/P (MAP) 145/71 (95) 115/60 (78) Pulse Ox 99 95 95 O2 Delivery Nasal Cannula Nasal Cannula Nasal Cannula Nasal Cannula O2 Flow Rate 3.0 3.0 3.0 3.0 02/26/21 02/26/21 02/27/21 02/27/21 20:31 23:02 03:31 07:42 Temp 97.7 97.5 98.1 97.7 97.5 98.1 Pulse 105 89 88 Resp 16 16 16 B/P (MAP) 141/89 (106) 151/89 (109) 150/83 (105) Pulse Ox 100 96 91 O2 Delivery Nasal Cannula Nasal Cannula Nasal Cannula Nasal Cannula O2 Flow Rate 3.0 3.0 3.0 3.0 02/27/21 02/27/21 02/27/21 02/27/21 08:00 08:38 08:40 09:09 Pulse 88 B/P (MAP) 150/83 Pulse Ox 98 98 O2 Delivery Nasal Cannula Nasal Cannula Nasal Cannula O2 Flow Rate 3.0 3.0 3.0 02/27/21 02/27/21 02/27/21 09:10 11:37 11:52 Temp 98.2 98.2 Pulse 88 79 Resp 16 B/P (MAP) 150/83 121/88 (99) Pulse Ox 97 O2 Delivery Nasal Cannula Nasal Cannula O2 Flow Rate 3.0 3.0 Intake and Output 02/26/21 02/26/21 02/27/21 15:00 23:00 07:00 Intake Total 630 ml 310 ml 800 ml Output Total 1600 ml 500 ml 1350 ml Balance -970 ml -190 ml -550 ml Justicifation of Admission Dx: Justifications for Admission: Justification of Admission Dx: Yes CHF: Cardiac Arrhythmias Aspiration Pneumonia: Chronic Lung Disease Chronic Renal Failure: Encephalopathy CRISTAL ALMANZA MD Feb 27, 2021 13:47
--- NOTE | 2021-02-27 14:02 | PDOC ---
PULMONARY PROGRESS NOTES DATE: 02/27/21 TIME: 14:01 Subjective Not more short of air, using BiPAP nightly Nasal cannula 3 L during the day. Vitals Vital Signs Date Time Temp Pulse Resp B/P (MAP) Pulse Ox O2 Delivery O2 Flow Rate FiO2 02/27/21 11:52 Nasal Cannula 3.0 02/27/21 11:37 98.2 79 16 121/88 (99) 97 98.2 General: Alert, No acute distress Lungs: Other (b lat diminished bs ) Cardiovascular: S1, S2 Abdomen: Soft, Other Extremities: Other (Edema has diminished) Skin: Warm Labs Laboratory Tests Test 02/25/21 17:12 02/25/21 21:10 02/26/21 03:25 02/26/21 07:50 Glucose (Fingerstick) 155 mg/dL (70-99) 270 mg/dL (70-99) 249 mg/dL (70-99) White Blood Count 13.0 x10^3/uL (4.0-11.0) Red Blood Count 6.08 x10^6/uL (4.30-5.70) Hemoglobin 14.3 g/dL (13.0-17.5) Hematocrit 45.9 % (39.0-53.0) Mean Corpuscular Volume 76 fL (79-100) Mean Corpuscular Hemoglobin 24 pg (25-35) Mean Corpuscular Hemoglobin Concent 31 g/dL (31-37) Red Cell Distribution Width 18.8 % (11.5-14.5) Platelet Count 264 x10^3/uL (140-400) Neutrophils (%) (Auto) 69 % (31-73) Lymphocytes (%) (Auto) 16 % (24-48) Monocytes (%) (Auto) 15 % (0-9) Eosinophils (%) (Auto) 0 % (0-3) Basophils (%) (Auto) 0 % (0-3) Neutrophils # (Auto) 8.9 x10^3/uL (1.8-7.7) Lymphocytes # (Auto) 2.0 x10^3/uL (1.0-4.8) Monocytes # (Auto) 2.0 x10^3/uL (0.0-1.1) Eosinophils # (Auto) 0.0 x10^3/uL (0.0-0.7) Basophils # (Auto) 0.0 x10^3/uL (0.0-0.2) Sodium Level 139 mmol/L (136-145) Potassium Level 3.9 mmol/L (3.5-5.1) Chloride Level 97 mmol/L (98-107) Carbon Dioxide Level 43 mmol/L (21-32) Anion Gap (6-14) Blood Urea Nitrogen 33 mg/dL (8-26) Creatinine 1.5 mg/dL (0.7-1.3) Estimated GFR (Cockcroft-Gault) 55.7 Glucose Level 179 mg/dL (70-99) Calcium Level 8.7 mg/dL (8.5-10.1) Test 02/26/21 11:46 02/26/21 16:26 02/26/21 21:08 02/26/21 21:11 Glucose (Fingerstick) 158 mg/dL (70-99) 102 mg/dL (70-99) 437 mg/dL (70-99) 480 mg/dL (70-99) Test 02/27/21 03:30 White Blood Count 13.3 x10^3/uL (4.0-11.0) Red Blood Count 5.67 x10^6/uL (4.30-5.70) Hemoglobin 13.4 g/dL (13.0-17.5) Hematocrit 42.8 % (39.0-53.0) Mean Corpuscular Volume 76 fL (79-100) Mean Corpuscular Hemoglobin 24 pg (25-35) Mean Corpuscular Hemoglobin Concent 31 g/dL (31-37) Red Cell Distribution Width 18.2 % (11.5-14.5) Platelet Count 228 x10^3/uL (140-400) Neutrophils (%) (Auto) 75 % (31-73) Lymphocytes (%) (Auto) 8 % (24-48) Monocytes (%) (Auto) 17 % (0-9) Eosinophils (%) (Auto) 0 % (0-3) Basophils (%) (Auto) 0 % (0-3) Neutrophils # (Auto) 10.0 x10^3/uL (1.8-7.7) Lymphocytes # (Auto) 1.0 x10^3/uL (1.0-4.8) Monocytes # (Auto) 2.2 x10^3/uL (0.0-1.1) Eosinophils # (Auto) 0.0 x10^3/uL (0.0-0.7) Basophils # (Auto) 0.0 x10^3/uL (0.0-0.2) Sodium Level 139 mmol/L (136-145) Potassium Level 3.3 mmol/L (3.5-5.1) Chloride Level 96 mmol/L (98-107) Carbon Dioxide Level 41 mmol/L (21-32) Anion Gap 2 (6-14) Blood Urea Nitrogen 35 mg/dL (8-26) Creatinine 1.4 mg/dL (0.7-1.3) Estimated GFR (Cockcroft-Gault) 60.3 Glucose Level 245 mg/dL (70-99) Calcium Level 8.7 mg/dL (8.5-10.1) Laboratory Tests Test 02/26/21 16:26 02/26/21 21:08 02/26/21 21:11 02/27/21 03:30 Glucose (Fingerstick) 102 mg/dL (70-99) 437 mg/dL (70-99) 480 mg/dL (70-99) White Blood Count 13.3 x10^3/uL (4.0-11.0) Red Blood Count 5.67 x10^6/uL (4.30-5.70) Hemoglobin 13.4 g/dL (13.0-17.5) Hematocrit 42.8 % (39.0-53.0) Mean Corpuscular Volume 76 fL (79-100) Mean Corpuscular Hemoglobin 24 pg (25-35) Mean Corpuscular Hemoglobin Concent 31 g/dL (31-37) Red Cell Distribution Width 18.2 % (11.5-14.5) Platelet Count 228 x10^3/uL (140-400) Neutrophils (%) (Auto) 75 % (31-73) Lymphocytes (%) (Auto) 8 % (24-48) Monocytes (%) (Auto) 17 % (0-9) Eosinophils (%) (Auto) 0 % (0-3) Basophils (%) (Auto) 0 % (0-3) Neutrophils # (Auto) 10.0 x10^3/uL (1.8-7.7) Lymphocytes # (Auto) 1.0 x10^3/uL (1.0-4.8) Monocytes # (Auto) 2.2 x10^3/uL (0.0-1.1) Eosinophils # (Auto) 0.0 x10^3/uL (0.0-0.7) Basophils # (Auto) 0.0 x10^3/uL (0.0-0.2) Sodium Level 139 mmol/L (136-145) Potassium Level 3.3 mmol/L (3.5-5.1) Chloride Level 96 mmol/L (98-107) Carbon Dioxide Level 41 mmol/L (21-32) Anion Gap 2 (6-14) Blood Urea Nitrogen 35 mg/dL (8-26) Creatinine 1.4 mg/dL (0.7-1.3) Estimated GFR (Cockcroft-Gault) 60.3 Glucose Level 245 mg/dL (70-99) Calcium Level 8.7 mg/dL (8.5-10.1) Medications Active Scripts Medications Dose Route/Sig Max Daily Dose Days Date Category Metformin Hcl 500 Mg Tablet 500 Mg PO BIDWMEALS 02/20/21 Reported Glipizide 5 Mg Tablet 2.5 Mg PO BID 02/20/21 Reported Atorvastatin Calcium 40 Mg Tablet 1 Tab PO DAILY 02/20/21 Reported Furosemide 40 Mg Tablet 1 Tab PO DAILY 02/20/21 Reported Benicar (Olmesartan Medoxomil) 40 Mg Tablet 1 Tab PO DAILY 30 02/20/21 Reported Amlodipine Besylate 10 Mg Tablet 10 Mg PO DAILY 02/20/21 Reported Symbicort 160-4.5 Mcg Inhaler (Budesonide/Formoterol Fumarate) 10.2 Gm Hfa.aer.ad 2 Puff IH BID 02/20/[address] chest reviewed. Moderate right lower lobe pleural effusion. Impression . Acute hypoxemic respiratory failure multifactorial Acute on chronic diastolic heart failure Acute exacerbation COPD Abnormal CT chest with moderate right lower lobe pleural effusion. Likely secondary to cardiomyopathy. Cardiomyopathy ejection fraction 40-% A. fib with rapid ventricular response Coronary artery disease with previous PCI Tobacco dependent CT angiogram revealed no evidence of pulmonary embolism there was a right-sided effusion Plan . Updated 02/27 Patient feels better, Repeat chest x-ray reviewed. Still has mild to moderate right-sided pleural effusion. Not enough fluid for right thoracentesis per IR. 6-minute walk prior to discharge Outpatient polysomnogram Prednisone taper JEANNIE LANTIGUA MD Feb 27, 2021 14:02
[2021-02-27] MEDS ORDERED: LIDOCAINE 1% Multi-Dose 20 ML VIAL. ONE (14:17)
[2021-02-27] MEDS ORDERED: IODIXANOL 320 MG/ML 100 ML VIAL. ONE (14:17)
--- NOTE | 2021-02-27 14:30 | PDOC ---
[facility] [facility] PROGRESS NOTE Date of Service DOS: DATE: 02/27/21 TIME: 14:28 Chief Complaint Chief Complaint Acute hypoxic respiratory failure - COPD exacerbation with likely gram negative pneumonia complicated by acute combined systolic and diastolic CHF with afib with RVR Shortness of breath COPD with exacerbation Atrial fibrillation with rapid ventricular response Right pleural effusion Epistaxis Sepsis - due to pneumonia, resolved Community acquired pneumonia Acute on chronic systolic CHF; continuing present treatment. EF 35-40% AFIB with RVR - new onset; rate remains mildly elevated. CAD with 2013 PCI to LCx and RCA. Cardiomyopathy - ischemic and non-ischemic with Echo with LVEF 35 to 40%. Hypertension - improved Hyperlipidmeia - on statin. Continue present treatment. NAOMI - likely vasomotor nephropathy vs CKD Anemia - will check iron studies Hyperglycemia FEN - Cardiac PPX - Eliquis FULL CODE Dispo - inpatient History of Present Illness History of Present Illness Glucose elevated in the 400s overnight. No clear window for IR for thoracentesis on right. He is n.p.o. for left and right heart cath today. Still requiring 2 L oxygen. With O2 saturations in the low 90s. Heart rate is better controlled in the upper 80s and low 90s on 200 mg Toprol-XL. He still very short of breath on minimal exertion. 02/26: Afebrile. Heart rate better controlled. Wore BiPAP last night still requiring 3 L nasal cannula during the day. D/w pulm to consider Thoracentesis on the right. He is afraid of bleeding Eliquis is on hold this morning will resume tonight. Discussed need for rehab and he is amenable to this was discussed with his first 02/25: Afebrile. Chest radiograph moderate right pleural effusion still in place. Swelling a little improved with compression and diuresis. Changed 150 mg Toprol-XL. Still short of breath movement. Has some epistaxis today. 02/24: WBC 13.5, CR 1.4, glucose 166. Still very swollen in bilateral LE. Still requiring 4-5L NCO2. D/w him and bedside 80mg Lasix BID IV. 02/23: Patient seen and examined. Chart reviewed. Discussed with RN to titrate his FiO2 down to 4L to maintain his oxygen saturation around 88-92%. Patient is awake and alert. NAD. Patient is responsive and asking questions. Patient is currently on 5L O2 via NC. Patient relates feeling just okay, not much better from yesterday. Patient says he has pain on the left side of his ribcage since yesterday. Glucose level was at 523 early this morning, and has gone down to 308 at 11:00am. 02/22: Patient seen and examined. Chart reviewed. Discussed with RN. Patient is awake and alert. NAD. Patient is responsive and asking questions. Patient is currently on 5L O2 via NC, which he uses during the day. At night, patient uses the BiPAP. Patient relates feeling better and breathing better. Some edema in the lower extremities bilaterally. 02/21/2021 Patient seen and examined. Discussed with RN. Chart reviewed. Patient is currently on 5L O2 via NC. Stephy ferreira was called last night. This morning, patient is alert and oriented. Head CT showed no acute hemorrhage. MRI ordered but is on hold due to a possible coil embolization at the right carotid terminus. 02/20/2021 Patient seen and examined. Chart reviewed. Discussed with RN. NPO. Patient is on BiPAP with labored breathing. Patient is awake and alert. Currently receiving IV Ampicillin/sulbactam. Developed Afib with RVR. Vitals/I&O Vitals/I&O: Vital Signs Date Time Temp Pulse Resp B/P (MAP) Pulse Ox O2 Delivery O2 Flow Rate FiO2 02/27/21 11:52 Nasal Cannula 3.0 02/27/21 11:37 98.2 79 16 121/88 (99) 97 98.2 I & O 02/26/21 02/26/21 02/27/21 15:00 23:00 07:00 Intake Total 630 ml 310 ml 800 ml Output Total 1600 ml 500 ml 1350 ml Balance -970 ml -190 ml -550 ml Physical Exam General: Alert, Cooperative, mild distress Heart: Other (Irregular rhythm.) Lungs: Other (b lat diminished bs ) Abdomen: Normal bowel sounds Extremities: Other (1-2+ bilateral LE edema. Soreness of bilaterall LE.) Skin: No significant lesion Labs Labs: Laboratory Tests Test 02/26/21 16:26 02/26/21 21:08 02/26/21 21:11 02/27/21 03:30 Glucose (Fingerstick) 102 mg/dL (70-99) 437 mg/dL (70-99) 480 mg/dL (70-99) White Blood Count 13.3 x10^3/uL (4.0-11.0) Red Blood Count 5.67 x10^6/uL (4.30-5.70) Hemoglobin 13.4 g/dL (13.0-17.5) Hematocrit 42.8 % (39.0-53.0) Mean Corpuscular Volume 76 fL (79-100) Mean Corpuscular Hemoglobin 24 pg (25-35) Mean Corpuscular Hemoglobin Concent 31 g/dL (31-37) Red Cell Distribution Width 18.2 % (11.5-14.5) Platelet Count 228 x10^3/uL (140-400) Neutrophils (%) (Auto) 75 % (31-73) Lymphocytes (%) (Auto) 8 % (24-48) Monocytes (%) (Auto) 17 % (0-9) Eosinophils (%) (Auto) 0 % (0-3) Basophils (%) (Auto) 0 % (0-3) Neutrophils # (Auto) 10.0 x10^3/uL (1.8-7.7) Lymphocytes # (Auto) 1.0 x10^3/uL (1.0-4.8) Monocytes # (Auto) 2.2 x10^3/uL (0.0-1.1) Eosinophils # (Auto) 0.0 x10^3/uL (0.0-0.7) Basophils # (Auto) 0.0 x10^3/uL (0.0-0.2) Sodium Level 139 mmol/L (136-145) Potassium Level 3.3 mmol/L (3.5-5.1) Chloride Level 96 mmol/L (98-107) Carbon Dioxide Level 41 mmol/L (21-32) Anion Gap 2 (6-14) Blood Urea Nitrogen 35 mg/dL (8-26) Creatinine 1.4 mg/dL (0.7-1.3) Estimated GFR (Cockcroft-Gault) 60.3 Glucose Level 245 mg/dL (70-99) Calcium Level 8.7 mg/dL (8.5-10.1) Assessment and Plan Assessmemt and Plan Problems Medical Problems: (1) Atrial fibrillation with rapid ventricular response Status: Acute (2) Community acquired pneumonia Status: Acute (3) COPD with exacerbation Status: Acute (4) Person under investigation for COVID-19 Status: Acute (5) Sepsis with acute hypoxic respiratory failure Status: Acute Comment Review of Relevant I have reviewed the following items nurys (where applicable) has been applied. Medications: Current Medications Medications (Trade) Dose Ordered Sig/Rajinder Route PRN Reason Start Time Stop Time Status Last Admin Dose Admin Metoprolol Succinate (Toprol Xl) 200 mg DAILY PO 02/27/21 09:00 02/27/21 09:09 Insulin Human Lispro (HumaLOG) 15 units 1X ONCE SQ 02/26/21 23:15 02/26/21 23:16 DC 02/26/21 23:22 Justifications for Admission Other Justification MAT ORTIZ MD Feb 27, 2021 14:30
[2021-02-27] MEDS ORDERED: VERAPAMIL 5 MG/2 ML VIAL. ONE (14:36)
[2021-02-27] MEDS ORDERED: NITROGLYCERIN 200 MCG/2 ML SYRINGE FOR CATH/VASC LAB. ONE (14:36)
[2021-02-27] MEDS ORDERED: MIDAZOLAM HCL/PF 2 MG/2 ML VIAL. ONE (14:36)
[2021-02-27] MEDS ORDERED: fentaNYL PF VIAL 100 MCG/2 ML VIAL ONE (14:36)
[2021-02-27] MEDS ORDERED: HEPARIN for IV BOLUS 10,000 UNIT/10 ML VIAL. ONE (14:36)
[2021-02-27] MEDS ORDERED: LIDOCAINE 1% Multi-Dose 20 ML VIAL. INJ ONE (15:15)
[2021-02-27] MEDS ORDERED: MIDAZOLAM HCL/PF 2 MG/2 ML VIAL. IV ONE (15:15)
[2021-02-27] MEDS ORDERED: VERAPAMIL 5 MG/2 ML VIAL. IART ONE (15:15)
[2021-02-27] MEDS ORDERED: fentaNYL PF VIAL 100 MCG/2 ML VIAL IV ONE (15:15)
[2021-02-27] MEDS ORDERED: IODIXANOL 320 MG/ML 100 ML VIAL. IART ONE (15:15)
[2021-02-27] MEDS ORDERED: HEPARIN for IV BOLUS 10,000 UNIT/10 ML VIAL. IART ONE (15:15)
[2021-02-27] MEDS ORDERED: NITROGLYCERIN 200 MCG/2 ML SYRINGE FOR CATH/VASC LAB. IART ONE (15:15)
[2021-02-27] MEDS ORDERED: CONTRAST GIVEN. MC PRN (15:30)
--- NOTE | 2021-02-27 16:18 | CARD ---
MR#: [id number] Date of Study: 02/27/2021 Ordering Physician: ALFREDITO GUTIERRES, Referring Physician: ALFREDITO GUTIERRES, Tech: Rani Rocha RT(R)() APPROVED REPORT Technologist: Rani Rocha RT(R)() Nurse: Hetal Huntley RN Procedure(s) performed: fl time: 4.8 mins dose: 64 gycm2 contrast: 66 ml moderate sedation: 49 mins RHC, LHC, Coronary angiography [facility] Clinical Frailty Scale [facility] Clinical Frailty Scale: Severely Frail Heart Failure Heart Failure: Yes If Yes, Newly Diagnosed: Yes If Yes, HF Type: Diastolic Systolic If Yes, NYHA Class: Class III PROCEDURE NARRATIVE The patient was brought electively to the cardiac catheterization lab. A timeout was performed confi rming the patient's name, date of , procedure, and site of procedure. All necessary personnel w ere wearing the appropriate protective equipment and radiation monitor devices. After explaining the risks and benefits of the procedure and alternatives, informed consent was obtained. (See nursing no donis for medications administered). The right wrist/neck were sterilely prepped and draped in the usu al fashion. The right wrist/neck were infiltrated with 20 mL of 2% lidocaine for subcutaneous anesth esia. A 6 Fsheath was inserted into the right radial artery without difficulty via the seldinger stephan hnique. Next, an 5Fr sheath was inserted in the right internal jugular vein in similar fashion witho ut difficulty. A PA catheter was then advanced through the right heart chambers, pressures and saturations were obta ined. Subsequently, right and left coronary angiography was performed using standard TIG and JR4 diag nostic catheters. Left ventricular end diastolic pressure was obtained with a TIG catheter and pullb ack was performed. HEMODYNAMICS: LVEDP 15 mm Hg AO: 100/79 *No gradient on LV to aortic pullback. PCWP: 12 mm Hg PA: 41/17/28 RV: 38/0/7 RA: 9 mm Hg Yonas: 5.5 L/min PA saturation: 69.7% FA saturation: 95.9% CORONARY ANGIOGRAPHY: LM is a large caliber vessel with normal angiographic appearance. LAD is a large caliber vessel with mild luminal irregularities. D1/D2 are small caliber vessels with normal angiographic apeparance. LCx is a moderate caliber non-dominant vessel with a proxmial to mid diffuse 40-50% stenosis. OM1 is a small caliber vessel a patent proximal stent and a mid 90% stenosis. RCA is a moderate caliber vessel with an ostial 100% occlusion at previous stents. The distal vessel is seen to fill via left to right collaterals. Conclusion 1. Normal biventricular filling pressures. 2. No significant pulmonary HTN. 3. Normal cardiac output. 4. Three vessel coronary disease Recommendations 1. Patient is currently euvolemic. Continue medical mgmt at this time and will continue Toprol XL. St art Eliquis 5mg bid, Spironolactone 25mg daily, Jardiance 10 mg daily and Entresto 24/26 mg bid. 2. Plan for GDMT and outpt LORETTA/CVN for atrial fibrillation. Signed by : Timur Mendez, Electronically Approved : 02/27/2021 16:18:40
[2021-02-27] MEDS: TIMOLOL 0.5% OPHTH SOLUTION 5ML BOTTLE. OS SCH (20:51)
[2021-02-27] MEDS: DORZOLAMIDE 2% OPHTH SOLUTION 10ML BOTTLE. OD SCH (20:51)
[2021-02-27] MEDS: APIXABAN 5 MG TABLET. PO SCH (20:51)
[2021-02-27] MEDS: INSULIN GLARGINE SYRINGE. SQ SCH (20:52)
[2021-02-27] MEDS ORDERED: INSULIN LISPRO 300 UNITS/3 ML VIAL. SQ ONE (21:15)
[2021-02-28] VITALS (7 sets, daily range): BP systolic 120–174; BP diastolic 66–108
[2021-02-28 04:43] LABS: BASO % 0 % (0-3); EOS % 0 % (0-3); HEMATOCRIT 43.1 % (39.0-53.0); HEMOGLOBIN 13.5 g/dL (13.0-17.5); LYMPH # 2.2 x10^3/uL (1.0-4.8); LYMPH % 14 % (24-48); MEAN CORPUSCULAR HEMOGLOBIN 24 pg (25-35); MEAN CORPUSCULAR HGB CONC 31 g/dL (31-37); MEAN CORPUSCULAR VOLUME 76 fL (79-100); MONO # 2.4 x10^3/uL (0.0-1.1); MONO % 15 % (0-9); NEUT # 10.7 x10^3/uL (1.8-7.7); NEUT % 70 % (31-73); PLATELET COUNT 239 x10^3/uL (140-400); RED CELL DISTRIBUTION WIDTH 18.4 % (11.5-14.5); WHITE BLOOD COUNT 15.3 x10^3/uL (4.0-11.0)
[2021-02-28 05:10] LABS: CALCIUM 8.9 mg/dL (8.5-10.1); CREATININE 1.3 mg/dL (0.7-1.3); GFR 65.7
[2021-02-28 05:13] LABS: POTASSIUM 2.8 mmol/L (3.5-5.1)
[2021-02-28] MEDS: POTASSIUM CHLORIDE 20 MEQ TABLET.ER. PO SCH ×2 (05:37→09:22)
[2021-02-28] MEDS: INSULIN LISPRO 300 UNITS/3 ML VIAL. SQ SCH ×6 (08:00→17:53)
[2021-02-28] MEDS: IPRATRPIUM/ALBUTEROL 0.5/2.5MG 3 ML NEBU. NEB SCH ×4 (08:00→16:14)
[2021-02-28] MEDS: SENNOSIDES/DOCUSATE 8.6/50MG TABLET. PO SCH ×2 (09:00→21:00)
[2021-02-28] MEDS: METOPROLOL SUCC 24HR ER 50 MG TAB.ER.24H. PO SCH (09:22)
[2021-02-28] MEDS: SPIRONOLACTONE 25 MG TABLET PO SCH (09:22)
[2021-02-28] MEDS: ATORVASTATIN CALCIUM 40 MG TABLET. PO SCH ×2 (09:22→20:30)
[2021-02-28] MEDS: ASPIRIN ENTERIC COATED 81 MG TABLET.DR. PO SCH (09:23)
[2021-02-28] MEDS: predniSONE 20 MG TABLET PO SCH (09:23)
[2021-02-28] MEDS: APIXABAN 5 MG TABLET. PO SCH ×2 (09:23→20:30)
[2021-02-28] MEDS: FUROSEMIDE 40 MG TABLET. PO SCH (09:23)
--- NOTE | 2021-02-28 11:01 | PDOC ---
LUCA VIDAL VOTING MACHINE REPAIRER 02/28/21 1101: CARDIO Progress Notes Date and Time Date of Service 02/28/2021 Time of Evaluation 1000 Subjective Subjective: No Chest Pain, No shortness of breath, No Palpitations Vitals Vitals Vital Signs Date Time Temp Pulse Resp B/P (MAP) Pulse Ox O2 Delivery O2 Flow Rate FiO2 02/28/21 10:05 97.7 85 18 120/89 (99) 98 Nasal Cannula 3.0 97.7 Weight Weight [ ] Input and Output Intake and Output Intake and Output 02/28/21 07:00 Intake Total 1560 ml Output Total 850 ml Balance 710 ml Intake Oral 1560 ml Output Urine Total 850 ml # Bowel Movements 2 Laboratory Labs Laboratory Tests Test 02/27/21 17:01 02/27/21 20:42 02/28/21 02:32 02/28/21 02:44 Glucose (Fingerstick) 223 mg/dL (70-99) 351 mg/dL (70-99) 51 mg/dL (70-99) 47 mg/dL (70-99) Test 02/28/21 02:54 02/28/21 04:15 02/28/21 08:31 02/28/21 09:20 Glucose (Fingerstick) 176 mg/dL (70-99) 202 mg/dL (70-99) 277 mg/dL (70-99) White Blood Count 15.3 x10^3/uL (4.0-11.0) Red Blood Count 5.70 x10^6/uL (4.30-5.70) Hemoglobin 13.5 g/dL (13.0-17.5) Hematocrit 43.1 % (39.0-53.0) Mean Corpuscular Volume 76 fL (79-100) Mean Corpuscular Hemoglobin 24 pg (25-35) Mean Corpuscular Hemoglobin Concent 31 g/dL (31-37) Red Cell Distribution Width 18.4 % (11.5-14.5) Platelet Count 239 x10^3/uL (140-400) Neutrophils (%) (Auto) 70 % (31-73) Lymphocytes (%) (Auto) 14 % (24-48) Monocytes (%) (Auto) 15 % (0-9) Eosinophils (%) (Auto) 0 % (0-3) Basophils (%) (Auto) 0 % (0-3) Neutrophils # (Auto) 10.7 x10^3/uL (1.8-7.7) Lymphocytes # (Auto) 2.2 x10^3/uL (1.0-4.8) Monocytes # (Auto) 2.4 x10^3/uL (0.0-1.1) Eosinophils # (Auto) 0.0 x10^3/uL (0.0-0.7) Basophils # (Auto) 0.0 x10^3/uL (0.0-0.2) Sodium Level 139 mmol/L (136-145) Potassium Level 2.8 mmol/L (3.5-5.1) Chloride Level 91 mmol/L (98-107) Carbon Dioxide Level 43 mmol/L (21-32) Anion Gap 5 (6-14) Blood Urea Nitrogen 30 mg/dL (8-26) Creatinine 1.3 mg/dL (0.7-1.3) Estimated GFR (Cockcroft-Gault) 65.7 Glucose Level 105 mg/dL (70-99) Calcium Level 8.9 mg/dL (8.5-10.1) Microbiology Micro Microbiology 02/19/21 Blood Culture - Final, Complete NO GROWTH AFTER 5 DAYS Physical Exam HEENT: Neck Supple W Full Motion Chest: Symmetric LUNGS: Other (diminished bases) Heart: irregularly irregular (AFIB) Abdomen: Soft N/T, Other (obese) Extremities: Other (2+ bilateral LE edema ) Neurology: alert, oriented, follow commands Assessment Assessment 1. Acute respiratory failure, multifactorial. 2. Acute on chronic systolic CHF; continuing present treatment. Normal BiV pressures and CO 3. AFIB with RVR; rate controlled 4. CAD: past PCI to LCx and RCA. C revelaed 3VD as noted below. No intervantion LCx is a moderate caliber non-dominant vessel with a proxmial to mid diffuse 40-50% stenosis. OM1 is a small caliber vessel a patent proximal stent and a mid 90% stenosis. RCA is a moderate caliber vessel with an ostial 100% occlusion at previous stents. The distal vessel is seen to fill via left to right collaterals. 5. Atypical CP: none further 6. Cardiomyopathy: Echo with LVEF 35 to 40%. 7. Hypertension; controlled 8. Hyperlipidmeia; statin 9. NAOMI; better 10. Epistaxis; better 11. Hypokalemia 12. DM2 with hypoglycemia: on metformin and glyburide at home Recommendations Replace K, lasix therapy. Check Mg and replace as warranted HF optimization per GDMT. Start on entresto, aldactone, continue toprol. Continue Toprol; increase to 200mg for better rate control Start jardiance upon discharge, will need close monitoring of BG as an outpt Supportive care possible SNU outpt LORETTA/CVN, follow up in office. Justicifation of Admission Dx: Justifications for Admission: Justification of Admission Dx: Yes CHF: Cardiac Arrhythmias Aspiration Pneumonia: Chronic Lung Disease Chronic Renal Failure: Encephalopathy LES GONCALVES MD 03/02/21 1317: CARDIO Progress Notes Plan Plan Late entry for 02/28/21 Pt. seen and examined. 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 Continue diuresis. Tolerating goal directed medical therapy. LUCA VIDAL APRN Feb 28, 2021 11:01 LES GONCALVES MD Mar 02, 2021 13:17
[2021-02-28] MEDS: BUDESONIDE 0.5 MG/2 ML NEBU. NEB SCH ×2 (11:37→20:00)
--- NOTE | 2021-02-28 11:45 | PDOC ---
[employer] PROGRESS NOTE Date of Service DOS: DATE: 02/28/21 TIME: 11:43 Chief Complaint Chief Complaint Acute hypoxic respiratory failure - COPD exacerbation with likely gram negative pneumonia complicated by acute combined systolic and diastolic CHF with afib with RVR Shortness of breath COPD with exacerbation Atrial fibrillation with rapid ventricular response Right pleural effusion Epistaxis Sepsis - due to pneumonia, resolved Community acquired pneumonia Acute on chronic systolic CHF; continuing present treatment. EF 35-40% AFIB with RVR - new onset; rate remains mildly elevated. CAD with 2013 PCI to LCx and RCA. Cardiomyopathy - ischemic and non-ischemic with Echo with LVEF 35 to 40%. Hypertension - improved Hyperlipidmeia - on statin. Continue present treatment. NAOMI - likely vasomotor nephropathy vs CKD Anemia - will check iron studies Hyperglycemia FEN - Cardiac PPX - Eliquis FULL CODE Dispo - inpatient History of Present Illness History of Present Illness Less short of breath today, still on O2, swelling improved. S/p cardiac cath with normal biventricular filling pressures, no significant pulmonary HTN, but three vessel coronary disease, Toprol XL. Start Eliquis 5mg bid, Spironolactone 25mg daily, Jardiance 10 mg daily and Entresto 24/26 mg bid. 02/27: Glucose elevated in the 400s overnight. No clear window for IR for thoracentesis on right. He is n.p.o. for left and right heart cath today. Still requiring 2 L oxygen. With O2 saturations in the low 90s. Heart rate is better controlled in the upper 80s and low 90s on 200 mg Toprol-XL. He still very short of breath on minimal exertion. 02/26: Afebrile. Heart rate better controlled. Wore BiPAP last night still requiring 3 L nasal cannula during the day. D/w pulm to consider Thoracentesis on the right. He is afraid of bleeding Eliquis is on hold this morning will resume tonight. Discussed need for rehab and he is amenable to this was discussed with his first 02/25: Afebrile. Chest radiograph moderate right pleural effusion still in place. Swelling a little improved with compression and diuresis. Changed 150 mg Toprol-XL. Still short of breath movement. Has some epistaxis today. 02/24: WBC 13.5, CR 1.4, glucose 166. Still very swollen in bilateral LE. Still requiring 4-5L NCO2. D/w him and bedside 80mg Lasix BID IV. 02/23: Patient seen and examined. Chart reviewed. Discussed with RN to titrate his FiO2 down to 4L to maintain his oxygen saturation around 88-92%. Patient is awake and alert. NAD. Patient is responsive and asking questions. Patient is currently on 5L O2 via NC. Patient relates feeling just okay, not much better from yesterday. Patient says he has pain on the left side of his ribcage since yesterday. Glucose level was at 523 early this morning, and has gone down to 308 at 11:00am. 02/22: Patient seen and examined. Chart reviewed. Discussed with RN. Patient is awake and alert. NAD. Patient is responsive and asking questions. Patient is currently on 5L O2 via NC, which he uses during the day. At night, patient uses the BiPAP. Patient relates feeling better and breathing better. Some edema in the lower extremities bilaterally. 02/21/2021 Patient seen and examined. Discussed with RN. Chart reviewed. Patient is currently on 5L O2 via NC. Stephy ferreira was called last night. This morning, patient is alert and oriented. Head CT showed no acute hemorrhage. MRI ordered but is on hold due to a possible coil embolization at the right carotid terminus. 02/20/2021 Patient seen and examined. Chart reviewed. Discussed with RN. NPO. Patient is on BiPAP with labored breathing. Patient is awake and alert. Currently receiving IV Ampicillin/sulbactam. Developed Afib with RVR. Vitals/I&O Vitals/I&O: Vital Signs Date Time Temp Pulse Resp B/P (MAP) Pulse Ox O2 Delivery O2 Flow Rate FiO2 02/28/21 11:41 99 Nasal Cannula 3.0 02/28/21 10:05 97.7 85 18 120/89 (99) 97.7 I & O 02/27/21 02/27/21 02/28/21 15:00 23:00 07:00 Intake Total 120 ml 480 ml 960 ml Output Total 100 ml 300 ml 450 ml Balance 20 ml 180 ml 510 ml Physical Exam General: Alert, Cooperative, mild distress Heart: Other (Irregular rhythm.) Lungs: Other (b lat diminished bs ) Abdomen: Normal bowel sounds Extremities: Other (1-2+ bilateral LE edema. Soreness of bilaterall LE.) Skin: No significant lesion Labs Labs: Laboratory Tests Test 02/27/21 17:01 02/27/21 20:42 02/28/21 02:32 02/28/21 02:44 Glucose (Fingerstick) 223 mg/dL (70-99) 351 mg/dL (70-99) 51 mg/dL (70-99) 47 mg/dL (70-99) Test 02/28/21 02:54 02/28/21 04:15 02/28/21 08:31 02/28/21 09:20 Glucose (Fingerstick) 176 mg/dL (70-99) 202 mg/dL (70-99) 277 mg/dL (70-99) White Blood Count 15.3 x10^3/uL (4.0-11.0) Red Blood Count 5.70 x10^6/uL (4.30-5.70) Hemoglobin 13.5 g/dL (13.0-17.5) Hematocrit 43.1 % (39.0-53.0) Mean Corpuscular Volume 76 fL (79-100) Mean Corpuscular Hemoglobin 24 pg (25-35) Mean Corpuscular Hemoglobin Concent 31 g/dL (31-37) Red Cell Distribution Width 18.4 % (11.5-14.5) Platelet Count 239 x10^3/uL (140-400) Neutrophils (%) (Auto) 70 % (31-73) Lymphocytes (%) (Auto) 14 % (24-48) Monocytes (%) (Auto) 15 % (0-9) Eosinophils (%) (Auto) 0 % (0-3) Basophils (%) (Auto) 0 % (0-3) Neutrophils # (Auto) 10.7 x10^3/uL (1.8-7.7) Lymphocytes # (Auto) 2.2 x10^3/uL (1.0-4.8) Monocytes # (Auto) 2.4 x10^3/uL (0.0-1.1) Eosinophils # (Auto) 0.0 x10^3/uL (0.0-0.7) Basophils # (Auto) 0.0 x10^3/uL (0.0-0.2) Sodium Level 139 mmol/L (136-145) Potassium Level 2.8 mmol/L (3.5-5.1) Chloride Level 91 mmol/L (98-107) Carbon Dioxide Level 43 mmol/L (21-32) Anion Gap 5 (6-14) Blood Urea Nitrogen 30 mg/dL (8-26) Creatinine 1.3 mg/dL (0.7-1.3) Estimated GFR (Cockcroft-Gault) 65.7 Glucose Level 105 mg/dL (70-99) Calcium Level 8.9 mg/dL (8.5-10.1) Magnesium Level 2.5 mg/dL (1.8-2.4) Test 02/28/21 11:31 Glucose (Fingerstick) 200 mg/dL (70-99) Assessment and Plan Assessmemt and Plan Problems Medical Problems: (1) Atrial fibrillation with rapid ventricular response Status: Acute (2) Community acquired pneumonia Status: Acute (3) COPD with exacerbation Status: Acute (4) Person under investigation for COVID-19 Status: Acute (5) Sepsis with acute hypoxic respiratory failure Status: Acute Comment Review of Relevant I have reviewed the following items nurys (where applicable) has been applied. Medications: Current Medications Medications (Trade) Dose Ordered Sig/Rajinder Route PRN Reason Start Time Stop Time Status Last Admin Dose Admin Nitroglycerin (Nitroglycerin) 200 mcg 1X ONCE IART 02/27/21 15:15 02/27/21 15:19 DC 02/27/21 15:31 Verapamil HCl (Verapamil) 2.5 mg 1X ONCE IART 02/27/21 15:15 02/27/21 15:19 DC 02/27/21 15:15 Heparin Sodium (Porcine) (Heparin Sodium) 2,500 unit 1X ONCE IART 02/27/21 15:15 02/27/21 15:19 DC 02/27/21 15:34 Heparin Sodium/ Sodium Chloride (HEPARIN for ARTERIAL LINE FLUSH) 1,000 unit 1X ONCE IART 02/27/21 15:15 02/27/21 15:19 DC 02/27/21 15:30 Midazolam HCl (Versed) 1 mg 1X ONCE IV 02/27/21 15:15 02/27/21 15:19 DC 02/27/21 15:31 Fentanyl Citrate (Fentanyl 2ml Vial) 50 mcg 1X ONCE IV 02/27/21 15:15 02/27/21 15:19 DC 02/27/21 15:32 Iodixanol (Visipaque 320) 100 ml 1X ONCE IART 02/27/21 15:15 02/27/21 15:19 DC 02/27/21 15:30 Lidocaine HCl (Lidocaine 1% 20ml Vial) 4 ml 1X ONCE INJ 02/27/21 15:15 02/27/21 15:19 DC 02/27/21 15:31 Spironolactone (Aldactone) 25 mg DAILY PO 02/28/21 09:00 02/28/21 09:22 Apixaban (Eliquis) 5 mg BID PO 02/27/21 21:00 02/28/21 09:23 Furosemide (Lasix) 40 mg DAILY PO 02/28/21 09:00 02/28/21 09:23 Insulin Human Lispro (HumaLOG) 25 units 1X ONCE SQ 02/27/21 21:15 02/27/21 21:19 DC 02/27/21 21:32 Potassium Chloride (Klor-Con) 40 meq Q4H PO 02/28/21 05:15 02/28/21 09:16 DC 02/28/21 09:22 Justifications for Admission Other Justification MAT ORTIZ MD Feb 28, 2021 11:45
[2021-02-28] MEDS ORDERED: POTASSIUM CHLORIDE 10MEQ 100 ML IV SCH (12:00)
--- NOTE | 2021-02-28 12:14 | NUR ---
SS following up with discharge planning. SS reviewed pt chart and discussed with pt RN. Pt is currently requiring oxygen at three liters nasal canula. COVID19 negative. Pt has home oxygen and walker. Pt had heart cath on 02/27/2021. PT recommended fdc unit. Pt accepted at [facility], ; fax [phone], pending insurance authorization. SS will continue to follow for discharge planning.
--- NOTE | 2021-02-28 12:41 | PDOC ---
PULMONARY PROGRESS NOTES DATE: 02/28/21 TIME: 12:40 Subjective Not more short of air, Nasal cannula 3 L during the day. Vitals Vital Signs Date Time Temp Pulse Resp B/P (MAP) Pulse Ox O2 Delivery O2 Flow Rate FiO2 02/28/21 11:41 99 Nasal Cannula 3.0 02/28/21 10:05 97.7 85 18 120/89 (99) 97.7 General: Alert, No acute distress Lungs: Other (b lat diminished bs ) Cardiovascular: S1, S2 Abdomen: Soft, Other Extremities: Other (Edema has diminished) Skin: Warm Labs Laboratory Tests Test 02/26/21 16:26 02/26/21 21:08 02/26/21 21:11 02/27/21 03:30 Glucose (Fingerstick) 102 mg/dL (70-99) 437 mg/dL (70-99) 480 mg/dL (70-99) White Blood Count 13.3 x10^3/uL (4.0-11.0) Red Blood Count 5.67 x10^6/uL (4.30-5.70) Hemoglobin 13.4 g/dL (13.0-17.5) Hematocrit 42.8 % (39.0-53.0) Mean Corpuscular Volume 76 fL (79-100) Mean Corpuscular Hemoglobin 24 pg (25-35) Mean Corpuscular Hemoglobin Concent 31 g/dL (31-37) Red Cell Distribution Width 18.2 % (11.5-14.5) Platelet Count 228 x10^3/uL (140-400) Neutrophils (%) (Auto) 75 % (31-73) Lymphocytes (%) (Auto) 8 % (24-48) Monocytes (%) (Auto) 17 % (0-9) Eosinophils (%) (Auto) 0 % (0-3) Basophils (%) (Auto) 0 % (0-3) Neutrophils # (Auto) 10.0 x10^3/uL (1.8-7.7) Lymphocytes # (Auto) 1.0 x10^3/uL (1.0-4.8) Monocytes # (Auto) 2.2 x10^3/uL (0.0-1.1) Eosinophils # (Auto) 0.0 x10^3/uL (0.0-0.7) Basophils # (Auto) 0.0 x10^3/uL (0.0-0.2) Sodium Level 139 mmol/L (136-145) Potassium Level 3.3 mmol/L (3.5-5.1) Chloride Level 96 mmol/L (98-107) Carbon Dioxide Level 41 mmol/L (21-32) Anion Gap 2 (6-14) Blood Urea Nitrogen 35 mg/dL (8-26) Creatinine 1.4 mg/dL (0.7-1.3) Estimated GFR (Cockcroft-Gault) 60.3 Glucose Level 245 mg/dL (70-99) Calcium Level 8.7 mg/dL (8.5-10.1) Test 02/27/21 17:01 02/27/21 20:42 02/28/21 02:32 02/28/21 02:44 Glucose (Fingerstick) 223 mg/dL (70-99) 351 mg/dL (70-99) 51 mg/dL (70-99) 47 mg/dL (70-99) Test 02/28/21 02:54 02/28/21 04:15 02/28/21 08:31 02/28/21 09:20 Glucose (Fingerstick) 176 mg/dL (70-99) 202 mg/dL (70-99) 277 mg/dL (70-99) White Blood Count 15.3 x10^3/uL (4.0-11.0) Red Blood Count 5.70 x10^6/uL (4.30-5.70) Hemoglobin 13.5 g/dL (13.0-17.5) Hematocrit 43.1 % (39.0-53.0) Mean Corpuscular Volume 76 fL (79-100) Mean Corpuscular Hemoglobin 24 pg (25-35) Mean Corpuscular Hemoglobin Concent 31 g/dL (31-37) Red Cell Distribution Width 18.4 % (11.5-14.5) Platelet Count 239 x10^3/uL (140-400) Neutrophils (%) (Auto) 70 % (31-73) Lymphocytes (%) (Auto) 14 % (24-48) Monocytes (%) (Auto) 15 % (0-9) Eosinophils (%) (Auto) 0 % (0-3) Basophils (%) (Auto) 0 % (0-3) Neutrophils # (Auto) 10.7 x10^3/uL (1.8-7.7) Lymphocytes # (Auto) 2.2 x10^3/uL (1.0-4.8) Monocytes # (Auto) 2.4 x10^3/uL (0.0-1.1) Eosinophils # (Auto) 0.0 x10^3/uL (0.0-0.7) Basophils # (Auto) 0.0 x10^3/uL (0.0-0.2) Sodium Level 139 mmol/L (136-145) Potassium Level 2.8 mmol/L (3.5-5.1) Chloride Level 91 mmol/L (98-107) Carbon Dioxide Level 43 mmol/L (21-32) Anion Gap 5 (6-14) Blood Urea Nitrogen 30 mg/dL (8-26) Creatinine 1.3 mg/dL (0.7-1.3) Estimated GFR (Cockcroft-Gault) 65.7 Glucose Level 105 mg/dL (70-99) Calcium Level 8.9 mg/dL (8.5-10.1) Magnesium Level 2.5 mg/dL (1.8-2.4) Test 02/28/21 11:31 Glucose (Fingerstick) 200 mg/dL (70-99) Laboratory Tests Test 02/27/21 17:01 02/27/21 20:42 02/28/21 02:32 02/28/21 02:44 Glucose (Fingerstick) 223 mg/dL (70-99) 351 mg/dL (70-99) 51 mg/dL (70-99) 47 mg/dL (70-99) Test 02/28/21 02:54 02/28/21 04:15 02/28/21 08:31 02/28/21 09:20 Glucose (Fingerstick) 176 mg/dL (70-99) 202 mg/dL (70-99) 277 mg/dL (70-99) White Blood Count 15.3 x10^3/uL (4.0-11.0) Red Blood Count 5.70 x10^6/uL (4.30-5.70) Hemoglobin 13.5 g/dL (13.0-17.5) Hematocrit 43.1 % (39.0-53.0) Mean Corpuscular Volume 76 fL (79-100) Mean Corpuscular Hemoglobin 24 pg (25-35) Mean Corpuscular Hemoglobin Concent 31 g/dL (31-37) Red Cell Distribution Width 18.4 % (11.5-14.5) Platelet Count 239 x10^3/uL (140-400) Neutrophils (%) (Auto) 70 % (31-73) Lymphocytes (%) (Auto) 14 % (24-48) Monocytes (%) (Auto) 15 % (0-9) Eosinophils (%) (Auto) 0 % (0-3) Basophils (%) (Auto) 0 % (0-3) Neutrophils # (Auto) 10.7 x10^3/uL (1.8-7.7) Lymphocytes # (Auto) 2.2 x10^3/uL (1.0-4.8) Monocytes # (Auto) 2.4 x10^3/uL (0.0-1.1) Eosinophils # (Auto) 0.0 x10^3/uL (0.0-0.7) Basophils # (Auto) 0.0 x10^3/uL (0.0-0.2) Sodium Level 139 mmol/L (136-145) Potassium Level 2.8 mmol/L (3.5-5.1) Chloride Level 91 mmol/L (98-107) Carbon Dioxide Level 43 mmol/L (21-32) Anion Gap 5 (6-14) Blood Urea Nitrogen 30 mg/dL (8-26) Creatinine 1.3 mg/dL (0.7-1.3) Estimated GFR (Cockcroft-Gault) 65.7 Glucose Level 105 mg/dL (70-99) Calcium Level 8.9 mg/dL (8.5-10.1) Magnesium Level 2.5 mg/dL (1.8-2.4) Test 02/28/21 11:31 Glucose (Fingerstick) 200 mg/dL (70-99) Medications Active Scripts Medications Dose Route/Sig Max Daily Dose Days Date Category Metformin Hcl 500 Mg Tablet 500 Mg PO BIDWMEALS 02/20/21 Reported Glipizide 5 Mg Tablet 2.5 Mg PO BID 02/20/21 Reported Atorvastatin Calcium 40 Mg Tablet 1 Tab PO DAILY 02/20/21 Reported Furosemide 40 Mg Tablet 1 Tab PO DAILY 02/20/21 Reported Benicar (Olmesartan Medoxomil) 40 Mg Tablet 1 Tab PO DAILY 30 02/20/21 Reported Amlodipine Besylate 10 Mg Tablet 10 Mg PO DAILY 02/20/21 Reported Symbicort 160-4.5 Mcg Inhaler (Budesonide/Formoterol Fumarate) 10.2 Gm Hfa.aer.ad 2 Puff IH BID 02/20/[address] chest reviewed. Moderate right lower lobe pleural effusion. Impression . Acute hypoxemic respiratory failure multifactorial Acute on chronic diastolic heart failure Acute exacerbation COPD Abnormal CT chest with moderate right lower lobe pleural effusion. Likely secondary to cardiomyopathy. Cardiomyopathy ejection fraction 40-% A. fib with rapid ventricular response Coronary artery disease with previous PCI Tobacco dependent CT angiogram revealed no evidence of pulmonary embolism, there was a right-sided effusion Plan . Patient feels better, Repeat chest x-ray reviewed. Still has mild to moderate right-sided pleural effusion. Not enough fluid for right thoracentesis per IR. 6-minute walk prior to discharge Outpatient polysomnogram Prednisone taper JEANNIE LANTIGUA MD Feb 28, 2021 12:41
[2021-02-28] MEDS: SACUBITRIL/VALSARTAN 24/26MG TABLET. PO SCH (20:30)
[2021-02-28] MEDS: TIMOLOL 0.5% OPHTH SOLUTION 5ML BOTTLE. OS SCH (20:31)
[2021-02-28] MEDS: DORZOLAMIDE 2% OPHTH SOLUTION 10ML BOTTLE. OD SCH (20:31)
[2021-02-28] MEDS: INSULIN GLARGINE SYRINGE. SQ SCH (21:35)
[2021-03-01] VITALS (7 sets, daily range): BP systolic 112–153; BP diastolic 67–91
[2021-03-01] MEDS: BUDESONIDE 0.5 MG/2 ML NEBU. NEB SCH ×2 (06:14→18:29)
[2021-03-01] MEDS: IPRATRPIUM/ALBUTEROL 0.5/2.5MG 3 ML NEBU. NEB SCH ×4 (06:14→18:29)
--- NOTE | 2021-03-01 07:54 | PDOC ---
[facility] PROGRESS NOTE Date of Service DOS: DATE: 03/01/21 TIME: 07:52 Chief Complaint Chief Complaint Acute hypoxic respiratory failure - COPD exacerbation with likely gram negative pneumonia complicated by acute combined systolic and diastolic CHF with afib with RVR Shortness of breath COPD with exacerbation Atrial fibrillation with rapid ventricular response Right pleural effusion Epistaxis Sepsis - due to pneumonia, resolved Community acquired pneumonia Acute on chronic systolic CHF; continuing present treatment. EF 35-40% AFIB with RVR - new onset; rate remains mildly elevated. CAD with 2013 PCI to LCx and RCA. Cardiomyopathy - ischemic and non-ischemic with Echo with LVEF 35 to 40%. Hypertension - improved Hyperlipidmeia - on statin. Continue present treatment. NAOMI - likely vasomotor nephropathy vs CKD Anemia - will check iron studies Hyperglycemia FEN - Cardiac PPX - Eliquis FULL CODE Dispo - inpatient History of Present Illness History of Present Illness Still requiring 3 L NC O2. Weak. Cr 1.3, K 3.8. No CP. No GI complaints. Instructed to elevate legs. Awaiting rehab. Meds adjusted. 02/28: Less short of breath today, still on O2, swelling improved. K 2.8, lost IV access, taking PO. S/p cardiac cath with normal biventricular filling pressures, no significant pulmonary HTN, but three vessel coronary disease, Toprol XL. Start Eliquis 5mg bid, Spironolactone 25mg daily, Jardiance 10 mg daily and Entresto 24/26 mg bid. 02/27: Glucose elevated in the 400s overnight. No clear window for IR for thoracentesis on right. He is n.p.o. for left and right heart cath today. Still requiring 2 L oxygen. With O2 saturations in the low 90s. Heart rate is better controlled in the upper 80s and low 90s on 200 mg Toprol-XL. He still very short of breath on minimal exertion. 02/26: Afebrile. Heart rate better controlled. Wore BiPAP last night still requiring 3 L nasal cannula during the day. D/w pulm to consider Thoracentesis on the right. He is afraid of bleeding Eliquis is on hold this morning will resume tonight. Discussed need for rehab and he is amenable to this was discussed with his first 02/25: Afebrile. Chest radiograph moderate right pleural effusion still in place. Swelling a little improved with compression and diuresis. Changed 150 mg Toprol-XL. Still short of breath movement. Has some epistaxis today. 02/24: WBC 13.5, CR 1.4, glucose 166. Still very swollen in bilateral LE. Still requiring 4-5L NCO2. D/w him and bedside 80mg Lasix BID IV. 02/23: Patient seen and examined. Chart reviewed. Discussed with RN to titrate his FiO2 down to 4L to maintain his oxygen saturation around 88-92%. Patient is awake and alert. NAD. Patient is responsive and asking questions. Patient is currently on 5L O2 via NC. Patient relates feeling just okay, not much better from yesterday. Patient says he has pain on the left side of his ribcage since yesterday. Glucose level was at 523 early this morning, and has gone down to 308 at 11:00am. 02/22: Patient seen and examined. Chart reviewed. Discussed with RN. Patient is awake and alert. NAD. Patient is responsive and asking questions. Patient is currently on 5L O2 via NC, which he uses during the day. At night, patient uses the BiPAP. Patient relates feeling better and breathing better. Some edema in the lower extremities bilaterally. 02/21/2021 Patient seen and examined. Discussed with RN. Chart reviewed. Patient is currently on 5L O2 via NC. Stephy ferreira was called last night. This morning, patient is alert and oriented. Head CT showed no acute hemorrhage. MRI ordered but is on hold due to a possible coil embolization at the right carotid terminus. 02/20/2021 Patient seen and examined. Chart reviewed. Discussed with RN. NPO. Patient is on BiPAP with labored breathing. Patient is awake and alert. Currently receiving IV Ampicillin/sulbactam. Developed Afib with RVR. Vitals/I&O Vitals/I&O: Vital Signs Date Time Temp Pulse Resp B/P (MAP) Pulse Ox O2 Delivery O2 Flow Rate FiO2 03/01/21 06:15 96 Nasal Cannula 3.0 03/01/21 03:35 97.5 94 22 153/67 (95) 97.5 I & O 02/28/21 02/28/21 03/01/21 15:00 23:00 07:00 Intake Total 785 ml 400 ml 260 ml Output Total 600 ml 750 ml Balance 785 ml -200 ml -490 ml Physical Exam General: Alert, Cooperative, mild distress Heart: Other (Irregular rhythm.) Lungs: Other (b lat diminished bs ) Abdomen: Normal bowel sounds Extremities: Other (1-2+ bilateral LE edema. Soreness of bilaterall LE.) Skin: No significant lesion Labs Labs: Laboratory Tests Test 02/28/21 08:31 02/28/21 09:20 02/28/21 11:31 02/28/21 17:07 Glucose (Fingerstick) 202 mg/dL (70-99) 277 mg/dL (70-99) 200 mg/dL (70-99) 199 mg/dL (70-99) Test 02/28/21 20:45 Glucose (Fingerstick) 408 mg/dL (70-99) Assessment and Plan Assessmemt and Plan Problems Medical Problems: (1) Atrial fibrillation with rapid ventricular response Status: Acute (2) Community acquired pneumonia Status: Acute (3) COPD with exacerbation Status: Acute (4) Person under investigation for COVID-19 Status: Acute (5) Sepsis with acute hypoxic respiratory failure Status: Acute Comment Review of Relevant I have reviewed the following items nurys (where applicable) has been applied. Medications: Current Medications Medications (Trade) Dose Ordered Sig/Rajinder Route PRN Reason Start Time Stop Time Status Last Admin Dose Admin Sacubitril/ Valsartan (Entresto 24 Mg-26 Mg) 1 tab BID PO 02/28/21 21:00 02/28/21 20:30 Spironolactone (Aldactone) 25 mg DAILY PO 02/28/21 09:00 02/28/21 09:22 Furosemide (Lasix) 40 mg DAILY PO 02/28/21 09:00 02/28/21 09:23 Potassium Chloride/Water 100 ml @ 100 mls/hr Q1H IV 02/28/21 12:00 02/28/21 13:17 DC 02/28/21 12:25 Justifications for Admission Other Justification MAT ORTIZ MD Mar 01, 2021 07:54
[2021-03-01] MEDS: METOPROLOL SUCC 24HR ER 50 MG TAB.ER.24H. PO SCH (09:20)
[2021-03-01] MEDS: predniSONE 20 MG TABLET PO SCH (09:20)
[2021-03-01] MEDS: FUROSEMIDE 40 MG TABLET. PO SCH (09:20)
[2021-03-01] MEDS: SACUBITRIL/VALSARTAN 24/26MG TABLET. PO SCH ×2 (09:21→20:53)
[2021-03-01] MEDS: SPIRONOLACTONE 25 MG TABLET PO SCH (09:21)
[2021-03-01] MEDS: ASPIRIN ENTERIC COATED 81 MG TABLET.DR. PO SCH (09:21)
[2021-03-01] MEDS: SENNOSIDES/DOCUSATE 8.6/50MG TABLET. PO SCH ×2 (09:21→20:55)
[2021-03-01] MEDS: APIXABAN 5 MG TABLET. PO SCH ×2 (09:21→20:53)
[2021-03-01] MEDS: INSULIN LISPRO 300 UNITS/3 ML VIAL. SQ SCH ×6 (09:26→18:16)
[2021-03-01 09:35] LABS: CALCIUM 8.7 mg/dL (8.5-10.1); CREATININE 1.2 mg/dL (0.7-1.3); MAGNESIUM 2.2 mg/dL (1.8-2.4); POTASSIUM 3.8 mmol/L (3.5-5.1)
--- NOTE | 2021-03-01 14:51 | PDOC ---
PROGRESS NOTES Date of Service: DATE: 03/01/21 TIME: 14:48 Subjective Subjective Feeling better. Dyspnea improved. Denied any chest pain. Objective Objective Vital Signs Date Time Temp Pulse Resp B/P (MAP) Pulse Ox O2 Delivery O2 Flow Rate FiO2 03/01/21 11:26 97 Nasal Cannula 2.0 03/01/21 11:00 97.4 114 18 144/68 (93) 97.4 Intake and Output 03/01/21 07:00 Intake Total 1445 ml Output Total 1350 ml Balance 95 ml Intake Oral 1420 ml IV Total 25 ml Output Urine Total 1350 ml # Bowel Movements 2 Physical Exam Abdomen: Normal bowel sounds Heart: Other (Irregular rhythm.) Extremities: Other (1-2+ bilateral LE edema. Soreness of bilaterall LE.) General: Alert, Cooperative, mild distress HEENT: Atraumatic Lungs: Other (Mildly decreased breath sounds) Neuro: Normal speech, Sensation intact Psych/Mental Status: Mental status NL, Mood NL Skin: No significant lesion Assessment Assessment 1. Acute respiratory failure, multifactorial. 2. Acute on chronic systolic CHF; better compensated, continue present treatment. Normal BiV pressures and CO 3. AFIB with RVR; rate controlled. Continue Eliquis for stroke prophylaxis and consider outpatient cardioversion. 4. CAD: past PCI to LCx and RCA. C revelaed 3VD as noted below. No intervention LCx is a moderate caliber non-dominant vessel with a proxmial to mid diffuse 40-50% stenosis. OM1 is a small caliber vessel a patent proximal stent and a mid 90% stenosis. RCA is a moderate caliber vessel with an ostial 100% occlusion at previous stents. The distal vessel is seen to fill via left to right collaterals. 5. Atypical CP: none further 6. Cardiomyopathy: Echo with LVEF 35 to 40%. 7. Hypertension; controlled 8. Hyperlipidmeia; statin 9. NAOMI; better 10. Epistaxis; better 11. Hypokalemia 12. DM2 with hypoglycemia: on metformin and glyburide at home Plan Plan of Care Problems Medical Problems: (1) Atrial fibrillation with rapid ventricular response Status: Acute (2) Community acquired pneumonia Status: Acute (3) COPD with exacerbation Status: Acute (4) Person under investigation for COVID-19 Status: Acute (5) Sepsis with acute hypoxic respiratory failure Status: Acute Comment Review of Relevant I have reviewed the following items nurys (where applicable) has been applied. Labs Laboratory Tests Test 02/28/21 17:07 02/28/21 20:45 03/01/21 08:00 03/01/21 08:55 Glucose (Fingerstick) 199 mg/dL (70-99) 408 mg/dL (70-99) 274 mg/dL (70-99) Sodium Level 137 mmol/L (136-145) Potassium Level 3.8 mmol/L (3.5-5.1) Chloride Level 94 mmol/L (98-107) Carbon Dioxide Level 41 mmol/L (21-32) Anion Gap 2 (6-14) Blood Urea Nitrogen 23 mg/dL (8-26) Creatinine 1.2 mg/dL (0.7-1.3) Estimated GFR (Cockcroft-Gault) 72.0 Glucose Level 237 mg/dL (70-99) Calcium Level 8.7 mg/dL (8.5-10.1) Magnesium Level 2.2 mg/dL (1.8-2.4) Test 03/01/21 12:17 Glucose (Fingerstick) 295 mg/dL (70-99) Microbiology 02/19/21 Blood Culture - Final, Complete NO GROWTH AFTER 5 DAYS Medications Current Medications Sacubitril/ Valsartan (Entresto 24 Mg-26 Mg) 1 tab BID PO Last administered on 03/01/21at 09:21; Start 02/28/21 at 21:00 Vitals/I & O Vital Sign - Last 24 Hours 02/28/21 02/28/21 02/28/21 02/28/21 15:49 19:20 20:00 20:30 Temp 98.0 98.0 Pulse 103 103 Resp 20 B/P (MAP) 134/75 (94) 134/75 Pulse Ox 99 94 O2 Delivery Nasal Cannula Nasal Cannula Nasal Cannula O2 Flow Rate 3.0 2.0 2.0 02/28/21 02/28/21 02/28/21 03/01/21 20:31 21:01 23:10 03:35 Temp 97.8 97.5 97.8 97.5 Pulse 101 94 Resp 21 22 B/P (MAP) 127/94 (105) 153/67 (95) Pulse Ox 94 97 96 O2 Delivery Nasal Cannula Nasal Cannula Nasal Cannula Nasal Cannula O2 Flow Rate 2.0 2.0 2.0 2.0 03/01/21 03/01/21 03/01/21 03/01/21 06:15 07:00 08:00 09:20 Temp 98.6 98.6 Pulse 93 94 Resp 18 B/P (MAP) 135/71 (92) 153/67 Pulse Ox 96 97 O2 Delivery Nasal Cannula Nasal Cannula Nasal Cannula O2 Flow Rate 3.0 2.0 2.0 03/01/21 03/01/21 03/01/21 09:21 11:00 11:26 Temp 97.4 97.4 Pulse 94 114 Resp 18 B/P (MAP) 153/67 144/68 (93) Pulse Ox 95 97 O2 Delivery Nasal Cannula Nasal Cannula O2 Flow Rate 2.0 2.0 Intake and Output 02/28/21 02/28/21 03/01/21 15:00 23:00 07:00 Intake Total 785 ml 400 ml 260 ml Output Total 600 ml 750 ml Balance 785 ml -200 ml -490 ml ASYA PINA MD Mar 01, 2021 14:51
[2021-03-01] MEDS ORDERED: FUROSEMIDE 40 MG/4 ML VIAL. IVP ONE (15:00)
--- NOTE | 2021-03-01 15:16 | NUR ---
NO PIV ACCESS TO ADMINISTER IV LASIX. PATIENT REFUSES TO NURSING STAFF FOR A PIV ACCESS.
[2021-03-01] MEDS ORDERED: FUROSEMIDE 40 MG TABLET. PO ONE (16:30)
[2021-03-01] MEDS: INSULIN GLARGINE SYRINGE. SQ SCH (20:54)
[2021-03-01] MEDS: TIMOLOL 0.5% OPHTH SOLUTION 5ML BOTTLE. OS SCH (20:55)
[2021-03-01] MEDS: DORZOLAMIDE 2% OPHTH SOLUTION 10ML BOTTLE. OD SCH (20:55)
[2021-03-02 03:52] VITALS: BP 121/73
[2021-03-02 07:00] VITALS: BP 118/95
[2021-03-02] MEDS: BUDESONIDE 0.5 MG/2 ML NEBU. NEB SCH ×2 (08:00→18:12)
[2021-03-02] MEDS: IPRATRPIUM/ALBUTEROL 0.5/2.5MG 3 ML NEBU. NEB SCH ×4 (08:00→18:12)
[2021-03-02] MEDS: ASPIRIN ENTERIC COATED 81 MG TABLET.DR. PO SCH (09:13)
[2021-03-02] MEDS: METOPROLOL SUCC 24HR ER 50 MG TAB.ER.24H. PO SCH (09:13)
[2021-03-02] MEDS: ATORVASTATIN CALCIUM 40 MG TABLET. PO SCH (09:14)
[2021-03-02] MEDS: predniSONE 20 MG TABLET PO SCH (09:14)
[2021-03-02] MEDS: FUROSEMIDE 40 MG TABLET. PO SCH (09:14)
[2021-03-02] MEDS: SENNOSIDES/DOCUSATE 8.6/50MG TABLET. PO SCH ×2 (09:14→20:57)
[2021-03-02] MEDS: SPIRONOLACTONE 25 MG TABLET PO SCH (09:14)
[2021-03-02] MEDS: APIXABAN 5 MG TABLET. PO SCH ×2 (09:14→20:57)
[2021-03-02] MEDS: SACUBITRIL/VALSARTAN 24/26MG TABLET. PO SCH ×2 (09:15→20:58)
[2021-03-02] MEDS: INSULIN LISPRO 300 UNITS/3 ML VIAL. SQ SCH ×6 (09:20→18:13)
--- NOTE | 2021-03-02 10:59 | PDOC ---
[facility] PROGRESS NOTE Date of Service DOS: DATE: 03/02/21 TIME: 10:52 Chief Complaint Chief Complaint Acute hypoxic respiratory failure - COPD exacerbation with likely gram negative pneumonia complicated by acute combined systolic and diastolic CHF with afib with RVR Shortness of breath COPD with exacerbation Atrial fibrillation with rapid ventricular response Right pleural effusion Epistaxis Sepsis - due to pneumonia, resolved Community acquired pneumonia Acute on chronic systolic CHF; continuing present treatment. EF 35-40% AFIB with RVR - new onset; rate remains mildly elevated. CAD with 2013 PCI to LCx and RCA. Cardiomyopathy - ischemic and non-ischemic with Echo with LVEF 35 to 40%. Hypertension - improved Hyperlipidmeia - on statin. Continue present treatment. NAOMI - likely vasomotor nephropathy vs CKD Anemia - will check iron studies Hyperglycemia FEN - Cardiac PPX - Eliquis FULL CODE Dispo - inpatient History of Present Illness History of Present Illness 03/02: Afebrile, currently breathing on 2 L nasal cannula. S/P cardiac cath with normal biventricular filling pressures, no significant pulmonary HTN, but three vessel coronary disease. Continue Eliquis 5mg bid, spironolactone 25 mg daily, and Jardiance (will require prescription for these medications upon discharge). We will continue to diurese. Physical therapy recommending home with home health upon discharge and rolling walker. Patient is now agreeable to rehab, as he and his thinks this would benefit him. Will have PT/OT reevaluate tomorrow. If still recommend home with home health, he will need 6-minute walk prior to discharge , prednisone taper for COPD, and outpatient sleep study. 03/01: Still requiring 3 L NC O2. Weak. Cr 1.3, K 3.8. No CP. No GI complaints. Instructed to elevate legs. Awaiting rehab. Meds adjusted. 02/28: Less short of breath today, still on O2, swelling improved. K 2.8, lost IV access, taking PO. S/p cardiac cath with normal biventricular filling pressures, no significant pulmonary HTN, but three vessel coronary disease, Toprol XL. Start Eliquis 5mg bid, Spironolactone 25mg daily, Jardiance 10 mg daily and Entresto 24/26 mg bid. 02/27: Glucose elevated in the 400s overnight. No clear window for IR for thoracentesis on right. He is n.p.o. for left and right heart cath today. S till requiring 2 L oxygen. With O2 saturations in the low 90s. Heart rate is better controlled in the upper 80s and low 90s on 200 mg Toprol-XL. He still very short of breath on minimal exertion. 02/26: Afebrile. Heart rate better controlled. Wore BiPAP last night still requiring 3 L nasal cannula during the day. D/w pulm to consider Thoracentesis on the right. He is afraid of bleeding Eliquis is on hold this morning will resume tonight. Discussed need for rehab and he is amenable to this was discussed with his first 02/25: Afebrile. Chest radiograph moderate right pleural effusion still in place. Swelling a little improved with compression and diuresis. Changed 150 mg Toprol-XL. Still short of breath movement. Has some epistaxis today. 02/24: WBC 13.5, CR 1.4, glucose 166. Still very swollen in bilateral LE. Still requiring 4-5L NCO2. D/w him and bedside 80mg Lasix BID IV. 02/23: Patient seen and examined. Chart reviewed. Discussed with RN to titrate his FiO2 down to 4L to maintain his oxygen saturation around 88-92%. Patient is awake and alert. NAD. Patient is responsive and asking questions. Patient is currently on 5L O2 via NC. Patient relates feeling just okay, not much better from yesterday. Patient says he has pain on the left side of his ribcage since yesterday. Glucose level was at 523 early this morning, and has gone down to 308 at 11:00am. 02/22: Patient seen and examined. Chart reviewed. Discussed with RN. Patient is awake and alert. NAD. Patient is responsive and asking questions. Patient is currently on 5L O2 via NC, which he uses during the day. At night, patient uses the BiPAP. Patient relates feeling better and breathing better. Some edema in the lower extremities bilaterally. 02/21/2021 Patient seen and examined. Discussed with RN. Chart reviewed. Patient is currently on 5L O2 via NC. Stephy ferreira was called last night. This morning, patient is alert and oriented. Head CT showed no acute hemorrhage. MRI ordered but is on hold due to a possible coil embolization at the right carotid terminus. 02/20/2021 Patient seen and examined. Chart reviewed. Discussed with RN. NPO. Patient is on BiPAP with labored breathing. Patient is awake and alert. Currently receiving IV Ampicillin/sulbactam. Developed Afib with RVR. Vitals/I&O Vitals/I&O: Vital Signs Date Time Temp Pulse Resp B/P (MAP) Pulse Ox O2 Delivery O2 Flow Rate FiO2 03/02/21 09:15 94 118/95 03/02/21 08:03 99 Nasal Cannula 2.0 03/02/21 07:00 98.0 18 98.0 I & O 03/01/21 03/01/21 03/02/21 15:00 23:00 07:00 Intake Total 540 ml 100 ml Output Total 1050 ml 150 ml Balance 540 ml -950 ml -150 ml Physical Exam General: Alert, Cooperative, No acute distress Heart: Other (Irregular rhythm.) Lungs: Other (b lat diminished bs ) Abdomen: Normal bowel sounds Extremities: Other (1-2+ bilateral LE edema. Soreness of bilaterall LE.) Skin: No significant lesion Labs Labs: Laboratory Tests Test 03/01/21 12:17 03/01/21 17:08 03/01/21 20:17 Glucose (Fingerstick) 295 mg/dL (70-99) 247 mg/dL (70-99) 243 mg/dL (70-99) Assessment and Plan Assessmemt and Plan Problems Medical Problems: (1) Atrial fibrillation with rapid ventricular response Status: Acute (2) Community acquired pneumonia Status: Acute (3) COPD with exacerbation Status: Acute (4) Person under investigation for COVID-19 Status: Acute (5) Sepsis with acute hypoxic respiratory failure Status: Acute Comment Review of Relevant I have reviewed the following items nurys (where applicable) has been applied. Medications: Current Medications Medications (Trade) Dose Ordered Sig/Rajnider Route PRN Reason Start Time Stop Time Status Last Admin Dose Admin Furosemide (Lasix) 40 mg 1X ONCE PO 03/01/21 16:30 03/01/21 16:31 DC 03/01/21 16:11 Justifications for Admission Other Justification DEANNE RAYO MD Mar 02, 2021 10:59
[2021-03-02 11:00] VITALS: BP 147/91
--- NOTE | 2021-03-02 11:00 | PDOC ---
PULMONARY PROGRESS NOTES DATE: 03/02/21 TIME: 10:59 Subjective Not more short of air, Nasal cannula 3 L during the day. Vitals Vital Signs Date Time Temp Pulse Resp B/P (MAP) Pulse Ox O2 Delivery O2 Flow Rate FiO2 03/02/21 09:15 94 118/95 03/02/21 08:03 99 Nasal Cannula 2.0 03/02/21 07:00 98.0 18 98.0 General: Alert, No acute distress Lungs: Other (b lat diminished bs ) Cardiovascular: S1, S2 Abdomen: Soft, Other Extremities: Other (Edema has diminished) Skin: Warm Labs Laboratory Tests Test 02/28/21 11:31 02/28/21 17:07 02/28/21 20:45 03/01/21 08:00 Glucose (Fingerstick) 200 mg/dL (70-99) 199 mg/dL (70-99) 408 mg/dL (70-99) 274 mg/dL (70-99) Test 03/01/21 08:55 03/01/21 12:17 03/01/21 17:08 03/01/21 20:17 Sodium Level 137 mmol/L (136-145) Potassium Level 3.8 mmol/L (3.5-5.1) Chloride Level 94 mmol/L (98-107) Carbon Dioxide Level 41 mmol/L (21-32) Anion Gap 2 (6-14) Blood Urea Nitrogen 23 mg/dL (8-26) Creatinine 1.2 mg/dL (0.7-1.3) Estimated GFR (Cockcroft-Gault) 72.0 Glucose Level 237 mg/dL (70-99) Calcium Level 8.7 mg/dL (8.5-10.1) Magnesium Level 2.2 mg/dL (1.8-2.4) Glucose (Fingerstick) 295 mg/dL (70-99) 247 mg/dL (70-99) 243 mg/dL (70-99) Laboratory Tests Test 03/01/21 12:17 03/01/21 17:08 03/01/21 20:17 Glucose (Fingerstick) 295 mg/dL (70-99) 247 mg/dL (70-99) 243 mg/dL (70-99) Medications Active Scripts Medications Dose Route/Sig Max Daily Dose Days Date Category Metformin Hcl 500 Mg Tablet 500 Mg PO BIDWMEALS 02/20/21 Reported Glipizide 5 Mg Tablet 2.5 Mg PO BID 02/20/21 Reported Atorvastatin Calcium 40 Mg Tablet 1 Tab PO DAILY 02/20/21 Reported Furosemide 40 Mg Tablet 1 Tab PO DAILY 02/20/21 Reported Benicar (Olmesartan Medoxomil) 40 Mg Tablet 1 Tab PO DAILY 30 02/20/21 Reported Amlodipine Besylate 10 Mg Tablet 10 Mg PO DAILY 02/20/21 Reported Symbicort 160-4.5 Mcg Inhaler (Budesonide/Formoterol Fumarate) 10.2 Gm Hfa.aer.ad 2 Puff IH BID 02/20/[address] chest reviewed. Moderate right lower lobe pleural effusion. Impression . Acute hypoxemic respiratory failure multifactorial Acute on chronic diastolic heart failure Acute exacerbation COPD Abnormal CT chest with moderate right lower lobe pleural effusion. Likely secondary to cardiomyopathy. Cardiomyopathy ejection fraction 40-% A. fib with rapid ventricular response Coronary artery disease with previous PCI Tobacco dependent CT angiogram revealed no evidence of pulmonary embolism, there was a right-sided effusion Plan . Patient feels better, Repeat chest x-ray reviewed. Still has mild to moderate right-sided pleural effusion. Not enough fluid for right thoracentesis per IR. Agree with plans for discharge to rehab in a.m. Outpatient polysomnogram Prednisone taper JEANNIE LANTIGUA MD Mar 02, 2021 10:59
--- NOTE | 2021-03-02 12:13 | PDOC ---
PROGRESS NOTES Date of Service: DATE: 03/02/21 TIME: 12:12 Subjective Subjective Feeling better. Dyspnea improved. Continues to complain of edema. Objective Objective Vital Signs Date Time Temp Pulse Resp B/P (MAP) Pulse Ox O2 Delivery O2 Flow Rate FiO2 03/02/21 11:22 99 Nasal Cannula 2.0 03/02/21 09:15 94 118/95 03/02/21 07:00 98.0 18 98.0 Intake and Output 03/02/21 07:00 Intake Total 640 ml Output Total 1200 ml Balance -560 ml Intake Oral 640 ml Output Urine Total 1200 ml # Voids 1 # Bowel Movements 1 Physical Exam Abdomen: Normal bowel sounds Heart: Other (Irregular rhythm.) Extremities: Other (1-2+ bilateral LE edema. Soreness of bilaterall LE.) General: Alert, Cooperative, No acute distress HEENT: Atraumatic Lungs: Other (Mildly decreased breath sounds) Neuro: Normal speech, Sensation intact Psych/Mental Status: Mental status NL, Mood NL Skin: No significant lesion Assessment Assessment 1. Acute respiratory failure, multifactorial. 2. Acute on chronic systolic CHF; better compensated with diuresis. Continue present treatment. Normal BiV pressures and CO 3. AFIB with RVR; rate controlled. Continue Eliquis for stroke prophylaxis and consider outpatient cardioversion. 4. CAD: past PCI to LCx and RCA. [facility] revelaed 3VD as noted below. No intervention LCx is a moderate caliber non-dominant vessel with a proxmial to mid diffuse 40-50% stenosis. OM1 is a small caliber vessel a patent proximal stent and a mid 90% stenosis. RCA is a moderate caliber vessel with an ostial 100% occlusion at previous stents. The distal vessel is seen to fill via left to right collaterals. 5. Atypical CP: none further 6. Cardiomyopathy: Echo with LVEF 35 to 40%. 7. Hypertension; controlled 8. Hyperlipidmeia; statin 9. NAOMI; better 10. Epistaxis; better 11. Hypokalemia 12. DM2 with hypoglycemia: on metformin and glyburide at home Plan Plan of Care Problems Medical Problems: (1) Atrial fibrillation with rapid ventricular response Status: Acute (2) Community acquired pneumonia Status: Acute (3) COPD with exacerbation Status: Acute (4) Person under investigation for COVID-19 Status: Acute (5) Sepsis with acute hypoxic respiratory failure Status: Acute Comment Review of Relevant I have reviewed the following items nurys (where applicable) has been applied. Labs Laboratory Tests Test 03/01/21 12:17 03/01/21 17:08 03/01/21 20:17 Glucose (Fingerstick) 295 mg/dL (70-99) 247 mg/dL (70-99) 243 mg/dL (70-99) Microbiology 02/19/21 Blood Culture - Final, Complete NO GROWTH AFTER 5 DAYS Medications Current Medications Furosemide (Lasix) 40 mg 1X ONCE IVP ; Start 03/01/21 at 15:00; Stop 03/01/21 at 15:01; Status DC Furosemide (Lasix) 40 mg 1X ONCE PO Last administered on 03/01/21at 16:11; Start 03/01/21 at 16:30; Stop 03/01/21 at 16:31; Status DC Prednisone (Prednisone) 20 mg DAILY PO ; Start 03/03/21 at 09:00 Vitals/I & O Vital Sign - Last 24 Hours 03/01/21 03/01/21 03/01/21 03/01/21 15:00 15:43 18:29 18:29 Temp 99.4 99.4 Pulse 97 Resp 18 B/P (MAP) 121/75 (90) Pulse Ox 93 96 96 96 O2 Delivery Nasal Cannula Nasal Cannula Nasal Cannula Nasal Cannula O2 Flow Rate 2.0 2.0 2.0 2.0 03/01/21 03/01/21 03/01/21 03/01/21 19:10 20:00 20:53 22:25 Temp 98.2 98.0 98.2 98.0 Pulse 108 108 92 Resp 16 16 B/P (MAP) 150/82 (104) 150/82 133/91 (105) Pulse Ox 97 97 O2 Delivery Nasal Cannula Nasal Cannula Nasal Cannula O2 Flow Rate 2.0 2.0 2.0 03/01/21 03/02/21 03/02/21 03/02/21 23:30 03:52 07:00 08:01 Temp 97.8 98.2 98.0 97.8 98.2 98.0 Pulse 91 79 94 Resp 18 18 18 B/P (MAP) 112/73 (86) 121/73 (89) 118/95 (103) Pulse Ox 98 98 100 99 O2 Delivery Nasal Cannula Nasal Cannula Nasal Cannula Nasal Cannula O2 Flow Rate 3.0 3.0 3.0 2.0 03/02/21 03/02/21 03/02/21 03/02/21 08:03 09:13 09:15 11:22 Pulse 94 94 B/P (MAP) 118/95 118/95 Pulse Ox 99 99 O2 Delivery Nasal Cannula Nasal Cannula O2 Flow Rate 2.0 2.0 Intake and Output 03/01/21 03/01/21 03/02/21 15:00 23:00 07:00 Intake Total 540 ml 100 ml Output Total 1050 ml 150 ml Balance 540 ml -950 ml -150 ml ASYA PINA MD Mar 02, 2021 12:13
[2021-03-02] MEDS ORDERED: FUROSEMIDE 40 MG/4 ML VIAL. IVP ONE (12:30)
[2021-03-02 15:00] VITALS: BP 97/51
[2021-03-02 19:00] VITALS: BP 126/74
[2021-03-02] MEDS: TIMOLOL 0.5% OPHTH SOLUTION 5ML BOTTLE. OS SCH (20:56)
[2021-03-02] MEDS: ZOLPIDEM 5 MG TABLET. PO PRN (20:56)
[2021-03-02] MEDS: DORZOLAMIDE 2% OPHTH SOLUTION 10ML BOTTLE. OD SCH (20:56)
[2021-03-02] MEDS: INSULIN GLARGINE SYRINGE. SQ SCH (21:12)
[2021-03-02 22:39] VITALS: BP 130/70
[2021-03-03 02:55] VITALS: BP 138/68
[2021-03-03 07:00] VITALS: BP 141/86
[2021-03-03] MEDS: IPRATRPIUM/ALBUTEROL 0.5/2.5MG 3 ML NEBU. NEB SCH ×2 (07:22→11:49)
[2021-03-03] MEDS: BUDESONIDE 0.5 MG/2 ML NEBU. NEB SCH (07:22)
--- NOTE | 2021-03-03 07:57 | SNU/HH DC ---
DISCHARGE ORDERS DISCHARGE INFORMATION: DISCHARGE DATE: Mar 03, 2021 FINAL DIAGNOSIS Problems Medical Problems: (1) Atrial fibrillation with rapid ventricular response Status: Acute (2) Community acquired pneumonia Status: Acute (3) COPD with exacerbation Status: Acute (4) Person under investigation for COVID-19 Status: Acute (5) Sepsis with acute hypoxic respiratory failure Status: Acute CONDITION ON DISCHARGE: Stable CODE STATUS: Code Status: Full FCI: SNF STAY <30 DAYS: Yes POST DISCHARGE ORDERS: ACTIVITY ORDERS: Activity as tolerated WEIGHT BEARING STATUS: As tolerated DIET AFTER DISCHARGE: Cardiac WOUND/INCISION CARE: Keep wound/cast CDI CHECKS AFTER DISCHARGE: CHECKS AFTER DISCHARGE: Check blood press - daily, Check your Temp as needed TREATMENT/EQUIPMENT ORDERS: ADAPTIVE EQUIPMENT NEEDED: None, Walker RESPIRATORY EQUIPMENT NEEDED: Oxygen Physical Therapy For: Evalulation/Treatment Occupational Therapy For: Evaluation/Treatment DISCHARGE MEDICATIONS: Home Meds Reported Medications Metformin Hcl (METFORMIN HCL) 500 Mg Tablet, 500 MG PO BIDWMEALS for ANTI- DIABETIC, TAB 0 Refills 02/20/21 Glipizide (GLIPIZIDE) 5 Mg Tablet, 2.5 MG PO BID for , #60 TAB 3 Refills 02/20/21 Atorvastatin Calcium (ATORVASTATIN CALCIUM) 40 Mg Tablet, 1 TAB PO DAILY for , #30 TAB 5 Refills 02/20/21 Furosemide (FUROSEMIDE) 40 Mg Tablet, 1 TAB PO DAILY for , #30 TAB 5 Refills 02/20/21 Olmesartan Medoxomil (BENICAR) 40 Mg Tablet, 1 TAB PO DAILY for for 30 Days, #30 TAB 0 Refills 02/20/21 Amlodipine Besylate (AMLODIPINE BESYLATE) 10 Mg Tablet, 10 MG PO DAILY for , TAB 02/20/21 Budesonide/Formoterol Fumarate (SYMBICORT 160-4.5 MCG INHALER) 10.2 Gm Hfa.aer.ad, 2 PUFF IH BID for , #10.6 GM 3 Refills 02/20/21 MAT MELCHOR MD Mar 03, 2021 07:57
[2021-03-03] MEDS: SACUBITRIL/VALSARTAN 24/26MG TABLET. PO SCH (08:23)
[2021-03-03] MEDS: METOPROLOL SUCC 24HR ER 50 MG TAB.ER.24H. PO SCH (08:24)
[2021-03-03] MEDS: FUROSEMIDE 40 MG TABLET. PO SCH (08:25)
[2021-03-03] MEDS: SPIRONOLACTONE 25 MG TABLET PO SCH (08:25)
[2021-03-03] MEDS: APIXABAN 5 MG TABLET. PO SCH (08:25)
[2021-03-03] MEDS: ATORVASTATIN CALCIUM 40 MG TABLET. PO SCH (08:25)
[2021-03-03] MEDS: ASPIRIN ENTERIC COATED 81 MG TABLET.DR. PO SCH (08:25)
[2021-03-03] MEDS: SENNOSIDES/DOCUSATE 8.6/50MG TABLET. PO SCH (08:26)
[2021-03-03] MEDS: INSULIN LISPRO 300 UNITS/3 ML VIAL. SQ SCH ×4 (08:41→12:25)
[2021-03-03] MEDS ORDERED: predniSONE 20 MG TABLET PO SCH (09:00)
--- NOTE | 2021-03-03 09:14 | PDOC ---
PULMONARY PROGRESS NOTES DATE: 03/03/21 TIME: 09:14 Subjective Patient feels better, ready to transfer to snf unit Vitals Vital Signs Date Time Temp Pulse Resp B/P (MAP) Pulse Ox O2 Delivery O2 Flow Rate FiO2 03/03/21 08:24 99 141/86 03/03/21 07:24 97 Nasal Cannula 2.0 03/03/21 07:00 97.8 20 97.8 General: Alert, No acute distress Lungs: Other (b lat diminished bs ) Cardiovascular: S1, S2 Abdomen: Soft, Other Extremities: Other (Edema has diminished) Skin: Warm Labs Laboratory Tests Test 03/01/21 12:17 03/01/21 17:08 03/01/21 20:17 03/02/21 08:41 Glucose (Fingerstick) 295 mg/dL (70-99) 247 mg/dL (70-99) 243 mg/dL (70-99) 267 mg/dL (70-99) Test 03/02/21 13:19 03/02/21 17:27 03/02/21 19:32 03/03/21 07:47 Glucose (Fingerstick) 170 mg/dL (70-99) 155 mg/dL (70-99) 310 mg/dL (70-99) 199 mg/dL (70-99) Laboratory Tests Test 03/02/21 13:19 03/02/21 17:27 03/02/21 19:32 03/03/21 07:47 Glucose (Fingerstick) 170 mg/dL (70-99) 155 mg/dL (70-99) 310 mg/dL (70-99) 199 mg/dL (70-99) Medications Active Scripts Medications Dose Route/Sig Max Daily Dose Days Date Category Metformin Hcl 500 Mg Tablet 500 Mg PO BIDWMEALS 02/20/21 Reported Glipizide 5 Mg Tablet 2.5 Mg PO BID 02/20/21 Reported Atorvastatin Calcium 40 Mg Tablet 1 Tab PO DAILY 02/20/21 Reported Furosemide 40 Mg Tablet 1 Tab PO DAILY 02/20/21 Reported Benicar (Olmesartan Medoxomil) 40 Mg Tablet 1 Tab PO DAILY 30 02/20/21 Reported Amlodipine Besylate 10 Mg Tablet 10 Mg PO DAILY 02/20/21 Reported Symbicort 160-4.5 Mcg Inhaler (Budesonide/Formoterol Fumarate) 10.2 Gm Hfa.aer.ad 2 Puff IH BID 02/20/[address] chest reviewed. Moderate right lower lobe pleural effusion. Impression . Acute hypoxemic respiratory failure multifactorial Acute on chronic diastolic heart failure Acute exacerbation COPD Abnormal CT chest with moderate right lower lobe pleural effusion. Likely secondary to cardiomyopathy. Cardiomyopathy ejection fraction 40-% A. fib with rapid ventricular response Coronary artery disease with previous PCI Tobacco dependent CT angiogram revealed no evidence of pulmonary embolism, there was a right-sided effusion Plan . Updated 03/03 Patient feels better, ready to transfer to snf unit, follow-up in the outpatient department, outpatient polysomnogram. Patient feels better, Repeat chest x-ray reviewed. Still has mild to moderate right-sided pleural effusion. Not enough fluid for right thoracentesis per IR. Agree with plans for discharge to rehab in a.m. Outpatient polysomnogram Prednisone taper BLANCO BARNETT MD Mar 03, 2021 09:14
[2021-03-03] MEDS ORDERED: PRED-220 PO (10:29)
[2021-03-03] MEDS ORDERED: SPIR25TA PO (10:29)
[2021-03-03] MEDS ORDERED: METO50TA4 PO (10:29)
[2021-03-03] MEDS ORDERED: EMPA10TA PO (10:29)
[2021-03-03] MEDS ORDERED: PRED20TA PO (10:29)
[2021-03-03] MEDS ORDERED: SACU1TAB PO (10:29)
[2021-03-03] MEDS ORDERED: ASPI-886 PO (10:29)
[2021-03-03] MEDS ORDERED: APIX5TAB PO (10:29)
--- NOTE | 2021-03-03 10:32 | PDOC3 ---
[facility]-Discharge Summary Date of Admission: Date of Admission: Feb 19, 2021 Date of Discharge: Date of Discharge: Mar 03, 2021 Admission Diagnosis: Problems: (1) COPD with exacerbation (2) Atrial fibrillation with rapid ventricular response Consults: Consults: Pulmonary, cardiology Hospital Course: Hospital Course: Chief Complaint Chief Complaint Acute hypoxic respiratory failure - COPD exacerbation with likely gram negative pneumonia complicated by acute combined systolic and diastolic CHF with afib with RVR Shortness of breath COPD with exacerbation Atrial fibrillation with rapid ventricular response Right pleural effusion Epistaxis Sepsis - due to pneumonia, resolved Community acquired pneumonia Acute on chronic systolic CHF; continuing present treatment. EF 35-40% AFIB with RVR - new onset; rate remains mildly elevated. CAD with 2013 PCI to LCx and RCA. Cardiomyopathy - ischemic and non-ischemic with Echo with LVEF 35 to 40%. Hypertension - improved Hyperlipidmeia - on statin. Continue present treatment. NAOMI - likely vasomotor nephropathy vs CKD Anemia - will check iron studies Hyperglycemia FEN - Cardiac PPX - Eliquis FULL CODE Dispo - inpatient History of Present Illness History of Present Illness 03/03 Patient seen and evaluated at bedside. Major overnight events. No complaints this morning. Agreeable to discharge to facility today. 03/02: Afebrile, currently breathing on 2 L nasal cannula. S/P cardiac cath with normal biventricular filling pressures, no significant pulmonary HTN, but three vessel coronary disease. Continue Eliquis 5mg bid, spironolactone 25 mg daily, and Jardiance (will require prescription for these medications upon discharge). We will continue to diurese. Physical therapy recommending home with home health upon discharge and rolling walker. Patient is now agreeable to rehab, as he and his thinks this would benefit him. Will have PT/OT reevaluate tomorrow. If still recommend home with home health, he will need 6-minute walk prior to discharge , prednisone taper for COPD, and outpatient sleep study. 03/01: Still requiring 3 L NC O2. Weak. Cr 1.3, K 3.8. No CP. No GI complaints. Instructed to elevate legs. Awaiting rehab. Meds adjusted. 02/28: Less short of breath today, still on O2, swelling improved. K 2.8, lost IV access, taking PO. S/p cardiac cath with normal biventricular filling pressures, no significant pulmonary HTN, but three vessel coronary disease, Toprol XL. Start Eliquis 5mg bid, Spironolactone 25mg daily, Jardiance 10 mg daily and Entresto 24/26 mg bid. 02/27: Glucose elevated in the 400s overnight. No clear window for IR for thoracentesis on right. He is n.p.o. for left and right heart cath today. Still requiring 2 L oxygen. With O2 saturations in the low 90s. Heart rate is better controlled in the upper 80s and low 90s on 200 mg Toprol-XL. He still very short of breath on minimal exertion. 02/26: Afebrile. Heart rate better controlled. Wore BiPAP last night still requiring 3 L nasal cannula during the day. D/w pulm to consider Thoracentesis on the right. He is afraid of bleeding Eliquis is on hold this morning will resume tonight. Discussed need for rehab and he is amenable to this was discuss ed with his first 02/25: Afebrile. Chest radiograph moderate right pleural effusion still in place. Swelling a little improved with compression and diuresis. Changed 150 mg Toprol-XL. Still short of breath movement. Has some epistaxis today. 02/24: WBC 13.5, CR 1.4, glucose 166. Still very swollen in bilateral LE. Still requiring 4-5L NCO2. D/w him and bedside 80mg Lasix BID IV. 02/23: Patient seen and examined. Chart reviewed. Discussed with RN to titrate his FiO2 down to 4L to maintain his oxygen saturation around 88-92%. Patient is awake and alert. NAD. Patient is responsive and asking questions. Patient is currently on 5L O2 via NC. Patient relates feeling just okay, not much better from yesterday. Patient says he has pain on the left side of his ribcage since yesterday. Glucose level was at 523 early this morning, and has gone down to 308 at 11:00am. 02/22: Patient seen and examined. Chart reviewed. Discussed with RN. Patient is awake and alert. NAD. Patient is responsive and asking questions. Patient is currently on 5L O2 via NC, which he uses during the day. At night, patient uses the BiPAP. Patient relates feeling better and breathing better. Some edema in the lower extremities bilaterally. 02/21/2021 Patient seen and examined. Discussed with RN. Chart reviewed. Patient is currently on 5L O2 via NC. Stephy ferreira was called last night. This morning, patient is alert and oriented. Head CT showed no acute hemorrhage. MRI ordered but is on hold due to a possible coil embolization at the right carotid terminus. 02/20/2021 Patient seen and examined. Chart reviewed. Discussed with RN. NPO. Patient is on BiPAP with labored breathing. Patient is awake and alert. Currently receiving IV Ampicillin/sulbactam. Developed Afib with RVR. Disposition: Disposition/Orders: D/C to Another Facility Activity: Activity: Resume previous activity Diet: Diet: Cardiac Medications: Home Meds Active Scripts Empagliflozin (Jardiance) 10 Mg Tablet, 10 MG PO DAILY for diabetes for 90 Days, #90 TAB Prov:MAT MELCHOR MD 03/03/21 Prednisone (PREDNISONE ) 10 Mg Tablet, 1 TAB PO DAILY for copd for 3 Days, #3 TAB 0 Refills Prov:MAT MELCHOR MD 03/03/21 Prednisone (PREDNISONE) 20 Mg Tablet, 20 MG PO DAILY for copd taper for 3 Days, #3 TAB Prov:MAT MELCHOR MD 03/03/21 Aspirin (ASPIRIN EC) 81 Mg Tablet.dr, 81 MG PO DAILYWBKFT for cad for 90 Days, #90 TAB.SR Prov:MAT MELCHOR MD 03/03/21 Spironolactone (ALDACTONE) 25 Mg Tablet, 25 MG PO DAILY for edema for 90 Days, #90 TAB Prov:MAT MELCHOR MD 03/03/21 Sacubitril/Valsartan (Entresto 24 mg-26 mg Tablet) 1 Each Tablet, 1 TAB PO BID for htn for 90 Days, #180 TAB Prov:MAT MELCHOR MD 03/03/21 Metoprolol Succinate (Toprol XL) 50 Mg Tab.er.24h, 200 MG PO DAILY for cad for 90 Days, #360 TAB.SR Prov:MAT MELCHOR MD 03/03/21 Apixaban (ELIQUIS) 5 Mg Tablet, 5 MG PO BID for clot for 90 Days, #180 TAB Prov:MAT MELCHOR MD 03/03/21 Reported Medications Metformin Hcl (METFORMIN HCL) 500 Mg Tablet, 500 MG PO BIDWMEALS for ANTI- DIABETIC, TAB 0 Refills 02/20/21 Atorvastatin Calcium (ATORVASTATIN CALCIUM) 40 Mg Tablet, 1 TAB PO DAILY for , #30 TAB 5 Refills 02/20/21 Furosemide (FUROSEMIDE) 40 Mg Tablet, 1 TAB PO DAILY for , #30 TAB 5 Refills 02/20/21 Budesonide/Formoterol Fumarate (SYMBICORT 160-4.5 MCG INHALER) 10.2 Gm Hfa.aer.ad, 2 PUFF IH BID for , #10.6 GM 3 Refills 02/20/21 Discontinued Reported Medications Glipizide (GLIPIZIDE) 5 Mg Tablet, 2.5 MG PO BID for , #60 TAB 3 Refills 02/20/21 Olmesartan Medoxomil (BENICAR) 40 Mg Tablet, 1 TAB PO DAILY for for 30 Days, #30 TAB 0 Refills 02/20/21 Amlodipine Besylate (AMLODIPINE BESYLATE) 10 Mg Tablet, 10 MG PO DAILY for , TAB 02/20/21 Scheduled Apixaban (Eliquis), 5 MG PO BID Aspirin (Aspirin Ec), 81 MG PO DAILYWBKFT Atorvastatin Calcium (Atorvastatin Calcium), 1 TAB PO DAILY, (Reported) Budesonide/Formoterol Fumarate (Symbicort 160-4.5 Mcg Inhaler), 2 PUFF IH BID, (Reported) Empagliflozin (Jardiance), 10 MG PO DAILY Furosemide (Furosemide), 1 TAB PO DAILY, (Reported) Metformin Hcl (Metformin Hcl), 500 MG PO BIDWMEALS, (Reported) Metoprolol Succinate (Toprol XL), 200 MG PO DAILY Prednisone (Prednisone), 20 MG PO DAILY Prednisone (Prednisone ), 1 TAB PO DAILY Sacubitril/Valsartan (Entresto 24 mg-26 mg Tablet), 1 TAB PO BID Spironolactone (Aldactone), 25 MG PO DAILY Discontinued Medications Amlodipine Besylate (Amlodipine Besylate), 10 MG PO DAILY, (Reported) Glipizide (Glipizide), 2.5 MG PO BID, (Reported) Olmesartan Medoxomil (Benicar), 1 TAB PO DAILY, (Reported) Justicifation of Admission Dx: Justifications for Admission: Justification of Admission Dx: Yes CHF: Cardiac Arrhythmias Aspiration Pneumonia: Chronic Lung Disease Chronic Renal Failure: Encephalopathy MAT MELCHOR MD Mar 03, 2021 10:32
[2021-03-03 11:00] VITALS: BP 140/93
--- NOTE | 2021-03-03 12:00 | PDOC ---
ALFREDITO GUTIERRES WHITE [employer] CORROSION PROOFER 03/03/21 1200: CARDIO Progress Notes Date and Time Date of Service 03/03/21 Time of Evaluation 1200 Subjective Subjective: No Chest Pain, No shortness of breath, No Palpitations Vitals Vitals Vital Signs Date Time Temp Pulse Resp B/P (MAP) Pulse Ox O2 Delivery O2 Flow Rate FiO2 03/03/21 11:51 97 Nasal Cannula 2.0 03/03/21 11:00 97.9 81 20 140/93 (109) 97.9 Weight Weight [ ] Input and Output Intake and Output Intake and Output 03/03/21 07:00 Output Total 450 ml Balance -450 ml Output Urine Total 450 ml Laboratory Labs Laboratory Tests Test 03/02/21 13:19 03/02/21 17:27 03/02/21 19:32 03/03/21 07:47 Glucose (Fingerstick) 170 mg/dL (70-99) 155 mg/dL (70-99) 310 mg/dL (70-99) 199 mg/dL (70-99) Test 03/03/21 11:17 Glucose (Fingerstick) 212 mg/dL (70-99) Microbiology Micro Microbiology 02/19/21 Blood Culture - Final, Complete NO GROWTH AFTER 5 DAYS Physical Exam HEENT: Neck Supple W Full Motion Chest: Symmetric LUNGS: Other (diminished bases) Heart: irregularly irregular (off tele, heart tones irregular ) Abdomen: Soft N/T, Other (obese) Extremities: Other (2+ bilateral LE edema ) Neurology: alert, oriented, follow commands Assessment Assessment 1. Acute respiratory failure, multifactorial. 2. Acute on chronic systolic CHF; better compensated with diuresis. RHC with normal BiV pressures and CO 3. AFIB with RVR; rate controlled. Continue Eliquis for stroke prophylaxis and consider outpatient cardioversion. 4. CAD: past PCI to LCx and RCA. [facility] revelaed 3VD as noted below. No intervention LCx is a moderate caliber non-dominant vessel with a proxmial to mid diffuse 40-50% stenosis. OM1 is a small caliber vessel a patent proximal stent and a mid 90% stenosis. RCA is a moderate caliber vessel with an ostial 100% occlusion at previous stents. The distal vessel is seen to fill via left to right collaterals. 5. Ischemic cardiomyopathy: Echo with LVEF 35 to 40%. 6. Hypertension; controlled 7. Hyperlipidmeia; statin 8. NAOMI; better 9. Epistaxis; resolved 10. DM2 with hypoglycemia: on metformin and glyburide at home Recommendations HF optimization with Entresto, Toprol, Aldactone. Start upon discharge Continue Toprol for rate control Eliquis for stroke prevention Consider outpatient CV if patient remains in AFIB Secondary prevention Supportive care Consider initiation of Jardiance on an outpatient basis Followup in our office with Dr. Mendez in 2 weeks as scheduled with outpatient labs prior Justicifation of Admission Dx: Justifications for Admission: Justification of Admission Dx: Yes CHF: Cardiac Arrhythmias Aspiration Pneumonia: Chronic Lung Disease Chronic Renal Failure: Encephalopathy LES MENDEZ MD 03/03/21 1822: CARDIO Progress Notes Plan Plan Patient seen and examined. Agree with above nurse practitioner note. Patient continues to have 2+ lower extremity edema but this does not appear to be due to right heart failure as he had normal filling pressures on his heart catheterization. This appears to be mostly venous insufficiency and partially some lymphedema. Continue aggressive compression therapy. The patient has been adequately diuresed. Continue to maintain euvolemia. Supportive care for now. We will plan for close outpatient follow-up in 2 to 4 weeks. ALFREDITO GUTIERRES APRN Mar 03, 2021 12:00 LES MENDEZ MD Mar 03, 2021 18:22
--- NOTE | 2021-03-03 12:25 | NUR ---
SW following. Discussed with RN, discharge orders faxed to [facility]. Transportation arranged for 1445. RN notified.
[2021-03-09] MEDS ORDERED: METO-247 PO (11:29)
== END 2021-03-03 15:20 | DRG 871 ==
LOC: ER 16:20 → 6 SOUTH 16:52 → 5 SOUTH 03-01 23:53
PROVIDERS: ADMIT Student in an Organized Health Care Education/Training Program; ATTEND Student in an Organized Health Care Education/Training Program
PROC: 5A09457 Assistance with Respiratory Ventilation, 24-96 Consecutive Hours, Continuous Positive Airway Pressure (ICD-10-PCS; 2021-02-19)
PROC: 5A09357 Assistance with Respiratory Ventilation, Less than 24 Consecutive Hours, Continuous Positive Airway Pressure (ICD-10-PCS; 2021-02-21)
PROC: 5A0935A Assistance with Respiratory Ventilation, Less than 24 Consecutive Hours, High Flow/Velocity Cannula (ICD-10-PCS; 2021-02-21)
PROC: 5A09357 Assistance with Respiratory Ventilation, Less than 24 Consecutive Hours, Continuous Positive Airway Pressure (ICD-10-PCS; principal; 2021-02-22)
PROC: 5A0935A Assistance with Respiratory Ventilation, Less than 24 Consecutive Hours, High Flow/Velocity Cannula (ICD-10-PCS; 2021-02-23)
PROC: 5A0935A Assistance with Respiratory Ventilation, Less than 24 Consecutive Hours, High Flow/Velocity Cannula (ICD-10-PCS; 2021-02-23)
PROC: 5A0935A Assistance with Respiratory Ventilation, Less than 24 Consecutive Hours, High Flow/Velocity Cannula (ICD-10-PCS; 2021-02-24)
PROC: 5A0935A Assistance with Respiratory Ventilation, Less than 24 Consecutive Hours, High Flow/Velocity Cannula (ICD-10-PCS; 2021-02-25)
PROC: 4A023N8 Measurement of Cardiac Sampling and Pressure, Bilateral, Percutaneous Approach (ICD-10-PCS; 2021-02-27)
PROC: B2111ZZ Fluoroscopy of Multiple Coronary Arteries using Low Osmolar Contrast (ICD-10-PCS; 2021-02-27)
DX: A41.89 Other specified sepsis (principal); I50.43 Acute on chronic combined systolic (congestive) and diastolic (congestive) heart failure; G93.41 Metabolic encephalopathy; J96.21 Acute and chronic respiratory failure with hypoxia; J15.6 Pneumonia due to other Gram-negative bacteria; N17.0 Acute kidney failure with tubular necrosis; I13.0 Hypertensive heart and chronic kidney disease with heart failure and stage 1 through stage 4 chronic kidney disease, or unspecified chronic kidney disease; R47.01 Aphasia; D64.9 Anemia, unspecified; E11.22 Type 2 diabetes mellitus with diabetic chronic kidney disease; E11.649 Type 2 diabetes mellitus with hypoglycemia without coma; E11.65 Type 2 diabetes mellitus with hyperglycemia; E78.5 Hyperlipidemia, unspecified; E87.6 Hypokalemia; F17.210 Nicotine dependence, cigarettes, uncomplicated; H40.9 Unspecified glaucoma; I25.10 Atherosclerotic heart disease of native coronary artery without angina pectoris; I25.5 Ischemic cardiomyopathy; I25.82 Chronic total occlusion of coronary artery; I48.91 Unspecified atrial fibrillation; J43.9 Emphysema, unspecified; N18.9 Chronic kidney disease, unspecified; Z20.822 Contact with and (suspected) exposure to COVID-19; Z79.01 Long term (current) use of anticoagulants; Z79.84 Long term (current) use of oral hypoglycemic drugs; Z79.899 Other long term (current) drug therapy; Z82.49 Family history of ischemic heart disease and other diseases of the circulatory system; Z86.73 Personal history of transient ischemic attack (TIA), and cerebral infarction without residual deficits; Z86.79 Personal history of other diseases of the circulatory system; Z95.5 Presence of coronary angioplasty implant and graft; Z88.8 Allergy status to other drugs, medicaments and biological substances
CPT/HCPCS: 36415; 36600; 70450; 71045; 71275; 76937; 80048; 80061; 80076; 82550; 82805; 82962; 83036; 83540; 83550; 83605; 83735; 83880; 84443; 84484; 85007; 85025; 85379; 85610; 85730; 87040; 87426; 87804; 93005; 93306; 93460; 93882; 94640; 94660; 94760; 96365; 96375; 99152; 99153; C1773; C1894; J0295; J0456; J0696; J1100; J1160; J1644; J1650; J1815; J1940; J2250; J2270; J2920; J3010; J3480; J3490; J7050; J7512; Q9967; U0003; U0005; 92610-GN; 97110-GP; 97116-GP; 97530-GP; 97535-GO; 99291-25; G0378; J7030; J7626